=== PATIENT | female | born 1965 | race Caucasian/White ===

== ENCOUNTER → 2017-06-15 15:23 | Outpatient (CLI) | payer OTHER, SELFPAY ==
[2017-06-15 18:03] LABS: Absolute Lymphocyte Count 1.62 X10^3/ul (0.83-4.51); Absolute Neutrophil Count 4.8 X10^3/uL (2.0-7.7); Basophil# 0.05 X10^3/uL; Basophil% 0.7 % (0-1); Eosinophils% 4.1 % (0-5); Hemoglobin 13.3 g/dl (12.0-15.0); Lymphocyte # 1.62 X10^3/ul (4.0); Lymphocyte % 22.3 % (19-41); Mean Corp Hgb Conc 32.4 g/gl (32-36); Mean Corpuscular Volume 89.5 fL (81-99); Mean Platelet Vol. 10.2 fl (6.2-12.0); Monocyte# 0.49 X10^3/uL; Monocyte% 6.7 % (0-10); Neutrophil # 4.79 X10^3/uL (2.7-7.7); Neutrophil % 66.1 % (47-70); Platelet Count 293 K/mm3 (150-450); RBC Distribution Width CV 14.1 % (11.6-14.6); Red Blood Count 4.58 M/mm3 (4.2-5.4); White Blood Count 7.3 K/mm3 (4.4-11.0)
[2017-06-15 18:05] LABS: POSITIVE COUNT NO; POSITIVE DIFFERENTIAL NO; POSITIVE MORPHOLOGY NO
[2017-06-15 18:22] LABS: AST(SGOT) 40 U/L (15-37); Alanine Aminotransfer ALT/SGPT 70 U/L (13-56); Albumin, Serum 3.7 g/dL (3.2-5.0); Alkaline Phosphatase 95 U/L (45-117); Anion Gap 7 (5-15); BUN 21 mg/dL (7-18); BUN/Creat Ratio 24.5 RATIO (10-20); Calcium,Total 8.8 mg/dL (8.5-10.1); Chloride 103 mmol/L (98-107); Creatinine, Serum 0.86 mg/dL (0.55-1.02); EST Glomerular Filtration Rate 73 mL/min (>60); Est Glom Filt Rate - Afr Amer 89 mL/min (>60); Globulin 3.8 g/dL (2.2-4.2); Glucose 97 mg/dL (74-106); Potassium 3.9 mmol/L (3.5-5.1); Protein, Total 7.5 g/dL (6.4-8.2); Sodium Level 138 mmol/L (136-145)
== END ==
PROVIDERS: Family Provider Family Medicine; PCP Family Medicine; Visit Provider Internal Medicine Rheumatology
DX: M06.4 Inflammatory polyarthropathy (principal); Z79.899 Other long term (current) drug therapy; R76.8 Other specified abnormal immunological findings in serum; M15.9 Polyosteoarthritis, unspecified; M18.0 Bilateral primary osteoarthritis of first carpometacarpal joints; L40.8 Other psoriasis; M47.897 Other spondylosis, lumbosacral region; M50.30 Other cervical disc degeneration, unspecified cervical region
CPT/HCPCS: 36415; 80053; 85025

== ENCOUNTER → 2017-07-13 15:27 | Outpatient (CLI) | payer OTHER, SELFPAY ==
[2017-07-13 18:12] LABS: AST(SGOT) 42 U/L (15-37); Alanine Aminotransfer ALT/SGPT 60 U/L (13-56); Albumin, Serum 3.6 g/dL (3.2-5.0); Alkaline Phosphatase 95 U/L (45-117); Bilirubin, Direct 0.06 mg/dL (0.00-0.30); Globulin 3.5 g/dL (2.2-4.2); Protein, Total 7.1 g/dL (6.4-8.2)
== END ==
PROVIDERS: Family Provider Family Medicine; PCP Family Medicine; Visit Provider Internal Medicine Rheumatology
DX: M06.4 Inflammatory polyarthropathy (principal); Z79.899 Other long term (current) drug therapy; R76.8 Other specified abnormal immunological findings in serum; M15.9 Polyosteoarthritis, unspecified; M18.0 Bilateral primary osteoarthritis of first carpometacarpal joints; L40.8 Other psoriasis; M47.897 Other spondylosis, lumbosacral region; M50.30 Other cervical disc degeneration, unspecified cervical region
CPT/HCPCS: 36415; 80076

== ENCOUNTER → 2017-09-07 15:11 | Outpatient (CLI) | payer OTHER, SELFPAY ==
[2017-09-07 18:09] LABS: Absolute Lymphocyte Count 1.63 X10^3/ul (0.83-4.51); Absolute Neutrophil Count 4.9 X10^3/uL (2.0-7.7); Basophil# 0.05 X10^3/uL; Basophil% 0.7 % (0-1); Eosinophil# 0.24 X10^3/uL; Eosinophils% 3.2 % (0-5); Hematocrit 40.5 % (37-47); Hemoglobin 13.3 g/dl (12.0-15.0); Lymphocyte # 1.63 X10^3/ul (4.0); Mean Corp Hgb Conc 32.8 g/gl (32-36); Mean Corpuscular Hgb 29.2 pg (27.0-32.0); Mean Platelet Vol. 10.4 fl (6.2-12.0); Monocyte# 0.53 X10^3/uL; Monocyte% 7.2 % (0-10); Neutrophil # 4.93 X10^3/uL (2.7-7.7); Neutrophil % 66.6 % (47-70); Platelet Count 290 K/mm3 (150-450); RBC Distribution Width CV 14.3 % (11.6-14.6); RBC Distribution Width SD 46.1 fl (35.1-43.9); Red Blood Count 4.55 M/mm3 (4.2-5.4); White Blood Count 7.4 K/mm3 (4.4-11.0)
[2017-09-07 18:11] LABS: POSITIVE COUNT NO; POSITIVE DIFFERENTIAL NO; POSITIVE MORPHOLOGY NO
[2017-09-07 18:26] LABS: ALB/GLOB Ratio 0.9 RATIO (0.9-2.4); AST(SGOT) 31 U/L (15-37); Alanine Aminotransfer ALT/SGPT 55 U/L (13-56); Albumin, Serum 3.5 g/dL (3.2-5.0); Alkaline Phosphatase 92 U/L (45-117); Anion Gap 8 (5-15); BUN 20 mg/dL (7-18); BUN/Creat Ratio 23.1 RATIO (10-20); Chloride 106 mmol/L (98-107); Creatinine, Serum 0.87 mg/dL (0.55-1.02); EST Glomerular Filtration Rate 72 mL/min (>60); Est Glom Filt Rate - Afr Amer 88 mL/min (>60); Globulin 3.8 g/dL (2.2-4.2); Glucose 104 mg/dL (74-106); Protein, Total 7.3 g/dL (6.4-8.2); Sodium Level 140 mmol/L (136-145)
== END ==
PROVIDERS: Family Provider Family Medicine; PCP Family Medicine; Visit Provider Internal Medicine Rheumatology
DX: M06.4 Inflammatory polyarthropathy (principal); Z79.899 Other long term (current) drug therapy; R76.8 Other specified abnormal immunological findings in serum; M15.9 Polyosteoarthritis, unspecified; M18.0 Bilateral primary osteoarthritis of first carpometacarpal joints; L40.8 Other psoriasis; M47.897 Other spondylosis, lumbosacral region; M50.30 Other cervical disc degeneration, unspecified cervical region
CPT/HCPCS: 36415; 80053; 85025

== ENCOUNTER → 2017-11-30 16:22 | Outpatient (CLI) | payer OTHER, SELFPAY ==
[2017-11-30 18:05] LABS: Absolute Lymphocyte Count 1.85 X10^3/ul (0.83-4.51); Absolute Neutrophil Count 6.1 X10^3/uL (2.0-7.7); Basophil# 0.04 X10^3/uL; Basophil% 0.5 % (0-1); Eosinophil# 0.16 X10^3/uL; Eosinophils% 1.9 % (0-5); Hematocrit 41.7 % (37-47); Hemoglobin 13.4 g/dl (12.0-15.0); Lymphocyte # 1.85 X10^3/ul (4.0); Lymphocyte % 21.5 % (19-41); Mean Corp Hgb Conc 32.1 g/gl (32-36); Mean Corpuscular Hgb 28.8 pg (27.0-32.0); Mean Corpuscular Volume 89.5 fL (81-99); Mean Platelet Vol. 10.1 fl (6.2-12.0); Monocyte# 0.49 X10^3/uL; Monocyte% 5.7 % (0-10); Neutrophil # 6.07 X10^3/uL (2.7-7.7); Neutrophil % 70.3 % (47-70); Platelet Count 273 K/mm3 (150-450); RBC Distribution Width CV 14.3 % (11.6-14.6); RBC Distribution Width SD 46.2 fl (35.1-43.9); Red Blood Count 4.66 M/mm3 (4.2-5.4); White Blood Count 8.6 K/mm3 (4.4-11.0)
[2017-11-30 18:16] LABS: POSITIVE COUNT NO; POSITIVE DIFFERENTIAL NO; POSITIVE MORPHOLOGY NO
[2017-11-30 18:21] LABS: AST(SGOT) 39 U/L (15-37); Alanine Aminotransfer ALT/SGPT 51 U/L (13-56); Albumin, Serum 3.7 g/dL (3.2-5.0); Alkaline Phosphatase 89 U/L (45-117); Anion Gap 9 (5-15); BUN 14 mg/dL (7-18); BUN/Creat Ratio 15.7 RATIO (10-20); Calcium,Total 9.3 mg/dL (8.5-10.1); Chloride 105 mmol/L (98-107); Creatinine, Serum 0.89 mg/dL (0.55-1.02); EST Glomerular Filtration Rate 70 mL/min (>60); Est Glom Filt Rate - Afr Amer 85 mL/min (>60); Globulin 3.6 g/dL (2.2-4.2); Glucose 84 mg/dL (74-106); Potassium 3.8 mmol/L (3.5-5.1); Protein, Total 7.3 g/dL (6.4-8.2); Sodium Level 140 mmol/L (136-145)
== END ==
PROVIDERS: Family Provider Family Medicine; PCP Family Medicine; Visit Provider Internal Medicine Rheumatology
DX: M06.4 Inflammatory polyarthropathy (principal); M50.30 Other cervical disc degeneration, unspecified cervical region; M18.0 Bilateral primary osteoarthritis of first carpometacarpal joints; M47.897 Other spondylosis, lumbosacral region; L40.8 Other psoriasis; R76.8 Other specified abnormal immunological findings in serum; Z79.899 Other long term (current) drug therapy
CPT/HCPCS: 36415; 80053; 85025

== ENCOUNTER → 2018-03-07 16:07 | Outpatient (CLI) | payer OTHER, SELFPAY ==
[2018-03-07 17:40] LABS: Absolute Lymphocyte Count 1.78 X10^3/ul (0.83-4.51); Basophil# 0.04 X10^3/uL; Basophil% 0.5 % (0-1); Eosinophil# 0.35 X10^3/uL; Eosinophils% 4.6 % (0-5); Hematocrit 42.6 % (37-47); Hemoglobin 13.9 g/dl (12.0-15.0); Lymphocyte # 1.78 X10^3/ul (4.0); Lymphocyte % 23.3 % (19-41); Mean Corp Hgb Conc 32.6 g/gl (32-36); Mean Corpuscular Hgb 29.1 pg (27.0-32.0); Mean Corpuscular Volume 89.3 fL (81-99); Mean Platelet Vol. 10.4 fl (6.2-12.0); Monocyte# 0.52 X10^3/uL; Monocyte% 6.8 % (0-10); Neutrophil # 4.95 X10^3/uL (2.7-7.7); Neutrophil % 64.7 % (47-70); Platelet Count 283 K/mm3 (150-450); RBC Distribution Width CV 14.4 % (11.6-14.6); RBC Distribution Width SD 46.7 fl (35.1-43.9); Red Blood Count 4.77 M/mm3 (4.2-5.4); White Blood Count 7.7 K/mm3 (4.4-11.0)
[2018-03-07 17:42] LABS: POSITIVE COUNT NO; POSITIVE DIFFERENTIAL NO; POSITIVE MORPHOLOGY NO
[2018-03-07 17:52] LABS: BUN 16 mg/dL (7-18); Creatinine, Serum 0.84 mg/dL (0.55-1.02); Glucose 88 mg/dL (74-106)
[2018-03-07 17:53] LABS: ALB/GLOB Ratio 0.9 RATIO (0.9-2.4); AST(SGOT) 29 U/L (15-37); Alanine Aminotransfer ALT/SGPT 46 U/L (13-56); Albumin, Serum 3.6 g/dL (3.2-5.0); Alkaline Phosphatase 100 U/L (45-117); Anion Gap 4 (5-15); Calcium,Total 8.9 mg/dL (8.5-10.1); Chloride 103 mmol/L (98-107); EST Glomerular Filtration Rate 75 mL/min (>60); Est Glom Filt Rate - Afr Amer 90 mL/min (>60); Globulin 3.8 g/dL (2.2-4.2); Potassium 3.9 mmol/L (3.5-5.1); Protein, Total 7.4 g/dL (6.4-8.2); Sodium Level 136 mmol/L (136-145)
== END ==
PROVIDERS: Family Provider Family Medicine; PCP Family Medicine; Referring Provider Internal Medicine Rheumatology; Visit Provider Internal Medicine Rheumatology
DX: M06.4 Inflammatory polyarthropathy (principal); Z79.899 Other long term (current) drug therapy; R76.8 Other specified abnormal immunological findings in serum; M15.9 Polyosteoarthritis, unspecified; M18.0 Bilateral primary osteoarthritis of first carpometacarpal joints; L40.8 Other psoriasis; M47.897 Other spondylosis, lumbosacral region; M50.30 Other cervical disc degeneration, unspecified cervical region
CPT/HCPCS: 36415; 80053; 85025

== ENCOUNTER → 2018-06-07 15:17 | Outpatient (CLI) | payer OTHER, SELFPAY ==
[2018-06-07 17:40] LABS: Absolute Lymphocyte Count 1.84 X10^3/ul (0.83-4.51); Absolute Neutrophil Count 4.6 X10^3/uL (2.0-7.7); Basophil# 0.04 X10^3/uL; Basophil% 0.5 % (0-1); Eosinophil# 0.47 X10^3/uL; Eosinophils% 6.3 % (0-5); Hematocrit 42.3 % (37-47); Hemoglobin 13.6 g/dl (12.0-15.0); Lymphocyte # 1.84 X10^3/ul (4.0); Lymphocyte % 24.7 % (19-41); Mean Corp Hgb Conc 32.2 g/gl (32-36); Mean Corpuscular Hgb 28.8 pg (27.0-32.0); Mean Corpuscular Volume 89.6 fL (81-99); Monocyte# 0.48 X10^3/uL; Monocyte% 6.4 % (0-10); Neutrophil # 4.62 X10^3/uL (2.7-7.7); Platelet Count 275 K/mm3 (150-450); RBC Distribution Width CV 13.8 % (11.6-14.6); RBC Distribution Width SD 45.2 fl (35.1-43.9); Red Blood Count 4.72 M/mm3 (4.2-5.4); White Blood Count 7.5 K/mm3 (4.4-11.0)
[2018-06-07 17:47] LABS: POSITIVE COUNT NO; POSITIVE DIFFERENTIAL NO; POSITIVE MORPHOLOGY NO
[2018-06-07 18:07] LABS: AST(SGOT) 33 U/L (15-37); Alanine Aminotransfer ALT/SGPT 62 U/L (13-56); Albumin, Serum 3.6 g/dL (3.2-5.0); Alkaline Phosphatase 102 U/L (45-117); Anion Gap 9 (5-15); BUN 15 mg/dL (7-18); BUN/Creat Ratio 17.8 RATIO (10-20); Calcium,Total 8.7 mg/dL (8.5-10.1); Chloride 105 mmol/L (98-107); Creatinine, Serum 0.84 mg/dL (0.55-1.02); EST Glomerular Filtration Rate 74 mL/min (>60); Est Glom Filt Rate - Afr Amer 90 mL/min (>60); Globulin 3.6 g/dL (2.2-4.2); Glucose 88 mg/dL (74-106); Potassium 4.1 mmol/L (3.5-5.1); Protein, Total 7.2 g/dL (6.4-8.2); Sodium Level 140 mmol/L (136-145)
== END ==
PROVIDERS: Family Provider Family Medicine; PCP Family Medicine; Referring Provider Internal Medicine Rheumatology; Visit Provider Internal Medicine Rheumatology
DX: M06.4 Inflammatory polyarthropathy (principal); M18.0 Bilateral primary osteoarthritis of first carpometacarpal joints; L40.8 Other psoriasis; M47.897 Other spondylosis, lumbosacral region; M50.30 Other cervical disc degeneration, unspecified cervical region; R76.8 Other specified abnormal immunological findings in serum; Z79.899 Other long term (current) drug therapy
CPT/HCPCS: 36415; 80053; 85025

== ENCOUNTER → 2018-07-23 09:12 | Outpatient (CLI) | payer OTHER, SELFPAY ==
--- NOTE | 2018-07-23 09:18 | US_ITS ---
STUDY: ABDOMINAL ULTRASOUND - RIGHT UPPER QUADRANT REASON FOR VISIT: Female, 53 years old. Elevated liver enzymes TECHNIQUE: Ultrasound evaluation of the right upper quadrant was performed with real-time and static de leon-scale imaging. TECHNICAL QUALITY: Adequate. COMPARISON: Prior comparison studies are not available for review at this time. FINDINGS: Liver: The liver measures 14.9 cm. There is increased echogenicity of the liver. The bile ducts are within normal limits. There is hepatic color flow. The direction of portal flow is hepatopetal. There is no demonstrated mass lesion. Gallbladder: The patient is status post cholecystectomy. Common Bile Duct (C.B.D.): The common bile duct measures 2.6 mm. Pancreas: There is normal echogenicity of the visualized pancreas. There is no demonstrated pancreatic mass or cyst. Right Kidney: Normal size of the right kidney. The right kidney measures 10.3 cm. Normal renal cortex. The right cortex measures 1.7 cm. There is no demonstrated renal mass or cyst. There is no right hydronephrosis. US/Abdomen Limited IMPRESSION: 1. Increased echo pattern of liver is nonspecific but most commonly associated with hepatic steatosis. No hepatic masses or biliary dilation. 2. Cholecystectomy. Electronically Signed: Elvis Vo MD at 8:49 EDT , Service support ,
== END ==
PROVIDERS: Family Provider Family Medicine; PCP Family Medicine; Referring Provider Internal Medicine Rheumatology; Visit Provider Internal Medicine Rheumatology
DX: R94.5 Abnormal results of liver function studies (principal); M06.4 Inflammatory polyarthropathy; R76.8 Other specified abnormal immunological findings in serum; M18.0 Bilateral primary osteoarthritis of first carpometacarpal joints; L40.8 Other psoriasis; M47.897 Other spondylosis, lumbosacral region; M50.30 Other cervical disc degeneration, unspecified cervical region; M72.0 Palmar fascial fibromatosis [Dupuytren]; Z79.899 Other long term (current) drug therapy
CPT/HCPCS: 76705

== ENCOUNTER → 2018-08-16 | Outpatient (CLI) | payer OTHER, SELFPAY ==
[2018-08-16 17:40] LABS: Absolute Lymphocyte Count 1.63 X10^3/ul (0.83-4.51); Absolute Neutrophil Count 4.8 X10^3/uL (2.0-7.7); Basophil# 0.05 X10^3/uL; Basophil% 0.7 % (0-1); Eosinophil# 0.34 X10^3/uL; Eosinophils% 4.7 % (0-5); Hematocrit 40.2 % (37-47); Hemoglobin 13.2 g/dl (12.0-15.0); Lymphocyte # 1.63 X10^3/ul (4.0); Lymphocyte % 22.5 % (19-41); Mean Corp Hgb Conc 32.8 g/gl (32-36); Mean Corpuscular Hgb 28.8 pg (27.0-32.0); Mean Corpuscular Volume 87.8 fL (81-99); Mean Platelet Vol. 9.4 fl (6.2-12.0); Monocyte# 0.46 X10^3/uL; Monocyte% 6.3 % (0-10); Neutrophil # 4.76 X10^3/uL (2.7-7.7); Neutrophil % 65.7 % (47-70); Platelet Count 285 K/mm3 (150-450); RBC Distribution Width CV 14.1 % (11.6-14.6); RBC Distribution Width SD 44.9 fl (35.1-43.9); Red Blood Count 4.58 M/mm3 (4.2-5.4); White Blood Count 7.3 K/mm3 (4.4-11.0)
[2018-08-16 17:44] LABS: ALB/GLOB Ratio 1.1 RATIO (0.9-2.4); AST(SGOT) 34 U/L (15-37); Alanine Aminotransfer ALT/SGPT 45 U/L (13-56); Albumin, Serum 3.6 g/dL (3.2-5.0); Alkaline Phosphatase 92 U/L (45-117); Anion Gap 8 (5-15); BUN 14 mg/dL (7-18); BUN/Creat Ratio 18.3 RATIO (10-20); Calcium,Total 8.8 mg/dL (8.5-10.1); Chloride 104 mmol/L (98-107); Creatinine, Serum 0.77 mg/dL (0.55-1.02); EST Glomerular Filtration Rate 83 mL/min (>60); Est Glom Filt Rate - Afr Amer 101 mL/min (>60); Globulin 3.3 g/dL (2.2-4.2); Glucose 91 mg/dL (74-106); Potassium 4.1 mmol/L (3.5-5.1); Protein, Total 6.9 g/dL (6.4-8.2); Sodium Level 140 mmol/L (136-145)
[2018-08-16 17:52] LABS: POSITIVE COUNT NO; POSITIVE DIFFERENTIAL NO; POSITIVE MORPHOLOGY NO
== END | disposition home or self-care (01) ==
LOC: MTLAB 15:27
PROVIDERS: Family Provider Family Medicine; PCP Family Medicine; Referring Provider Internal Medicine Rheumatology; Visit Provider Internal Medicine Rheumatology
DX: M06.4 Inflammatory polyarthropathy (principal); R76.8 Other specified abnormal immunological findings in serum; M18.0 Bilateral primary osteoarthritis of first carpometacarpal joints; L40.8 Other psoriasis; M47.897 Other spondylosis, lumbosacral region; M50.30 Other cervical disc degeneration, unspecified cervical region; M72.0 Palmar fascial fibromatosis [Dupuytren]; Z79.899 Other long term (current) drug therapy
CPT/HCPCS: 36415; 80053; 85025

== ENCOUNTER → 2018-11-22 16:01 | Outpatient (CLI) | payer OTHER, SELFPAY ==
[2018-11-22 17:29] LABS: Absolute Lymphocyte Count 1.55 X10^3/uL (0.83-4.51); Absolute Neutrophil Count 5.1 X10^3/uL (2.0-7.7); Basophil# 0.04 X10^3/uL; Basophil% 0.5 % (0-1); Eosinophil# 0.19 X10^3/uL; Eosinophils% 2.6 % (0-5); Hemoglobin 13.4 g/dL (12.0-15.0); Lymphocyte # 1.55 X10^3/ul (4.0); Lymphocyte % 21.1 % (19-41); Mean Corp Hgb Conc 32.7 g/dL (32-36); Mean Corpuscular Hgb 28.7 pg (27.0-32.0); Mean Corpuscular Volume 87.8 fL (81-99); Mean Platelet Vol. 10.3 fl (6.2-12.0); Monocyte# 0.44 X10^3/uL; NRBC Flagged by Analyzer 0 % (0-5); Neutrophil # 5.09 X10^3/uL (2.7-7.7); Neutrophil % 69.5 % (47-70); Platelet Count 280 K/mm3 (150-450); RBC Distribution Width CV 14.2 % (11.6-14.6); RBC Distribution Width SD 45.1 fl (35.1-43.9); Red Blood Count 4.67 M/mm3 (4.2-5.4); White Blood Count 7.3 K/mm3 (4.4-11.0)
[2018-11-22 18:05] LABS: AST(SGOT) 42 U/L (15-37); Alanine Aminotransfer ALT/SGPT 60 U/L (13-56); Albumin, Serum 3.6 g/dL (3.2-5.0); Alkaline Phosphatase 98 U/L (45-117); Anion Gap 8 (5-15); BUN 12 mg/dL (7-18); BUN/Creat Ratio 14.3 RATIO (10-20); Calcium,Total 9.2 mg/dL (8.5-10.1); Chloride 105 mmol/L (98-107); Creatinine, Serum 0.84 mg/dL (0.55-1.02); EST Glomerular Filtration Rate 75 mL/min (>60); Est Glom Filt Rate - Afr Amer 91 mL/min (>60); Globulin 3.5 g/dL (2.2-4.2); Glucose 82 mg/dL (74-106); Potassium 3.8 mmol/L (3.5-5.1); Protein, Total 7.1 g/dL (6.4-8.2); Sodium Level 140 mmol/L (136-145)
== END ==
PROVIDERS: Family Provider Family Medicine; PCP Family Medicine; Referring Provider Internal Medicine Rheumatology; Visit Provider Internal Medicine Rheumatology
DX: M06.4 Inflammatory polyarthropathy (principal); Z79.899 Other long term (current) drug therapy; R76.8 Other specified abnormal immunological findings in serum; M18.0 Bilateral primary osteoarthritis of first carpometacarpal joints; L40.8 Other psoriasis; M47.897 Other spondylosis, lumbosacral region; M50.30 Other cervical disc degeneration, unspecified cervical region; M72.0 Palmar fascial fibromatosis [Dupuytren]
CPT/HCPCS: 36415; 80053; 85025

== ENCOUNTER → 2019-01-11 16:16 | Outpatient (CLI) | payer OTHER, SELFPAY ==
[2019-01-11 17:32] LABS: Absolute Lymphocyte Count 1.56 X10^3/uL (0.83-4.51); Absolute Neutrophil Count 7.9 X10^3/uL (2.0-7.7); Basophil# 0.05 X10^3/uL; Basophil% 0.5 % (0-1); Eosinophil# 0.13 X10^3/uL; Eosinophils% 1.3 % (0-5); Hematocrit 43.3 % (37-47); Hemoglobin 14.2 g/dL (12.0-15.0); Lymphocyte # 1.56 X10^3/ul (4.0); Lymphocyte % 15.3 % (19-41); Mean Corp Hgb Conc 32.8 g/dL (32-36); Mean Corpuscular Hgb 29.5 pg (27.0-32.0); Mean Corpuscular Volume 89.8 fL (81-99); Mean Platelet Vol. 10.1 fl (6.2-12.0); Monocyte# 0.49 X10^3/uL; Monocyte% 4.8 % (0-10); NRBC Flagged by Analyzer 0 % (0-5); Neutrophil # 7.94 X10^3/uL (2.7-7.7); Neutrophil % 77.9 % (47-70); Platelet Count 310 K/mm3 (150-450); RBC Distribution Width CV 14.2 % (11.6-14.6); RBC Distribution Width SD 46.5 fl (35.1-43.9); Red Blood Count 4.82 M/mm3 (4.2-5.4); White Blood Count 10.2 K/mm3 (4.4-11.0)
[2019-01-11 17:57] LABS: ALB/GLOB Ratio 0.9 RATIO (0.9-2.4); AST(SGOT) 30 U/L (15-37); Alanine Aminotransfer ALT/SGPT 46 U/L (13-56); Albumin, Serum 3.7 g/dL (3.2-5.0); Alkaline Phosphatase 100 U/L (45-117); Anion Gap 6 (5-15); BUN 16 mg/dL (7-18); BUN/Creat Ratio 18.5 RATIO (10-20); Bilirubin, Direct 0.06 mg/dL (0.00-0.30); CPK Total, Creatine Kinase 285 U/L (26-192); Chloride 107 mmol/L (98-107); Creatinine, Serum 0.86 mg/dL (0.55-1.02); EST Glomerular Filtration Rate 72 mL/min (>60); Est Glom Filt Rate - Afr Amer 88 mL/min (>60); Glucose 86 mg/dL (74-106); Potassium 4.3 mmol/L (3.5-5.1); Protein, Total 7.7 g/dL (6.4-8.2); Sodium Level 141 mmol/L (136-145)
== END ==
PROVIDERS: Family Provider Family Medicine; PCP Family Medicine; Referring Provider Internal Medicine Rheumatology; Visit Provider Internal Medicine Rheumatology
DX: M06.4 Inflammatory polyarthropathy (principal); R76.8 Other specified abnormal immunological findings in serum; M18.0 Bilateral primary osteoarthritis of first carpometacarpal joints; L40.8 Other psoriasis; M47.897 Other spondylosis, lumbosacral region; K76.0 Fatty (change of) liver, not elsewhere classified; M50.30 Other cervical disc degeneration, unspecified cervical region; M72.0 Palmar fascial fibromatosis [Dupuytren]; Z79.899 Other long term (current) drug therapy
CPT/HCPCS: 36415; 80053; 82248; 82550; 85025

== ENCOUNTER → 2019-02-21 16:09 | Outpatient (CLI) | payer OTHER, SELFPAY ==
[2019-02-21 17:27] LABS: Absolute Lymphocyte Count 1.63 X10^3/uL (0.83-4.51); Absolute Neutrophil Count 6.8 X10^3/uL (2.0-7.7); Basophil# 0.06 X10^3/uL; Basophil% 0.7 % (0-1); Eosinophil# 0.17 X10^3/uL; Eosinophils% 1.8 % (0-5); Hematocrit 44.1 % (37-47); Hemoglobin 14.3 g/dL (12.0-15.0); Lymphocyte # 1.63 X10^3/ul (4.0); Lymphocyte % 17.7 % (19-41); Mean Corp Hgb Conc 32.4 g/dL (32-36); Mean Corpuscular Hgb 29.2 pg (27.0-32.0); Mean Corpuscular Volume 90.2 fL (81-99); Mean Platelet Vol. 9.9 fl (6.2-12.0); Monocyte# 0.52 X10^3/uL; Monocyte% 5.7 % (0-10); NRBC Flagged by Analyzer 0 % (0-5); Neutrophil # 6.78 X10^3/uL (2.7-7.7); Neutrophil % 73.8 % (47-70); Platelet Count 289 K/mm3 (150-450); RBC Distribution Width CV 14.4 % (11.6-14.6); RBC Distribution Width SD 47.2 fl (35.1-43.9); Red Blood Count 4.89 M/mm3 (4.2-5.4); White Blood Count 9.2 K/mm3 (4.4-11.0)
[2019-02-21 17:45] LABS: ALB/GLOB Ratio 1.1 RATIO (0.9-2.4); AST(SGOT) 28 U/L (15-37); Alanine Aminotransfer ALT/SGPT 36 U/L (13-56); Albumin, Serum 3.8 g/dL (3.2-5.0); Alkaline Phosphatase 98 U/L (45-117); Anion Gap 6 (5-15); BUN 18 mg/dL (7-18); Calcium,Total 9.1 mg/dL (8.5-10.1); Chloride 107 mmol/L (98-107); Creatinine, Serum 0.82 mg/dL (0.55-1.02); EST Glomerular Filtration Rate 77 mL/min (>60); Est Glom Filt Rate - Afr Amer 93 mL/min (>60); Globulin 3.6 g/dL (2.2-4.2); Glucose 92 mg/dL (74-106); Potassium 4.2 mmol/L (3.5-5.1); Protein, Total 7.4 g/dL (6.4-8.2); Sodium Level 140 mmol/L (136-145)
== END ==
PROVIDERS: Family Provider Family Medicine; PCP Family Medicine; Referring Provider Internal Medicine Rheumatology; Visit Provider Internal Medicine Rheumatology
DX: M06.4 Inflammatory polyarthropathy (principal); M18.0 Bilateral primary osteoarthritis of first carpometacarpal joints; M47.897 Other spondylosis, lumbosacral region; M50.30 Other cervical disc degeneration, unspecified cervical region; M72.0 Palmar fascial fibromatosis [Dupuytren]; L40.8 Other psoriasis; R76.8 Other specified abnormal immunological findings in serum; Z79.899 Other long term (current) drug therapy
CPT/HCPCS: 36415; 80053; 85025

== ENCOUNTER → 2019-05-24 16:09 | Outpatient (CLI) | payer OTHER, SELFPAY ==
[2019-05-24 17:30] LABS: Absolute Lymphocyte Count 1.27 X10^3/uL (0.83-4.51); Absolute Neutrophil Count 8.2 X10^3/uL (2.0-7.7); Basophil# 0.07 X10^3/uL; Basophil% 0.7 % (0-1); Eosinophil# 0.04 X10^3/uL; Eosinophils% 0.4 % (0-5); Hematocrit 42.1 % (37-47); Hemoglobin 13.8 g/dL (12.0-15.0); Lymphocyte # 1.27 X10^3/ul (4.0); Lymphocyte % 12.7 % (19-41); Mean Corp Hgb Conc 32.8 g/dL (32-36); Mean Corpuscular Hgb 29.5 pg (27.0-32.0); Mean Platelet Vol. 9.8 fl (6.2-12.0); Monocyte# 0.43 X10^3/uL; Monocyte% 4.3 % (0-10); NRBC Flagged by Analyzer 0 % (0-5); Neutrophil # 8.16 X10^3/uL (2.7-7.7); Neutrophil % 81.6 % (47-70); Platelet Count 356 K/mm3 (150-450); RBC Distribution Width CV 13.7 % (11.6-14.6); RBC Distribution Width SD 44.2 fl (35.1-43.9); Red Blood Count 4.68 M/mm3 (4.2-5.4)
[2019-05-24 17:59] LABS: ALB/GLOB Ratio 1.1 RATIO (0.9-2.4); AST(SGOT) 25 U/L (15-37); Alanine Aminotransfer ALT/SGPT 42 U/L (13-56); Albumin, Serum 3.8 g/dL (3.2-5.0); Alkaline Phosphatase 97 U/L (45-117); Anion Gap 5 (5-15); BUN 19 mg/dL (7-18); BUN/Creat Ratio 22.8 RATIO (10-20); Calcium,Total 9.4 mg/dL (8.5-10.1); Chloride 109 mmol/L (98-107); Creatinine, Serum 0.83 mg/dL (0.55-1.02); EST Glomerular Filtration Rate 75 mL/min (>60); Est Glom Filt Rate - Afr Amer 91 mL/min (>60); Globulin 3.6 g/dL (2.2-4.2); Glucose 104 mg/dL (74-106); Protein, Total 7.4 g/dL (6.4-8.2); Sodium Level 139 mmol/L (136-145)
== END ==
PROVIDERS: PCP Family Medicine; Referring Provider Internal Medicine Rheumatology; Visit Provider Internal Medicine Rheumatology
DX: M06.4 Inflammatory polyarthropathy (principal); M18.0 Bilateral primary osteoarthritis of first carpometacarpal joints; L40.8 Other psoriasis; M47.897 Other spondylosis, lumbosacral region; M50.30 Other cervical disc degeneration, unspecified cervical region; M72.0 Palmar fascial fibromatosis [Dupuytren]; R76.8 Other specified abnormal immunological findings in serum; Z79.899 Other long term (current) drug therapy
CPT/HCPCS: 36415; 80053; 85025

== ENCOUNTER → 2019-06-28 16:13 | Outpatient (CLI) | payer OTHER, SELFPAY ==
[2019-06-28 18:12] LABS: AST(SGOT) 29 U/L (15-37); Alanine Aminotransfer ALT/SGPT 42 U/L (13-56); Albumin, Serum 3.8 g/dL (3.2-5.0); Alkaline Phosphatase 91 U/L (45-117); Anion Gap 7 (5-15); BUN 23 mg/dL (7-18); BUN/Creat Ratio 21.5 RATIO (10-20); Calcium,Total 9.3 mg/dL (8.5-10.1); Chloride 103 mmol/L (98-107); Creatinine, Serum 1.07 mg/dL (0.55-1.02); EST Glomerular Filtration Rate 56 mL/min (>60); Est Glom Filt Rate - Afr Amer 68 mL/min (>60); Globulin 3.8 g/dL (2.2-4.2); Glucose 89 mg/dL (74-106); Protein, Total 7.6 g/dL (6.4-8.2); Sodium Level 137 mmol/L (136-145)
== END ==
PROVIDERS: PCP Family Medicine; Referring Provider Internal Medicine Rheumatology; Visit Provider Internal Medicine Rheumatology
DX: M06.4 Inflammatory polyarthropathy (principal); M18.0 Bilateral primary osteoarthritis of first carpometacarpal joints; L40.8 Other psoriasis; M47.897 Other spondylosis, lumbosacral region; K76.0 Fatty (change of) liver, not elsewhere classified; M50.30 Other cervical disc degeneration, unspecified cervical region; M72.0 Palmar fascial fibromatosis [Dupuytren]; R76.8 Other specified abnormal immunological findings in serum; Z79.899 Other long term (current) drug therapy
CPT/HCPCS: 36415; 80053

== ENCOUNTER → 2019-09-26 16:04 | Outpatient (CLI) | payer OTHER, SELFPAY ==
[2019-09-26 17:42] LABS: Absolute Neutrophil Count 11.2 X10^3/uL (2.0-7.7); Basophil# 0.07 X10^3/uL; Basophil% 0.6 % (0-1); Eosinophil# 0.04 X10^3/uL; Eosinophils% 0.3 % (0-5); Hematocrit 44.8 % (37-47); Hemoglobin 14.2 g/dL (12.0-15.0); Lymphocyte % 6.4 % (19-41); Mean Corp Hgb Conc 31.7 g/dL (32-36); Mean Corpuscular Hgb 29.2 pg (27.0-32.0); Mean Corpuscular Volume 92.2 fL (81-99); Mean Platelet Vol. 9.8 fl (6.2-12.0); Monocyte# 0.45 X10^3/uL; Monocyte% 3.6 % (0-10); NRBC Flagged by Analyzer 0 % (0-5); Neutrophil # 11.17 X10^3/uL (2.7-7.7); Neutrophil % 88.6 % (47-70); Platelet Count 354 K/mm3 (150-450); RBC Distribution Width CV 14.6 % (11.6-14.6); RBC Distribution Width SD 49.1 fl (35.1-43.9); Red Blood Count 4.86 M/mm3 (4.2-5.4); White Blood Count 12.6 K/mm3 (4.4-11.0)
[2019-09-26 18:00] LABS: ALB/GLOB Ratio 0.9 RATIO (0.9-2.4); AST(SGOT) 22 U/L (15-37); Alanine Aminotransfer ALT/SGPT 41 U/L (13-56); Albumin, Serum 3.5 g/dL (3.2-5.0); Alkaline Phosphatase 96 U/L (45-117); Anion Gap 8 (5-15); BUN 22 mg/dL (7-18); Calcium,Total 9.4 mg/dL (8.5-10.1); Chloride 109 mmol/L (98-107); Creatinine, Serum 0.88 mg/dL (0.55-1.02); EST Glomerular Filtration Rate 70 mL/min (>60); Est Glom Filt Rate - Afr Amer 85 mL/min (>60); Globulin 3.7 g/dL (2.2-4.2); Glucose 109 mg/dL (74-106); Potassium 4.1 mmol/L (3.5-5.1); Protein, Total 7.2 g/dL (6.4-8.2); Sodium Level 142 mmol/L (136-145)
== END ==
PROVIDERS: Referring Provider Internal Medicine Rheumatology; Visit Provider Internal Medicine Rheumatology
DX: M06.4 Inflammatory polyarthropathy (principal); R76.8 Other specified abnormal immunological findings in serum; M18.0 Bilateral primary osteoarthritis of first carpometacarpal joints; L40.8 Other psoriasis; M47.897 Other spondylosis, lumbosacral region; K76.0 Fatty (change of) liver, not elsewhere classified; M50.30 Other cervical disc degeneration, unspecified cervical region; M72.0 Palmar fascial fibromatosis [Dupuytren]; Z79.899 Other long term (current) drug therapy
CPT/HCPCS: 36415; 80053; 85025

== ENCOUNTER → 2019-12-25 | Outpatient (CLI) | payer OTHER, SELFPAY ==
[2019-12-25 18:10] LABS: Absolute Lymphocyte Count 1.52 X10^3/uL (0.83-4.51); Absolute Neutrophil Count 6.9 X10^3/uL (2.0-7.7); Basophil# 0.06 X10^3/uL; Basophil% 0.7 % (0-1); Eosinophils% 2.2 % (0-5); Hematocrit 42.9 % (37-47); Hemoglobin 13.9 g/dL (12.0-15.0); Lymphocyte # 1.52 X10^3/ul (4.0); Lymphocyte % 16.5 % (19-41); Mean Corp Hgb Conc 32.4 g/dL (32-36); Mean Corpuscular Volume 89.6 fL (81-99); Mean Platelet Vol. 10.3 fl (6.2-12.0); Monocyte# 0.52 X10^3/uL; Monocyte% 5.6 % (0-10); NRBC Flagged by Analyzer 0 % (0-5); Neutrophil # 6.89 X10^3/uL (2.7-7.7); Neutrophil % 74.7 % (47-70); Platelet Count 310 K/mm3 (150-450); RBC Distribution Width CV 13.4 % (11.6-14.6); Red Blood Count 4.79 M/mm3 (4.2-5.4); White Blood Count 9.2 K/mm3 (4.4-11.0)
[2019-12-25 18:22] LABS: ALB/GLOB Ratio 0.9 RATIO (0.9-2.4); AST(SGOT) 26 U/L (15-37); Alanine Aminotransfer ALT/SGPT 42 U/L (13-56); Albumin, Serum 3.3 g/dL (3.2-5.0); Alkaline Phosphatase 100 U/L (45-117); Anion Gap 7 (5-15); BUN 16 mg/dL (7-18); BUN/Creat Ratio 13.1 RATIO (10-20); Calcium,Total 8.8 mg/dL (8.5-10.1); Chloride 107 mmol/L (98-107); Creatinine, Serum 1.22 mg/dL (0.55-1.02); EST Glomerular Filtration Rate 48 mL/min (>60); Est Glom Filt Rate - Afr Amer 59 mL/min (>60); Globulin 3.7 g/dL (2.2-4.2); Glucose 99 mg/dL (74-106); Sodium Level 140 mmol/L (136-145)
== END | disposition home or self-care (01) ==
LOC: LAB 16:12
PROVIDERS: Referring Provider Internal Medicine Rheumatology; Visit Provider Internal Medicine Rheumatology
DX: M06.4 Inflammatory polyarthropathy (principal); R76.8 Other specified abnormal immunological findings in serum; M18.0 Bilateral primary osteoarthritis of first carpometacarpal joints; L40.8 Other psoriasis; M47.897 Other spondylosis, lumbosacral region; K76.0 Fatty (change of) liver, not elsewhere classified; M50.30 Other cervical disc degeneration, unspecified cervical region; M72.0 Palmar fascial fibromatosis [Dupuytren]; Z79.899 Other long term (current) drug therapy
CPT/HCPCS: 36415; 80053; 85025

== ENCOUNTER → 2020-02-02 16:41 | Outpatient (CLI) | payer OTHER, SELFPAY ==
[2020-02-02 18:32] LABS: ALB/GLOB Ratio 0.9 RATIO (0.9-2.4); AST(SGOT) 30 U/L (15-37); Alanine Aminotransfer ALT/SGPT 40 U/L (13-56); Albumin, Serum 3.7 g/dL (3.2-5.0); Alkaline Phosphatase 106 U/L (45-117); Anion Gap 5 (5-15); BUN 14 mg/dL (7-18); BUN/Creat Ratio 15.2 RATIO (10-20); Calcium,Total 9.3 mg/dL (8.5-10.1); Chloride 104 mmol/L (98-107); Creatinine, Serum 0.92 mg/dL (0.55-1.02); EST Glomerular Filtration Rate 67 mL/min (>60); Est Glom Filt Rate - Afr Amer 81 mL/min (>60); Glucose 87 mg/dL (74-106); Potassium 3.6 mmol/L (3.5-5.1); Protein, Total 7.7 g/dL (6.4-8.2); Sodium Level 138 mmol/L (136-145)
== END ==
PROVIDERS: Referring Provider Internal Medicine Rheumatology; Visit Provider Internal Medicine Rheumatology
DX: M06.4 Inflammatory polyarthropathy (principal); R76.8 Other specified abnormal immunological findings in serum; M15.9 Polyosteoarthritis, unspecified; L40.8 Other psoriasis; M47.897 Other spondylosis, lumbosacral region; K76.0 Fatty (change of) liver, not elsewhere classified; M50.30 Other cervical disc degeneration, unspecified cervical region; M72.0 Palmar fascial fibromatosis [Dupuytren]; Z79.899 Other long term (current) drug therapy
CPT/HCPCS: 36415; 80053

== ENCOUNTER → 2020-04-02 16:03 | Outpatient (CLI) | payer OTHER, SELFPAY ==
[2020-04-02 17:47] LABS: Absolute Lymphocyte Count 1.54 X10^3/uL (0.83-4.51); Absolute Neutrophil Count 6.2 X10^3/uL (2.0-7.7); Basophil# 0.07 X10^3/uL; Basophil% 0.8 % (0-1); Eosinophil# 0.17 X10^3/uL; Hematocrit 41.1 % (37-47); Hemoglobin 13.1 g/dL (12.0-15.0); Lymphocyte # 1.54 X10^3/ul (4.0); Lymphocyte % 18.3 % (19-41); Mean Corp Hgb Conc 31.9 g/dL (32-36); Mean Corpuscular Hgb 28.7 pg (27.0-32.0); Mean Corpuscular Volume 90.1 fL (81-99); Monocyte# 0.47 X10^3/uL; Monocyte% 5.6 % (0-10); NRBC Flagged by Analyzer 0 % (0-5); Neutrophil # 6.15 X10^3/uL (2.7-7.7); Neutrophil % 73.1 % (47-70); Platelet Count 309 K/mm3 (150-450); RBC Distribution Width CV 14.3 % (11.6-14.6); RBC Distribution Width SD 46.9 fl (35.1-43.9); Red Blood Count 4.56 M/mm3 (4.2-5.4); White Blood Count 8.4 K/mm3 (4.4-11.0)
[2020-04-02 18:13] LABS: AST(SGOT) 28 U/L (15-37); Alanine Aminotransfer ALT/SGPT 45 U/L (13-56); Albumin, Serum 3.6 g/dL (3.2-5.0); Alkaline Phosphatase 102 U/L (45-117); Anion Gap 6 (5-15); BUN 13 mg/dL (7-18); BUN/Creat Ratio 16.2 RATIO (10-20); Chloride 106 mmol/L (98-107); EST Glomerular Filtration Rate 79 mL/min (>60); Est Glom Filt Rate - Afr Amer 95 mL/min (>60); Globulin 3.6 g/dL (2.2-4.2); Glucose 81 mg/dL (74-106); Potassium 3.7 mmol/L (3.5-5.1); Protein, Total 7.2 g/dL (6.4-8.2); Sodium Level 137 mmol/L (136-145)
== END ==
PROVIDERS: Referring Provider Internal Medicine Rheumatology; Visit Provider Internal Medicine Rheumatology
DX: M06.4 Inflammatory polyarthropathy (principal); R76.8 Other specified abnormal immunological findings in serum; M15.9 Polyosteoarthritis, unspecified; L40.8 Other psoriasis; M47.897 Other spondylosis, lumbosacral region; K76.0 Fatty (change of) liver, not elsewhere classified; M50.30 Other cervical disc degeneration, unspecified cervical region; M72.0 Palmar fascial fibromatosis [Dupuytren]; Z79.899 Other long term (current) drug therapy
CPT/HCPCS: 36415; 80053; 85025

== ENCOUNTER → 2020-06-25 15:26 | Outpatient (CLI) | payer OTHER, SELFPAY ==
[2020-06-25 17:29] LABS: Absolute Lymphocyte Count 0.94 X10^3/uL (0.83-4.51); Absolute Neutrophil Count 8.1 X10^3/uL (2.0-7.7); Basophil# 0.06 X10^3/uL; Basophil% 0.6 % (0-1); Hematocrit 43.9 % (37-47); Lymphocyte # 0.94 X10^3/ul (4.0); Lymphocyte % 9.8 % (19-41); Mean Corp Hgb Conc 31.9 g/dL (32-36); Mean Corpuscular Volume 91.1 fL (81-99); Mean Platelet Vol. 10.1 fl (6.2-12.0); Monocyte# 0.38 X10^3/uL; Monocyte% 3.9 % (0-10); NRBC Flagged by Analyzer 0 % (0-5); Neutrophil # 8.13 X10^3/uL (2.7-7.7); Neutrophil % 84.5 % (47-70); Platelet Count 321 K/mm3 (150-450); RBC Distribution Width CV 14.3 % (11.6-14.6); RBC Distribution Width SD 47.6 fl (35.1-43.9); Red Blood Count 4.82 M/mm3 (4.2-5.4); White Blood Count 9.6 K/mm3 (4.4-11.0)
[2020-06-25 17:43] LABS: ALB/GLOB Ratio 0.9 RATIO (0.9-2.4); AST(SGOT) 27 U/L (15-37); Alanine Aminotransfer ALT/SGPT 39 U/L (13-56); Albumin, Serum 3.4 g/dL (3.2-5.0); Alkaline Phosphatase 100 U/L (45-117); Anion Gap 5 (5-15); BUN 17 mg/dL (7-18); Calcium,Total 8.9 mg/dL (8.5-10.1); Chloride 108 mmol/L (98-107); Creatinine, Serum 0.85 mg/dL (0.55-1.02); EST Glomerular Filtration Rate 73 mL/min (>60); Est Glom Filt Rate - Afr Amer 89 mL/min (>60); Globulin 3.9 g/dL (2.2-4.2); Glucose 99 mg/dL (74-106); Potassium 4.1 mmol/L (3.5-5.1); Protein, Total 7.3 g/dL (6.4-8.2); Sodium Level 140 mmol/L (136-145)
== END ==
PROVIDERS: Referring Provider Internal Medicine Rheumatology; Visit Provider Internal Medicine Rheumatology
DX: M06.4 Inflammatory polyarthropathy (principal); M18.0 Bilateral primary osteoarthritis of first carpometacarpal joints; L40.8 Other psoriasis; M47.897 Other spondylosis, lumbosacral region; K76.0 Fatty (change of) liver, not elsewhere classified; M50.30 Other cervical disc degeneration, unspecified cervical region; M72.0 Palmar fascial fibromatosis [Dupuytren]; R76.8 Other specified abnormal immunological findings in serum; Z79.899 Other long term (current) drug therapy
CPT/HCPCS: 36415; 80053; 85025

== ENCOUNTER → 2020-09-17 15:33 | Outpatient (CLI) | payer OTHER, SELFPAY ==
[2020-09-17 18:10] LABS: Absolute Neutrophil Count 8.6 X10^3/uL (2.0-7.7); Basophil# 0.07 X10^3/uL; Basophil% 0.7 % (0-1); Eosinophil# 0.19 X10^3/uL; Eosinophils% 1.8 % (0-5); Hematocrit 44.7 % (37-47); Hemoglobin 14.3 g/dL (12.0-15.0); Lymphocyte % 10.4 % (19-41); Mean Corpuscular Hgb 28.7 pg (27.0-32.0); Mean Corpuscular Volume 89.6 fL (81-99); Mean Platelet Vol. 10.3 fl (6.2-12.0); Monocyte# 0.61 X10^3/uL; Monocyte% 5.8 % (0-10); NRBC Flagged by Analyzer 0 % (0-5); Neutrophil # 8.58 X10^3/uL (2.7-7.7); Platelet Count 337 K/mm3 (150-450); RBC Distribution Width CV 14.5 % (11.6-14.6); RBC Distribution Width SD 46.8 fl (35.1-43.9); Red Blood Count 4.99 M/mm3 (4.2-5.4); White Blood Count 10.6 K/mm3 (4.4-11.0)
[2020-09-17 18:27] LABS: ALB/GLOB Ratio 0.9 RATIO (0.9-2.4); AST(SGOT) 19 U/L (15-37); Alanine Aminotransfer ALT/SGPT 37 U/L (13-56); Albumin, Serum 3.4 g/dL (3.2-5.0); Alkaline Phosphatase 97 U/L (45-117); Anion Gap 6 (5-15); BUN 18 mg/dL (7-18); Calcium,Total 9.2 mg/dL (8.5-10.1); Chloride 107 mmol/L (98-107); EST Glomerular Filtration Rate 69 mL/min (>60); Est Glom Filt Rate - Afr Amer 83 mL/min (>60); Globulin 3.7 g/dL (2.2-4.2); Glucose 110 mg/dL (74-106); Potassium 3.9 mmol/L (3.5-5.1); Protein, Total 7.1 g/dL (6.4-8.2); Sodium Level 140 mmol/L (136-145)
== END ==
PROVIDERS: Referring Provider Internal Medicine Rheumatology; Visit Provider Internal Medicine Rheumatology
DX: M06.4 Inflammatory polyarthropathy (principal); R76.8 Other specified abnormal immunological findings in serum; M18.0 Bilateral primary osteoarthritis of first carpometacarpal joints; L40.8 Other psoriasis; M47.897 Other spondylosis, lumbosacral region; K76.0 Fatty (change of) liver, not elsewhere classified; M50.30 Other cervical disc degeneration, unspecified cervical region; M72.0 Palmar fascial fibromatosis [Dupuytren]; Z79.899 Other long term (current) drug therapy
CPT/HCPCS: 36415; 80053; 85025

== ENCOUNTER → 2020-11-25 02:00 | Outpatient (CLI) | payer OTHER, SELFPAY ==
[2020-09-24 17:44] VITALS: BMI 33.0
--- NOTE | 2020-11-25 13:59 | CT_ITS ---
STUDY: LOW DOSE CT LUNG CANCER SCREENING REASON FOR EXAM: Female, 55 years old. SMOKER. Patient smoked 1 pack per day for 25 years. RADIATION DOSAGE (If Supplied By Facility): CTDIvol = ( 4.02 ) mGy, DLP = ( 134.91 ) mGycm TECHNIQUE: No contrast was administered. Low dose technique was utilized (average mAS-38 and kVp 120). 1.25 mm axial source images with a slice interval of 1.25-mm were reconstructed in lung windows. 2.5 mm axial source images with a slice interval of 2.5-mm were reconstructed in lung windows. 5.0 mm axial source images with a slice interval of 5.0-mm were reconstructed in soft tissue windows. Nodule measured using lung windows on PACS and/or independent workstation with automated measurement of minimum and maximum diameter. Nodule measurement reported as average diameter rounded to the nearest whole number. Growth is defined as an increase ins size of greater than 1.5 mm. COMPARISON: None. NODULES: There is a 3.4 mm noncalcified nodule in the peripheral anterior aspect of the right upper lobe as seen on axial image #66. There is a 2 mm partially calcified adenoma in the peripheral lateral aspect of the right upper lobe axial and axial image #87. 2 mm noncalcified nodule in the posterior aspect of the left upper lobe abutting the left major fissure as seen on axial image #105. Emphysema: Minimal scarring in the posterior medial aspect of the right upper lobe. Aorta: Minimal plaque formation at the origin of left subclavian artery. Coronary arteries: Mild coronary artery calcification. Heart: Unremarkable Pulmonary artery: Unremarkable Mediastinal nodes: Small mediastinal lymph nodes. Other chest and abdominal findings: CT/Low Dose CT Lung Screening IMPRESSION: Lung-RADS category 2 - Continue annual screening with LDCT in 12 months. IMPORTANT NOTES FOR USE: ACR Lung-RADS Version 1.1 Assessment Categories Release Date: 2018 Category: Coded 0-4 bases on nodule(s) with highest degree of suspicion. Negative screen is defined as categories 1 and 2; a positive screen is defined as categories 3 and 4. Category 3 and 4A nodules that are unchanged on interval CT should be coded as category 2, and individuals returned to screening in 12 months. Category 4X: Category 3 or 4 nodules with additional imaging findings that increase the suspicion of lung cancer, such as spiculation, GGN that doubles in size in 1 year, enlarged lymph notes, etc. Category Modifiers: S (significant finding unrelated to lung cancer) Electronically Signed: Renny Gutierrez MD at 9:18 EDT , Service support ,
== END ==
PROVIDERS: Referring Provider Nurse Practitioner Primary Care; Visit Provider Nurse Practitioner Primary Care
DX: Z12.2 Encounter for screening for malignant neoplasm of respiratory organs (principal); Z87.891 Personal history of nicotine dependence
CPT/HCPCS: 71271

== ENCOUNTER → 2020-11-29 13:51 | Outpatient (CLI) | payer OTHER, SELFPAY ==
[2020-09-24 17:44] VITALS: BMI 33.0
[2020-11-29 13:16] VITALS: BMI 33.0
[2020-11-29 14:55] LABS: Absolute Lymphocyte Count 1.17 X10^3/uL (0.83-4.51); Absolute Neutrophil Count 4.3 X10^3/uL (2.0-7.7); Basophil# 0.06 X10^3/uL; Eosinophil# 0.21 X10^3/uL; Eosinophils% 3.4 % (0-5); Lymphocyte # 1.17 X10^3/ul (0.83-4.51); Lymphocyte % 18.7 % (19-41); Mean Corp Hgb Conc 32.6 g/dL (32-36); Mean Corpuscular Hgb 28.8 pg (27.0-32.0); Mean Corpuscular Volume 88.5 fL (81-99); Mean Platelet Vol. 9.4 fl (6.2-12.0); Monocyte# 0.52 X10^3/uL; Monocyte% 8.3 % (0-10); NRBC Flagged by Analyzer 0 % (0-5); Neutrophil # 4.29 X10^3/uL (2.7-7.7); Neutrophil % 68.4 % (47-70); Platelet Count 314 K/mm3 (150-450); RBC Distribution Width CV 14.3 % (11.6-14.6); RBC Distribution Width SD 45.5 fl (35.1-43.9); Red Blood Count 4.86 M/mm3 (4.2-5.4); White Blood Count 6.3 K/mm3 (4.4-11.0)
[2020-11-29 15:13] LABS: ALB/GLOB Ratio 0.9 RATIO (0.9-2.4); AST(SGOT) 32 U/L (15-37); Alanine Aminotransfer ALT/SGPT 48 U/L (13-56); Albumin, Serum 3.5 g/dL (3.2-5.0); Alkaline Phosphatase 96 U/L (45-117); Anion Gap 8 (5-15); BUN 15 mg/dL (7-18); BUN/Creat Ratio 16.9 RATIO (10-20); Calcium,Total 9.1 mg/dL (8.5-10.1); Chloride 105 mmol/L (98-107); Creatinine, Serum 0.89 mg/dL (0.55-1.02); EST Glomerular Filtration Rate 70 mL/min (>60); Est Glom Filt Rate - Afr Amer 84 mL/min (>60); Glucose 101 mg/dL (74-106); Potassium 4.1 mmol/L (3.5-5.1); Protein, Total 7.5 g/dL (6.4-8.2); Sodium Level 141 mmol/L (136-145)
== END ==
PROVIDERS: Referring Provider Internal Medicine Rheumatology; Visit Provider Internal Medicine Rheumatology
DX: M06.4 Inflammatory polyarthropathy (principal); R76.8 Other specified abnormal immunological findings in serum; M15.9 Polyosteoarthritis, unspecified; L40.8 Other psoriasis; M47.897 Other spondylosis, lumbosacral region; K76.0 Fatty (change of) liver, not elsewhere classified; M50.30 Other cervical disc degeneration, unspecified cervical region; M72.0 Palmar fascial fibromatosis [Dupuytren]; Z79.899 Other long term (current) drug therapy
CPT/HCPCS: 36415; 80053; 85025

== ENCOUNTER → 2021-03-07 16:12 | Outpatient (CLI) | payer OTHER, SELFPAY ==
[2021-03-07 17:31] LABS: Absolute Lymphocyte Count 0.91 X10^3/uL (0.83-4.51); Basophil# 0.05 X10^3/uL; Basophil% 0.7 % (0-1); Eosinophil# 0.28 X10^3/uL; Eosinophils% 4.1 % (0-5); Hematocrit 43.4 % (37-47); Hemoglobin 14.1 g/dL (12.0-15.0); Lymphocyte # 0.91 X10^3/ul (0.83-4.51); Lymphocyte % 13.3 % (19-41); Mean Corp Hgb Conc 32.5 g/dL (32-36); Mean Corpuscular Hgb 29.2 pg (27.0-32.0); Mean Corpuscular Volume 89.9 fL (81-99); Mean Platelet Vol. 9.9 fl (6.2-12.0); Monocyte# 0.55 X10^3/uL; Monocyte% 8.1 % (0-10); NRBC Flagged by Analyzer 0 % (0-5); Neutrophil # 5.01 X10^3/uL (2.7-7.7); Neutrophil % 73.5 % (47-70); Platelet Count 283 K/mm3 (150-450); RBC Distribution Width SD 45.2 fl (35.1-43.9); Red Blood Count 4.83 M/mm3 (4.2-5.4); White Blood Count 6.8 K/mm3 (4.4-11.0)
[2021-03-07 18:02] LABS: ALB/GLOB Ratio 0.8 RATIO (0.9-2.4); AST(SGOT) 46 U/L (15-37); Alanine Aminotransfer ALT/SGPT 56 U/L (13-56); Albumin, Serum 3.1 g/dL (3.2-5.0); Alkaline Phosphatase 87 U/L (45-117); Anion Gap 6 (5-15); BUN 20 mg/dL (7-18); BUN/Creat Ratio 26.6 RATIO (10-20); Calcium,Total 8.9 mg/dL (8.5-10.1); Chloride 109 mmol/L (98-107); Creatinine, Serum 0.75 mg/dL (0.55-1.02); EST Glomerular Filtration Rate 84 mL/min (>60); Est Glom Filt Rate - Afr Amer 102 mL/min (>60); Globulin 3.9 g/dL (2.2-4.2); Glucose 105 mg/dL (74-106); Sodium Level 140 mmol/L (136-145)
== END ==
PROVIDERS: PCP Nurse Practitioner Primary Care; Referring Provider Internal Medicine Rheumatology; Visit Provider Internal Medicine Rheumatology
DX: M06.4 Inflammatory polyarthropathy (principal); M18.0 Bilateral primary osteoarthritis of first carpometacarpal joints; L40.8 Other psoriasis; M47.897 Other spondylosis, lumbosacral region; K76.0 Fatty (change of) liver, not elsewhere classified; M50.30 Other cervical disc degeneration, unspecified cervical region; M72.0 Palmar fascial fibromatosis [Dupuytren]; R76.8 Other specified abnormal immunological findings in serum; Z79.899 Other long term (current) drug therapy
CPT/HCPCS: 36415; 80053; 85025

== ENCOUNTER → 2021-04-07 16:07 | Outpatient (CLI) | payer OTHER, SELFPAY ==
[2021-04-07 18:01] LABS: Absolute Lymphocyte Count 1.03 X10^3/uL (0.83-4.51); Absolute Neutrophil Count 7.7 X10^3/uL (2.0-7.7); Basophil# 0.03 X10^3/uL; Basophil% 0.3 % (0-1); Eosinophil# 0.07 X10^3/uL; Eosinophils% 0.8 % (0-5); Hematocrit 42.4 % (37-47); Hemoglobin 13.8 g/dL (12.0-15.0); Lymphocyte # 1.03 X10^3/ul (0.83-4.51); Lymphocyte % 11.2 % (19-41); Mean Corp Hgb Conc 32.5 g/dL (32-36); Mean Corpuscular Hgb 28.9 pg (27.0-32.0); Mean Corpuscular Volume 88.7 fL (81-99); Mean Platelet Vol. 9.9 fl (6.2-12.0); Monocyte% 4.3 % (0-10); NRBC Flagged by Analyzer 0 % (0-5); Neutrophil # 7.65 X10^3/uL (2.7-7.7); Neutrophil % 83.1 % (47-70); Platelet Count 326 K/mm3 (150-450); Red Blood Count 4.78 M/mm3 (4.2-5.4); White Blood Count 9.2 K/mm3 (4.4-11.0)
[2021-04-07 18:14] LABS: ALB/GLOB Ratio 0.9 RATIO (0.9-2.4); AST(SGOT) 44 U/L (15-37); Alanine Aminotransfer ALT/SGPT 79 U/L (13-56); Albumin, Serum 3.6 g/dL (3.2-5.0); Alkaline Phosphatase 94 U/L (45-117); Anion Gap 7 (5-15); BUN 16 mg/dL (7-18); BUN/Creat Ratio 19.9 RATIO (10-20); Calcium,Total 9.5 mg/dL (8.5-10.1); Chloride 103 mmol/L (98-107); EST Glomerular Filtration Rate 78 mL/min (>60); Est Glom Filt Rate - Afr Amer 94 mL/min (>60); Globulin 4.1 g/dL (2.2-4.2); Glucose 90 mg/dL (74-106); Potassium 4.1 mmol/L (3.5-5.1); Protein, Total 7.7 g/dL (6.4-8.2); Sodium Level 137 mmol/L (136-145)
== END ==
PROVIDERS: PCP Nurse Practitioner Primary Care; Referring Provider Internal Medicine Rheumatology; Visit Provider Internal Medicine Rheumatology
DX: M06.4 Inflammatory polyarthropathy (principal); R76.8 Other specified abnormal immunological findings in serum; M18.0 Bilateral primary osteoarthritis of first carpometacarpal joints; L40.8 Other psoriasis; M47.897 Other spondylosis, lumbosacral region; K76.0 Fatty (change of) liver, not elsewhere classified; M50.30 Other cervical disc degeneration, unspecified cervical region; M72.0 Palmar fascial fibromatosis [Dupuytren]; Z79.899 Other long term (current) drug therapy
CPT/HCPCS: 36415; 80053; 85025

== ENCOUNTER 2021-05-15 16:11 | Outpatient (CLI) | payer OTHER, SELFPAY ==
[2021-05-15 18:34] LABS: ALB/GLOB Ratio 0.9 RATIO (0.9-2.4); AST(SGOT) 43 U/L (15-37); Alanine Aminotransfer ALT/SGPT 56 U/L (13-56); Albumin, Serum 3.6 g/dL (3.2-5.0); Alkaline Phosphatase 95 U/L (45-117); Anion Gap 7 (5-15); BUN 18 mg/dL (7-18); BUN/Creat Ratio 22.6 RATIO (10-20); CPK Total, Creatine Kinase 445 U/L (26-192); Calcium,Total 9.3 mg/dL (8.5-10.1); Chloride 102 mmol/L (98-107); EST Glomerular Filtration Rate 79 mL/min (>60); Est Glom Filt Rate - Afr Amer 95 mL/min (>60); Globulin 3.9 g/dL (2.2-4.2); Glucose 90 mg/dL (74-106); Potassium 3.9 mmol/L (3.5-5.1); Protein, Total 7.5 g/dL (6.4-8.2); Sodium Level 138 mmol/L (136-145)
[2021-05-19 16:09] LABS: Aldolase 7.5 U/L (3.3-10.3)
== END 2021-05-15 23:59 | disposition short-term general hospital (02) ==
LOC: MTLAB 16:12
PROVIDERS: PCP Nurse Practitioner Primary Care; Referring Provider Internal Medicine Rheumatology; Visit Provider Internal Medicine Rheumatology
DX: M06.4 Inflammatory polyarthropathy (principal); M33.90 Dermatopolymyositis, unspecified, organ involvement unspecified; Z79.899 Other long term (current) drug therapy; M15.9 Polyosteoarthritis, unspecified; M18.0 Bilateral primary osteoarthritis of first carpometacarpal joints; L40.8 Other psoriasis; M47.897 Other spondylosis, lumbosacral region; K76.0 Fatty (change of) liver, not elsewhere classified; M50.30 Other cervical disc degeneration, unspecified cervical region; M72.0 Palmar fascial fibromatosis [Dupuytren]
CPT/HCPCS: 36415; 80053; 82085; 82550

== ENCOUNTER 2021-05-27 16:38 | Outpatient (CLI) | payer OTHER, SELFPAY ==
[2021-05-30 06:11] LABS: QNTFERON TB Mitogen Value > 10.00 IU/mL (.); QNTFERON TB Nil Value 0 IU/mL (.); QNTFERON TB1+ Ag Value 0 IU/mL (.); QNTFERON TB2+ Ag Value 0 IU/mL (.)
[2021-05-30 10:02] LABS: QNTIFERON TB Positive Criteria Negative (Negative)
== END 2021-05-27 23:59 | disposition short-term general hospital (02) ==
LOC: MTLAB 16:39
PROVIDERS: PCP Nurse Practitioner Primary Care; Referring Provider Internal Medicine Rheumatology; Visit Provider Internal Medicine Rheumatology
DX: M06.4 Inflammatory polyarthropathy (principal); M33.90 Dermatopolymyositis, unspecified, organ involvement unspecified; M18.0 Bilateral primary osteoarthritis of first carpometacarpal joints; L40.8 Other psoriasis; M47.897 Other spondylosis, lumbosacral region; K76.0 Fatty (change of) liver, not elsewhere classified; M50.30 Other cervical disc degeneration, unspecified cervical region; M72.0 Palmar fascial fibromatosis [Dupuytren]; Z79.899 Other long term (current) drug therapy
CPT/HCPCS: 36415; 86480

== ENCOUNTER 2021-08-13 16:18 | Outpatient (CLI) | payer OTHER, SELFPAY ==
[2021-08-13 17:39] LABS: Absolute Lymphocyte Count 0.78 X10^3/uL (0.83-4.51); Absolute Neutrophil Count 4.2 X10^3/uL (2.0-7.7); Basophil# 0.03 X10^3/uL; Basophil% 0.5 % (0-1); Eosinophil# 0.22 X10^3/uL; Eosinophils% 3.8 % (0-5); Hematocrit 42.7 % (37-47); Hemoglobin 13.7 g/dL (12.0-15.0); Lymphocyte # 0.78 X10^3/ul (0.83-4.51); Lymphocyte % 13.6 % (19-41); Mean Corp Hgb Conc 32.1 g/dL (32-36); Mean Corpuscular Hgb 28.5 pg (27.0-32.0); Mean Platelet Vol. 10.1 fl (6.2-12.0); Monocyte# 0.47 X10^3/uL; Monocyte% 8.2 % (0-10); NRBC Flagged by Analyzer 0 % (0-5); Neutrophil # 4.22 X10^3/uL (2.7-7.7); Neutrophil % 73.7 % (47-70); Platelet Count 245 K/mm3 (150-450); RBC Distribution Width SD 46.1 fl (35.1-43.9); White Blood Count 5.7 K/mm3 (4.4-11.0)
[2021-08-13 18:13] LABS: ALB/GLOB Ratio 0.9 RATIO (0.9-2.4); AST(SGOT) 45 U/L (15-37); Alanine Aminotransfer ALT/SGPT 51 U/L (13-56); Albumin, Serum 3.4 g/dL (3.2-5.0); Alkaline Phosphatase 74 U/L (45-117); Anion Gap 4 (5-15); BUN 28 mg/dL (7-18); BUN/Creat Ratio 30.8 RATIO (10-20); CPK Total, Creatine Kinase 548 U/L (26-192); Calcium,Total 9.2 mg/dL (8.5-10.1); Chloride 103 mmol/L (98-107); Creatinine, Serum 0.91 mg/dL (0.55-1.02); EST Glomerular Filtration Rate 67 mL/min (>60); Est Glom Filt Rate - Afr Amer 82 mL/min (>60); Globulin 3.6 g/dL (2.2-4.2); Glucose 103 mg/dL (74-106); Potassium 3.9 mmol/L (3.5-5.1); Sodium Level 137 mmol/L (136-145)
== END 2021-08-13 23:59 | disposition home or self-care (01) ==
LOC: MTLAB 16:19
PROVIDERS: PCP Nurse Practitioner Primary Care; Referring Provider Internal Medicine Rheumatology; Visit Provider Internal Medicine Rheumatology
DX: M06.4 Inflammatory polyarthropathy (principal); M33.90 Dermatopolymyositis, unspecified, organ involvement unspecified; M18.0 Bilateral primary osteoarthritis of first carpometacarpal joints; L40.8 Other psoriasis; M47.897 Other spondylosis, lumbosacral region; K76.0 Fatty (change of) liver, not elsewhere classified; M50.30 Other cervical disc degeneration, unspecified cervical region; M72.0 Palmar fascial fibromatosis [Dupuytren]; Z79.899 Other long term (current) drug therapy
CPT/HCPCS: 36415; 80053; 82550; 85025

== ENCOUNTER → 2021-09-15 | Outpatient (CLI) | payer OTHER, SELFPAY ==
[2021-09-15 18:10] LABS: Absolute Lymphocyte Count 1.01 X10^3/uL (0.83-4.51); Absolute Neutrophil Count 5.8 X10^3/uL (2.0-7.7); Basophil# 0.07 X10^3/uL; Basophil% 0.9 % (0-1); Eosinophil# 0.37 X10^3/uL; Eosinophils% 4.7 % (0-5); Hematocrit 43.8 % (37-47); Hemoglobin 14.1 g/dL (12.0-15.0); Lymphocyte # 1.01 X10^3/ul (0.83-4.51); Lymphocyte % 12.8 % (19-41); Mean Corp Hgb Conc 32.2 g/dL (32-36); Mean Corpuscular Hgb 28.8 pg (27.0-32.0); Mean Corpuscular Volume 89.4 fL (81-99); Mean Platelet Vol. 10.2 fl (6.2-12.0); Monocyte# 0.63 X10^3/uL; NRBC Flagged by Analyzer 0 % (0-5); Neutrophil % 73.2 % (47-70); Platelet Count 301 K/mm3 (150-450); RBC Distribution Width CV 13.9 % (11.6-14.6); RBC Distribution Width SD 44.9 fl (35.1-43.9); White Blood Count 7.9 K/mm3 (4.4-11.0)
[2021-09-15 18:40] LABS: ALB/GLOB Ratio 0.9 RATIO (0.9-2.4); AST(SGOT) 48 U/L (15-37); Alanine Aminotransfer ALT/SGPT 54 U/L (13-56); Albumin, Serum 3.5 g/dL (3.2-5.0); Alkaline Phosphatase 84 U/L (45-117); Anion Gap 9 (5-15); BUN 20 mg/dL (7-18); BUN/Creat Ratio 25.5 RATIO (10-20); CPK Total, Creatine Kinase 595 U/L (26-192); Calcium,Total 9.5 mg/dL (8.5-10.1); Chloride 104 mmol/L (98-107); Creatinine, Serum 0.78 mg/dL (0.55-1.02); EST Glomerular Filtration Rate 80 mL/min (>60); Est Glom Filt Rate - Afr Amer 97 mL/min (>60); Globulin 3.9 g/dL (2.2-4.2); Glucose 98 mg/dL (74-106); Protein, Total 7.4 g/dL (6.4-8.2); Sodium Level 137 mmol/L (136-145)
== END | disposition home or self-care (01) ==
LOC: MTLAB 16:21
PROVIDERS: PCP Nurse Practitioner Primary Care; Referring Provider Internal Medicine Rheumatology; Visit Provider Internal Medicine Rheumatology
DX: M06.4 Inflammatory polyarthropathy (principal); M33.90 Dermatopolymyositis, unspecified, organ involvement unspecified; M18.0 Bilateral primary osteoarthritis of first carpometacarpal joints; L40.8 Other psoriasis; M47.897 Other spondylosis, lumbosacral region; K76.0 Fatty (change of) liver, not elsewhere classified; M50.30 Other cervical disc degeneration, unspecified cervical region; M72.0 Palmar fascial fibromatosis [Dupuytren]; Z79.899 Other long term (current) drug therapy
CPT/HCPCS: 36415; 80053; 82550; 85025

== ENCOUNTER → 2021-09-29 | Outpatient (CLI) | payer OTHER, SELFPAY ==
[2021-09-29 17:48] LABS: Absolute Lymphocyte Count 0.97 X10^3/uL (0.83-4.51); Absolute Neutrophil Count 5.9 X10^3/uL (2.0-7.7); Basophil# 0.03 X10^3/uL; Basophil% 0.4 % (0-1); Eosinophil# 0.34 X10^3/uL; Eosinophils% 4.4 % (0-5); Hematocrit 43.6 % (37-47); Hemoglobin 13.9 g/dL (12.0-15.0); Lymphocyte # 0.97 X10^3/ul (0.83-4.51); Lymphocyte % 12.5 % (19-41); Mean Corp Hgb Conc 31.9 g/dL (32-36); Mean Corpuscular Hgb 28.5 pg (27.0-32.0); Mean Corpuscular Volume 89.5 fL (81-99); Mean Platelet Vol. 9.8 fl (6.2-12.0); Monocyte# 0.54 X10^3/uL; Monocyte% 6.9 % (0-10); NRBC Flagged by Analyzer 0 % (0-5); Neutrophil # 5.87 X10^3/uL (2.7-7.7); Neutrophil % 75.5 % (47-70); Platelet Count 297 K/mm3 (150-450); RBC Distribution Width CV 13.4 % (11.6-14.6); RBC Distribution Width SD 44.2 fl (35.1-43.9); Red Blood Count 4.87 M/mm3 (4.2-5.4); White Blood Count 7.8 K/mm3 (4.4-11.0)
[2021-09-29 18:30] LABS: ALB/GLOB Ratio 0.9 RATIO (0.9-2.4); AST(SGOT) 49 U/L (15-37); Alanine Aminotransfer ALT/SGPT 52 U/L (13-56); Albumin, Serum 3.5 g/dL (3.2-5.0); Alkaline Phosphatase 80 U/L (45-117); Anion Gap 6 (5-15); BUN 21 mg/dL (7-18); BUN/Creat Ratio 23.9 RATIO (10-20); CPK Total, Creatine Kinase 574 U/L (26-192); Calcium,Total 8.9 mg/dL (8.5-10.1); Chloride 105 mmol/L (98-107); Creatinine, Serum 0.88 mg/dL (0.55-1.02); EST Glomerular Filtration Rate 70 mL/min (>60); Est Glom Filt Rate - Afr Amer 85 mL/min (>60); GGTP 16 U/L (5-55); Globulin 3.8 g/dL (2.2-4.2); Glucose 97 mg/dL (74-106); Potassium 3.7 mmol/L (3.5-5.1); Protein, Total 7.3 g/dL (6.4-8.2); Sodium Level 139 mmol/L (136-145)
[2021-10-01 15:53] LABS: Aldolase 9.1 U/L (3.3-10.3)
== END | disposition home or self-care (01) ==
PROVIDERS: PCP Nurse Practitioner Primary Care; Referring Provider Internal Medicine Rheumatology; Visit Provider Internal Medicine Rheumatology
DX: M06.4 Inflammatory polyarthropathy (principal); M33.90 Dermatopolymyositis, unspecified, organ involvement unspecified; M18.0 Bilateral primary osteoarthritis of first carpometacarpal joints; L40.8 Other psoriasis; M47.897 Other spondylosis, lumbosacral region; M50.30 Other cervical disc degeneration, unspecified cervical region; M72.0 Palmar fascial fibromatosis [Dupuytren]; Z79.899 Other long term (current) drug therapy
CPT/HCPCS: 36415; 80053; 82085; 82550; 82977; 85025

== ENCOUNTER → 2021-10-29 | Outpatient (CLI) | payer OTHER, SELFPAY ==
[2021-10-29 17:41] LABS: Absolute Lymphocyte Count 0.89 X10^3/uL (0.83-4.51); Absolute Neutrophil Count 5.2 X10^3/uL (2.0-7.7); Basophil# 0.05 X10^3/uL; Basophil% 0.7 % (0-1); Eosinophil# 0.26 X10^3/uL; Eosinophils% 3.7 % (0-5); Hematocrit 42.7 % (37-47); Hemoglobin 13.6 g/dL (12.0-15.0); Lymphocyte # 0.89 X10^3/ul (0.83-4.51); Lymphocyte % 12.6 % (19-41); Mean Corp Hgb Conc 31.9 g/dL (32-36); Mean Corpuscular Hgb 28.2 pg (27.0-32.0); Mean Corpuscular Volume 88.4 fL (81-99); Mean Platelet Vol. 9.6 fl (6.2-12.0); Monocyte# 0.62 X10^3/uL; Monocyte% 8.8 % (0-10); NRBC Flagged by Analyzer 0 % (0-5); Neutrophil % 73.9 % (47-70); Platelet Count 285 K/mm3 (150-450); RBC Distribution Width CV 13.5 % (11.6-14.6); RBC Distribution Width SD 43.6 fl (35.1-43.9); Red Blood Count 4.83 M/mm3 (4.2-5.4)
[2021-10-29 17:50] LABS: AST(SGOT) 47 U/L (15-37); Alanine Aminotransfer ALT/SGPT 59 U/L (13-56); Albumin, Serum 3.5 g/dL (3.2-5.0); Alkaline Phosphatase 79 U/L (45-117); Anion Gap 6 (5-15); BUN 24 mg/dL (7-18); BUN/Creat Ratio 32.3 RATIO (10-20); CPK Total, Creatine Kinase 551 U/L (26-192); Calcium,Total 9.5 mg/dL (8.5-10.1); Chloride 105 mmol/L (98-107); Creatinine, Serum 0.74 mg/dL (0.55-1.02); EST Glomerular Filtration Rate 85 mL/min (>60); Est Glom Filt Rate - Afr Amer 103 mL/min (>60); GGTP 12 U/L (5-55); Globulin 3.6 g/dL (2.2-4.2); Glucose 85 mg/dL (74-106); Protein, Total 7.1 g/dL (6.4-8.2); Sodium Level 137 mmol/L (136-145)
[2021-10-31 20:40] LABS: Aldolase 9.1 U/L (3.3-10.3)
== END | disposition home or self-care (01) ==
LOC: MTLAB 16:02
PROVIDERS: PCP Nurse Practitioner Primary Care; Referring Provider Internal Medicine Rheumatology; Visit Provider Internal Medicine Rheumatology
DX: M06.4 Inflammatory polyarthropathy (principal); M33.90 Dermatopolymyositis, unspecified, organ involvement unspecified; M18.0 Bilateral primary osteoarthritis of first carpometacarpal joints; L40.8 Other psoriasis; M47.897 Other spondylosis, lumbosacral region; M50.30 Other cervical disc degeneration, unspecified cervical region; M72.0 Palmar fascial fibromatosis [Dupuytren]; Z79.899 Other long term (current) drug therapy
CPT/HCPCS: 36415; 80053; 82085; 82550; 82977; 85025

== ENCOUNTER 2021-12-16 05:56 | Day surgery (SDC) | payer OTHER, SELFPAY ==
[2021-12-16] VITALS (7 sets, daily range): BP systolic 113–148; BP diastolic 73–90; PULSE 65–73; RESP 16–18; TEMP 36.6–37.1; O2SAT 94–98; BMI 34.7
[2021-12-16] MEDS: Lactated Ringers 1,000 ML 15 ML IV (06:20)
--- NOTE | 2021-12-16 07:23 | PCM.HP.BLA ---
History and Physical Date of Admission: 12/16/21 Date of Service:? 12/09/21 MR#: [id number] Acct: [id number] Name:SHARON BILLINGS Rep #: [id number] : 1965 ? ? Provider: Dr. Josef Hook MD Age/Sex:? 56/F ? ? Location: [facility] [place] Status: Signed Intake Vital Signs ? 11/29/2112:10 12/10/2207:25 Height 5 ft 8 in 5 ft 8 in Weight: ? 229 lb BMI ? 34.8 BP ? 168/98 H Blood Pressure Location ? Rt brachial Position ? Sitting Respiration ? 16 Pulse ? 85 Pulse Source ? Monitor Temp ? 98.2 F Temp Source ? Temporal Pulse Oximetry (%) ? 98 Oxygen Delivery Method ? room air Intake Visit Reasons:?MUSCLE BIOPSY Chief Complaint: Muscle biopsy Legal Aid Required: No Is patient in pain?: No Allergies No Known Allergies Allergy (Unverified 12/09/21 08:27) Medications biotin 1 mg capsule 1 mg PO DAILY 09/24/20 [History Confirmed 12/09/21] calcium carbonate 600 mg-vitamin D3 12.5 mcg (500 unit) capsule (Calcium 600 with Vitamin D3) cap PO 09/24/20 [History Confirmed 12/09/21] folic acid 400 mcg tablet 0.4 mg PO DAILY 09/24/20 [History Confirmed 12/09/21] methotrexate (PF) 7.5 mg/0.15 mL subcutaneous auto-injector 7.5 mg subcut QWEEK 09/24/20 [History Confirmed 12/09/21] multivitamin 1 tab PO DAILY 09/24/20 [History Confirmed 12/09/21] prednisone 5 mg tablet 5 mg PO Q OTHER DAY 09/24/20 [History Confirmed 12/09/21] tramadol 50 mg tablet 50 mg PO BID PRN 09/24/20 [History Confirmed 12/09/21] acyclovir 5 % topical cream (Zovirax) 1 applic topical ONCE 11/29/20 [History Confirmed 12/09/21] betamethasone dipropionate 0.05 % topical cream 1 applic topical DAILY PRN 11/29/20 [History Confirmed 12/09/21] cetirizine 10 mg tablet (Zyrtec) 10 mg PO DAILY PRN 11/29/20 [History Confirmed 12/09/21] clobetasol 0.05 % topical cream 1 applic topical DAILY 11/29/20 [History Confirmed 12/09/21] hydrocortisone 2.5 % topical cream 1 applic topical BID PRN 11/29/20 [History Confirmed 12/09/21] tizanidine 4 mg capsule 4 mg PO QHS 11/29/20 [History Confirmed 12/09/21] valacyclovir 500 mg tablet (Valtrex) 500 mg PO Q12H 11/29/20 [History Confirmed 12/09/21] PFSH Medical History?(Updated 12/09/21 @ 11:[address] Josef Hook MD) Depression Dermatomyositis Hemorrhoids Surgical History? H/O dilation and curettage Status post cholecystectomy Family History?(Updated 12/09/21 @ 08:25 by Audra Bautista) Mother Ovarian cancer ?? ? primary perinealceris carcinoma Asthma Arthritis Colon cancer CancerFather Arthritis Social History? Smoking Status:? Former smoker alcohol intake:? current details:? social substance use type:? does not use caffeine:? Yes seatbelt use:? always do you feel safe at home:? Yes additional social history:? Jc- Works in [employer] Patient works at [employer] ? HPI HPI HPI: SHARON MATTSON, is a 56 F who presents to the office today for hospital biopsy.? She is referred from Dr. Hart of rheumatology.? She has followed with rheumatology for a number of years given prior diagnoses of lupus, dermatomyositis, and psoriasis.? She states that the lupus diagnosis has been ruled out and dermatomyositis was settled on after a skin biopsy.? She remains on 10 mg of prednisone and methotrexate for this condition.? However, she experienced significant worsening of her skin manifestations following her second COVID vaccination and has been prescribed IVIG therapy.? She notes that there was some difficulty in obtaining insurance approval for this treatment, but that it is now conditionally approved through 12/16/2021.? She does not have a start date yet for this therapy.? She states that the rash is particularly bad on her scalp but also extends the full length of her arms and also to her upper legs.? Her weakness is predominantly in her arms and proximal legs.? She states that she previously could squat down without issue, but found herself being unable to rise from a squat work and now finds some difficulty in climbing stairs as well.? 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 She is due to start school on December 23.? She is not prescribed any blood thinners and denies any adverse reactions to anesthetics. Pertinent surgical history includes: Gallbladder and D&C ROS General General: Yes weight change and fatigue; No appetite, colon cancer, breast cancer or weakness HEENT HEENT: No difficulty swallowing, eye injury, eye surgery, swollen glands or hoarseness Endo Endocrine: No thyroid disease, diabetes mellitus, thyroid cancer, Hair loss, heat intolerance or cold intolerance Skin Skin: Yes rash; No changing moles Breast Breast: No left breast lump, right breast lump, nipple discharge, breast pain, abnormal mammogram, abnormal US or breast enlargement Musc Musculoskeletal: Yes back problems and arthritis; No rheumatoid arthritis, gout or joint pain Cardio Cardiovascular: No murmur, pacemaker, heart disease, atrial fibrillation, high blood pressure, heart attack, heart stent, palpitations, shortness of breat with exertion or chest pain Psych Psychiatric: No depression, anxiety or hearing voices Resp Respiratory: No shortness of breath, No sleep apnea, No cough, No COPD, No asthma, No emphysema and No wheezing Gastro Gastrointestinal: No abdominal pain, No nausea or vomiting, No diarrhea, No constipation, No blood in stool, No acid reflux, Yes hemorrhoids, No ulcers, No gallbladder problem and No black,tarry stools Adan Hematologic: No blood thinners, No blood disorders, No bleeding, No anemia and No blood clots Neuro Neurologic: No system reviewed and no additional complaints, except as documented, No as per HPI, No abnormal gait, No abnormal hearing, No abnormal movements, No abnormal speech, No behavioral changes, No burning sensations, No confusion, No convulsions, No disequilibrium, No dizziness, No localized weakness, No frequent falls, No headache(s), No lack of coordination, No loss of vision, No memory loss, No numbness, No other visual disturbances, No radicular pain, No restless legs, No sensory deficit, No syncope, No tingling, No tremor(s), No weakness and No other Exam Const General: cooperative, comfortable and no acute distress Orientation: alert, awake and oriented x3 Resp Auscultation: clear to auscultation bilaterally, no rales, no rhonchi and no wheezes Cardio Rate: regular rate Rhythm: regular rhythm Heart Sounds: S1 normal and S2 normal Skin Rashes: rashes noted (Extending facially, across patient's bilateral extremities upper and lower) Neuro General: patient alert, patient awake and patient oriented x3 Motor: muscle tone normal throughout and strength 5/5 throughout (Patient's bilateral upper + lower extremities tested flexor and extensor) Assessment and Plan Assessment and Plan (1) Dermatomyositis: ?Status:?Acute ?Comment: This is a 56-year-old female who has a standing diagnosis of dermatomyositis through prior skin biopsies but presents for consideration of muscle biopsy as a means of hopefully being considered for IVIG therapy.? By exam, patient has no lateralization of her symptoms and admits this when queried directly.? She does note that she is right side dominant.? Therefore I will plan for a muscle biopsy under local MAC of the left quadriceps.? Procedure was described in some detail with patient and she wishes to proceed as described.? We will look for a date next week to accomplish this objective.? Regarding postoperative restrictions, I have counseled her to plan for 1 week off work before resuming her normal activities. ?Plan: Muscle biopsy left quadriceps next week under local MAC I have re-examined the patient. There are no clinical changes since date of exam. We have confirmed postoperative restrictions and expectations. No further questions were offered by the patient or her . Plan to proceed with muscle biopsy under local MAC as previously scheduled.
[2021-12-16] MEDS: Cefazolin 2 GM in 0.9% Normal Saline 100 ML IV (07:30)
--- NOTE | 2021-12-16 07:30 | MUSA_PTH ---
PATIENT: SHARON MATTSON LOC: [facility] – [place] U#:[id number] AGE/SX: 56/F ROOM: RE12/16/[address]: Dr. Josef Hook MD : 1965 BED: DIS: 12/16/2021 SPEC #: [id number] RECD: 12/16/21 08:11 STATUS: LAYLA RERupesh #: [id number] MARY: 12/16/21 07:[address]: Josef Hook DEPT: SURGICAL PATHOLOGY RECD BY: Lulu Mallory ENTERED: 12/16/21 13:34 SP TYPE: MUSCLE BX OTHR DR: Sis Landeros NP Tissues: Muscle of thigh, NOS Procedures: Spec St Grp II (ACH) Biopsy ACH HEADER OPERATION: Quadriceps muscle biopsy PRE-OP DIAGNOSIS: Dermamyositis TISSUE SUBMITTED: Muscle biopsy left thigh MICROSCOPIC DIAGNOSIS Skeletal muscle, left thigh, biopsy: Dermatomyositis (see microscopic description and comment). MICROSCOPIC DESCRIPTION A well oriented portion of skeletal muscle is available for review. There is a moderate variation in fiber size with mildly to markedly atrophic fibers present, particularly in perifascicular areas best seen on the formalin-fixed paraffin-embedded tissue. There is mild, patchy endomysial inflammation. There are scattered degenerating and regenerating fibers, but no evidence of hypertrophic fibers. Isolated fibers show macrophage invasion. There is an increase in the number of myofibers with internalized nuclei. Trichrome stain shows no evidence of deposits, ragged red fibers, rimmed vacuoles or increased endomysial fibrosis. ATPase stains, performed at pH 4.6 and pH 9.4, show an even distribution of type I and type II myofibers. NADH and SDH stains show some irregularities in staining which is interpreted as artifactual. PAS and Oil Red O stains show no evidence of increased glycogen or lipid deposition, respectively. Additional stains for C5b9, MHC 1 and CD8 were performed at an outside institution and interpreted at [facility]. A subset of the inflammatory cells present are CD8 positive. There is diffuse positive MHC 1 staining. C5b9 only highlights areas with macrophage invasion. 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 There are various subtypes of dermato-myositis, and if clinically relevant an antibody panel may be of diagnostic utility. GROSS DESCRIPTION The specimen is sent entirely to [facility] for diagnosis. Received fresh labeled with the patient?s name and ?muscle biopsy-left thigh? is a fragment of hernandez-pink skeletal muscle, measuring 1.1 x 1.3 x 0.7 cm. 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
[2021-12-16] MEDS: Bupivacaine 0.25% 30 ML Vial (07:45)
--- NOTE | 2021-12-16 08:12 | OP.PCM_ITS ---
Report of Operation Date of Procedure: 12/16/21 Pre-Operative Diagnosis: Dermatomyositis with worsening of symptoms Post-Operative Diagnosis: Same Surgery/Procedure Performed:: Left quadriceps biopsy under local MAC Surgeon: Josef Hook fire alarm technician: Meli Burr Type of Anesthesia: MAC/Supplemental Anesthesiologist: Adam Porras Specimen's removed: Left quadriceps biopsy Estimated Blood Loss (mL): <5 Description of Procedure: After appropriate indication preoperative holding area the patient was brought to the operating room where she was positioned supine on the operating room table. There preoperative antibiotic infusion was completed. Sedation was begun by anesthesia. Patient's left anterior thigh was prepped and draped in usual sterile fashion. A formal timeout was conducted to confirm patient and procedure. Then a local block was created with 7 mL 0.25% bupivacaine plain. A 3 cm longitudinal incision was made over the quadriceps and was deepened down through the subcutaneous tissue with use of electrocautery to maintain hemostasis as we proceeded. This took us down to the level of the muscular fascia which was sharply incised along the orientation of the fibers. This allowed us to visualize the muscle belly deeply. A stay suture was placed in the center of the muscle with 3-0 Vicryl and a 2 cm length of the muscle was dissected free. Clamps were placed proximally and distally on the muscle. The intervening muscle was sharply removed and passed off the field for pathologic processing. 3-0 Vicryl ties were placed around these clamps as ligatures. The wound was closed in layers after confirming hemostasis using 2-0 Vicryl followed by 4-0 Monocryl. Dermabond was applied as a dressing. Patient was then awakened from sedation and transferred to PACU for ongoing recovery. Complications None Admit VTE Documentation VTE Present on Admission: Yes VTE Mechan Device Prophylaxis: SCD's
--- NOTE | 2021-12-16 08:21 | PCM.DC ---
Discharge Instructions Diet Discharge Diet: No restrictions Activity Discharge Activity: [address] Ice area for (Minutes): 20 Weight Bearing Status: Partial weight bearing Lifting Restrictions: Limit exertional activity Dressing / Incision Call your doctor if your incision/area has: Continuous Slow Oozing, Sudden Increased Bleeding, Increased Pain/ Swelling, Increased Redness, Foul Smelling Discharge and Swelling at the incision site Call your doctor if you observe: Fever of 101 or Higher Cleanse incision/area with: Soap & Water Follow Up Care Please Follow Up With: Josef Hook MD When: 7 to 10 days postop Test Results: Test results from this visit will be discussed in further detail at your follow-up appointment, if applicable. Discharge Plan Admission Primary Reason for Your Visit: Muscle biopsy Attending Provider: Josef Hook Primary Care Provider: Sis Landeros NP Instructions Patient Instructions: Muscle Biopsy Discharge Orders/Prescriptions Prescriptions: No Action tramadol 50 mg tablet 50 mg PO BID PRN (Reason: Pain) folic acid 400 mcg tablet 1 mg PO BID multivitamin Tablet 1 tab PO DAILY calcium carbonate-vitamin D3 [Calcium 600 with Vitamin D3] 600 mg(1,500mg) -500 unit capsule 1 cap PO DAILY biotin 1 mg capsule 1 mg PO DAILY prednisone 5 mg tablet 10 mg PO DAILY clobetasol 0.05 % cream 1 applic topical DAILY hydrocortisone 2.5 % cream 1 applic topical BID PRN (Reason: Skin Cleansing) betamethasone dipropionate 0.05 % cream 1 applic topical DAILY PRN (Reason: Skin Cleansing) acyclovir [Zovirax] 5 % cream 1 applic topical ONCE valacyclovir [Valtrex] 500 mg tablet 500 mg PO Q12H PRN (Reason: Cold Sores) cetirizine [Zyrtec] 10 mg tablet 10 mg PO DAILY PRN (Reason: allergies) methotrexate sodium [Methotrexate (Anti-Rheumatic)] 2.5 mg Tablet 6 mg PO QWEEK Rx Instructions: on Fridays clobetasol 0.05 % shampoo 1 ea TOPICAL DAILY Label Comments: WASH SCALP 1X DAILY Rx Instructions: Shampoo Referrals / Follow Up: Sis Landeros NP, SCHOOL PSYCHOLOGIST-C [Primary Care Provider] - Disposition Disposition (needs filled in before D/C Order can be placed): Home, Self Care
[2021-12-16] MEDS: oxyCODONE 5 MG Tablet PO (09:04)
== END 2021-12-16 09:48 | disposition home or self-care (01) ==
LOC: SDC 05:57 → AC 05:58
PROVIDERS: PCP Nurse Practitioner Primary Care; Referring Provider Surgery; Visit Provider Surgery
PROC: (CPT 20205; principal; 2021-12-16 07:15)
DX: M33.13 Other dermatomyositis without myopathy (principal); Z86.16 Personal history of COVID-19; Z87.891 Personal history of nicotine dependence
CPT/HCPCS: 20205; 01250; 88305; 88313; J7120; J2405

== ENCOUNTER → 2021-12-31 | Outpatient (CLI) | payer OTHER, SELFPAY ==
[2021-12-31 17:55] LABS: Absolute Lymphocyte Count 1.11 X10^3/uL (0.83-4.51); Absolute Neutrophil Count 7.9 X10^3/uL (2.0-7.7); Basophil# 0.04 X10^3/uL; Basophil% 0.4 % (0-1); Eosinophil# 0.13 X10^3/uL; Eosinophils% 1.3 % (0-5); Hemoglobin 14.1 g/dL (12.0-15.0); Lymphocyte # 1.11 X10^3/ul (0.83-4.51); Lymphocyte % 11.3 % (19-41); Mean Corp Hgb Conc 32.8 g/dL (32-36); Mean Corpuscular Hgb 28.9 pg (27.0-32.0); Mean Corpuscular Volume 88.1 fL (81-99); Mean Platelet Vol. 9.6 fl (6.2-12.0); Monocyte# 0.58 X10^3/uL; Monocyte% 5.9 % (0-10); NRBC Flagged by Analyzer 0 % (0-5); Neutrophil # 7.89 X10^3/uL (2.7-7.7); Neutrophil % 80.7 % (47-70); Platelet Count 317 K/mm3 (150-450); RBC Distribution Width CV 15.4 % (11.6-14.6); RBC Distribution Width SD 48.6 fl (35.1-43.9); Red Blood Count 4.88 M/mm3 (4.2-5.4); White Blood Count 9.8 K/mm3 (4.4-11.0)
[2021-12-31 18:32] LABS: AST(SGOT) 31 U/L (15-37); Alanine Aminotransfer ALT/SGPT 49 U/L (13-56); Albumin, Serum 3.7 g/dL (3.2-5.0); Alkaline Phosphatase 80 U/L (45-117); Anion Gap 7 (5-15); BUN 22 mg/dL (7-18); BUN/Creat Ratio 26.7 RATIO (10-20); CPK Total, Creatine Kinase 281 U/L (26-192); Chloride 104 mmol/L (98-107); Creatinine, Serum 0.82 mg/dL (0.55-1.02); EST Glomerular Filtration Rate 75 mL/min (>60); Est Glom Filt Rate - Afr Amer 91 mL/min (>60); GGTP 23 U/L (5-55); Globulin 3.8 g/dL (2.2-4.2); Glucose 89 mg/dL (74-106); Potassium 4.1 mmol/L (3.5-5.1); Protein, Total 7.5 g/dL (6.4-8.2); Sodium Level 138 mmol/L (136-145)
[2022-01-11 09:58] LABS: Aldolase 6.4 U/L (3.3-10.3)
== END | disposition home or self-care (01) ==
LOC: MTLAB 16:14
PROVIDERS: PCP Nurse Practitioner Primary Care; Referring Provider Internal Medicine Rheumatology; Visit Provider Internal Medicine Rheumatology
DX: M06.4 Inflammatory polyarthropathy (principal); M33.90 Dermatopolymyositis, unspecified, organ involvement unspecified; M18.0 Bilateral primary osteoarthritis of first carpometacarpal joints; L40.8 Other psoriasis; M47.897 Other spondylosis, lumbosacral region; M50.30 Other cervical disc degeneration, unspecified cervical region; M72.0 Palmar fascial fibromatosis [Dupuytren]; Z79.899 Other long term (current) drug therapy
CPT/HCPCS: 36415; 80053; 82085; 82550; 82977; 85025

== ENCOUNTER → 2022-01-06 | Outpatient (CLI) | payer OTHER, SELFPAY ==
[2022-01-06 08:06] VITALS: BMI 35.1
[2022-01-06] MEDS: Immune Globulin 20 gm Premixed Solution 32 BAG IV (08:23)
[2022-01-06 08:30] VITALS: BP 155/92; PULSE 78; TEMP 36.4; O2SAT 98; BMI 35.1
[2022-01-06] MEDS: Immune Globulin 10 gm Premixed Solution 160 BAG IV (10:52)
== END | disposition home or self-care (01) ==
LOC: MEDOUTP 08:01
PROVIDERS: PCP Nurse Practitioner Primary Care; Referring Provider Internal Medicine Rheumatology; Visit Provider Internal Medicine Rheumatology
DX: M06.4 Inflammatory polyarthropathy (principal); M33.13 Other dermatomyositis without myopathy; M18.0 Bilateral primary osteoarthritis of first carpometacarpal joints; L40.8 Other psoriasis; M47.897 Other spondylosis, lumbosacral region; M50.30 Other cervical disc degeneration, unspecified cervical region; M72.0 Palmar fascial fibromatosis [Dupuytren]; Z79.899 Other long term (current) drug therapy
CPT/HCPCS: 96365; 96366 ×2; A4216; J1568

== ENCOUNTER → 2022-01-07 | Outpatient (CLI) | payer OTHER, SELFPAY ==
[2022-01-07 08:14] VITALS: BP 150/83; PULSE 77; RESP 16; TEMP 36.2; O2SAT 98; BMI 34.9
[2022-01-07] MEDS: Immune Globulin 20 gm Premixed Solution 32 BAG IV (08:20)
[2022-01-07] MEDS: Immune Globulin 10 gm Premixed Solution 160 BAG IV (10:44)
== END | disposition home or self-care (01) ==
LOC: MEDOUTP 07:57
PROVIDERS: PCP Nurse Practitioner Primary Care; Referring Provider Internal Medicine Rheumatology; Visit Provider Internal Medicine Rheumatology
DX: M06.4 Inflammatory polyarthropathy (principal); M33.90 Dermatopolymyositis, unspecified, organ involvement unspecified; M18.0 Bilateral primary osteoarthritis of first carpometacarpal joints; L40.8 Other psoriasis; M47.897 Other spondylosis, lumbosacral region; M50.30 Other cervical disc degeneration, unspecified cervical region; M72.0 Palmar fascial fibromatosis [Dupuytren]; Z79.899 Other long term (current) drug therapy
CPT/HCPCS: 96365; 96366 ×2; A4216; J1568

== ENCOUNTER → 2022-01-09 | Outpatient (CLI) | payer OTHER, SELFPAY | END | disposition home or self-care (01) | PROVIDERS: PCP Nurse Practitioner Primary Care; Referring Provider Internal Medicine Rheumatology; Visit Provider Internal Medicine Rheumatology | DX: M06.4 Inflammatory polyarthropathy (principal); M33.90 Dermatopolymyositis, unspecified, organ involvement unspecified; Z79.899 Other long term (current) drug therapy; M15.9 Polyosteoarthritis, unspecified; M18.0 Bilateral primary osteoarthritis of first carpometacarpal joints; L40.8 Other psoriasis; M47.897 Other spondylosis, lumbosacral region; M50.30 Other cervical disc degeneration, unspecified cervical region; M72.0 Palmar fascial fibromatosis [Dupuytren] | CPT/HCPCS: 36415 ==

== ENCOUNTER → 2022-02-03 | Outpatient (CLI) | payer OTHER, SELFPAY ==
[2022-02-03 08:14] VITALS: BP 166/82; PULSE 88; RESP 16; TEMP 35.8; O2SAT 97; BMI 36.0
[2022-02-03] MEDS: Immune Globulin 20 gm Premixed Solution 32 BAG IV (08:54)
[2022-02-03] MEDS: Immune Globulin 10 gm Premixed Solution 32 BAG IV (11:13)
== END | disposition home or self-care (01) ==
LOC: MEDOUTP 07:55
PROVIDERS: PCP Nurse Practitioner Primary Care; Referring Provider Internal Medicine Rheumatology; Visit Provider Internal Medicine Rheumatology
DX: M06.4 Inflammatory polyarthropathy (principal); M33.90 Dermatopolymyositis, unspecified, organ involvement unspecified; M15.9 Polyosteoarthritis, unspecified; M81.0 Age-related osteoporosis without current pathological fracture; M47.897 Other spondylosis, lumbosacral region; M50.30 Other cervical disc degeneration, unspecified cervical region; M72.0 Palmar fascial fibromatosis [Dupuytren]; L40.8 Other psoriasis; Z79.899 Other long term (current) drug therapy
CPT/HCPCS: 96365; 96366 ×2; A4216; J1568

== ENCOUNTER → 2022-02-04 | Outpatient (CLI) | payer OTHER, SELFPAY ==
[2022-02-04] MEDS: Immune Globulin 20 gm Premixed Solution 32 BAG IV (08:34)
[2022-02-04 08:37] VITALS: BP 152/92; PULSE 76; RESP 16; TEMP 36.4; O2SAT 96; BMI 34.2
[2022-02-04] MEDS: Immune Globulin 10 gm Premixed Solution 160 BAG IV (10:53)
== END | disposition home or self-care (01) ==
LOC: MEDOUTP 08:02
PROVIDERS: PCP Nurse Practitioner Primary Care; Referring Provider Internal Medicine Rheumatology; Visit Provider Internal Medicine Rheumatology
DX: M06.4 Inflammatory polyarthropathy (principal); M33.90 Dermatopolymyositis, unspecified, organ involvement unspecified; M18.0 Bilateral primary osteoarthritis of first carpometacarpal joints; M47.897 Other spondylosis, lumbosacral region; M50.30 Other cervical disc degeneration, unspecified cervical region; L40.8 Other psoriasis; M72.0 Palmar fascial fibromatosis [Dupuytren]; Z79.899 Other long term (current) drug therapy
CPT/HCPCS: 96365; 96366 ×2; A4216; J1568

== ENCOUNTER → 2022-03-05 | Outpatient (CLI) | payer OTHER, SELFPAY ==
[2022-03-05 08:16] VITALS: BP 145/85; PULSE 77; RESP 16; TEMP 36.2; O2SAT 100; BMI 34.9
[2022-03-05] MEDS: Immune Globulin 20 gm Premixed Solution 32 BAG IV (08:42)
[2022-03-05] MEDS: Immune Globulin 10 gm Premixed Solution 160 BAG IV (11:01)
== END | disposition home or self-care (01) ==
LOC: MEDOUTP 07:59
PROVIDERS: PCP Nurse Practitioner Primary Care; Referring Provider Internal Medicine Rheumatology; Visit Provider Internal Medicine Rheumatology
DX: M06.4 Inflammatory polyarthropathy (principal); M33.90 Dermatopolymyositis, unspecified, organ involvement unspecified; Z79.899 Other long term (current) drug therapy; M18.0 Bilateral primary osteoarthritis of first carpometacarpal joints; M15.9 Polyosteoarthritis, unspecified; L40.8 Other psoriasis; M47.897 Other spondylosis, lumbosacral region; M50.30 Other cervical disc degeneration, unspecified cervical region; M72.0 Palmar fascial fibromatosis [Dupuytren]
CPT/HCPCS: 96365; 96366 ×2; J1568

== ENCOUNTER → 2022-03-06 | Outpatient (CLI) | payer OTHER, SELFPAY ==
[2022-03-06 08:19] VITALS: BP 143/89; PULSE 72; RESP 16; TEMP 36.8; O2SAT 97; BMI 34.9
[2022-03-06] MEDS: Immune Globulin 20 gm Premixed Solution 32 BAG IV (08:25)
[2022-03-06] MEDS: Immune Globulin 10 gm Premixed Solution 160 BAG IV (10:49)
== END | disposition home or self-care (01) ==
LOC: MEDOUTP 07:56
PROVIDERS: PCP Nurse Practitioner Primary Care; Referring Provider Internal Medicine Rheumatology; Visit Provider Internal Medicine Rheumatology
DX: M06.4 Inflammatory polyarthropathy (principal); M33.90 Dermatopolymyositis, unspecified, organ involvement unspecified; M15.9 Polyosteoarthritis, unspecified; M18.0 Bilateral primary osteoarthritis of first carpometacarpal joints; M47.897 Other spondylosis, lumbosacral region; M50.30 Other cervical disc degeneration, unspecified cervical region; M72.0 Palmar fascial fibromatosis [Dupuytren]; Z79.899 Other long term (current) drug therapy
CPT/HCPCS: 96365; 96366 ×2; A4216; J1568

== ENCOUNTER → 2022-03-10 | Outpatient (CLI) | payer OTHER, SELFPAY ==
[2022-03-10 17:42] LABS: Absolute Lymphocyte Count 1.01 X10^3/uL (0.83-4.51); Basophil# 0.04 X10^3/uL; Basophil% 0.4 % (0-1); Eosinophil# 0.06 X10^3/uL; Eosinophils% 0.6 % (0-5); Hematocrit 42.5 % (37-47); Hemoglobin 13.9 g/dL (12.0-15.0); Lymphocyte # 1.01 X10^3/ul (0.83-4.51); Lymphocyte % 10.6 % (19-41); Mean Corp Hgb Conc 32.7 g/dL (32-36); Mean Corpuscular Hgb 30.5 pg (27.0-32.0); Mean Corpuscular Volume 93.4 fL (81-99); Monocyte# 0.44 X10^3/uL; Monocyte% 4.6 % (0-10); NRBC Flagged by Analyzer 0 % (0-5); Neutrophil # 7.99 X10^3/uL (2.7-7.7); Neutrophil % 83.5 % (47-70); Platelet Count 308 K/mm3 (150-450); RBC Distribution Width CV 14.9 % (11.6-14.6); RBC Distribution Width SD 51.2 fl (35.1-43.9); Red Blood Count 4.55 M/mm3 (4.2-5.4); White Blood Count 9.6 K/mm3 (4.4-11.0)
[2022-03-10 17:55] LABS: ALB/GLOB Ratio 0.7 RATIO (0.9-2.4); AST(SGOT) 37 U/L (15-37); Alanine Aminotransfer ALT/SGPT 50 U/L (13-56); Albumin, Serum 3.4 g/dL (3.2-5.0); Alkaline Phosphatase 97 U/L (45-117); Anion Gap 7 (5-15); BUN 18 mg/dL (7-18); BUN/Creat Ratio 22.7 RATIO (10-20); CPK Total, Creatine Kinase 290 U/L (26-192); Calcium,Total 9.6 mg/dL (8.5-10.1); Chloride 103 mmol/L (98-107); Creatinine, Serum 0.79 mg/dL (0.55-1.02); EST Glomerular Filtration Rate 79 mL/min (>60); Est Glom Filt Rate - Afr Amer 96 mL/min (>60); Globulin 4.8 g/dL (2.2-4.2); Glucose 92 mg/dL (74-106); Protein, Total 8.2 g/dL (6.4-8.2); Sodium Level 136 mmol/L (136-145)
[2022-03-12 16:14] LABS: Aldolase 5.5 U/L (3.3-10.3)
== END | disposition home or self-care (01) ==
LOC: MTLAB 16:12
PROVIDERS: PCP Nurse Practitioner Primary Care; Referring Provider Internal Medicine Rheumatology; Visit Provider Internal Medicine Rheumatology
DX: M06.4 Inflammatory polyarthropathy (principal); M33.90 Dermatopolymyositis, unspecified, organ involvement unspecified; M15.9 Polyosteoarthritis, unspecified; Z79.899 Other long term (current) drug therapy
CPT/HCPCS: 36415; 80053; 82085; 82550; 85025

== ENCOUNTER → 2022-05-26 | Outpatient (CLI) | payer OTHER, SELFPAY ==
[2022-05-26 18:03] LABS: Absolute Lymphocyte Count 1.48 X10^3/uL (0.83-4.51); Absolute Neutrophil Count 8.8 X10^3/uL (2.0-7.7); Basophil# 0.07 X10^3/uL; Basophil% 0.6 % (0-1); Eosinophil# 0.11 X10^3/uL; Hematocrit 44.6 % (37-47); Hemoglobin 14.5 g/dL (12.0-15.0); Lymphocyte # 1.48 X10^3/ul (0.83-4.51); Lymphocyte % 13.4 % (19-41); Mean Corp Hgb Conc 32.5 g/dL (32-36); Mean Corpuscular Hgb 29.7 pg (27.0-32.0); Mean Corpuscular Volume 91.4 fL (81-99); Mean Platelet Vol. 10.7 fl (6.2-12.0); Monocyte# 0.48 X10^3/uL; Monocyte% 4.4 % (0-10); NRBC Flagged by Analyzer 0 % (0-5); Neutrophil # 8.82 X10^3/uL (2.7-7.7); Neutrophil % 80.1 % (47-70); Platelet Count 301 K/mm3 (150-450); RBC Distribution Width CV 13.7 % (11.6-14.6); RBC Distribution Width SD 46.1 fl (35.1-43.9); Red Blood Count 4.88 M/mm3 (4.2-5.4)
[2022-05-26 19:00] LABS: ALB/GLOB Ratio 0.9 RATIO (0.9-2.4); AST(SGOT) 26 U/L (15-37); Albumin, Serum 3.7 g/dL (3.2-5.0); BUN 23 mg/dL (7-18); BUN/Creat Ratio 19.5 RATIO (10-20); CPK Total, Creatine Kinase 293 U/L (26-192); Calcium,Total 9.6 mg/dL (8.5-10.1); Creatinine, Serum 1.18 mg/dL (0.55-1.02); EST Glomerular Filtration Rate 50 mL/min (>60); Est Glom Filt Rate - Afr Amer 60 mL/min (>60); Globulin 4.1 g/dL (2.2-4.2); Glucose 105 mg/dL (74-106); Protein, Total 7.8 g/dL (6.4-8.2)
[2022-05-26 19:01] LABS: Alanine Aminotransfer ALT/SGPT 47 U/L (13-56); Alkaline Phosphatase 103 U/L (45-117); Anion Gap 10 (5-15); Chloride 103 mmol/L (98-107); Potassium 4.1 mmol/L (3.5-5.1); Sodium Level 137 mmol/L (136-145)
[2022-05-28 20:22] LABS: Aldolase 6.2 U/L (3.3-10.3)
== END | disposition home or self-care (01) ==
LOC: MTLAB 16:27
PROVIDERS: PCP Nurse Practitioner Primary Care; Referring Provider Internal Medicine Rheumatology; Visit Provider Internal Medicine Rheumatology
DX: M06.4 Inflammatory polyarthropathy (principal); M33.90 Dermatopolymyositis, unspecified, organ involvement unspecified; M18.0 Bilateral primary osteoarthritis of first carpometacarpal joints; L40.8 Other psoriasis; M47.897 Other spondylosis, lumbosacral region; M50.30 Other cervical disc degeneration, unspecified cervical region; M72.0 Palmar fascial fibromatosis [Dupuytren]; Z79.899 Other long term (current) drug therapy
CPT/HCPCS: 36415; 80053; 82085; 82550; 85025

== ENCOUNTER → 2022-07-28 | Outpatient (CLI) | payer OTHER, SELFPAY ==
[2022-07-28 18:04] LABS: Absolute Lymphocyte Count 1.29 X10^3/uL (0.83-4.51); Absolute Neutrophil Count 7.5 X10^3/uL (2.0-7.7); Basophil# 0.07 X10^3/uL; Basophil% 0.7 % (0-1); Eosinophil# 0.11 X10^3/uL; Eosinophils% 1.2 % (0-5); Hematocrit 42.3 % (37-47); Hemoglobin 13.6 g/dL (12.0-15.0); Lymphocyte # 1.29 X10^3/ul (0.83-4.51); Lymphocyte % 13.6 % (19-41); Mean Corp Hgb Conc 32.2 g/dL (32-36); Mean Corpuscular Hgb 29.9 pg (27.0-32.0); Mean Platelet Vol. 9.8 fl (6.2-12.0); Monocyte# 0.51 X10^3/uL; Monocyte% 5.4 % (0-10); NRBC Flagged by Analyzer 0 % (0-5); Neutrophil # 7.46 X10^3/uL (2.7-7.7); Neutrophil % 78.7 % (47-70); Platelet Count 335 K/mm3 (150-450); RBC Distribution Width CV 14.6 % (11.6-14.6); RBC Distribution Width SD 50.1 fl (35.1-43.9); Red Blood Count 4.55 M/mm3 (4.2-5.4); White Blood Count 9.5 K/mm3 (4.4-11.0)
[2022-07-28 20:32] LABS: ALB/GLOB Ratio 0.9 RATIO (0.9-2.4); AST(SGOT) 34 U/L (15-37); Alanine Aminotransfer ALT/SGPT 48 U/L (13-56); Albumin, Serum 3.7 g/dL (3.2-5.0); Alkaline Phosphatase 93 U/L (45-117); Anion Gap 7 (5-15); BUN 21 mg/dL (7-18); CPK Total, Creatine Kinase 314 U/L (26-192); Calcium,Total 9.3 mg/dL (8.5-10.1); Chloride 104 mmol/L (98-107); EST Glomerular Filtration Rate 60 mL/min (>60); Est Glom Filt Rate - Afr Amer 73 mL/min (>60); Globulin 3.9 g/dL (2.2-4.2); Glucose 93 mg/dL (74-106); Protein, Total 7.6 g/dL (6.4-8.2); Sodium Level 136 mmol/L (136-145)
[2022-07-30 15:15] LABS: Aldolase 6.3 U/L (3.3-10.3)
== END | disposition home or self-care (01) ==
LOC: MTLAB 16:25
PROVIDERS: PCP Nurse Practitioner Primary Care; Referring Provider Internal Medicine Rheumatology; Visit Provider Internal Medicine Rheumatology
DX: M06.4 Inflammatory polyarthropathy (principal); Z79.899 Other long term (current) drug therapy
CPT/HCPCS: 36415; 80053; 82085; 82550; 85025

== ENCOUNTER → 2022-09-28 | Outpatient (CLI) | payer OTHER, SELFPAY ==
[2022-09-28 18:18] LABS: Absolute Lymphocyte Count 1.19 X10^3/uL (0.83-4.51); Absolute Neutrophil Count 6.2 X10^3/uL (2.0-7.7); Basophil# 0.04 X10^3/uL; Basophil% 0.5 % (0-1); Eosinophil# 0.05 X10^3/uL; Eosinophils% 0.6 % (0-5); Hematocrit 40.1 % (37-47); Hemoglobin 12.9 g/dL (12.0-15.0); Lymphocyte # 1.19 X10^3/ul (0.83-4.51); Lymphocyte % 15.1 % (19-41); Mean Corp Hgb Conc 32.2 g/dL (32-36); Mean Corpuscular Hgb 29.6 pg (27.0-32.0); Mean Platelet Vol. 9.6 fl (6.2-12.0); Monocyte# 0.41 X10^3/uL; Monocyte% 5.2 % (0-10); NRBC Flagged by Analyzer 0 % (0-5); Neutrophil # 6.15 X10^3/uL (2.7-7.7); Neutrophil % 78.3 % (47-70); Platelet Count 304 K/mm3 (150-450); RBC Distribution Width CV 14.7 % (11.6-14.6); RBC Distribution Width SD 49.6 fl (35.1-43.9); Red Blood Count 4.36 M/mm3 (4.2-5.4); White Blood Count 7.9 K/mm3 (4.4-11.0)
[2022-09-28 18:38] LABS: ALB/GLOB Ratio 0.7 RATIO (0.9-2.4); AST(SGOT) 44 U/L (15-37); Alanine Aminotransfer ALT/SGPT 56 U/L (13-56); Albumin, Serum 3.3 g/dL (3.2-5.0); Alkaline Phosphatase 92 U/L (45-117); Anion Gap 10 (5-15); BUN 17 mg/dL (7-18); CPK Total, Creatine Kinase 268 U/L (26-192); Calcium,Total 9.3 mg/dL (8.5-10.1); Chloride 104 mmol/L (98-107); Creatinine, Serum 0.94 mg/dL (0.55-1.02); EST Glomerular Filtration Rate 65 mL/min (>60); Est Glom Filt Rate - Afr Amer 78 mL/min (>60); Globulin 4.8 g/dL (2.2-4.2); Glucose 116 mg/dL (74-106); Potassium 3.7 mmol/L (3.5-5.1); Protein, Total 8.1 g/dL (6.4-8.2); Sodium Level 137 mmol/L (136-145)
[2022-09-30 13:08] LABS: Aldolase 4.3 U/L (3.3-10.3)
== END | disposition home or self-care (01) ==
LOC: MTLAB 16:07
PROVIDERS: PCP Nurse Practitioner Primary Care; Referring Provider Internal Medicine Rheumatology; Visit Provider Internal Medicine Rheumatology
DX: M06.4 Inflammatory polyarthropathy (principal); Z79.899 Other long term (current) drug therapy
CPT/HCPCS: 36415; 80053; 82085; 82550; 85025

== ENCOUNTER → 2022-11-24 | Outpatient (CLI) | payer OTHER, SELFPAY ==
[2022-11-24 18:14] LABS: Absolute Lymphocyte Count 1.36 X10^3/uL (0.83-4.51); Basophil# 0.04 X10^3/uL; Basophil% 0.4 % (0-1); Eosinophil# 0.14 X10^3/uL; Eosinophils% 1.5 % (0-5); Hematocrit 42.8 % (37-47); Hemoglobin 13.7 g/dL (12.0-15.0); Lymphocyte # 1.36 X10^3/ul (0.83-4.51); Mean Corpuscular Hgb 29.3 pg (27.0-32.0); Mean Corpuscular Volume 91.5 fL (81-99); Monocyte% 5.5 % (0-10); NRBC Flagged by Analyzer 0 % (0-5); Neutrophil # 7.02 X10^3/uL (2.7-7.7); Neutrophil % 77.4 % (47-70); Platelet Count 316 K/mm3 (150-450); RBC Distribution Width CV 14.3 % (11.6-14.6); RBC Distribution Width SD 47.4 fl (35.1-43.9); Red Blood Count 4.68 M/mm3 (4.2-5.4); White Blood Count 9.1 K/mm3 (4.4-11.0)
[2022-11-24 18:58] LABS: ALB/GLOB Ratio 0.9 RATIO (0.9-2.4); AST(SGOT) 31 U/L (15-37); Alanine Aminotransfer ALT/SGPT 47 U/L (13-56); Albumin, Serum 3.6 g/dL (3.2-5.0); Alkaline Phosphatase 108 U/L (45-117); Anion Gap 6 (5-15); BUN 18 mg/dL (7-18); BUN/Creat Ratio 21.2 RATIO (10-20); CPK Total, Creatine Kinase 389 U/L (26-192); Chloride 106 mmol/L (98-107); Creatinine, Serum 0.85 mg/dL (0.55-1.02); EST Glomerular Filtration Rate 73 mL/min (>60); Est Glom Filt Rate - Afr Amer 88 mL/min (>60); Globulin 3.9 g/dL (2.2-4.2); Glucose 99 mg/dL (74-106); Potassium 3.8 mmol/L (3.5-5.1); Protein, Total 7.5 g/dL (6.4-8.2); Sodium Level 136 mmol/L (136-145)
[2022-11-26 15:08] LABS: Aldolase 5.8 U/L (3.3-10.3)
== END | disposition home or self-care (01) ==
LOC: MTLAB 15:59
PROVIDERS: PCP Nurse Practitioner Primary Care; Referring Provider Internal Medicine Rheumatology; Visit Provider Internal Medicine Rheumatology
DX: M06.4 Inflammatory polyarthropathy (principal); M33.90 Dermatopolymyositis, unspecified, organ involvement unspecified; M15.9 Polyosteoarthritis, unspecified; Z79.899 Other long term (current) drug therapy
CPT/HCPCS: 36415; 80053; 82085; 82550; 85025

== ENCOUNTER → 2023-02-24 | Outpatient (CLI) | payer OTHER, SELFPAY ==
[2023-02-24 17:40] LABS: Absolute Lymphocyte Count 1.28 X10^3/uL (0.83-4.51); Absolute Neutrophil Count 6.5 X10^3/uL (2.0-7.7); Basophil# 0.07 X10^3/uL; Basophil% 0.8 % (0-1); Eosinophil# 0.08 X10^3/uL; Hematocrit 38.3 % (37-47); Hemoglobin 12.4 g/dL (12.0-15.0); Lymphocyte # 1.28 X10^3/ul (0.83-4.51); Lymphocyte % 15.3 % (19-41); Mean Corp Hgb Conc 32.4 g/dL (32-36); Mean Corpuscular Hgb 29.2 pg (27.0-32.0); Mean Corpuscular Volume 90.1 fL (81-99); Mean Platelet Vol. 9.8 fl (6.2-12.0); Monocyte# 0.45 X10^3/uL; Monocyte% 5.4 % (0-10); NRBC Flagged by Analyzer 0 % (0-5); Neutrophil # 6.49 X10^3/uL (2.7-7.7); Neutrophil % 77.3 % (47-70); Platelet Count 287 K/mm3 (150-450); RBC Distribution Width SD 48.6 fl (35.1-43.9); Red Blood Count 4.25 M/mm3 (4.2-5.4); White Blood Count 8.4 K/mm3 (4.4-11.0)
[2023-02-24 18:15] LABS: ALB/GLOB Ratio 0.7 RATIO (0.9-2.4); AST(SGOT) 33 U/L (15-37); Alanine Aminotransfer ALT/SGPT 42 U/L (13-56); Albumin, Serum 3.3 g/dL (3.2-5.0); Alkaline Phosphatase 108 U/L (45-117); Anion Gap 6 (5-15); BUN 17 mg/dL (7-18); BUN/Creat Ratio 21.9 RATIO (10-20); CPK Total, Creatine Kinase 339 U/L (26-192); Calcium,Total 9.1 mg/dL (8.5-10.1); Chloride 107 mmol/L (98-107); Creatinine, Serum 0.78 mg/dL (0.55-1.02); EST Glomerular Filtration Rate 81 mL/min (>60); Est Glom Filt Rate - Afr Amer 98 mL/min (>60); Globulin 4.6 g/dL (2.2-4.2); Glucose 109 mg/dL (74-106); Potassium 3.5 mmol/L (3.5-5.1); Protein, Total 7.9 g/dL (6.4-8.2); Sodium Level 138 mmol/L (136-145)
[2023-02-26 15:08] LABS: Aldolase 5.1 U/L (3.3-10.3)
== END | disposition home or self-care (01) ==
LOC: MTLAB 16:25
PROVIDERS: PCP Nurse Practitioner Primary Care; Referring Provider Internal Medicine Rheumatology; Visit Provider Internal Medicine Rheumatology
DX: M06.4 Inflammatory polyarthropathy (principal); M33.90 Dermatopolymyositis, unspecified, organ involvement unspecified; M15.9 Polyosteoarthritis, unspecified; Z79.899 Other long term (current) drug therapy
CPT/HCPCS: 36415; 80053; 82085; 82550; 85025

== ENCOUNTER → 2023-05-17 | Outpatient (CLI) | payer OTHER, SELFPAY ==
--- OUTSIDE RECORDS SUMMARY | 2023-05-17 17:28 | XMS RPT_ITS | CCD ---
Author Name Unknown Address [address] [place] [address] Organization [facility] Care Team Providers Care Corporate Buyer Name Role Phone Jemal Lim MD Unavailable Unavailable Primary Care Provider Unavailabl e Medications Completed/Discontinued Medications Medication Drug Class(es) Dates Sig (Normalized) Sig (Original) calcium (1 source) Phosphate Binder, Calcium Start: 11-15-2017 CALCIUM 600/VITAMIN D TABS 1 tablet daily CALCIUM CARB-CHOLECALCIFER OL TABS [id number] Savanah Bennett LPN cetirizine (1 source) Histamine-1 Receptor Antagonist Start: 11-15-2017 ALL DAY ALLERGY 10 MG TABS 1 tablet daily CETIRIZINE HCL [id number] Savanah Bennett LPN folic acid 1 mg oral tablet (1 source) Start: 11-15-2017 FOLIC ACID 1 MG TABS 2 tablets daily FOLIC ACID [id number] Savanah Bennett LPN leucovorin 5 mg oral tablet (1 source) Folate Analog Start: 11-15-2017 LEUCOVORIN CALCIUM 5 MG TABS 1 tablet once a week LEUCOVORIN CALCIUM 88117565843 Savanah Bennett LPN methotrexate 2.5 mg oral tablet (1 source) Folate Analog Metabolic Inhibitor Start: 11-15-2017 METHOTREXATE SODIUM 2.5 MG TABS 7 tablets every week METHOTREXATE SODIUM 54959682908 Savanah Bennett LPN MULTIPLE VITAMINS-MINERALS (1 source) Start: 11-15-2017 MULTIVITAMIN ADULT TABS 1 tablet daily MULTIPLE VITAMINS-MINERALS 81736621926 Savanah Gottwalt BRAKE RELINER predniSONE 10 mg oral tablet (1 source) Corticosteroid Start: 11-22-2017 PREDNISONE 10 MG TABS as needed for 3-5 five days for flare ups PREDNISONE [id number] Jemal Lim MD Problems Active Problems Problem Classification Problem Date Documented Da te Episodic/Chronic Other connective tissue disease (1 source) Other synovitis and tenosynovitis, right forearm; Translations: [Other synovitis and tenosynovitis, right forearm] Onset: 11-22-2017 11-22-2017 Episodic Other nervous system disorders (1 source) Carpal tunnel syndrome, right upper limb; Translations: [Carpal tunnel syndrome, right upper limb] Onset: 11-22-2017 11-22-2017 Chronic Past or Other Problems Problem Classification Problem Date Documented Da te Episodic/Chronic Unclassified (1 source) Problem Results Test Name Value Interpretation Reference Range Facil ity Vital Signs Date Time Vital Sign Value Performing Clinician Facility NEGATED: Highlighted [id number] 08:34-0400 BMI (Body Mass Index) 31.43 kg/m2 [facility] Work Phone: NEGATED: Highlighted [id number] 08:34-0400 BP Diastolic 82 mm[Hg] [facility] Work Phone: NEGATED: Highlighted [id number] 08:34-0400 BP Diastolic 88 mm[Hg] [facility] Work Phone: NEGATED: Highlighted [id number] 08:34-0400 BP Systolic 144 mm[Hg] [facility] Work Phone: NEGATED: Highlighted [id number] 08:34-0400 BP Systolic 136 mm[Hg] [facility] Work Phone: NEGATED: Highlighted [id number] 08:34-0400 Height 173.99 cm [facility] Work Phone: NEGATED: Highlighted [id number] 08:34-0400 Height 174 cm [facility] Work Phone: NEGATED: Highlighted [id number] 08:34-0400 Pulse (Heart Rate) 88 /min [facility] Work Phone: NEGATED: Highlighted [id number] 08:34-0400 Weight 94.8 kg [facility] Work Phone: NEGATED: Highlighted [id number] 08:34-0400 Weight 95 kg [facility] Work Phone: Encounters Encounter Date Encounter Type Care Provider Facility Start: 04-13-2021 Patient encounter procedure Beulah Christensen MD Work Phone: [facility] Start: 04-13-2021 Progress Note Beulah Christensen MD Work Phone: [facility] Start: 04-10-2021 End: 04-10-2021 Subsequent hospital visit by physician Beulah Christensen Work Phone: IF [facility] Procedures Date Procedure Procedure Detail Performing Clinician Start: 11-22-2017 End: 11-22-2017 BMI outside of normal parameters - no follow-up plan/reason not given Jemal Lim MD Work Phone: Start: 11-22-2017 End: 11-22-2017 Current medications documented Jemal Lim MD Work Phone: Start: 11-22-2017 End: 11-22-2017 Pain assessment documented as positive - follow-up documented Jemal Lim MD Work Phone: Start: 11-22-2017 End: 11-22-2017 Tobacco non-user Jemal Lim MD Work Phone: Plan of Treatment Date Care Activity Detail Author Start: 11-22-2017 End: 11-22-2017 Appointment Appointment [facility] Work Phone: Patient Education \cps-[email or web address]\[email or web address]_ PtEducation \[email or web address].pdf [facility] Work Phone: Immunizations Immunization Date Immunization Notes Care Provider Vandana wetzel No information available. Oneyda Jose [facility] Work Phone: Payers Date Payer Category Payer Unknown MMO MMO [employer] [id number] 2018-Present [phone] [address] [place] [address] PPO 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 EXERCISEFREQ 5 days per week [facility] Work Phone: History of Present illness Narrative 04-13-2021 Beulah Christensen MD - 04/13/2021 9:56 PM EST Note Date & Type Note Facility 04-13-2021 History of Present illness Narrative DATE OF SERVICE: 04/10/2021 REASON FOR VISIT: Burning urination. HISTORY OF PRESENT ILLNESS: This is a 56-year-old female presenting with burning urination and frequency which started today. Denied any fever or chills. No discharge. REVIEW OF OTHER SYSTEMS: Normal. ALLERGIES: NKDA. MEDICATIONS: List was reviewed. PHYSICAL EXAMINATION: She is awake, alert, not in distress. No dyspnea. Temperature 97.8, blood pressure 147/85, pulse 72, respirations 12, pulse oximetry 99% on room air. Pain score 5/10. HEENT: Unremarkable. Chest clear to auscultation. Heart: Regular rate and rhythm. No CVA tenderness. Abdomen is benign. TESTS: Urine dip stick was significantly positive for blood. ASSESSMENT: Urinary tract infection. PLAN: Clinical findings were discussed with the patient in detail. I gave her Macrobid 100 mg twice a day for 5 days, Pyridium 100 mg 3 times a day p.r.n., 6 tablets with no refill. She should drink a lot of fluids. I will send urine for culture as well. She should follow up with her doctor as needed. Patient understands and agrees. Beulah Christensen MD [id number] [facility] File#: [id number] END OF DOCUMENT / CHANGE LOG FOLLOWS Last Edited By Elec. Signed By Beulah Christensen MD #PAWPR Beulah Christensen MD #PAWPR on 05/05/2021 10:10 ET on 05/05/2021 10:10 ET Revision Number - 2 ^^^ Verified/Reviewed by 05/05/[address] [facility] PATIENT NAME: SHARON MATTSON [address] MEDICAL REC #: [id number] [place] [address] [facility] REPORT STATCARE PHYSICIAN documented in this encounter [facility] Instructions Instruction Description Start Date CompletedPlease follow-up wi th Primary Care Physician or Library Helper for treatment or adjustment of medication regarding elevated blood pressure. Advance Directives There may be information available, but it has not been provided by the sender. No Advanced Directives Records FoundNo Advanced Directives Records Found Assessments There may be information available, but it has not been provided by the sender. Review of System There may be information available, but it has not been provided by the sender. Family History There may be information available, but it has not been provided by the sender.No Family History Records FoundNo Family History Records Found Summary Purpose Additional Source Comments INFORMATION SOURCE (unrecogn ized section and content) DATE CREATED AUTHOR AUTHOR'S ORGANIZ ATION 04/13/2021 [facility] Ce prachideuce Lala Source Comments (unrecognize d section and content) In the event this informatio n is protected by the Federal Confidentiality of Alcohol and Drug Abuse Patient Records regulations: The Federal rules restrict any use of the information to criminally investigate or prosecute any alcohol or drug abuse patient.[facility] the event this information is protected by the Federal Confidentiality of Alcohol and Drug Abuse Patient Records regulations: The Federal rules restrict any use of the information to criminally investigate or prosecute any alcohol or drug abuse patient.[facility] FOR RECORDS PERTAINING TO PATIENTS WHO ARE OR HAVE BEEN ENROLLED IN A CHEMICAL DEPENDENCY/SUBSTANCEABUSE PROGRAM, SOME INFORMATION MAY BE OMITTED. This clinical summary was aggregated from multiple sources. Caution should be exercised in using it in the provision of clinical care. This summary normalizes information from multiple sources, and as a consequence, information in this document may materially change the coding, format and clinical context of patient data. In addition, data may be omitted in some cases. CLINICAL DECISIONS SHOULD BE BASED ON THE PRIMARY CLINICAL RECORDS. [facility]. provides no warranty or guarantee of the accuracy or completeness of information in this document.
[2023-05-17 17:43] LABS: Absolute Lymphocyte Count 1.37 X10^3/uL (0.83-4.51); Absolute Neutrophil Count 4.5 X10^3/uL (2.0-7.7); Basophil# 0.06 X10^3/uL; Basophil% 0.9 % (0-1); Eosinophil# 0.04 X10^3/uL; Eosinophils% 0.6 % (0-5); Hematocrit 40.9 % (37-47); Hemoglobin 13.4 g/dL (12.0-15.0); Lymphocyte # 1.37 X10^3/ul (0.83-4.51); Lymphocyte % 21.5 % (19-41); Mean Corp Hgb Conc 32.8 g/dL (32-36); Mean Corpuscular Hgb 29.5 pg (27.0-32.0); Mean Corpuscular Volume 90.1 fL (81-99); Mean Platelet Vol. 9.4 fl (6.2-12.0); Monocyte# 0.39 X10^3/uL; Monocyte% 6.1 % (0-10); NRBC Flagged by Analyzer 0 % (0-5); Neutrophil % 70.7 % (47-70); Platelet Count 254 K/mm3 (150-450); RBC Distribution Width CV 14.6 % (11.6-14.6); RBC Distribution Width SD 47.6 fl (35.1-43.9); Red Blood Count 4.54 M/mm3 (4.2-5.4); White Blood Count 6.4 K/mm3 (4.4-11.0)
[2023-05-17 17:57] LABS: ALB/GLOB Ratio 0.7 RATIO (0.9-2.4); AST(SGOT) 38 U/L (15-37); Alanine Aminotransfer ALT/SGPT 42 U/L (13-56); Albumin, Serum 3.4 g/dL (3.2-5.0); Alkaline Phosphatase 103 U/L (45-117); Anion Gap 7 (5-15); BUN 19 mg/dL (7-18); BUN/Creat Ratio 16.1 RATIO (10-20); CPK Total, Creatine Kinase 294 U/L (26-192); Calcium,Total 8.6 mg/dL (8.5-10.1); Chloride 107 mmol/L (98-107); Creatinine, Serum 1.18 mg/dL (0.55-1.02); EST Glomerular Filtration Rate 50 mL/min (>60); Est Glom Filt Rate - Afr Amer 60 mL/min (>60); Globulin 5.1 g/dL (2.2-4.2); Glucose 97 mg/dL (74-106); Protein, Total 8.5 g/dL (6.4-8.2); Sodium Level 138 mmol/L (136-145)
[2023-05-19 13:08] LABS: Aldolase 4.3 U/L (3.3-10.3)
== END | disposition home or self-care (01) ==
PROVIDERS: Referring Provider Internal Medicine Rheumatology; Visit Provider Internal Medicine Rheumatology
DX: M06.4 Inflammatory polyarthropathy (principal); M33.90 Dermatopolymyositis, unspecified, organ involvement unspecified; M15.9 Polyosteoarthritis, unspecified; Z79.899 Other long term (current) drug therapy
CPT/HCPCS: 36415; 80053; 82085; 82550; 85025

== ENCOUNTER → 2023-06-20 | Outpatient (CLI) | payer OTHER, SELFPAY ==
--- OUTSIDE RECORDS SUMMARY | 2023-06-20 14:14 | XMS RPT_ITS | CCD ---
Author Name Unknown Address [address] [place] [address] Organization [facility] Care Team Providers Care Pasting Machine Operator Name Role Phone Jemal Lim MD Unavailable Unavailable Primary Care Provider Unavailabl e Medications Completed/Discontinued Medications Medication Drug Class(es) Dates Sig (Normalized) Sig (Original) calcium (1 source) Phosphate Binder, Calcium Start: 11-15-2017 CALCIUM 600/VITAMIN D TABS 1 tablet daily CALCIUM CARB-CHOLECALCIFER OL TABS [id number] Savanah Bennett LPN cetirizine (1 source) Histamine-1 Receptor Antagonist Start: 11-15-2017 ALL DAY ALLERGY 10 MG TABS 1 tablet daily CETIRIZINE HCL [id number] Savanah Bennett LPN folic acid 1 mg oral tablet (1 source) Start: 11-15-2017 FOLIC ACID 1 MG TABS 2 tablets daily FOLIC ACID 69316207187 Savanah Bennett LPN leucovorin 5 mg oral tablet (1 source) Folate Analog Start: 11-15-2017 LEUCOVORIN CALCIUM 5 MG TABS 1 tablet once a week LEUCOVORIN CALCIUM 39486420716 Savanah Bennett LPN methotrexate 2.5 mg oral tablet (1 source) Folate Analog Metabolic Inhibitor Start: 11-15-2017 METHOTREXATE SODIUM 2.5 MG TABS 7 tablets every week METHOTREXATE SODIUM [id number] Savanah Bennett LPN MULTIPLE VITAMINS-MINERALS (1 source) Start: 11-15-2017 MULTIVITAMIN ADULT TABS 1 tablet daily MULTIPLE VITAMINS-MINERALS 82887725802 Savanah Gottwalt CARE TRANSITIONS NURSE predniSONE 10 mg oral tablet (1 source) Corticosteroid Start: 11-22-2017 PREDNISONE 10 MG TABS as needed for 3-5 five days for flare ups PREDNISONE [id number] Jemal Lim MD Problems Active Problems Problem [...] Sign Value Performing Clinician Facility NEGATED: Highlighted [id number] 08:34-0400 BMI (Body Mass Index) 31.43 kg/m2 [facility] Work Phone: NEGATED: Highlighted [id number] 08:34-0400 BP Diastolic 82 mm[Hg] [facility] Work Phone: NEGATED: Highlighted [id number] 08:34-0400 BP Diastolic 88 mm[Hg] [facility] Work Phone: NEGATED: Highlighted [id number] 08:34-0400 BP Systolic 144 mm[Hg] [facility] Work Phone: NEGATED: Highlighted [id number] 08:34-0400 BP Systolic 136 mm[Hg] [facility] Work Phone: NEGATED: Highlighted [id number] 08:34-0400 Height 173.99 cm [facility] Work Phone: NEGATED: Highlighted [id number] 08:34-0400 Height 174 cm [facility] Work Phone: NEGATED: Highlighted [id number] 08:34-0400 Pulse (Heart Rate) 88 /min [facility] Work Phone: NEGATED: Highlighted [id number] 08:34-0400 Weight 94.8 kg [facility] Work Phone: NEGATED: Highlighted [id number] 08:34-0400 Weight 95 kg [facility] Work Phone: Encounters Encounter Date Encounter Type Care Provider Facility Start: 04-13-2021 Patient encounter procedure Beulah Christensen MD Work Phone: [facility] Start: 04-13-2021 Progress Note Beulah Christensen MD Work Phone: IF [facility] Start: 04-10-2021 End: 04-10-2021 Subsequent hospital visit by physician Beulah Christensen Work Phone: IF [facility] Procedures Date Procedure Procedure Detail Performing Clinician [...] Author Start: 11-22-2017 End: 11-22-2017 Appointment Appointment [facility] Work Phone: Patient Education \cps-sql1\CPS_ PtEducation \htn.pdf [facility] Work Phone: Immunizations Immunization Date Immunization Notes Care Provider Vandana wetzel No information available. Oneyda Jose Martin [facility] Work Phone: Payers Date Payer Category Payer Unknown MMO MMO [employer] [id number] 2018-Present [phone] [address] [place] [address] PPO 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 EXERCISEFREQ 5 days per week [facility] Work Phone: History of Present [...] Patient understands and agrees. Beulah Christensen MD PP/[id number] [facility] File#: [id number] END OF DOCUMENT / CHANGE LOG FOLLOWS Last Edited By Elec. Signed By Beulah Christensen MD #PAWPR Beulah Christensen MD #PAWPR on 05/05/2021 10:10 ET on 05/05/2021 10:10 ET Revision Number - 2 ^^^ Verified/Reviewed by 05/05/21 [address] [facility] PATIENT NAME: SHARON MATTSON [address] [place] MEDICAL REC #: [id number] [place] [address] [facility] REPORT STATCARE PHYSICIAN documented in this encounter [facility] Instructions Instruction Description Start Date CompletedPlease follow-up wi th Primary Care Physician or Chemical Packager for treatment or adjustment of medication regarding [...] DATE CREATED AUTHOR AUTHOR'S ORGANIZ ATION 04/13/2021 [facility] Ce prachideuce Lala Source Comments (unrecognize d section and content) In the event this informatio n is protected by the Federal Confidentiality of Alcohol and Drug Abuse Patient Records regulations: The Federal rules restrict any use of the information to criminally investigate or prosecute any alcohol or drug abuse patient.[facility] the event this information is protected by the Federal Confidentiality of Alcohol and Drug Abuse Patient Records regulations: The Federal rules restrict any use of the information to criminally investigate or prosecute any alcohol or drug abuse patient.[facility] FOR RECORDS PERTAINING TO PATIENTS WHO ARE [...] BE BASED ON THE PRIMARY CLINICAL RECORDS. [facility] [employer] [facility]. provides no warranty or guarantee of the accuracy or completeness of information in this document.
== END | disposition home or self-care (01) ==
LOC: LABSPEC 14:11
PROVIDERS: Referring Provider Nurse Practitioner Family; Visit Provider Nurse Practitioner Family
DX: R30.0 Dysuria (principal)
CPT/HCPCS: 87086; 87088; 87186

== ENCOUNTER → 2023-08-18 | Outpatient (CLI) | payer OTHER, SELFPAY ==
[2023-08-18 15:13] LABS: Absolute Lymphocyte Count 1.35 X10^3/uL (0.83-4.51); Absolute Neutrophil Count 7.1 X10^3/uL (2.0-7.7); Basophil# 0.07 X10^3/uL; Basophil% 0.8 % (0-1); Eosinophil# 0.05 X10^3/uL; Eosinophils% 0.6 % (0-5); Hematocrit 41.3 % (37-47); Lymphocyte # 1.35 X10^3/ul (0.83-4.51); Lymphocyte % 15.2 % (19-41); Mean Corp Hgb Conc 31.5 g/dL (32-36); Mean Corpuscular Hgb 27.9 pg (27.0-32.0); Mean Corpuscular Volume 88.6 fL (81-99); Mean Platelet Vol. 9.9 fl (6.2-12.0); Monocyte# 0.27 X10^3/uL; NRBC Flagged by Analyzer 0 % (0-5); Neutrophil # 7.09 X10^3/uL (2.7-7.7); Neutrophil % 79.9 % (47-70); Platelet Count 347 K/mm3 (150-450); RBC Distribution Width CV 15.7 % (11.6-14.6); RBC Distribution Width SD 49.9 fl (35.1-43.9); Red Blood Count 4.66 M/mm3 (4.2-5.4); White Blood Count 8.9 K/mm3 (4.4-11.0)
[2023-08-18 15:47] LABS: ALB/GLOB Ratio 0.8 RATIO (0.9-2.4); AST(SGOT) 27 U/L (15-37); Alanine Aminotransfer ALT/SGPT 38 U/L (13-56); Albumin, Serum 3.4 g/dL (3.2-5.0); Alkaline Phosphatase 95 U/L (45-117); Anion Gap 6 (5-15); BUN 16 mg/dL (7-18); BUN/Creat Ratio 16.1 RATIO (10-20); CPK Total, Creatine Kinase 176 U/L (26-192); Calcium,Total 9.4 mg/dL (8.5-10.1); Chloride 106 mmol/L (98-107); Creatinine, Serum 0.99 mg/dL (0.55-1.02); EST Glomerular Filtration Rate 61 mL/min (>60); Est Glom Filt Rate - Afr Amer 73 mL/min (>60); Globulin 4.5 g/dL (2.2-4.2); Glucose 164 mg/dL (74-106); Potassium 3.7 mmol/L (3.5-5.1); Protein, Total 7.9 g/dL (6.4-8.2); Sodium Level 137 mmol/L (136-145)
[2023-08-20 11:09] LABS: Aldolase 3.7 U/L (3.3-10.3)
== END | disposition home or self-care (01) ==
PROVIDERS: PCP Nurse Practitioner Family; Referring Provider Internal Medicine Rheumatology; Visit Provider Internal Medicine Rheumatology
DX: M06.4 Inflammatory polyarthropathy (principal); M33.90 Dermatopolymyositis, unspecified, organ involvement unspecified; L40.8 Other psoriasis; M47.897 Other spondylosis, lumbosacral region; Z79.899 Other long term (current) drug therapy
CPT/HCPCS: 36415; 80053; 82085; 82550; 85025

== ENCOUNTER → 2023-08-23 | Outpatient (CLI) | payer OTHER, SELFPAY ==
[2023-08-26 13:52] LABS: Albumin 3.6 g/dL (2.9-4.4); Alpha-1-Globulins 0.2 g/dL (0.0-0.4); Alpha-2-Globulins 0.7 g/dL (0.4-1.0); Gamma Globulin 1.4 g/dL (0.4-1.8); Immunoglobulin A 306 mg/dL (87-352); Immunoglobulin G 1550 mg/dL (586-1602); Immunoglobulin M 56 mg/dL (26-217); PROEL- TOTAL PROTEIN 7.1 g/dL (6.0-8.5)
== END | disposition home or self-care (01) ==
LOC: MTLAB 16:43
PROVIDERS: PCP Nurse Practitioner Family; Referring Provider Internal Medicine Rheumatology; Visit Provider Internal Medicine Rheumatology
DX: M06.4 Inflammatory polyarthropathy (principal); M33.90 Dermatopolymyositis, unspecified, organ involvement unspecified; M15.9 Polyosteoarthritis, unspecified; Z79.899 Other long term (current) drug therapy
CPT/HCPCS: 36415; 82784; 84165; 86334; 86335

== ENCOUNTER → 2023-11-22 | Outpatient (CLI) | payer OTHER, SELFPAY ==
[2023-11-22 17:55] LABS: Absolute Lymphocyte Count 1.59 X10^3/uL (0.83-4.51); Absolute Neutrophil Count 7.5 X10^3/uL (2.0-7.7); Basophil# 0.05 X10^3/uL; Basophil% 0.5 % (0-1); Eosinophil# 0.05 X10^3/uL; Eosinophils% 0.5 % (0-5); Hemoglobin 12.9 g/dL (12.0-15.0); Lymphocyte # 1.59 X10^3/ul (0.83-4.51); Lymphocyte % 16.3 % (19-41); Mean Corp Hgb Conc 32.3 g/dL (32-36); Mean Corpuscular Hgb 29.1 pg (27.0-32.0); Mean Corpuscular Volume 90.3 fL (81-99); Mean Platelet Vol. 9.4 fl (6.2-12.0); Monocyte# 0.53 X10^3/uL; Monocyte% 5.4 % (0-10); NRBC Flagged by Analyzer 0 % (0-5); Neutrophil % 77.2 % (47-70); Platelet Count 323 K/mm3 (150-450); RBC Distribution Width CV 14.6 % (11.6-14.6); RBC Distribution Width SD 47.8 fl (35.1-43.9); Red Blood Count 4.43 M/mm3 (4.2-5.4); White Blood Count 9.7 K/mm3 (4.4-11.0)
[2023-11-22 18:19] LABS: ALB/GLOB Ratio 0.9 RATIO (0.9-2.4); AST(SGOT) 35 U/L (15-37); Alanine Aminotransfer ALT/SGPT 46 U/L (13-56); Albumin, Serum 3.5 g/dL (3.2-5.0); Alkaline Phosphatase 109 U/L (45-117); Anion Gap 8 (5-15); BUN 19 mg/dL (7-18); BUN/Creat Ratio 20.7 RATIO (10-20); CPK Total, Creatine Kinase 252 U/L (26-192); Calcium,Total 9.6 mg/dL (8.5-10.1); Chloride 106 mmol/L (98-107); Creatinine, Serum 0.92 mg/dL (0.55-1.02); EST Glomerular Filtration Rate 66 mL/min (>60); Est Glom Filt Rate - Afr Amer 80 mL/min (>60); Globulin 4.1 g/dL (2.2-4.2); Glucose 111 mg/dL (74-106); Potassium 3.8 mmol/L (3.5-5.1); Protein, Total 7.6 g/dL (6.4-8.2); Sodium Level 138 mmol/L (136-145)
[2023-11-24 15:09] LABS: Aldolase 4.7 U/L (3.3-10.3)
== END | disposition home or self-care (01) ==
PROVIDERS: PCP Nurse Practitioner Family; Referring Provider Internal Medicine Rheumatology; Visit Provider Internal Medicine Rheumatology
DX: M06.4 Inflammatory polyarthropathy (principal); M33.90 Dermatopolymyositis, unspecified, organ involvement unspecified; M15.9 Polyosteoarthritis, unspecified; Z79.899 Other long term (current) drug therapy
CPT/HCPCS: 36415; 80053; 82085; 82550; 85025

== ENCOUNTER → 2024-02-08 | Outpatient (CLI) | payer OTHER, SELFPAY ==
[2024-02-08 17:52] LABS: Absolute Lymphocyte Count 1.74 X10^3/uL (0.83-4.51); Absolute Neutrophil Count 7.3 X10^3/uL (2.0-7.7); Basophil# 0.07 X10^3/uL; Basophil% 0.7 % (0-1); Eosinophil# 0.08 X10^3/uL; Eosinophils% 0.8 % (0-5); Hematocrit 39.3 % (37-47); Hemoglobin 12.8 g/dL (12.0-15.0); Lymphocyte # 1.74 X10^3/ul (0.83-4.51); Mean Corp Hgb Conc 32.6 g/dL (32-36); Mean Corpuscular Hgb 28.8 pg (27.0-32.0); Mean Corpuscular Volume 88.3 fL (81-99); Mean Platelet Vol. 10.1 fl (6.2-12.0); Monocyte# 0.42 X10^3/uL; Monocyte% 4.3 % (0-10); NRBC Flagged by Analyzer 0 % (0-5); Neutrophil # 7.32 X10^3/uL (2.7-7.7); Neutrophil % 75.8 % (47-70); Platelet Count 288 K/mm3 (150-450); Red Blood Count 4.45 M/mm3 (4.2-5.4); White Blood Count 9.7 K/mm3 (4.4-11.0)
[2024-02-08 18:24] LABS: ALB/GLOB Ratio 0.8 RATIO (0.9-2.4); AST(SGOT) 28 U/L (15-37); Alanine Aminotransfer ALT/SGPT 38 U/L (13-56); Albumin, Serum 3.4 g/dL (3.2-5.0); Alkaline Phosphatase 112 U/L (45-117); Anion Gap 7 (5-15); BUN 12 mg/dL (7-18); CPK Total, Creatine Kinase 273 U/L (26-192); Calcium,Total 9.4 mg/dL (8.5-10.1); Chloride 105 mmol/L (98-107); Creatinine, Serum 0.86 mg/dL (0.55-1.02); EST Glomerular Filtration Rate 72 mL/min (>60); Est Glom Filt Rate - Afr Amer 87 mL/min (>60); Globulin 4.2 g/dL (2.2-4.2); Glucose 123 mg/dL (74-106); Potassium 3.6 mmol/L (3.5-5.1); Protein, Total 7.6 g/dL (6.4-8.2); Sodium Level 137 mmol/L (136-145)
[2024-02-10 15:09] LABS: Aldolase 4.5 U/L (3.3-10.3)
== END | disposition home or self-care (01) ==
LOC: MTLAB 16:21
PROVIDERS: PCP Nurse Practitioner Family; Referring Provider Internal Medicine Rheumatology; Visit Provider Internal Medicine Rheumatology
DX: M06.4 Inflammatory polyarthropathy (principal); M33.90 Dermatopolymyositis, unspecified, organ involvement unspecified; M18.0 Bilateral primary osteoarthritis of first carpometacarpal joints; Z79.899 Other long term (current) drug therapy
CPT/HCPCS: 36415; 80053; 82085; 82550; 85025

== ENCOUNTER → 2024-05-23 | Outpatient (CLI) | payer OTHER, SELFPAY | END | disposition home or self-care (01) | LOC: LABSPEC 15:04 | PROVIDERS: PCP Nurse Practitioner Family; Referring Provider Physician Assistant; Visit Provider Physician Assistant | DX: R35.0 Frequency of micturition (principal) | CPT/HCPCS: 87086; 87088 ==

== ENCOUNTER → 2024-08-15 | Outpatient (CLI) | payer OTHER, SELFPAY ==
[2024-08-15 17:48] LABS: Absolute Lymphocyte Count 1.73 X10^3/uL (0.83-4.51); Absolute Neutrophil Count 6.1 X10^3/uL (2.0-7.7); Basophil# 0.07 X10^3/uL; Basophil% 0.8 % (0-1); Eosinophil# 0.07 X10^3/uL; Eosinophils% 0.8 % (0-5); Hematocrit 38.7 % (37-47); Hemoglobin 12.7 g/dL (12.0-15.0); Lymphocyte # 1.73 X10^3/ul (0.83-4.51); Lymphocyte % 20.8 % (19-41); Mean Corp Hgb Conc 32.8 g/dL (32-36); Mean Corpuscular Hgb 27.7 pg (27.0-32.0); Mean Corpuscular Volume 84.3 fL (81-99); Mean Platelet Vol. 10.3 fl (6.2-12.0); Monocyte# 0.31 X10^3/uL; Monocyte% 3.7 % (0-10); NRBC Flagged by Analyzer 0 % (0-5); Neutrophil # 6.13 X10^3/uL (2.7-7.7); Neutrophil % 73.8 % (47-70); Platelet Count 286 K/mm3 (150-450); RBC Distribution Width CV 15.9 % (11.6-14.6); RBC Distribution Width SD 48.3 fl (35.1-43.9); Red Blood Count 4.59 M/mm3 (4.2-5.4); White Blood Count 8.3 K/mm3 (4.4-11.0)
[2024-08-15 18:30] LABS: ALB/GLOB Ratio 0.9 RATIO (0.9-2.4); AST(SGOT) 37 U/L (<=31); Alanine Aminotransfer ALT/SGPT 29 U/L (<=34); Albumin, Serum 3.8 g/dL (3.4-4.8); Alkaline Phosphatase 97 U/L (35-104); Anion Gap 12 (5-15); BUN 21 mg/dL (4-19); BUN/Creat Ratio 22.6 RATIO (10-20); CPK Total, Creatine Kinase 288 U/L (24-195); Carbon Dioxide 20.6 mmol/L (21.0-32.0); Chloride 103 mmol/L (98-108); Creatinine, Serum 0.94 mg/dL (0.70-1.20); EST Glomerular Filtration Rate 69 (>60); Globulin 4.2 g/dL (2.2-4.2); Glucose 119 mg/dL (70-99); Protein, Total 7.9 g/dL (5.9-8.4); Sodium Level 135 mmol/L (133-145); Total Bilirubin 0.17 mg/dL (0.00-1.30)
[2024-08-17 16:09] LABS: Aldolase 4.5 U/L (3.3-10.3)
== END | disposition home or self-care (01) ==
LOC: MTLAB 16:07
PROVIDERS: PCP Nurse Practitioner Family; Referring Provider Internal Medicine Rheumatology; Visit Provider Internal Medicine Rheumatology
DX: M06.4 Inflammatory polyarthropathy (principal); M33.90 Dermatopolymyositis, unspecified, organ involvement unspecified; L40.8 Other psoriasis; K76.0 Fatty (change of) liver, not elsewhere classified; Z79.899 Other long term (current) drug therapy
CPT/HCPCS: 36415; 80053; 82085; 82550; 85025

== ENCOUNTER → 2024-10-12 | Outpatient (CLI) | payer OTHER, SELFPAY ==
[2024-10-12 18:14] LABS: Absolute Lymphocyte Count 1.64 X10^3/uL (0.83-4.51); Absolute Neutrophil Count 5.7 X10^3/uL (2.0-7.7); Basophil# 0.07 X10^3/uL; Basophil% 0.9 % (0-1); Eosinophil# 0.05 X10^3/uL; Eosinophils% 0.6 % (0-5); Hematocrit 41.8 % (37-47); Hemoglobin 13.3 g/dL (12.0-15.0); Lymphocyte # 1.64 X10^3/ul (0.83-4.51); Lymphocyte % 20.6 % (19-41); Mean Corp Hgb Conc 31.8 g/dL (32-36); Mean Corpuscular Hgb 27.5 pg (27.0-32.0); Mean Corpuscular Volume 86.4 fL (81-99); Mean Platelet Vol. 9.8 fl (6.2-12.0); Monocyte# 0.45 X10^3/uL; Monocyte% 5.7 % (0-10); NRBC Flagged by Analyzer 0 % (0-5); Neutrophil # 5.73 X10^3/uL (2.7-7.7); Neutrophil % 71.9 % (47-70); Platelet Count 334 K/mm3 (150-450); RBC Distribution Width CV 16.1 % (11.6-14.6); RBC Distribution Width SD 49.5 fl (35.1-43.9); Red Blood Count 4.84 M/mm3 (4.2-5.4)
[2024-10-12 18:15] LABS: ALB/GLOB Ratio 1.2 RATIO (0.9-2.4); AST(SGOT) 45 U/L (<=31); Alanine Aminotransfer ALT/SGPT 34 U/L (<=34); Alkaline Phosphatase 100 U/L (35-104); Anion Gap 13 (5-15); BUN 17 mg/dL (4-19); BUN/Creat Ratio 17.4 RATIO (10-20); CPK Total, Creatine Kinase 329 U/L (24-195); Calcium,Total 9.6 mg/dL (7.6-11.0); Carbon Dioxide 20.8 mmol/L (21.0-32.0); Chloride 102 mmol/L (98-108); Creatinine, Serum 0.97 mg/dL (0.70-1.20); EST Glomerular Filtration Rate 66 (>60); Globulin 3.5 g/dL (2.2-4.2); Glucose 102 mg/dL (70-99); Potassium 4.3 mmol/L (3.3-5.1); Protein, Total 7.5 g/dL (5.9-8.4); Sodium Level 136 mmol/L (133-145); Total Bilirubin 0.29 mg/dL (0.00-1.30)
--- OUTSIDE RECORDS SUMMARY | 2024-10-12 22:01 | XMS RPT_ITS | CCD ---
Author Organization [facility] Care Team Providers Care Stonework Supervisor Name Role Phone Carina PAEZ, Jemal Romo Unavailable Unavailable Primary Care Provider Unavaillogan e Danilo HSU, FREIGHT CAR LOADER-C Lay Primary Care Provider Danilo HSU, FREIGHT CAR LOADER-C Lay Referring Provider [phone] Dr. Keely Hook Attending Provider [phone] Dr. Keely Hook Referring Provider [phone] Dr. Keely Hook Other Provider Care Physician, No Primary Primary Care Provider Unavailable Care Physician, No Primary Referring Provider Un available JAYLA Kenney Attending Provider JESSICA Connors Attending Provider DANILO BLANCHARD, LAY Primary Care Physician ML WOLF Primary Care Physician Care Physician, No Primary Primary Care Provider Unavailable Care Physician, No Primary Referring Provider Un available JAYLA Kenney Attending Provider JESSICA Connors Attending Provider Debby Pan Unavailable Unavailable LM WOLF Attending Joceline BLANCHARD, ML Martin Primary Care JASMYNE Darling MD Attending Unavail able ML WOLF Primary Care JASMYNE Darling MD Attending Unavail able LO RN PRIOR AUTHORIZATION-FRONT LINE SUPERVISOR, ML L Primary Care Remediosvai gordon LUQUE MD, JASMYNE Attending Unavail able LO RN PRIOR AUTHORIZATION-FRONT LINE SUPERVISOR, ML L Primary Care Joceline BURNETT MD, BRANDO Attending Unavailable LO RN PRIOR AUTHORIZATION-FRONT LINE SUPERVISOR, ML L Primary Care Joceline BURNETT MD, BRANDO Attending Unavailable LO RN PRIOR AUTHORIZATION-FRONT LINE SUPERVISOR, ML L Primary Care Joceline BURNETT MD, BRANDO Attending Unavailable LO RN PRIOR AUTHORIZATION-FRONT LINE SUPERVISOR, ML L Primary Care Joceline ELIZABETH MD, KEELY Dodd Consulting Unavailable LEX PAEZ, BRANDO Admitting Unavailable LEX PAEZ, BRANDO Consulting Unavailable JOHANA PAEZ, ROLDAN Consulting Unavailable LEX PAEZ, BRANDO Attending Unavailable LO RN PRIOR AUTHORIZATION-FRONT LINE SUPERVISOR, ML L Primary Care Joceline BURNETT MD, BRANDO Attending Unavailable LO RN PRIOR AUTHORIZATION-FRONT LINE SUPERVISOR, ML L Primary Care Unaletty LUQUE MD, JASMYNE Attending Unavail able LO RN PRIOR AUTHORIZATION-FRONT LINE SUPERVISOR, ML L Primary Care Joceline LUQUE MD, JASMYNE Attending Unavail able LO RN PRIOR AUTHORIZATION-FRONT LINE SUPERVISOR, ML Martin Primary Care Unavai lable LO RN PRIOR AUTHORIZATION-FRONT LINE SUPERVISOR, ML Martin Attending Unavai lable SEFFENS RN PRIOR AUTHORIZATION-FRONT LINE SUPERVISOR, [facility] Primary Care Unavai lable LO RN PRIOR AUTHORIZATION-FRONT LINE SUPERVISOR, ML Martin Attending Unavai lable SEFFENS RN PRIOR AUTHORIZATION-FRONT LINE SUPERVISOR, [facility] Primary Care Unavai lable LO RN PRIOR AUTHORIZATION-FRONT LINE SUPERVISOR, ML Martin Attending Unavai lable SEFFENS RN PRIOR AUTHORIZATION-FRONT LINE SUPERVISOR, [facility] Primary Care Unavai lable LO RN PRIOR AUTHORIZATION-FRONT LINE SUPERVISOR, ML Martin Primary Care Joceline LUQUE MD, JASMYNE Attending Unavail able LULU PAEZ, JASMYNE Attending Unavail able LO RN PRIOR AUTHORIZATION-FRONT LINE SUPERVISOR, ML Martin Primary Care Remediosvai gordon Lo FREIGHT CAR LOADER-C, Ml Primary Care Provider Wally FREIGHT CAR LOADER-C, Ml Referring Provider Hilario Silva Attending Provider Bryant Kenney Attending Provider Bryant Kenney Referring Provider Dr. Padmaja Hart MD Attending Provider Dr. Padmaja Hart MD Referring Provider Ol FREIGHT CAR LOADER, Ml Primary Care Unavailable Lo FREIGHT CAR LOADER, Ml Referring Unavailable Hilario Silva Attending Unavailable Vellanki, Padmaja Referring Unavailable Vellanki, Padmaja Attending Unavailable Ol FREIGHT CAR LOADER, [facility] Primary Care Unavailable Bryant Kenney Attending Unavailable Bryant Kenney Referring Unavailable Lo FREIGHT CAR LOADER, [facility] Primary Care Unavailable Vellanki, Padmaja Attending Unavailable Vellanki, Padmaja Referring Unavailable Lo FREIGHT CAR LOADER, [facility] Primary Care Unavailable Lo FREIGHT CAR LOADER, Ml Primary Care Unavailable Lo FREIGHT CAR LOADER, Ml Referring Unavailable Bart DICKERSON, Hilario Attending Unavailable Vellanki, Padmaja Attending Unavailable Vellanki, Padmaja Referring Unavailable Lo FREIGHT CAR LOADER, [facility] Primary Care Unavailable Vellanki, Padmaja Attending Unavailable Vellanki, Padmaja Referring Unavailable Lo FREIGHT CAR LOADER, [facility] Primary Care Unavailable Lo FREIGHT CAR LOADER, [facility] Primary Care Unavailable Bryant Kenney Attending Unavailable Lo FREIGHT CAR LOADER, Ml Referring Unavailable Allergies Allergy Classification Reported Allergen(s) Allergy Type Date of Onset Reaction(s) Facility (4 sources) seasonal enviromental Allergy to substance Sneezing (finding), Cough (finding) [facility] NEGATED: Highlighted row has been ruled out! (1 source) Drug allergy [facility] NEGATED: Highlighted row has been ruled out! (1 source) Drug allergy [facility] NEGATED: Highlighted row has been ruled out! (1 source) Drug allergy [facility] NEGATED: Highlighted row has been ruled out! (1 source) Drug allergy 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, cm, 10/12/23 17:12:00 EDT, Height, 99.3, kg, 10/12/23 17:12:00 EDT, Dosing Weight Start Date: 10/13/23 Stop Date: 10/18/23 Status: Ordered acyclovir 50 mg/ml topical cream (5 sources) Herpesvirus Nucleoside Analog DNA Polymerase Inhibitor, Herpes Simplex Virus Nucleoside Analog DNA Polymerase Inhibitor, Herpes Zoster Virus Nucleoside Analog DNA Polymerase Inhibitor Start: 11-29-2020 Acyclovir (Zovirax) 5 % cream Active 1 APPLIC TOPICAL ONCE November 29, 2020 12:00am azithromycin 250 mg oral tablet (1 source) Macrolide Antimicrobial Start: 05-18-2024 take 2-5 tablets by mouth once daily Azithromycin 250 mg tablet Active 0 PO .COMPLEX May 18, 2024 1:00am take 500 mg today (day 1), then 250 mg for 4 days (days 2-5) PO betamethasone 0.5 mg/ml topical cream (20 sources) Corticosteroid Start: 11-29-2020 Betamethasone Dipropionate 0.05 % cream Active 1 NMA TOPICAL DAILY as needed for Skin Cleansing November 29, 2020 12:00am Start: 11-06-2020 betamethasone dipropionate 0.05% topical cream APPLY 1 TIME A DAY TO AREAS OF RASH ON BODY. AVOID FACE AND SKIN FOLDS. Start Date: 11/06/20 Status: Ordered biotin 10 mg oral capsule (20 sources) Start: 10-06-2023 biotin 10,000 mcg oral capsule Dose : 10,000 mcg = 1 cap(s), Oral, qHS, # 90 cap(s), 0 Refill(s) Start Date: 10/06/23 Status: Ordered Start: 09-24-2020 take 1 capsule by mouth once d aily Biotin 1 mg capsule Active 1 mg PO DAILY September 24, 2020 12:00am Start: 04-15-2020 biotin 2.5 mg oral tablet Dose : 2.5 mg = 1 tab(s), Oral, qDay, # 30 tab(s), 0 Refill(s) Start Date: 04/15/20 Status: Ordered calcium carbonate 1500 mg / cholecalciferol 500 unt oral capsule (20 sources) Vitamin D Start: 09-24-2020 Calcium Carbon ate-Vitamin D3 (Calcium 600 With Vitamin D3) 600 mg(1,500mg) -500 unit capsule Active 1 NMA PO DAILY September 24, 2020 12:00am Start: 09-24-2020 take 1 capsule by mo [facility] once daily Calcium Carbonate-Vitamin D3 (Calcium 600 With Vitamin D3) 600 mg(1,500mg) -500 unit capsule Active 1 CAP PO DAILY September 24, 2020 12:00am Start: 09-24-2020 Calcium Carbon ate-Vitamin D3 (Calcium 600 With Vitamin D3) 600 mg(1,500mg) -500 unit capsule Active CAP PO September 24, 2020 5:48pm Calcium Plus Vitamin D3 600 mg-10 mcg (400 intl units) oral tablet (4 sources) Start: 10-06-2023 take 1 tablet by mouth once daily in the morning Calcium Plus Vitamin D3 600 mg-10 mcg (400 intl units) oral tablet tab(s), Oral, qAM, 0 Refill(s) Start Date: 10/06/23 Status: Ordered cetirizine hydrochloride 10 mg oral capsule (20 sources) Histamine-1 Receptor Antagonist Start: 10-06-2023 cetirizine 10 mg oral capsule Dose : 10 mg = 1 cap(s), Oral, qAM, # 40 cap(s), 0 Refill(s) Start Date: 10/06/23 Status: Ordered Start: 11-29-2020 take 1 tablet by [facility] once daily as needed Cetirizine (Zyrtec) 10 mg tablet Active 10 mg PO DAILY as needed for allergies November 29, 2020 12:00am Start: 04-15-2020 cetirizine 0 R efill(s) Start Date: 04/15/20 Status: Ordered Start: 11-15-2017 ALL DAY ALLERG Y 10 MG TABS 1 tablet daily CETIRIZINE HCL [id number] Savanah Bennett LPN clobetasol propionate 0.5 mg/ml medicated shampoo (20 sources) Corticosteroid Start: 04-21-2024 Clobetasol 0.0 5 % shampoo Active 1 NMA TOPICAL DAILY as needed April 21, 2024 4:45pm Shampoo Start: 12-11-2021 End: 04-21-2024 Clobetasol 0.05 % shampoo Di scontinued 1 NMA TOPICAL DAILY December 11, 2021 12:00am April 21, 2024 4:46pm Shampoo Start: 12-11-2021 Clobetasol Act roni 1 EACH TOPICAL DAILY December 11, 2021 12:00am Shampoo Start: 11-29-2020 Clobetasol 0.0 5 % cream Active 1 NMA TOPICAL DAILY November 29, 2020 12:00am Start: 11-06-2020 clobetasol 0.0 5% topical cream Apply 1 beryl, Topical, BID, # 15 gram(s), 0 Refill(s), Cream, 91 Start Date: 11/06/20 Status: Ordered folic acid 0.4 mg oral tablet (20 sources) Start: 09-24-2020 take 1 mg by mouth twice daily Folic Acid 400 mcg tablet Active 1 mg PO TWICE A DAY September 24, 2020 12:00am Start: 09-24-2020 take 1 mg by mouth twice daily Folic Acid Active 1 MG PO TWICE A DAY September 24, 2020 12:00am Start: 11-15-2017 FOLIC ACID 1 M G TABS 2 tablets daily [facility] [id number] [facility] Start: 12-24-2014 folic acid 0.4 mg oral tablet Dose : 0.4 mg = 1 tab(s), Oral, BID, 0 Refill(s) Start Date: 12/24/14 Status: Ordered hydrocortisone 25 mg/ml topical cream (20 sources) Corticosteroid Start: 11-29-2020 Hydrocortisone 2.5 % cream Active 1 NMA TOPICAL TWICE A DAY as needed for Skin Cleansing November 29, 2020 12:00am Start: 11-06-2020 hydrocortisone 2.5% topical cream APPLY TO AREAS OF RASH ON FACE 1X DAILY NEEDED Start Date: 11/06/20 Status: Ordered IV Immunoglobulin (8 sources) Start: 06-25-2023 IV Immunoglobu wesley IV Immunoglobulin, IV Bolus, Once monthly x2 consecutive days, 0 Refill(s), 102.6 Start Date: 06/25/23 Status: Ordered levoFLOXacin 750 mg oral tablet (5 sources) Quinolone Antimicrobial Start: 02-01-2024 levoFLOXacin 750 mg oral tablet Dose : 750 mg = 1 tab(s), Oral, Once, # 1 tab(s), 0 Refill(s), 99 Start Date: 02/01/24 Status: Ordered Start: 06-20-2023 End: 06-25-2023 take 1 tablet by mouth every twenty-four hours Levofloxacin 750 mg tablet Discontinued 750 mg PO Q24H 5 5 June 20, 2023 1:00am June 24, 2023 1:00am June 25, 2023 1:04am methotrexate 2.5 mg oral tablet (20 sources) Folate Analog Metabolic Inhibitor Start: 12-11-2021 Methotrexate Sodium (Methotrexate (Anti-Rheumatic)) 2.5 mg Tablet Active 6 mg PO EVERY WEEK December 11, 2021 12:00am on Fridays Start: 09-24-2020 Methotrexate ( Pf) Active 7.5 MG SC EVERY WEEK September 24, 2020 5:47pm Start: 11-15-2017 METHOTREXATE S ODIUM 2.5 MG TABS 7 tablets every week METHOTREXATE SODIUM [id number] Savanah Bennett LPN Start: 12-18-2014 methotrexate 2 .5 mg oral tablet Dose : 15 mg = 6 tab(s), Oral, Wednesday, 0 Refill(s) Start Date: 12/18/14 Status: Ordered Multivitamin preparation (20 sources) Start: 09-24-2020 take 1 tablet by mouth once daily Multivitamin Active 1 TABLET PO DAILY September 24, 2020 5:47pm Start: 09-24-2020 take 1 tablet by katarzyna th once daily Multivitamin Active 1 TABLET PO DAILY September 23, 2020 11:00pm Start: 09-24-2020 take 1 tablet by katarzyna th once daily Multivitamin Active 1 TABLET PO DAILY September 24, 2020 12:00am Start: 12-24-2014 take 1 tablet by katarzyna th once daily at bedtime Multivitamin Dose = 1 tab(s), Oral, qHS, 0 Refill(s) Start Date: 12/24/14 Status: Ordered Start: 12-24-2014 take 1 tablet by katarzyna th once daily Multivitamin Dose = 1 tab(s), Oral, Daily, 0 Refill(s) Start Date: 12/24/14 Status: Ordered Multivitamin tablet (1 source) Start: 09-24-2020 Multivitamin t ablet Active 1 {tbl} PO DAILY September 24, 2020 12:00am predniSONE 5 mg oral tablet (18 sources) Corticosteroid Start: 09-24-2020 take 10 mg by mouth once daily Prednisone Active 10 MG PO DAILY September 24, 2020 12:00am Start: 11-22-2017 PREDNISONE 10 MG TABS as needed for 3-5 five days for flare ups PREDNISONE [id number] Jemal Lim MD Start: 12-24-2014 take 1 tablet by katarzyna th once daily Prednisone 5 mg tablet Active 5 mg PO DAILY June 01, 2023 1:00am Start: 12-24-2014 predniSONE 5 m g oral tablet Dose : 5 mg = 1 tab(s), Oral, qDay, 0 Refill(s) Start Date: 12/24/14 Status: Ordered tiZANidine 4 mg oral capsule (12 sources) Central alpha-2 Adrenergic Agonist Start: 11-06-2020 tiZANidine 4 mg oral capsule Dose : 4 mg = 1 cap(s), Oral, q8h, PRN for muscle spasm, # 30 cap(s), 0 Refill(s) Start Date: 11/06/20 Status: Ordered traMADol hydrochloride 50 mg oral tablet (20 sources) Opioid Agonist Start: 04-15-2020 take 1 tablet by mouth twice daily as needed for pain Tramadol 50 mg tablet Active 50 mg PO TWICE A DAY as needed for Pain September 24, 2020 12:00am Start: 11-15-2017 TRAMADOL HCL T ABS TRAMADOL HCL TABS [id number] Savanah Bennett LPN Completed/Discontinued Medications Medication Drug Class(es) Dates Sig (Normalized) Sig (Original) amoxicillin 875 mg / clavulanate 125 mg oral tablet (1 source) Penicillin-class Antibacterial Start: 04-21-2024 End: 05-01-2024 Amoxicillin-Pot Clavulanate 875-125 mg tablet Discontinued 1 {tbl} PO Q12H 26 02April 21, 2024 1:00am April 30, 2024 1:00am May 01, 2024 1:10am calcium (1 source) Phosphate Binder, Calcium Start: 11-15-2017 CALCIUM 600/VITAMIN D TABS 1 tablet daily CALCIUM CARB-CHOLECALCIFER OL TABS [id number] Savanah Brumfield TISH clindamycin 300 mg oral capsule (4 sources) Lincosamide Antibacterial Start: 06-01-2023 End: 04-21-2024 take 1 capsule by mouth three times daily Clindamycin Hcl 300 mg capsule Discontinued 300 mg PO THREE TIMES A DAY June 01, 2023 1:00am April 21, 2024 4:45pm fluconazole 200 mg oral tablet (20 sources) Azole Antifungal Start: 03-05-2022 End: 04-21-2024 take 1 tablet by mouth once daily Fluconazole 200 mg Tablet Discontinued 200 mg PO DAILY March 05, 2022 12:00am April 21, 2024 4:46pm Start: 02-04-2022 End: 04-21-2024 take 1 tablet by mouth every week Fluconazole 200 mg Tablet Discontinued 200 mg PO EVERY WEEK February 04, 2022 12:00am April 21, 2024 4:46pm leucovorin 5 mg oral tablet (1 source) Folate Analog Start: 11-15-2017 LEUCOVORIN CALCIUM 5 MG TABS 1 tablet once a week LEUCOVORIN CALCIUM [id number] Savanah Brumfield TISH methylPREDNISolone 4 mg oral tablet (1 source) Corticosteroid Start: 05-18-2024 End: 05-24-2024 take 1 tablet by mouth once Methylprednisolone (Medrol (Dre)) 4 mg tablets,dose pack Discontinued 4 mg PO per package directions 21 May 18, 2024 1:00am May 23, 2024 1:00am May 24, 2024 1:11am MULTIPLE VITAMINS-MINERALS (1 source) Start: 11-15-2017 MULTIVITAMIN ADULT TABS 1 tablet daily MULTIPLE VITAMINS-MINERALS [id number] [facility] nitrofurantoin, macrocrystals 25 mg / nitrofurantoin, monohydrate 75 mg oral capsule (1 source) Nitrofuran Antibacterial Start: 05-23-2024 End: 05-28-2024 take 1 capsule by mouth every twelve hours at mealtime Nitrofurantoin Monohyd/M-Cryst (Macrobid) 100 mg capsule Discontinued 100 mg PO Q12H 10 5 May 23, 2024 1:00am May 27, 2024 1:00am May 28, 2024 1:12am must administer with a meal/food valACYclovir 1000 mg oral tablet (14 sources) Herpesvirus Nucleoside Analog DNA Polymerase Inhibitor, Herpes Simplex Virus Nucleoside Analog DNA Polymerase Inhibitor, Herpes Zoster Virus Nucleoside Analog DNA Polymerase Inhibitor Start: 12-02-2020 valACYclovir 1 g oral tablet Dose : 1 gram(s) = 1 tab(s), Oral, qAM, PRN cold sore, pt to take 2 tabs at onset of cold sore, then daily, 0 Refill(s), 101.3 Start Date: 12/02/20 Status: Ordered Start: 11-29-2020 take 1 tablet by katarzyna th every twelve hours Valacyclovir (Valtrex) 500 mg tablet Active 500 MG PO Q12H November 29, 2020 12:00am Start: 11-15-2017 VALACYCLOVIR H CL 1 GM TABS 2 tablets 2 times a day VALACYCLOVIR HCL [id number] Savanah Sabrina WINSTON Problems Active Problems Problem Classification Problem Date Documented Date Episodic/Chronic Fever of unknown origin (20 sources) Fever; Translations: [Fever, unspecified] 09-24-2020 Episodic Genitourinary symptoms and ill-defined conditions (1 source) Frequency of micturition; Translations: [Frequency of micturition] Onset: 06-12-2024 Episodic Headache; including migraine (8 sources) Headache 06-25-2023 Episodic Neoplasms of unspecified nature or uncertain behavior (5 sources) 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; 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] Onset: 10-12-2023 Episodic Osteoarthritis (17 sources) Arthritis; Translations: [Unspecified osteoarthritis, unspecified site] 12-09-2021 Chronic Other connective tissue disease (1 source) Other synovitis and tenosynovitis, right forearm; Translations: [Other synovitis and tenosynovitis, right forearm] Onset: 11-22-2017 11-22-2017 Episodic Other connective tissue disease (8 sources) Muscle pain 06-25-2023 Episodic Other eye disorders (1 source) Sixth [abducent] nerve palsy, unspecified eye; Translations: [Sixth [abducent] nerve palsy, unspecified eye] Onset: 10-13-2023 Episodic Other female genital disorders (20 sources) Mucous retention cyst of cervix uteri; Translations: [Other specified noninflammatory disorders of cervix uteri] 12-02-2020 Episodic Other female genital disorders (8 sources) Polyp of cervix 11-11-2020 Episodic Other nervous system disorders (1 source) Carpal tunnel syndrome, right upper limb; Translations: [Carpal tunnel syndrome, right upper limb] Onset: 11-22-2017 11-22-2017 Chronic Other upper respiratory disease (8 sources) Ulcer of nose 06-25-2023 Episodic Other upper respiratory infections (10 sources) Sinusitis; Translations: [Chronic sinusitis, unspecified] Onset: 10-13-2023 06-20-2023 Chronic Rheumatoid arthritis and related disease (1 source) Inflammatory polyarthropathy; Translations: [Inflammatory polyarthropathy] Onset: 08-18-2024 Chronic Screening and history of mental health and substance abuse codes (8 sources) Ex-heavy cigarette smoker (20-39/day) 11-11-2020 Episodic Systemic lupus erythematosus and connective tissue disorders (20 sources) Dermatomyositis; Translations: [Dermatopolymyositis, unspecified, organ involvement unspecified] Chronic Comment on above: This is a 56-year-ol d female who has a standing diagnosis of dermatomyositis through prior skin biopsies and is now status post left quadriceps muscle biopsy on 12/16/2021. She has healed well following this biopsy procedure. However, we are still awaiting the results of her final pathology as this was a send out evaluation. I have shared with her we will make every effort to try to get her these results once they are known. She is satisfied with this answer and states she will begin to apply some triple antibiotic ointment to her incision line as recommended. Urinary tract infections (7 sources) Urinary tract infectious disease; Translations: [Urinary tract infection, site not specified] 06-20-2023 Episodic Viral infection (20 sources) Disease caused by 2019-nCoV; Translations: [COVID-19] 09-24-2020 Episodic Past or Other Problems Problem Classification Problem Date Documented Da te Episodic/Chronic Other upper respiratory infections (1 source) Acute sinusitis, unspecified; Translations: [Acute sinusitis, unspecified] Onset: 04-21-2024 Episodic Unclassified (1 source) Problem Results Test Name Value Interpretation Reference Range Facility Aldolaseon 08-17-2024 ALDOLASE 4.5 U/L Normal 3.3-10.3 [facility] Comment on above: Result Comment: Perf ormed at: - [facility] [address] [place], [place] [id number] Bdr: Abdulaziz Meek PhD, Phone: [phone] Performed By: #### L 100.0100, L3100.7000, L501.3620, L500.4050 ####[facility] [id number] [place], [place], [id number] Absolute neutrophil countOrd ered By: Padmaja Hart on 08-15-2024 Neutrophils (Bld) [#/Vol] 6.1 10*3/uL 2.0-7.7 [facility] Aldolase [Catalytic activity /Vol]Ordered By: Padmaja Hart on 08-15-2024 Aldolase 4.5 U/L 3.3-10.3 [facility] Comment on above: Performed at: [facility] [address] [id number] Director: Abdulaziz Meek PhD, Phone: [phone] Anion gap in Serum or Plasma Ordered By: Padmaja Hart on 08-15-2024 Anion gap [Moles/Vol] 12 mmol/L 5-15 [facility] BUN/creatinine ratioOrdered By: Padmaja Hart on 08-15-2024 Urea nitrogen/Creatinine [Mass ratio] 22.6 mg/mg High 10-20 [facility] Basophil percentageOrdered B y: Padmaja Hart on 08-15-2024 Basophils/100 WBC (Bld) 0.8 % 0-1 [facility] Bilirubin, totalOrdered By: Padmaja Hart on 08-15-2024 Bilirubin [Mass/Vol] 0.17 mg/dL 0.00-1.30 [facility] CBC W/Diff, Automatedon Absolute Lymph 1.73 X10 3/uL Normal 0.83-4.51 [facility] Comment on above: Performed By: #### L 100.0100, L3100.7000, L501.3620, L500.4050 #### [facility] [address] [place], [address] Absolute Neut 6.1 X10 3/uL Normal 2.0-7.7 [facility] Comment on above: Performed By: #### L 100.0100, L3100.7000, L501.3620, L500.4050 #### [facility] [address] [place], [address] Basophils/100 WBC (Bld) 0.8 % Normal 0-1 [facility] Comment on above: Performed By: #### L 100.0100, L3100.7000, L501.3620, L500.4050 #### [facility] [address] [place], [address] Eosinophils/100 WBC (Bld) 0.8 % Normal 0-5 [facility] Comment on above: Performed By: #### L 100.0100, L3100.7000, L501.3620, L500.4050 #### [facility] [address] [place], [address] Erythrocyte distribution width (RBC) [Ratio] 15.9 % High 11.6-14.6 [facility] Comment on above: Performed By: #### L 100.0100, L3100.7000, L501.3620, L500.4050 #### [facility] [address] [place], [address] Hematocrit (Bld) [Volume fraction] 38.7 % Normal 37-47 [facility] Comment on above: Performed By: #### L 100.0100, L3100.7000, L501.3620, L500.4050 #### [facility] [address] [place], [address] Hemoglobin (Bld) [Mass/Vol] 12.7 g/dL Normal 12.0-15.0 [facility] Comment on above: Performed By: #### L 100.0100, L3100.7000, L501.3620, L500.4050 #### [facility] [address] [place], [address] IG% 0.100 Normal 0.0-0.9 [facility] Comment on above: Result Comment: IG% - Immature Granulocytes (promyelocytes, myelocytes and metamyelocytes) > 1% indicates that a LEFT SHIFT is Present. Performed By: #### L 100.0100, L3100.7000, L501.3620, L500.4050 #### [facility] [address] [place], [address] Lymphocytes/100 WBC (Bld) 20.8 % Normal 19-41 [facility] Comment on above: Performed By: #### L 100.0100, L3100.7000, L501.3620, L500.4050 #### [facility] [address] [place], [address] MCH (RBC) [Entitic mass] 27.7 pg Normal 27.0-32.0 [facility] Comment on above: Performed By: #### L 100.0100, L3100.7000, L501.3620, L500.4050 #### [facility] [address] [place], [address] MCHC (RBC) [Mass/Vol] 32.8 g/dL Normal 32-36 [facility] Comment on above: Performed By: #### L 100.0100, L3100.7000, L501.3620, L500.4050 #### [facility] [address] [place], [address] MCV (RBC) [Entitic vol] 84.3 fL Normal 81-99 [facility] Comment on above: Performed By: #### L 100.0100, L3100.7000, L501.3620, L500.4050 #### [facility] [address] [place], [address] Monocytes/100 WBC (Bld) 3.7 % Normal 0-10 [facility] Comment on above: Performed By: #### L 100.0100, L3100.7000, L501.3620, L500.4050 #### [facility] [address] [place], [address] Neutrophils/100 WBC (Bld) 73.8 % High 47-70 [facility] Comment on above: Performed By: #### L 100.0100, L3100.7000, L501.3620, L500.4050 #### [facility] [address] [place], [address] Nucleated RBC (Bld) [#/Vol] 0 10*3/uL Normal 0-5 [facility] Comment on above: Performed By: #### L 100.0100, L3100.7000, L501.3620, L500.4050 #### [facility] [address] [place], [address] Platelet mean volume (Bld) [Entitic vol] 10.3 fL Normal 6.2-12.0 [facility] Comment on above: Performed By: #### L 100.0100, L3100.7000, L501.3620, L500.4050 #### [facility] [address] [place], [address] Platelets (Bld) [#/Vol] 286 10*3/uL Normal 150-450 [facility] Comment on above: Performed By: #### L 100.0100, L3100.7000, L501.3620, L500.4050 #### [facility] [address] [place], [address] RBC (Bld) [#/Vol] 4.59 10*6/uL Normal 4.2-5.4 [facility] Comment on above: Performed By: #### L 100.0100, L3100.7000, L501.3620, L500.4050 #### [facility] [address] [place], [address] RDW SD 48.3 fl High 35.1-43.9 [facility] Comment on above: Performed By: #### L 100.0100, L3100.7000, L501.3620, L500.4050 #### [facility] [address] [place], [address] WBC (Bld) [#/Vol] 8.3 10*3/uL Normal 4.4-11.0 [facility] Comment on above: Performed By: #### L 100.0100, L3100.7000, L501.3620, L500.4050 #### [facility] [address] [place], [address] CPK Total, Creatine Kinaseon 08-15-2024 CPK TOTAL 288 U/L High 24-195 [facility] Comment on above: Performed By: #### L 100.0100, L3100.7000, L501.3620, L500.4050 ####[facility] [address] [place], [address] Carbon dioxide, total [Moles /volume] in Central venous bloodOrdered By: Padmaja Hart on 08-15-2024 CO2 [Moles/Vol] 20.6 mmol/L Low 21.0-32.0 [facility] Chloride assayOrdered By: Jayla Hart on 08-15-2024 Chloride [Moles/Vol] 103 mmol/L 98-108 [facility] Comprehensive Metabolic Prof ilon 08-15-2024 Albumin [Mass/Vol] 3.8 g/dL Normal 3.4-4.8 [facility] Comment on above: Performed By: #### L 100.0100, L3100.7000, L501.3620, L500.4050 #### [facility] [address] [place], [address] Albumin/Globulin [Mass ratio] 0.9 {ratio} Normal 0.9-2.4 [facility] Comment on above: Performed By: #### L 100.0100, L3100.7000, L501.3620, L500.4050 #### [facility] [address] [place], [address] ALK PHOS 97 U/L Normal 35-104 [facility] Comment on above: Performed By: #### L 100.0100, L3100.7000, L501.3620, L500.4050 #### [facility] [address] [place], [address] ALT [Catalytic activity/Vol] 29 U/L Normal <=34 [facility] Comment on above: Performed By: #### L 100.0100, L3100.7000, L501.3620, L500.4050 #### [facility] [address] [place], [address] AST [Catalytic activity/Vol] 37 U/L High <=31 [facility] Comment on above: Performed By: #### L 100.0100, L3100.7000, L501.3620, L500.4050 #### [facility] [address] [place], [address] Bilirubin [Mass/Vol] 0.17 mg/dL Normal 0.00-1.30 [facility] Comment on above: Performed By: #### L 100.0100, L3100.7000, L501.3620, L500.4050 #### [facility] [address] [place], [address] BUN/CRE 22.6 RATIO High 10-20 [facility] Comment on above: Performed By: #### L 100.0100, L3100.7000, L501.3620, L500.4050 #### [facility] [address] [place], [address] Calcium [Mass/Vol] 9.0 mg/dL Normal 7.6-11.0 [facility] Comment on above: Performed By: #### L 100.0100, L3100.7000, L501.3620, L500.4050 #### [facility] [address] [place], [address] Chloride [Moles/Vol] 103 mmol/L Normal 98-108 [facility] Comment on above: Performed By: #### L 100.0100, L3100.7000, L501.3620, L500.4050 #### [facility] [address] [place], [address] CO2 [Moles/Vol] 20.6 mmol/L Low 21.0-32.0 [facility] Comment on above: Performed By: #### L 100.0100, L3100.7000, L501.3620, L500.4050 #### [facility] [address] [place], [address] Creatinine [Mass/Vol] 0.94 mg/dL Normal 0.70-1.20 [facility] Comment on above: Performed By: #### L 100.0100, L3100.7000, L501.3620, L500.4050 #### [facility] [address] [place], [address] GAP 12 Normal 5-15 [facility] Comment on above: Performed By: #### L 100.0100, L3100.7000, L501.3620, L500.4050 #### [facility] [address] [place], [address] GFR/1.73 sq M.predicted among non-blacks MDRD (S/P/Bld) [Vol rate/Area] 69 mL/min/{1.73_m2} Normal >60 [facility] Comment on above: Result Comment: mL/m in/1.73m2 CKD-EPI Creatinine Equation (2020) Performed By: #### L 100.0100, L3100.7000, L501.3620, L500.4050 #### [facility] [address] [place], [address] Globulin (S) [Mass/Vol] 4.2 g/dL Normal 2.2-4.2 [facility] Comment on above: Performed By: #### L 100.0100, L3100.7000, L501.3620, L500.4050 #### [facility] [address] [place], [address] Glucose [Mass/Vol] 119 mg/dL High 70-99 [facility] Comment on above: Performed By: #### L 100.0100, L3100.7000, L501.3620, L500.4050 #### [facility] [address] [place], [address] Potassium [Moles/Vol] 4.0 mmol/L Normal 3.3-5.1 [facility] Comment on above: Performed By: #### L 100.0100, L3100.7000, L501.3620, L500.4050 #### [facility] [address] [place], [address] Sodium [Moles/Vol] 135 mmol/L Normal 133-145 [facility] Comment on above: Performed By: #### L 100.0100, L3100.7000, L501.3620, L500.4050 #### [facility] [address] [place], [address] T PROT 7.9 g/dL Normal 5.9-8.4 [facility] Comment on above: Performed By: #### L 100.0100, L3100.7000, L501.3620, L500.4050 #### [facility] [address] [place], [address] Urea nitrogen [Mass/Vol] 21 mg/dL High 4-19 [facility] Comment on above: Performed By: #### L 100.0100, L3100.7000, L501.3620, L500.4050 #### [facility] [address] [place], [address] Eosinophil percentageOrdered By: Padmaja Hart on 08-15-2024 Eosinophils/100 WBC (Bld) 0.8 % 0-5 [facility] Erythrocyte distribution wid th (RBC) [Ratio]Ordered By: Padmaja Hart on 08-15-2024 Erythrocyte distribution width (RBC) [Entitic vol] 48.3 fL High 35.1-43.9 [facility] Erythrocyte distribution wid th ratioOrdered By: Padmaja Hart on 08-15-2024 Erythrocyte distribution width (RBC) [Ratio] 15.9 % High 11.6-14.6 [facility] GFR/1.73 sq M.predicted janae g non-blacks MDRD (S/P/Bld) [Vol rate/Area]Ordered By: Padmaja Hart on 08-15-2024 Estimated GFR (MDRD) Non-Af Amer 69 >60 [facility] Comment on above: mL/min/1.73m2 CKD-EP I Creatinine Equation (2020) Hematocrit Auto (Bld) [Volum e fraction]Ordered By: Padmaja Hart on 08-15-2024 Hematocrit (Bld) [Volume fraction] 38.7 % 37-47 [facility] Hemoglobin measurementOrdere d By: Padmaja Hart on 08-15-2024 Hemoglobin (Bld) [Mass/Vol] 12.7 g/dL 12.0-15.0 [facility] Immature granulocytes/100 WB C Auto (Bld)Ordered By: Padmaja Hart on 08-15-2024 Immature granulocytes/100 WBC (Bld) 0.100 % 0.0-0.9 [facility] Comment on above: IG% - Immature Granu locytes (promyelocytes, myelocytes and metamyelocytes) > 1% indicates that a LEFT SHIFT is Present. Laboratory - Chemistry and C hemistry - challengeOrdered By: Padmaja Hart on 08-15-2024 AST [Catalytic activity/Vol] 37 U/L High <32 [facility] Lymphocytes Auto (Unsp spec) [#/Vol]Ordered By: Padmaja Hart on 08-15-2024 Lymphocytes (Bld) [#/Vol] 1.73 10*3/uL 0.83-4.51 [facility] Lymphocytes/100 WBC Auto (Un sp spec)Ordered By: Padmaja Hart on 08-15-2024 Lymphocytes/100 WBC (Bld) 20.8 % 19-41 [facility] MCV (mean corpuscular volume ) determinationOrdered By: Padmaja Hart on 08-15-2024 MCV (RBC) [Entitic vol] 84.3 fL 81-99 [facility] Mean corpuscular hemoglobin (MCH) determinationOrdered By: Padmaja Hart on 08-15-2024 MCH (RBC) [Entitic mass] 27.7 pg 27.0-32.0 [facility] Mean corpuscular hemoglobin concentration (MCHC) determinationOrdered By: Padmaja Hart on 08-15-2024 MCHC (RBC) [Mass/Vol] 32.8 g/dL 32-36 [facility] Mean platelet volume determi nationOrdered By: Padmaja Hart on 08-15-2024 Platelet mean volume (Bld) [Entitic vol] 10.3 fL 6.2-12.0 [facility] Monocyte percentageOrdered B y: Padmaja Hart on 08-15-2024 Monocytes/100 WBC (Bld) 3.7 % 0-10 [facility] Neutrophil percentageOrdered By: Padmaja Hart on 08-15-2024 Neutrophils/100 WBC (Bld) 73.8 % High 47-70 [facility] Nucleated red blood cell per centageOrdered By: Padmaja Hart on 08-15-2024 Nucleated RBC/100 WBC (Bld) [Ratio] 0 % 0-5 [facility] Platelet countOrdered By: Jayla Hart on 08-15-2024 Platelets (Bld) [#/Vol] 286 10*3/uL 150-450 [facility] Potassium (Unsp spec) [Mass/ Vol]Ordered By: Padmaja Hart on 08-15-2024 Potassium [Moles/Vol] 4.0 mmol/L 3.3-5.1 [facility] RBC Auto (Bld) [#/Vol]Ordere d By: Padmaja Hart on 08-15-2024 RBC (Bld) [#/Vol] 4.59 10*6/uL 4.2-5.4 [facility] Serum creatinine measurement (mass/volume)Ordered By: Padmaja Hart on 08-15-2024 Creatinine [Mass/Vol] 0.94 mg/dL 0.70-1.20 [facility] Serum globulin measurementOr dered By: Padmaja Hart on 08-15-2024 Globulin (S) [Mass/Vol] 4.2 g/dL 2.2-4.2 [facility] Serum glucose measurement (m ass/volume)Ordered By: Padmaja Hart on 08-15-2024 Glucose [Mass/Vol] 119 mg/dL High 70-99 [facility] Serum or plasma alanine brewster otransferase (ALT) measurementOrdered By: Padmaja Hart on 08-15-2024 ALT [Catalytic activity/Vol] 29 U/L <35 [facility] Serum or plasma albumin radha urement (mass/volume)Ordered By: Padmaja Hart on 08-15-2024 Albumin [Mass/Vol] 3.8 g/dL 3.4-4.8 [facility] Serum or plasma albumin/glob ulin mass ratioOrdered By: Padmaja Hart on 08-15-2024 Albumin/Globulin [Mass ratio] 0.9 {ratio} 0.9-2.4 [facility] Serum or plasma alkaline flor sphatase measurementOrdered By: Padmaja Hart on 08-15-2024 ALP [Catalytic activity/Vol] 97 U/L 35-104 [facility] Serum or plasma calcium radha urement (mass/volume)Ordered By: Padmaja Hart on 08-15-2024 Calcium [Mass/Vol] 9.0 mg/dL 7.6-11.0 [facility] Serum or plasma creatine kin ase activityOrdered By: Padmaja Hart on 08-15-2024 CK [Catalytic activity/Vol] 288 U/L High 24-195 [facility] Serum or plasma urea nitroge n measurement (mass/volume)Ordered By: Padmaja Hart on 08-15-2024 Urea nitrogen [Mass/Vol] 21 mg/dL High 4-19 [facility] Sodium levelOrdered By: Maximiliano Hart on 08-15-2024 Sodium [Moles/Vol] 135 mmol/L 133-145 [facility] Total proteinOrdered By: Vesta Hart on 08-15-2024 Protein [Mass/Vol] 7.9 g/dL 5.9-8.4 [facility] White blood cell (WBC) count Ordered By: Padmaja Hart on 08-15-2024 WBC (Bld) [#/Vol] 8.3 10*3/uL 4.4-11.0 [facility] Urine Cultureon 05-25-2024 [facility] Mixed Gram Positive Organisms [place] Count 11,000-25,000 [facility] Mixed contaminants. Submit a new specimen if indicated. Normal [facility] Comment on above: Performed By: #### M 689.1475 #### [facility] [place], [address] Laboratory - Chemistry and C hemistry - challengeon 05-23-2024 Bilirubin Ql (U) Negative [facility] Glucose Ql (U) Negative [facility] Ketones Ql (U) Negative [facility] pH (U) 7.0 [pH] [facility] Specific gravity (U) [Rel density] 1.005 [facility] Urobilinogen (U) [Mass/Vol] 0.3598144 mg/dL [facility] - Hematology and Cell countson 05-23-2024 Hemoglobin Ql (U) Hemolyzed [facility] - Specimen inform ationon 05-23-2024 Clarity (U) Cloudy [facility] Color (U) Yellow [facility] - Urinalysison Nitrite Ql (U) Positive [facility] Protein Ql (U) Negative [facility] No Panel Informationon 05-23 Urine Leukocytes Positive [facility] Urine Non-Hemolyzed Blood Small [facility] Urgent Care Visit Reporton 0 05-23-2024 Urgent Care Visit Report [facility] [address], [address] [place] [address] OFFICE VISIT Date of Service: 05/23/24 MR#: [id number] Acct: [id number] Name: AICHA MATTSONNE Rep #: [id number] : 1965 Provider: JAYLA Walker Age/Sex: 59/F Location[place] [facility] Status: Signed Intake Vital Signs 05/18/24 15:50 05/23/24 12:38 Height 5 ft 8 in 5 ft 8 in Weight: 231 lb 2 oz 231 lb BMI 35.1 35.1 BP 122/80 H 130/90 H Position Sitting Sitting Pulse 83 71 Temp 98.1 F 98.4 F Temp Source Oral Oral Pulse Oximetry (%) 99 99 Oxygen Delivery Method room air room air Intake Visit Reasons: CONCERN FOR UTI Allergies No Known Allergies Allergy (Verified 05/23/24 12:38) Medications ???Medication ???Instructions ???Recorded ???Confirmed ???Type biotin 1 mg capsule 1 mg PO DAILY 09/24/20 05/23/24 History calcium 600 mg (as 1 cap PO DAILY 09/24/20 05/23/24 History carbonate)-vitamin D3 12.5 mcg (500 unit) capsule (Calcium with Vit D3) folic acid 400 mcg tablet 1 mg PO BID 09/24/20 05/23/24 History multivitamin 1 tab PO DAILY 09/24/20 05/23/24 History tramadol 50 mg tablet 50 mg PO BID PRN Pain 09/24/20 05/23/24 History betamethasone dipropionate 0.05 % 1 applic topical DAILY PRN Skin 11/29/20 05/23/24 History topical cream Cleansing cetirizine 10 mg tablet (Zyrtec) 10 mg PO DAILY PRN allergies 11/29/20 05/23/24 History clobetasol 0.05 % topical cream 1 applic topical DAILY 11/29/20 05/23/24 History hydrocortisone 2.5 % topical cream 1 applic topical BID PRN Skin 11/29/20 05/23/24 History Cleansing methotrexate sodium 2.5 mg tablet 6 mg PO QWEEK 12/11/21 05/23/24 History prednisone 5 mg tablet 5 mg PO DAILY 06/01/23 05/23/24 History clobetasol 0.05 % shampoo 1 ea topical DAILY PRN 04/21/24 05/23/24 History azithromycin 250 mg tablet See Rx Instructions PO .COMPLEX #6 05/18/24 05/23/24 Rx tabs methylprednisolone 4 mg tablets in 4 mg PO PER PKG DIR 6 days #21 tabs 05/18/24 05/23/24 Rx a dose pack (Medrol (Dre)) nitrofurantoin 100 mg PO Q12H 5 days #10 caps 05/23/24 05/23/24 Rx monohydrate/macrocrystals 100 mg capsule (Macrobid) Nurse's Note: Patient has frequency and hesitancy and pulling. Patient did take a Pyridium last night. [facility] Medical History Pituitary tumor Cellulitis of right ring finger Post-menopausal Wears glasses Loose, teeth Alcohol use Redness of skin Osteoarthritis Psoriatic arthritis Fatty liver Frequent headaches Hemorrhoids Dermatomyositis Surgical History H/O dilation and curettage Status post cholecystectomy Family History Mother Ovarian cancer primary perinealceris carcinoma Asthma Arthritis Colon cancer Cancer Father Arthritis Social History Smoking Status: Smoker, status unknown alcohol intake: current details: social substance use type: does not use caffeine: Yes seatbelt use: always do you feel safe at home: Yes additional social history: Jc- Works in [place] Patient works at [employer] HPI Details: AICHA TWILA, is a 59 F who presents to the office today for initial evaluation at the [facility] for approximately 24-hour history of dysuria and urinary frequency with suprapubic pressure and pulling sensation. No complaints of fever, chills, sweats, lightheadedness/dizziness , nausea/vomiting, or chest pain/shortness of breath/dyspnea on exertion/back pain. No changes in color/ character of urine or stool; no urethral/ vaginal discharge. Pyridium taken to assist last evening with some benefit. No other associated symptoms and no alleviating/aggravating factors. ROS Const Constitutional: No other (As above) Exam Const General: cooperative, healthy appearing and no acute distress Orientation: alert, awake and oriented x3 Chest Chest palpation inspection: normal inspection of the chest Resp Effort Inspection: normal respiratory effort and able to speak in complete sentences Cardio Rate: regular rate Pulses: radial pulses present GI Inspection: normal to inspection Palpation: soft and tender suprapubic (Patient describes upon self-palpation) General: No CVA tenderness Skin General: no rashes or lesions noted Neuro General: patient alert, patient awake and patient oriented x3 Cognition: normal cognition Speech: speech normal Psych Appearance: grossly normal Mental Status: mental status grossly normal Mood: congruent mood Affect: normal affect Speech and Movement: speech and movement normal Attitude: cooperative Diagnoses Urinary tract i (more content not included)... Normal [facility] Urine cultureOrdered By: Jorge Pavon on 05-23-2024 Bacteria identified Cx Nom (U) Positive Abnormal [facility] - Microbiology an d Antimicrobial susceptibilityon 05-18-2024 SARS-CoV-2 (COVID-19) RNA KIM+probe Ql (Unsp spec) Not detected [facility] No Panel Informationon 05-18 Influenza Types A,B Rapid (Clinic) Not detected [facility] Urgent Care Visit Reporton 0 05-18-2024 Urgent Care Visit Report [facility] [address] [place] [address] OFFICE VISIT Date of Service: 05/18/24 MR#: [id number] Acct: [id number] Name: AICHA MATTSON SHAHNAZ Rep #: [id number] : 1965 Provider: JAYLA Mae Age/Sex: 59/F Location: [facility] Status: Signed Intake Vital Signs 04/21/24 15:49 05/18/24 15:41 05/18/24 15:50 Height 5 ft 8 in 5 ft 8 in 5 ft 8 in Weight: 231 lb 2 oz BMI 35.1 BP 106/74 122/80 H Blood Pressure Location Lt brachial Position Sitting Sitting Respiration 16 Pulse 75 83 Pulse Source Monitor Temp 98.4 F 98.1 F Temp Source Oral Oral Pulse Oximetry (%) 98 99 Oxygen Delivery Method room air room air Intake Visit Reasons: CONCERN FOR SINUS INFECTION Chief Complaint: sinus congestion Accompanied by: Self Allergies No Known Allergies Allergy (Verified 04/21/24 15:50) Medications ???Medication ???Instructions ???Recorded ???Confirmed ???Type biotin 1 mg capsule 1 mg PO DAILY 09/24/20 05/18/24 History calcium 600 mg (as 1 cap PO DAILY 09/24/20 05/18/24 History carbonate)-vitamin D3 12.5 mcg (500 unit) capsule (Calcium with Vit D3) folic acid 400 mcg tablet 1 mg PO BID 09/24/20 05/18/24 History multivitamin 1 tab PO DAILY 09/24/20 05/18/24 History tramadol 50 mg tablet 50 mg PO BID PRN Pain 09/24/20 05/18/24 History betamethasone dipropionate 0.05 % 1 applic topical DAILY PRN Skin 11/29/20 05/18/24 History topical cream Cleansing cetirizine 10 mg tablet (Zyrtec) 10 mg PO DAILY PRN allergies 11/29/20 05/18/24 History clobetasol 0.05 % topical cream 1 applic topical DAILY 11/29/20 05/18/24 History hydrocortisone 2.5 % topical cream 1 applic topical BID PRN Skin 11/29/20 05/18/24 History Cleansing methotrexate sodium 2.5 mg tablet 6 mg PO QWEEK 12/11/21 05/18/24 History prednisone 5 mg tablet 5 mg PO DAILY 06/01/23 05/18/24 History clobetasol 0.05 % shampoo 1 ea topical DAILY PRN 04/21/24 05/18/24 History azithromycin 250 mg tablet See Rx Instructions PO .COMPLEX #6 05/18/24 05/18/24 Rx tabs methylprednisolone 4 mg tablets in 4 mg PO PER PKG DIR 6 days #21 tabs 05/18/24 05/18/24 Rx a dose pack (Medrol (Dre)) Nurse's Note: Patient has cough, drainage, chest hurts. Patient states she is coughing up green and blowing green. [facility] Medical History Pituitary tumor Cellulitis of right ring finger Post-menopausal Wears glasses Loose, teeth Alcohol use Redness of skin Osteoarthritis Psoriatic arthritis Fatty liver Frequent headaches Hemorrhoids Dermatomyositis Surgical History H/O dilation and curettage Status post cholecystectomy Family History Mother Ovarian cancer primary perinealceris carcinoma Asthma Arthritis Colon cancer Cancer Father Arthritis Social History Smoking Status: Smoker, status unknown alcohol intake: current details: social substance use type: does not use caffeine: Yes seatbelt use: always do you feel safe at home: Yes additional social history: Jc- Works in [place] Patient works at [employer] Chief Complaint: sinus congestion Details: AICHA MATTSON, is a 59 F who presents to the office today for complaint of sinus congestion/pressure and pain as well as cough and postnasal drainage. Patient states this has been ongoing for the past week. No fever, chills, sweats. No nausea, vomiting or diarrhea. No hemoptysis, shortness of breath or difficulty breathing. No loss of taste or smell. No other associated symptoms or alleviating/aggravating factors. ROS Const Constitutional: Positive for other (ROS negative x6 except what was placed in HPI) Exam Const General: cooperative and healthy appearing HENMN Head: normal to inspection Ears: hearing grossly normal bilaterally, TM's normal bilaterally and EAC's normal Nose: nasal discharge purulent Face and sinus: sinus tenderness frontal and maxillary Mouth: oral mucosae normal Throat: abnormal tonsil bilaterally erythema and hypertrophy 1+ and postnasal drainage Resp Effort Inspection: normal respiratory effort Auscultation: Bilateral: Clear to Auscultation Cardio Palpation: normal PMI Rate: regular rate Rhythm: regular rhythm Neuro General: patient alert and CN's II-XI intact bilaterally Psych Appearance: grossly normal Mental Status: mental status grossly normal Results POC SYLVIA Covid FluAB PCR POC Sylvia Covid PCR Not Detected Last Edit by Violeta Moody MA on 05/18/24 16:12 POC SYLVIA FLU NOT DETECTED FLU A B Last Edit by Violeta Moody MA on 05/18/24 16:12 (more content not included)... Normal [facility] Urgent Care Visit Reporton 1 06-22-2023 Urgent Care Visit Report [facility] [address] [place] [address] OFFICE VISIT Date of Service: 04/21/24 MR#: [id number] Acct: [id number] Name: AICHA MATTSON SHAHNAZ Rep #: [id number] : 1965 Provider: JAYLA Mae Age/Sex: 59/F Location: [facility] Status: Signed Intake Vital Signs 06/20/23 12:07 04/21/24 15:49 Height 5 ft 8 in 5 ft 8 in BP 106/74 Blood Pressure Location Lt brachial Position Sitting Respiration 16 Pulse 75 Pulse Source Monitor Temp 98.4 F Temp Source Oral Pulse Oximetry (%) 98 Oxygen Delivery Method room air Intake Visit Reasons: CONCERN FOR SINUS INFECTION Chief Complaint: sinus congestion [employer] Required: No Accompanied by: Self Is patient in pain?: No Allergies No Known Allergies Allergy (Verified 04/21/24 15:50) Medications ???Medication ???Instructions ???Recorded ???Confirmed ???Type biotin 1 mg capsule 1 mg PO DAILY 09/24/20 04/21/24 History calcium 600 mg (as 1 cap PO DAILY 09/24/20 04/21/24 History carbonate)-vitamin D3 12.5 mcg (500 unit) capsule (Calcium with Vit D3) folic acid 400 mcg tablet 1 mg PO BID 09/24/20 04/21/24 History multivitamin 1 tab PO DAILY 09/24/20 04/21/24 History tramadol 50 mg tablet 50 mg PO BID PRN Pain 09/24/20 04/21/24 History betamethasone dipropionate 0.05 % 1 applic topical DAILY PRN Skin 11/29/20 04/21/24 History topical cream Cleansing cetirizine 10 mg tablet (Zyrtec) 10 mg PO DAILY PRN allergies 11/29/20 04/21/24 History clobetasol 0.05 % topical cream 1 applic topical DAILY 11/29/20 04/21/24 History hydrocortisone 2.5 % topical cream 1 applic topical BID PRN Skin 11/29/20 04/21/24 History Cleansing methotrexate sodium 2.5 mg tablet 6 mg PO QWEEK 12/11/21 04/21/24 History prednisone 5 mg tablet 5 mg PO DAILY 06/01/23 04/21/24 History amoxicillin 875 mg-potassium 1 tab PO Q12H 10 days #20 tabs 04/21/24 04/21/24 Rx clavulanate 125 mg tablet clobetasol 0.05 % shampoo 1 ea topical DAILY PRN 04/21/24 04/21/24 History PFSH Medical History Pituitary tumor Cellulitis of right ring finger Post-menopausal Wears glasses Loose, teeth Alcohol use Redness of skin Osteoarthritis Psoriatic arthritis Fatty liver Frequent headaches Hemorrhoids Dermatomyositis Surgical History H/O dilation and curettage Status post cholecystectomy Family History Mother Ovarian cancer primary perinealceris carcinoma Asthma Arthritis Colon cancer Cancer Father Arthritis Social History Smoking Status: Smoker, status unknown alcohol intake: current details: social substance use type: does not use caffeine: Yes seatbelt use: always do you feel safe at home: Yes additional social history: Jc- Works in [place] Patient works at [employer] HPI HPI Chief Complaint: sinus congestion Details: AICHA MATTSON, is a 59 F who presents to the office today for complaint of sinus congestion/pressure and pain for the past 10 days. Patient denies hemoptysis, shortness of breath or difficulty breathing. No fever, chills, sweats. No nausea, vomiting or diarrhea. No loss of taste or smell. No other associated symptoms or alleviating/aggravating factors. ROS Const Constitutional: Positive for other (ROS negative x6 except what was placed in HPI) Exam Const General: cooperative and healthy appearing HENMT Head: normal to inspection Ears: hearing grossly normal bilaterally, TM's normal bilaterally and EAC's normal Nose: nasal discharge purulent Face and sinus: sinus tenderness frontal and maxillary Mouth: oral mucosae normal Throat: abnormal tonsil bilaterally erythema and hypertrophy 1+ and postnasal drainage Resp Effort Inspection: normal respiratory effort Auscultation: Bilateral: Clear to Auscultation Cardio Palpation: normal PMI Rate: regular rate Rhythm: regular rhythm Neuro General: patient alert and CN's II-XI intact bilaterally Psych Appearance: grossly normal Mental Status: mental status grossly normal Coding Level of Care Code Off vis,est,level 3 Diagnoses Acute non-recurrent pansinusitis J01.40 Sinusitis location: pansinusitis Chronicity: acute Recurrence: non-recurrent Assessment and Plan Assessment and Plan (1) Sinus infection: Status: Acute Qualifiers: Sinusitis location: pansinusitis Chronicity: acute Recurrence: non-recurrent Qualified Code(s): J01.40 - Acute pansinusitis, unspecified Plan: Augmentin as prescribed today. Encouraged to get plenty of rest, drink lots of clear liquids, and use Tylenol or Ibupr (more content not included)... Normal [facility] Aldolaseon 02-10-2024 ALDOLASE 4.5 U/L Normal 3.3-10.3 [facility] Comment on above: Result Comment: Perf ormed at: - [facility] [address] [id number] Bdr: Abdulaziz Meek PhD, Phone: [phone] Performed By: #### L 100.0100, L3100.7000, L501.3620, L500.4050 #### [facility] [address] [place], [address] CBC W/Diff, Automatedon 10-0 Absolute Lymph 1.74 X10 3/uL Normal 0.83-4.51 [facility] Comment on above: Performed By: #### L 100.0100, L3100.7000, L501.3620, L500.4050 #### [facility] [address] [place], [address] Absolute Neut 7.3 X10 3/uL Normal 2.0-7.7 [facility] Comment on above: Performed By: #### L 100.0100, L3100.7000, L501.3620, L500.4050 #### [facility] [address] [place], [address] Basophils/100 WBC (Bld) 0.7 % Normal 0-1 [facility] Comment on above: Performed By: #### L 100.0100, L3100.7000, L501.3620, L500.4050 #### [facility] [address] [place], [address] Eosinophils/100 WBC (Bld) 0.8 % Normal 0-5 [facility] Comment on above: Performed By: #### L 100.0100, L3100.7000, L501.3620, L500.4050 #### [facility] [address] [place], [address] Erythrocyte distribution width (RBC) [Ratio] 14.0 % Normal 11.6-14.6 [facility] Comment on above: Performed By: #### L 100.0100, L3100.7000, L501.3620, L500.4050 #### [facility] [address] [place], [address] Hematocrit (Bld) [Volume fraction] 39.3 % Normal 37-47 [facility] Comment on above: Performed By: #### L 100.0100, L3100.7000, L501.3620, L500.4050 #### [facility] [address] [place], [address] Hemoglobin (Bld) [Mass/Vol] 12.8 g/dL Normal 12.0-15.0 [facility] Comment on above: Performed By: #### L 100.0100, L3100.7000, L501.3620, L500.4050 #### [facility] [address] [place], [address] IG% 0.400 Normal 0.0-0.9 [facility] Comment on above: Result Comment: IG% - Immature Granulocytes (promyelocytes, myelocytes and metamyelocytes) > 1% indicates that a LEFT SHIFT is Present. Performed By: #### L 100.0100, L3100.7000, L501.3620, L500.4050 #### [facility] [address] [place], [address] Lymphocytes/100 WBC (Bld) 18.0 % Low 19-41 [facility] Comment on above: Performed By: #### L 100.0100, L3100.7000, L501.3620, L500.4050 #### [facility] [address] [place], [address] MCH (RBC) [Entitic mass] 28.8 pg Normal 27.0-32.0 [facility] Comment on above: Performed By: #### L 100.0100, L3100.7000, L501.3620, L500.4050 #### [facility] [address] [place], [address] MCHC (RBC) [Mass/Vol] 32.6 g/dL Normal 32-36 [facility] Comment on above: Performed By: #### L 100.0100, L3100.7000, L501.3620, L500.4050 #### [facility] [address] [place], [address] MCV (RBC) [Entitic vol] 88.3 fL Normal 81-99 [facility] Comment on above: Performed By: #### L 100.0100, L3100.7000, L501.3620, L500.4050 #### [facility] [address] [place], [address] Monocytes/100 WBC (Bld) 4.3 % Normal 0-10 [facility] Comment on above: Performed By: #### L 100.0100, L3100.7000, L501.3620, L500.4050 #### [facility] [address] [place], [address] Neutrophils/100 WBC (Bld) 75.8 % High 47-70 [facility] Comment on above: Performed By: #### L 100.0100, L3100.7000, L501.3620, L500.4050 #### [facility] [address] [place], [address] Nucleated RBC (Bld) [#/Vol] 0 10*3/uL Normal 0-5 [facility] Comment on above: Performed By: #### L 100.0100, L3100.7000, L501.3620, L500.4050 #### [facility] [address] [place], [address] Platelet mean volume (Bld) [Entitic vol] 10.1 fL Normal 6.2-12.0 [facility] Comment on above: Performed By: #### L 100.0100, L3100.7000, L501.3620, L500.4050 #### [facility] [address] [place], [address] Platelets (Bld) [#/Vol] 288 10*3/uL Normal 150-450 [facility] Comment on above: Performed By: #### L 100.0100, L3100.7000, L501.3620, L500.4050 #### [facility] [address] [place], [address] RBC (Bld) [#/Vol] 4.45 10*6/uL Normal 4.2-5.4 [facility] Comment on above: Performed By: #### L 100.0100, L3100.7000, L501.3620, L500.4050 #### [facility] [address] [place], [address] RDW SD 45.0 fl High 35.1-43.9 [facility] Comment on above: Performed By: #### L 100.0100, L3100.7000, L501.3620, L500.4050 #### [facility] [address] [place], [address] WBC (Bld) [#/Vol] 9.7 10*3/uL Normal 4.4-11.0 [facility] Comment on above: Performed By: #### L 100.0100, L3100.7000, L501.3620, L500.4050 #### [facility] [address] [place], [address] CPK Total, Creatine Kinaseon 02-08-2024 CPK TOTAL 273 U/L High 26-192 [facility] Comment on above: Performed By: #### L 100.0100, L3100.7000, L501.3620, L500.4050 #### [facility] [address] [place], [address] Comprehensive Metabolic Prof ilon 02-08-2024 Albumin [Mass/Vol] 3.4 g/dL Normal 3.2-5.0 [facility] Comment on above: Performed By: #### L 100.0100, L3100.7000, L501.3620, L500.4050 #### [facility] [address] [place], [address] Albumin/Globulin [Mass ratio] 0.8 {ratio} Low 0.9-2.4 [facility] Comment on above: Performed By: #### L 100.0100, L3100.7000, L501.3620, L500.4050 #### [facility] [address] [place], [address] ALK P 112 U/L Normal 45-117 [facility] Comment on above: Performed By: #### L 100.0100, L3100.7000, L501.3620, L500.4050 #### [facility] [address] [place], [address] ALT [Catalytic activity/Vol] 38 U/L Normal 13-56 [facility] Comment on above: Performed By: #### L 100.0100, L3100.7000, L501.3620, L500.4050 #### [facility] [address] [place], [address] AST [Catalytic activity/Vol] 28 U/L Normal 15-37 [facility] Comment on above: Performed By: #### L 100.0100, L3100.7000, L501.3620, L500.4050 #### [facility] [address] [place], [address] Bilirubin [Mass/Vol] 0.30 mg/dL Normal 0.20-1.00 [facility] Comment on above: Result Comment: For patients on eltrombopag therapy, use of Dimension [place] TBIL is not recommended. Performed By: #### L 100.0100, L3100.7000, L501.3620, L500.4050 #### [facility] [address] [place], [address] BUN/CRE 14.0 RATIO Normal 10-20 [facility] Comment on above: Performed By: #### L 100.0100, L3100.7000, L501.3620, L500.4050 #### [facility] [address] [place], [address] CA,Total 9.4 mg/dL Normal 8.5-10.1 [facility] Comment on above: Performed By: #### L 100.0100, L3100.7000, L501.3620, L500.4050 #### [facility] [address] [place], [address] Chloride [Moles/Vol] 105 mmol/L Normal 98-107 [facility] Comment on above: Performed By: #### L 100.0100, L3100.7000, L501.3620, L500.4050 #### [facility] [address] [place], [address] CO2 [Moles/Vol] 24.0 mmol/L Normal 21.0-32.0 [facility] Comment on above: Performed By: #### L 100.0100, L3100.7000, L501.3620, L500.4050 #### [facility] [address] [place], [address] Creatinine [Mass/Vol] 0.86 mg/dL Normal 0.55-1.02 [facility] Comment on above: Result Comment: The validity of the calculated GFR GFRAA in patients over 70 years has not been determined. Clinical correlation is essential. Performed By: #### L 100.0100, L3100.7000, L501.3620, L500.4050 #### [facility] [address] [place], [address] EST GFR - AA 87 mL/min Normal >60 [facility] Comment on above: Result Comment: Afri can [place] GFR Calc Performed By: #### L 100.0100, L3100.7000, L501.3620, L500.4050 #### [facility] [address] [place], [address] GAP 7 Normal 5-15 [facility] Comment on above: Performed By: #### L 100.0100, L3100.7000, L501.3620, L500.4050 #### [facility] [address] [place], [address] GFR/1.73 sq M.predicted among non-blacks MDRD (S/P/Bld) [Vol rate/Area] 72 mL/min/{1.73_m2} Normal >60 [facility] Comment on above: Result Comment: Non- GFR Calc Performed By: #### L 100.0100, L3100.7000, L501.3620, L500.4050 #### [facility] [address] [place], [address] Globulin (S) [Mass/Vol] 4.2 g/dL Normal 2.2-4.2 [facility] Comment on above: Performed By: #### L 100.0100, L3100.7000, L501.3620, L500.4050 #### [facility] [address] [place], [address] Glucose [Mass/Vol] 123 mg/dL High 74-106 [facility] Comment on above: Result Comment: Fast ing Glucose result from 100 to 125 mg/dL suggests IMPAIRED HOMEOSTASIS per A.D.A. criteria. Performed By: #### L 100.0100, L3100.7000, L501.3620, L500.4050 #### [facility] [address] [place], [address] Potassium [Moles/Vol] 3.6 mmol/L Normal 3.5-5.1 [facility] Comment on above: Performed By: #### L 100.0100, L3100.7000, L501.3620, L500.4050 #### [facility] [address] [place], [address] Sodium [Moles/Vol] 137 mmol/L Normal 136-145 [facility] Comment on above: Performed By: #### L 100.0100, L3100.7000, L501.3620, L500.4050 #### [facility] [address] [place], [address] T PROT 7.6 g/dL Normal 6.4-8.2 [facility] Comment on above: Performed By: #### L 100.0100, L3100.7000, L501.3620, L500.4050 #### [facility] [address] [place], [address] Urea nitrogen [Mass/Vol] 12 mg/dL Normal 7-18 [facility] Comment on above: Performed By: #### L 100.0100, L3100.7000, L501.3620, L500.4050 #### [facility] [address] [place], [address] MRI BRAIN W/ + W/O CONTRASTo n 01-17-2024 MRI BRAIN W/ + W/O CONTRAST ORIGINAL EXAMINATION: MRI OF THE BRAIN WITHOUT AND WITH CONTRAST 01/17/2024 8:53 am TECHNIQUE: Multiplanar multisequence MRI of the head/brain was performed without and with the administration of intravenous contrast. COMPARISON: MRI brain 10/13/2023. HISTORY: ORDERING SYSTEM PROVIDED HISTORY: Reason for Exam: sellar mass - post resection FINDINGS: INTRACRANIAL STRUCTURES/VENTRICLES: Patient is status post transsphenoidal resection of a sellar mass. The surgical site appears unchanged from the comparison examination. There is persistent irregular enhancement along the left lateral and superior margin of the resection site similar to the previous examination. The residual pituitary tissue appears unchanged as well. The ventricles and sulci are not enlarged. No area of infarct. No abnormal signal is identified within the brain or posterior fossa. ORBITS: The visualized portion of the orbits demonstrate no acute abnormality. SINUSES: Polypoid mucosal thickening is present throughout the paranasal sinuses, increased from the comparison examination. BONES/SOFT TISSUES: The bone marrow signal intensity appears normal. The soft tissues demonstrate no acute abnormality. IMPRESSION: 1. Stable appearance of the brain status post transsphenoidal resection of a sellar mass. 2. Worsening sinusitis. Interpreted by: Francisco Lazcano Preliminary Report By: Francisco Lazcano Electronically signed By Francisco Lazcano Dictated Date: 01/17/2024 9:21:16 AM Prelim Date: 01/17/2024 9:37:54 AM Sign Date: 01/17/2024 9:37:54 AM Ordering Provider: JASMYNE LUQUE [facility] Aldolaseon 11-24-2023 ALDOLASE 4.7 U/L Normal 3.3-10.3 [facility] Comment on above: Result Comment: Perf ormed at: [facility] [address] [id number] Bdr: Abdulaziz Meek PhD, Phone: [phone] Performed By: #### L 500.4050, L501.3620, L100.0100, L3100.7000 ####[facility] [address] [place], [address] CBC W/Diff, Automatedon 11-07 Absolute Lymph 1.59 X10 3/uL Normal 0.83-4.51 [facility] Comment on above: Performed By: #### L 500.4050, L501.3620, L100.0100, L3100.7000 ####[facility] [address] [place], [address] Absolute Neut 7.5 X10 3/uL Normal 2.0-7.7 [facility] Comment on above: Performed By: #### L 500.4050, L501.3620, L100.0100, L3100.7000 ####[facility] [address] [place], [address] Basophils/100 WBC (Bld) 0.5 % Normal 0-1 [facility] Comment on above: Performed By: #### L 500.4050, L501.3620, L100.0100, L3100.7000 ####[facility] [address] [place], [address] Eosinophils/100 WBC (Bld) 0.5 % Normal 0-5 [facility] Comment on above: Performed By: #### L 500.4050, L501.3620, L100.0100, L3100.7000 ####[facility] [address] [place], [address] Erythrocyte distribution width (RBC) [Ratio] 14.6 % Normal 11.6-14.6 [facility] Comment on above: Performed By: #### L 500.4050, L501.3620, L100.0100, L3100.7000 ####[facility] [address] [place], [address] Hematocrit (Bld) [Volume fraction] 40.0 % Normal 37-47 [facility] Comment on above: Performed By: #### L 500.4050, L501.3620, L100.0100, L3100.7000 ####[facility] [address] [place], [address] Hemoglobin (Bld) [Mass/Vol] 12.9 g/dL Normal 12.0-15.0 [facility] Comment on above: Performed By: #### L 500.4050, L501.3620, L100.0100, L3100.7000 ####[facility] [address] [place], [address] IG% 0.100 Normal 0.0-0.9 [facility] Comment on above: Result Comment: IG% - Immature Granulocytes (promyelocytes, myelocytes and metamyelocytes) > 1% indicates that a LEFT SHIFT is Present. Performed By: #### L 500.4050, L501.3620, L100.0100, L3100.7000 ####[facility] [address] [place], [address] Lymphocytes/100 WBC (Bld) 16.3 % Low 19-41 [facility] Comment on above: Performed By: #### L 500.4050, L501.3620, L100.0100, L3100.7000 ####[facility] [address] [place], [address] MCH (RBC) [Entitic mass] 29.1 pg Normal 27.0-32.0 [facility] Comment on above: Performed By: #### L 500.4050, L501.3620, L100.0100, L3100.7000 ####[facility] [address] [place], [address] MCHC (RBC) [Mass/Vol] 32.3 g/dL Normal 32-36 [facility] Comment on above: Performed By: #### L 500.4050, L501.3620, L100.0100, L3100.7000 ####[facility] [address] [place], [address] MCV (RBC) [Entitic vol] 90.3 fL Normal 81-99 [facility] Comment on above: Performed By: #### L 500.4050, L501.3620, L100.0100, L3100.7000 ####[facility] [address] [place], [address] Monocytes/100 WBC (Bld) 5.4 % Normal 0-10 [facility] Comment on above: Performed By: #### L 500.4050, L501.3620, L100.0100, L3100.7000 ####[facility] [address] [place], [address] Neutrophils/100 WBC (Bld) 77.2 % High 47-70 [facility] Comment on above: Performed By: #### L 500.4050, L501.3620, L100.0100, L3100.7000 ####[facility] [address] [place], [address] Nucleated RBC (Bld) [#/Vol] 0 10*3/uL Normal 0-5 [facility] Comment on above: Performed By: #### L 500.4050, L501.3620, L100.0100, L3100.7000 ####[facility] [address] [place], [address] Platelet mean volume (Bld) [Entitic vol] 9.4 fL Normal 6.2-12.0 [facility] Comment on above: Performed By: #### L 500.4050, L501.3620, L100.0100, L3100.7000 ####[facility] [address] [place], [address] Platelets (Bld) [#/Vol] 323 10*3/uL Normal 150-450 [facility] Comment on above: Performed By: #### L 500.4050, L501.3620, L100.0100, L3100.7000 ####[facility] [address] [place], [address] RBC (Bld) [#/Vol] 4.43 10*6/uL Normal 4.2-5.4 [facility] Comment on above: Performed By: #### L 500.4050, L501.3620, L100.0100, L3100.7000 ####[facility] [address] [place], [address] RDW SD 47.8 fl High 35.1-43.9 [facility] Comment on above: Performed By: #### L 500.4050, L501.3620, L100.0100, L3100.7000 ####[facility] [address] [place], [address] WBC (Bld) [#/Vol] 9.7 10*3/uL Normal 4.4-11.0 [facility] Comment on above: Performed By: #### L 500.4050, L501.3620, L100.0100, L3100.7000 ####[facility] [address] [place], [address] CPK Total, Creatine Kinaseon 11-22-2023 CPK TOTAL 252 U/L High 26-192 [facility] Comment on above: Performed By: #### L 500.4050, L501.3620, L100.0100, L3100.7000 ####[facility] [address] [place], [address] Comprehensive Metabolic Prof ilon 11-22-2023 Albumin [Mass/Vol] 3.5 g/dL Normal 3.2-5.0 [facility] Comment on above: Performed By: #### L 500.4050, L501.3620, L100.0100, L3100.7000 ####[facility] [address] [place], [address] Albumin/Globulin [Mass ratio] 0.9 {ratio} Normal 0.9-2.4 [facility] Comment on above: Performed By: #### L 500.4050, L501.3620, L100.0100, L3100.7000 ####[facility] [address] [place], [address] ALK P 109 U/L Normal 45-117 [facility] Comment on above: Performed By: #### L 500.4050, L501.3620, L100.0100, L3100.7000 ####[facility] [address] [place], [address] ALT [Catalytic activity/Vol] 46 U/L Normal 13-56 [facility] Comment on above: Performed By: #### L 500.4050, L501.3620, L100.0100, L3100.7000 ####[facility] [address] [place], [address] AST [Catalytic activity/Vol] 35 U/L Normal 15-37 [facility] Comment on above: Performed By: #### L 500.4050, L501.3620, L100.0100, L3100.7000 ####[facility] [address] [place], [address] Bilirubin [Mass/Vol] 0.20 mg/dL Normal 0.20-1.00 [facility] Comment on above: Result Comment: For patients on eltrombopag therapy, use of Dimension [place] TBIL is not recommended. Performed By: #### L 500.4050, L501.3620, L100.0100, L3100.7000 ####[facility] [address] [place], [address] BUN/CRE 20.7 RATIO High 10-20 [facility] Comment on above: Performed By: #### L 500.4050, L501.3620, L100.0100, L3100.7000 ####[facility] [address] [place], [address] CA,Total 9.6 mg/dL Normal 8.5-10.1 [facility] Comment on above: Performed By: #### L 500.4050, L501.3620, L100.0100, L3100.7000 ####[facility] [address] [place], [address] Chloride [Moles/Vol] 106 mmol/L Normal 98-107 [facility] Comment on above: Performed By: #### L 500.4050, L501.3620, L100.0100, L3100.7000 ####[facility] [address] [place], [address] CO2 [Moles/Vol] 24.0 mmol/L Normal 21.0-32.0 [facility] Comment on above: Performed By: #### L 500.4050, L501.3620, L100.0100, L3100.7000 ####[facility] [address] [place], [address] Creatinine [Mass/Vol] 0.92 mg/dL Normal 0.55-1.02 [facility] Comment on above: Result Comment: The validity of the calculated GFR GFRAA in patients over 70 years has not been determined. Clinical correlation is essential. Performed By: #### L 500.4050, L501.3620, L100.0100, L3100.7000 ####[facility] [address] [place], [address] EST GFR - AA 80 mL/min Normal >60 [facility] Comment on above: Result Comment: Afri can [place] GFR Calc Performed By: #### L 500.4050, L501.3620, L100.0100, L3100.7000 ####[facility] [address] [place], [address] GAP 8 Normal 5-15 [facility] Comment on above: Performed By: #### L 500.4050, L501.3620, L100.0100, L3100.7000 ####[facility] [address] [place], [address] GFR/1.73 sq M.predicted among non-blacks MDRD (S/P/Bld) [Vol rate/Area] 66 mL/min/{1.73_m2} Normal >60 [facility] Comment on above: Result Comment: Non- GFR Calc Performed By: #### L 500.4050, L501.3620, L100.0100, L3100.7000 ####[facility] [address] [place], [address] Globulin (S) [Mass/Vol] 4.1 g/dL Normal 2.2-4.2 [facility] Comment on above: Performed By: #### L 500.4050, L501.3620, L100.0100, L3100.7000 ####[facility] [address] [place], [address] Glucose [Mass/Vol] 111 mg/dL High 74-106 [facility] Comment on above: Result Comment: Fast ing Glucose result from 100 to 125 mg/dL suggests IMPAIRED HOMEOSTASIS per A.D.A. criteria. Performed By: #### L 500.4050, L501.3620, L100.0100, L3100.7000 ####[facility] [address] [place], [address] Potassium [Moles/Vol] 3.8 mmol/L Normal 3.5-5.1 [facility] Comment on above: Performed By: #### L 500.4050, L501.3620, L100.0100, L3100.7000 ####[facility] [address] [place], [address] Sodium [Moles/Vol] 138 mmol/L Normal 136-145 [facility] Comment on above: Performed By: #### L 500.4050, L501.3620, L100.0100, L3100.7000 ####[facility] [address] [place], [address] T PROT 7.6 g/dL Normal 6.4-8.2 [facility] Comment on above: Performed By: #### L 500.4050, L501.3620, L100.0100, L3100.7000 ####[facility] [address] [place], [address] Urea nitrogen [Mass/Vol] 19 mg/dL High 7-18 [facility] Comment on above: Performed By: #### L 500.4050, L501.3620, L100.0100, L3100.7000 ####[facility] [address] [place], [address] Final Surgical Pathology Rep norma 10-15-2023 Final Surgical Pathology Report . Pathology Reports Accession: Collected Date/Time: Received Date/Time: Pathologist: [id number] 10/12/2023 15:54 EDT 10/13/2023 05:51 EDT MOI SCHAEFER MD Final Surgical Pathology Report DIAGNOSIS: A. SELLAR MASS -: - FRAGMENTS OF NECROTIC AND INFLAMMATORY DEBRIS Comment: Flow cytometric evaluation by integrated oncology shows poor viability with nearly absent T and B cells B. 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 A-Sellar mass -submitted in saline are multiple ragged sidhu-white tissue fragments that together aggregating 0.4 cm. A portion is reserved for flow cytometric evaluation, a portion is submitted in 1 cassette, and the turbid fluid is submitted to cytology for cellblock preparation.. TS-1 B. -Sellar mass -submitted in saline are several irregular whitish-pink tissue fragments together measuring 0.4 cm greatest dimension.. TS-1 Dictated by MOI SCHAEFER MICROSCOPIC DESCRIPTION: The microscopic examination is performed, except in the case of Gross Only. Electronically Signed by Pathology Report verified by [facility] MOI SCHAEFER Sign out Date: 10/15/2023 12:18 Performing Lab: [facility], [address] [place] [address] Pathology Dept Disclaimer If ancillary studies were utilized, the following Laboratory Developed Test (LDT) disclaimer will apply: Under CLIA requirements, [facility] is qualified to perform high complexity testing. For all ancillary stains, positive and negative controls stain appropriately. Performance characteristics of immunohistochemical and chromogenic in-situ hybridization tests have been determined by [facility]. These tests are used for clinical purposes, They should not be regarded as investigational or for research. Normal [facility] ([place]) MRI BRAIN W/ + W/O CONTRASTo n 10-13-2023 MRI BRAIN W/ + W/O CONTRAST ORIGINAL EXAMINATION: MR Brain with intravenous contrast TECHNIQUE: Multiplanar multi sequential MRI of the brain with special attention to the pituitary gland without and with intravenous contrast per standard protocol. COMPARISON: MRI brain 07/01/2023, CT head 09/07/2023 HISTORY: ORDERING SYSTEM PROVIDED HISTORY: Reason for Exam: Post op sella mass resection FINDINGS: Parenchyma: No acute hemorrhage, acute/early subacute infarction, or midline shift is seen. The sidhu-white matter junctions are maintained. Mild age commensurate parenchymal volume loss is noted. There are no space occupying intra-axial masses. No pathologic signal is identified in the white matter. There are no hemorrhagic blood products. 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 Residual homogeneously enhancing pituitary tissue measuring up to 4 mm craniocaudal dimension to the right of midline is seen. Postoperative fat packing of the sphenoid sinus is noted. The pituitary infundibulum is near midline. No mass effect on the optic chiasm. The cavernous sinuses enhance symmetrically. Flow voids persist within the cavernous internal carotid arteries. Ventricles: No ventricular enlargement or ventricular effacement. Orbits: Normal. Major intracranial flow voids: Preserved. Paranasal sinuses: Interval appearing small air-fluid level in the right maxillary sinus. Interval extensive opacification of the right ethmoid sinus. Interval mucosal thickening of the right frontal sinus with a small air-fluid level. Mild opacification of the Mastoids and middle ears: Chronic right mastoid effusion. Trace left effusion. Bones: Normal. Extracranial soft tissues: Normal. Additional comment: Normal. IMPRESSION: 1. 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 Residual homogeneously enhancing pituitary tissue is seen measuring up to 4 mm craniocaudal dimension to the right of midline. 2. No acute intracranial pathology. 3. Interval appearing small air-fluid levels in the right maxillary sinus and right frontal sinus with extensive opacification of the right ethmoid sinus. 4. Chronic right mastoid effusion. Interpreted by: Swapnil Mary MD Preliminary Report By: Swapnil Mary MD Electronically signed By Swapnil Mary MD Dictated Date: 10/13/2023 1:56:38 PM Prelim Date: 10/13/2023 2:21:24 PM Sign Date: 10/13/2023 2:21:24 PM Ordering Provider: MESHA MORELAND Normal [facility] ([place]) No Panel Informationon 10-11 Culture Wound Deep Panel Culture results pending. [facility] Work Phone: GS No organisms seen. [facility] Work Phone: .Auto Diffon 10-06-2023 Basophil, Absolute 0.1 10 3/mcL Normal 0.0-0.3 [facility] ([place]) Comment on above: Performed By: #### T SH, 250509, LH, ALF, PROL, FSH, 351321, FT4 #### [address] [address] Basophils/100 WBC (Bld) 0.7 % Normal 0.0-2.5 A [facility] ([place]) Comment on above: Performed By: #### T ELISSA, 975156, LH, ALF, PROL, FSH, 657259, FT4 #### [address] [address] Eosinophil, Absolute 0.2 10 3/mcL Normal 0.0-0.7 [facility] ([place]) Comment on above: Performed By: #### T SH, 220858, LH, LAF, PROL, FSH, 436176, FT4 #### [address] [address] Eosinophils/100 WBC (Bld) 1.7 % Normal 0.0-6.0 [facility] ([place]) Comment on above: Performed By: #### T SH, 267019, LH, ALF, PROL, FSH, 305463, FT4 #### [address] [address] Lymphocyte, Absolute 1.4 10 3/mcL Normal 0.9-4.3 [facility] ([place]) Comment on above: Performed By: #### T SH, 727261, LH, ALF, PROL, FSH, 998033, FT4 #### [address] [address] Lymphocytes/100 WBC (Bld) 16.0 % Low 20.0-40.0 [facility] ([place]) Comment on above: Performed By: #### T SH, 234909, LH, ALF, PROL, FSH, 445972, FT4 #### [address] [address] Monocyte, Absolute 0.5 10 3/mcL Normal 0.1-1.4 [facility] ([place]) Comment on above: Performed By: #### T SH, 453309, LH, ALF, PROL, FSH, 674989, FT4 #### [facility] [address] [place] [address] Monocytes/100 WBC (Bld) 5.7 % Normal 2.0-13.0 A [facility] ([place]) Comment on above: Performed By: #### T SH, 626143, LH, ALF, PROL, FSH, 306667, FT4 #### [address] [address] Neutrophils/100 WBC (Bld) 75.9 % High 50.0-75.0 [facility] ([place]) Comment on above: Performed By: #### T ELISSA, 827609, LH, ALF, PROL, FSH, 202955, FT4 #### [address] [address] .GFRon 10-06-2023 GFR >60 Normal [facility] ([place]) Comment on above: Result Comment: GFR Population mean for , Non- Americans Ages 20-29 = 116 mL/min/1.73 sq.m. Ages 30-39 = 107 mL/min/1.73 sq.m. Ages 40-49 = 99 mL/min/1.73 sq.m. Ages 50-59 = 93 mL/min/1.73 sq.m. Ages 60-69 = 85 mL/min/1.73 sq.m. Ages 70+ = 75 mL/min/1.73 sq.m. Chronic Kidney Disease: Less than 60 mL/min/1.73 square meters End Stage Renal Disease: Less than 15 mL/min/1.73 square meters Performed By: #### T SH, 854893, LH, ALF, PROL, FSH, 109869, FT4 #### [address] [address] GFR Non- >60 Normal [facility] ([place]) Comment on above: Result Comment: GFR Population mean for , Non- Americans Ages 20-29 = 116 mL/min/1.73 sq.m. Ages 30-39 = 107 mL/min/1.73 sq.m. Ages 40-49 = 99 mL/min/1.73 sq.m. Ages 50-59 = 93 mL/min/1.73 sq.m. Ages 60-69 = 85 mL/min/1.73 sq.m. Ages 70+ = 75 mL/min/1.73 sq.m. Chronic Kidney Disease: Less than 60 mL/min/1.73 square meters End Stage Renal Disease: Less than 15 mL/min/1.73 square meters Performed By: #### T ELISSA, 297060, LH, ALF, PROL, FSH, 543606, FT4 #### [address] [address] .NEUABSon 10-06-2023 Neutrophil, Absolute 6.8 10 3/mcL Normal 2.3-8.1 [facility] ([place]) Comment on above: Performed By: #### Holden BOWERS, 748168, LH, ALF, PROL, FSH, 241739, FT4 #### [address] [address] BMPon 10-06-2023 BUN/Creatinine Ratio 23.9 ratio High 10.0-22.0 [facility] ([place]) Comment on above: Performed By: #### T ELISSA, 735915, LH, ALF, PROL, FSH, 233554, FT4 #### [address] [address] Calcium [Mass/Vol] 9.2 mg/dL Normal 8.7-10.4 [facility] ([place]) Comment on above: Performed By: #### T ELISSA, 857853, LH, ALF, PROL, FSH, 767902, FT4 #### [address] [address] Chloride [Moles/Vol] 106 mmol/L Normal 98-110 [facility] ([place]) Comment on above: Performed By: #### T ELISSA, 031302, LH, ALF, PROL, FSH, 275491, FT4 #### [address] [address] CO2 [Moles/Vol] 27 mmol/L Normal 22-32 [facility] ([place]) Comment on above: Performed By: #### T ELISSA, 398727, LH, ALF, PROL, FSH, 379142, FT4 #### [address] [address] Creatinine [Mass/Vol] 0.88 mg/dL Normal 0.50-1.20 [facility] ([place]) Comment on above: Performed By: #### T ELISSA, 325543, LH, ALF, PROL, FSH, 535167, FT4 #### [address] [address] Electrolyte Balance 8.0 mEq/L Normal 4.0-15.0 [facility] ([place]) Comment on above: Performed By: #### T ELISSA, 513739, LH, ALF, PROL, FSH, 993181, FT4 #### [address] [address] Glucose [Mass/Vol] 101 mg/dL Normal 82-115 [facility] ([place]) Comment on above: Performed By: #### T ELISAS, 537818, LH, ALF, PROL, FSH, 515052, FT4 #### [address] [address] Potassium [Moles/Vol] 4.0 mmol/L Normal 3.5-5.0 [facility] ([place]) Comment on above: Performed By: #### T ELISSA, 925049, LH, ALF, PROL, FSH, 776156, FT4 #### [address] [address] Sodium [Moles/Vol] 141 mmol/L Normal 136-145 [facility] ([place]) Comment on above: Performed By: #### T ELISSA, 286179, LH, ALF, PROL, FSH, 513622, FT4 #### [address] [address] Urea nitrogen [Mass/Vol] 21.0 mg/dL Normal 8.0-22.0 [facility] ([place]) Comment on above: Performed By: #### T ELISSA, 318616, LH, ALF, PROL, FSH, 324136, FT4 #### [place] [address] CBCon 10-06-2023 Erythrocyte distribution width (RBC) [Ratio] 16.1 % High 11.5-15.5 [facility] ([place]) Comment on above: Performed By: #### T ELISSA, 132659, LH, ALF, PROL, FSH, 583628, FT4 #### [place] [address] Hematocrit (Bld) [Volume fraction] 40.5 % Normal 34.0-46.0 [facility] ([place]) Comment on above: Performed By: #### T ELISSA, 269962, LH, ALF, PROL, FSH, 995230, FT4 #### [place] [address] Hgb 13.5 G/dL Normal 12.0-16.0 [facility] ([place]) Comment on above: Performed By: #### T ELISSA, 042893, LH, ALF, PROL, FSH, 993825, FT4 #### [place] [address] MCH (RBC) [Entitic mass] 29.3 pg Normal 27.0-33.0 [facility] ([place]) Comment on above: Performed By: #### T ELISSA, 463341, LH, ALF, PROL, FSH, 358744, FT4 #### [place] [address] MCHC 33.4 G/dL Normal 32.0-36.0 [facility] ([place]) Comment on above: Performed By: #### T ELISSA, 404008, LH, ALF, PROL, FSH, 881659, FT4 #### [place] [address] MCV (RBC) [Entitic vol] 87.9 fL Normal 80.0-99.0 A [facility] ([place]) Comment on above: Performed By: #### T ELISSA, 032627, LH, ALF, PROL, FSH, 983945, FT4 #### [address] [address] Platelet 319 10 3/mcL Normal 150-450 [facility] ([place]) Comment on above: Performed By: #### T ELISSA, 556030, LH, ALF, PROL, FSH, 883815, FT4 #### [address] [address] Platelet mean volume (Bld) [Entitic vol] 7.4 fL Normal 6.6-10.5 [facility] ([place]) Comment on above: Performed By: #### T ELISSA, 821720, LH, ALF, PROL, FSH, 660507, FT4 #### [place] [address] RBC 4.60 10 6/mcL Normal 4.10-5.30 [facility] ([place]) Comment on above: Performed By: #### T ELISSA, 579868, LH, ALF, PROL, FSH, 152653, FT4 #### [address] [address] WBC 9.0 10 3/mcL Normal 4.5-10.8 [facility] ([place]) Comment on above: Performed By: #### T ELISSA, 328472, LH, ALF, PROL, FSH, 601795, FT4 #### [address] [address] LABORATORYOrdered By: SYSTEM SYSTEM on 10-06-2023 Basophils (Bld) [#/Vol] 0.1 103/mcL Normal 0.0 - 0.3 10^3/mcL AH Workflow SS Basophils/100 WBC (Bld) 0.7 % Normal 0.0 - 2.5 % AH Workflow SS Calcium [Mass/Vol] 9.2 mg/dL Normal 8.7 - 10. 4 mg/dL AH ADM SS Chloride [Moles/Vol] 106 mmol/L Normal 98 - 11 0 mEq/L AH ADM SS CO2 [Moles/Vol] 27 mmol/L Normal 22 - 32 mEq/L AH ADM SS Creatinine [Mass/Vol] 0.88 mg/dL Normal 0.50 - 1.20 mg/dL ADM SS Electrolyte Balance 8.0 mEq/L Normal 4.0 - 15 .0 mEq/L ADM SS Eosinophils (Bld) [#/Vol] 0.2 103/mcL Normal 0.0 - 0.7 10^3/mcL Workflow SS Eosinophils/100 WBC (Bld) 1.7 % Normal 0.0 - 6.0 % Workflow SS Erythrocyte distribution width (RBC) [Ratio] 16.1 % High 11.5 - 15.5 % Workflow SS GFR/1.73 sq M.predicted among blacks MDRD (S/P/Bld) [Vol rate/Area] ml/min/1.73sqm Invalid Interpretation Code Riboxx Chemistry S Comment on above: Interpretive Data: GFR Population mean for , Non- Americans Ages 20-29 = 116 mL/min/1.73 sq.m. Ages 30-39 = 107 mL/min/1.73 sq.m. Ages 40-49 = 99 mL/min/1.73 sq.m. Ages 50-59 = 93 mL/min/1.73 sq.m. Ages 60-69 = 85 mL/min/1.73 sq.m. Ages 70+ = 75 mL/min/1.73 sq.m. Chronic Kidney Disease: Less than 60 mL/min/1.73 square meters End Stage Renal Disease: Less than 15 mL/min/1.73 square meters GFR/1.73 sq M.predicted among non-blacks MDRD (S/P/Bld) [Vol rate/Area] ml/min/1.73sqm Invalid Interpretation Code Riboxx Chemistry S Comment on above: Interpretive Data: GFR Population mean for , Non- Americans Ages 20-29 = 116 mL/min/1.73 sq.m. Ages 30-39 = 107 mL/min/1.73 sq.m. Ages 40-49 = 99 mL/min/1.73 sq.m. Ages 50-59 = 93 mL/min/1.73 sq.m. Ages 60-69 = 85 mL/min/1.73 sq.m. Ages 70+ = 75 mL/min/1.73 sq.m. Chronic Kidney Disease: Less than 60 mL/min/1.73 square meters End Stage Renal Disease: Less than 15 mL/min/1.73 square meters Glucose [Mass/Vol] 101 mg/dL Normal 82 - 115 mg/dL ADM SS Hematocrit (Bld) [Volume fraction] 40.5 % Normal 34.0 - 46.0 % AH Workflow SS Hemoglobin (Bld) [Mass/Vol] 13.5 G/dL Normal 12.0 - 16.0 G/dL AH Workflow SS Lymphocytes (Bld) [#/Vol] 1.4 103/mcL Normal 0.9 - 4.3 10^3/mcL AH Workflow SS Lymphocytes/100 WBC (Bld) 16.0 % Low 20.0 - 40.0 % AH Workflow SS MCH (RBC) [Entitic mass] 29.3 pg Normal 27.0 - 33.0 pg AH Workflow SS MCHC 33.4 G/dL Normal 32.0 - 36.0 G/dL AH Workflow SS MCV (RBC) [Entitic vol] 87.9 fL Normal 80.0 - 99.0 fL Workflow SS Monocytes (Bld) [#/Vol] 0.5 103/mcL Normal 0.1 - 1.4 10^3/mcL AH Workflow SS Monocytes/100 WBC (Bld) 5.7 % Normal 2.0 - 13.0 % AH Workflow SS Neutrophils (Bld) [#/Vol] 6.8 103/mcL Normal 2.3 - 8.1 10^3/mcL AH Workflow SS Neutrophils/100 WBC (Bld) 75.9 % High 50.0 - 75.0 % AH Workflow SS Platelet mean volume (Bld) [Entitic vol] 7.4 fL Normal 6.6 - 10.5 fL AH Workflow SS Platelets (Bld) [#/Vol] 319 103/mcL Normal 150 - 450 10^3/mcL AH Workflow SS Potassium [Moles/Vol] 4.0 mmol/L Normal 3.5 - 5.0 mEq/L AH ADM SS RBC (Bld) [#/Vol] 4.60 106/mcL Normal 4.10 - 5.30 10^6/mcL AH Workflow SS Sodium [Moles/Vol] 141 mmol/L Normal 136 - 145 mEq/L ADM SS Urea nitrogen [Mass/Vol] 21.0 mg/dL Normal 8.0 - 22.0 mg/dL AH ADM SS Urea nitrogen/Creatinine [Mass ratio] 23.9 ratio High 10.0 - 22.0 ratio AH ADM SS WBC (Bld) [#/Vol] 9.0 103/mcL Normal 4.5 - 10.8 10^3/mcL AH Workflow SS CT SINUS BRAIN LABon 09-09-[address] SINUS BRAIN LAB ORIGINAL EXAMINATION: CT OF THE HEAD, SINUS, AND FACIAL BONES WITHOUT CONTRAST 09/07/2023 3:54 pm TECHNIQUE: CT of the head, sinuses, and facial bones was performed without the administration of intravenous contrast. Multiplanar reformatted images are provided for review. Automated exposure control, iterative reconstruction, and/or weight based adjustment of the mA/kV was utilized to reduce the radiation dose to as low as reasonably achievable. COMPARISON: MRI lumbar spine 07/01/2023, head CT 06/25/2023 HISTORY: ORDERING SYSTEM PROVIDED HISTORY: Reason for Exam: Cyst and mucocele of nose and nasal sinus blurry and double vision. nasal drainage. abnormal mri FINDINGS: Examination was performed for surgical guidance purposes. Right: The frontal sinus is clear. Frontal outflow tract is patent. A mucous retention cyst or minimal aerated secretions seen in the posterior ethmoid air cells, not seen on 06/25/2023 and therefore favoring aerated secretions. This ethmoid air cell appears to communicate with the left sphenoid sinus. Trace mucosal thickening maxillary sinus. Maxillary outflow tract is patent. Small areas of osseous spiculation in the right maxillary sinus of uncertain etiology. There is an accessory ostium. The sphenoid ostium and sphenoethmoidal recess are clear. The optic strut and anterior clinoid process are aerated. There is a sellar mass with dehiscence of the posterior wall of the right sphenoid sinus and a small area of mass protruding through the dehiscence into the posterior sphenoid sinus. Left: The frontal sinus and outflow tract are clear. No significant mucosal thickening in the ethmoid air cells. No significant mucosal thickening maxillary sinus. The maxillary outflow tract is clear. The sphenoid ostium and sphenoethmoidal recess are clear. The optic strut and anterior clinoid process are aerated. Sellar mass with the his since of the posterior wall of the left sphenoid sinus and mild extension of the mass into the sphenoid sinus. The nasal septum is deviated to the left with a prominent spur inferiorly contacting the inferior turbinate. No nasal masses are shown. There are no air-fluid levels in the paranasal sinuses. The intersphenoid sinus septum inserts on the right carotid canal. Small right mastoid effusion. Left mastoids appear clear. The included intraorbital structures appear nonacute. There is redemonstration of an expansile sellar mass with dehiscence of the posterior sphenoid sinus joe bilaterally and mild extension of the mass into the sinuses. There is dehiscence of the joe of the sella. The mass measures 2.5 cm AP x 2.9 cm cranial caudal by approximately 2.6 cm transverse and was better evaluated on MRI. IMPRESSION: 1. 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 2. Small right mastoid effusion. 3. Small areas of osseous spiculation in the right maxillary sinus of uncertain etiology. 4. Minimal aerated secretions in the right posterior ethmoid air cells which can be seen with acute sinusitis in the appropriate clinical setting. Interpreted by: Irma Trevino MD Preliminary Report By: Irma Trevino MD Electronically signed By Irma Trevino MD Dictated Date: 09/10/2023 9:18:35 AM Prelim Date: 09/10/2023 9:39:38 AM Sign Date: 09/10/2023 9:39:38 AM Ordering Provider: BRANDO BURNETT [facility] ([place]) .GFRon 09-07-2023 GFR >60 [facility] ([place]) Comment on above: Result Comment: GFR Population mean for , Non- Americans Ages 20-29 = 116 mL/min/1.73 sq.m. Ages 30-39 = 107 mL/min/1.73 sq.m. Ages 40-49 = 99 mL/min/1.73 sq.m. Ages 50-59 = 93 mL/min/1.73 sq.m. Ages 60-69 = 85 mL/min/1.73 sq.m. Ages 70+ = 75 mL/min/1.73 sq.m. Chronic Kidney Disease: Less than 60 mL/min/1.73 square meters End Stage Renal Disease: Less than 15 mL/min/1.73 square meters Performed By: #### T , 077051, LH, ALF, PROL, FSH, 736078, FT4 #### [address] [address] GFR Non- >60 Normal [facility] ([place]) Comment on above: Result Comment: GFR Population mean for , Non- Americans Ages 20-29 = 116 mL/min/1.73 sq.m. Ages 30-39 = 107 mL/min/1.73 sq.m. Ages 40-49 = 99 mL/min/1.73 sq.m. Ages 50-59 = 93 mL/min/1.73 sq.m. Ages 60-69 = 85 mL/min/1.73 sq.m. Ages 70+ = 75 mL/min/1.73 sq.m. Chronic Kidney Disease: Less than 60 mL/min/1.73 square meters End Stage Renal Disease: Less than 15 mL/min/1.73 square meters Performed By: #### T SH, 363771, LH, ALF, PROL, FSH, 583687, FT4 #### [address] [address] CREon 09-07-2023 Creatinine [Mass/Vol] 0.73 mg/dL Normal 0.50-1.20 [facility] ([place]) Comment on above: Performed By: #### C RE, GFR #### [address] [address] NASEEM + Protein Elect, Serumon 08-26-2023 Albumin [Mass/Vol] 3.6 g/dL Normal 2.9-4.4 [facility] Comment on above: Order Comment: N Performed By: #### L 3600.4030, L3318.5085 ####[facility] [address] [place], [place], [id number] Albumin/Globulin [Mass ratio] 1.1 {ratio} Normal 0.7-1.7 [facility] Comment on above: Order Comment: N Performed By: #### L 3600.4030, L3100.3425 ####[facility] [address] [place], [address] [id number] 0.2 g/dL Normal 0.0-0.4 [facility] Comment on above: Order Comment: N Performed By: #### L 3600.4030, L3100.3425 ####[facility] [address] [place], [address] [id number] 0.7 g/dL Normal 0.4-1.0 [facility] Comment on above: Order Comment: N Performed By: #### L 3600.4030, L3100.3425 ####[facility] [address] [place], [address] BETA GLOBULIN 1.1 g/dL Normal 0.7-1.3 [facility] Comment on above: Order Comment: N Performed By: #### L 3600.4030, L3100.3425 ####[facility] [address] [place], [address] GAMMA GLOBULIN 1.4 g/dL Normal 0.4-1.8 [facility] Comment on above: Order Comment: N Performed By: #### L 3600.4030, L3100.3425 ####[facility] [address] [place], [address] Globulin (S) [Mass/Vol] 3.5 g/dL Normal 2.2-3.9 [facility] Comment on above: Order Comment: N Performed By: #### L 3600.4030, L3100.3425 ####[facility] [address] [place], [address] NASEEM RESULT,S Comment Normal . [facility] Comment on above: Order Comment: N Result Comment: No m onoclonality detected. Performed By: #### L 3600.4030, L3100.3425 ####[facility] [address] [place], [address] IMMUNOGLOB A QN 306 mg/dL Normal 87-352 [facility] Comment on above: Order Comment: N Performed By: #### L 3600.4030, L3100.3425 ####[facility] [address] [place], [address] IMMUNOGLOB G QN 1550 mg/dL Normal 586-1602 [facility] Comment on above: Order Comment: N Performed By: #### L 3600.4030, L3100.3425 ####[facility] [address] [place], [address] IMMUNOGLOB M QN 56 mg/dL Normal 26-217 [facility] Comment on above: Order Comment: N Performed By: #### L 3600.4030, L3100.3425 ####[facility] [address] [place], [address] M-Arya Not Observed Normal Not Observed [facility] Comment on above: Order Comment: N Performed By: #### L 3600.4030, L3100.3425 ####[facility] [address] [place], [address] NOTE: Comment Normal . [facility] Comment on above: Order Comment: N Result Comment: Prot ein electrophoresis scan will follow via computer, mail, or field counsel delivery. Performed By: #### L 3600.4030, L3100.3425 ####[facility] [address] [place], [address] Protein [Mass/Vol] 7.1 g/dL Normal 6.0-8.5 [facility] Comment on above: Order Comment: N Performed By: #### L 3600.4030, L3100.3425 ####[facility] [address] [place], [address] Immunofixation Urineon 08-25 NASEEM Urine Comment Normal . [facility] Comment on above: Order Comment: N Result Comment: No m onoclonality detected. Performed at: [facility] - [address] [id number] Bdr: Abdulaziz Meek PhD, Phone: [phone] Performed By: #### L 3600.4030, L3100.3425 ####[facility] [address] [place], [address] Albumin Elph [Mass/Vol]Order ed By: Padmaja Hart on 08-23-2023 Albumin [Mass/Vol] 3.6 g/dL 2.9-4.4 [facility] Basophil percentageOrdered B y: Padmaja Hart on 08-23-2023 Basophil percentage Comment . [facility] Comment on above: No monoclonality det ected.Performed at: [facility] [address] [id number] Director: Abdulaziz Meek PhD, Phone: [phone] Interpretation of serum or p lasma protein pattern by immunofixation (narrative resultOrdered By: Padmaja Hart on 08-23-2023 Protein Fractions Immunofixation Kyaw [Interp] Not Observed g/dL Not Observed [facility] No Panel InformationOrdered By: Padmaja Hart on 08-23-2023 Addendum Document Comment . [facility] Comment on above: Protein electrophore sis scan will follow via computer,mail, or field counsel delivery. Immunoglobulin M 56 mg/dL 26-217 [facility] Serum urorm-0-iighayhm measu rement by electrophoresisOrdered By: Padmaja Hart on 08-23-2023 Alpha 1 globulin Elph [Mass/Vol] 0.2 g/dL 0.0-0.4 [facility] Alpha 1 globulin Elph [Mass/Vol] 0.7 g/dL 0.4-1.0 [facility] Serum globulin measurement ( mass/volume)Ordered By: Padmaja Hart on 08-23-2023 Globulin (S) [Mass/Vol] 3.5 g/dL 2.2-3.9 [facility] Serum or plasma IgA measurem ent (mass/volume)Ordered By: Padmaja Hart on 08-23-2023 IgA [Mass/Vol] 306 mg/dL 87-352 [facility] Serum or plasma IgG measurem ent (mass/volume)Ordered By: Padmaja Hart on 08-23-2023 IgG [Mass/Vol] 1550 mg/dL 586-1602 [facility] Serum or plasma beta globuli n measurement by electrophoresis (mass/volume)Ordered By: Padmaja Hart on 08-23-2023 Beta globulin Elph [Mass/Vol] 1.1 g/dL 0.7-1.3 [facility] Serum or plasma gamma globul in measurement by electrophoresis (mass/volume)Ordered By: Padmaja Hart on 08-23-2023 Gamma globulin Elph [Mass/Vol] 1.4 g/dL 0.4-1.8 [facility] Serum or plasma immunoelectr ophoresis interpretation (nominal result)Ordered By: Padmaja Hart on 08-23-2023 Interpretation IEP [Interp] Comment . [facility] Comment on above: No monoclonality det ected. Thin prep Papanicolaou smear with manual screeningOrdered By: Padmaja Hart on 08-23-2023 Thin prep Papanicolaou smear with manual screening 1.1 0.7-1.7 [facility] Total protein bloodOrdered B y: Padmaja Hart on 08-23-2023 Protein [Mass/Vol] 7.1 g/dL 6.0-8.5 [facility] Absolute lymphocyte countOrd ered By: Padmaja Hart on 08-18-2023 Lymphocytes Auto (Unsp spec) [#/Vol] 1.35 10*3/uL 0.83-4.51 [facility] Aldolase ser/plasOrdered By: Padmaja Hart on 08-18-2023 Aldolase [Catalytic activity/Vol] 3.7 mU/mL 3.3-10.3 [facility] Comment on above: Performed at: [address] [id number] Director: Abdulaziz Meek PhD, Phone: [phone] Automated lymphocyte count a s percentage of total leukocytesOrdered By: Padmaja Hart on 08-18-2023 Lymphocytes/100 WBC Auto (Unsp spec) 15.2 % 19-41 [facility] Basophil percentageOrdered B y: Padmaja Hart on 08-18-2023 Basophils/100 WBC (Bld) 0.8 % 0-1 [facility] Bilirubin [Mass/Vol] 0.20 mg/dL 0.20-1.00 [facility] Comment on above: For patients on eltr ombopag therapy, use of Dimension [place] TBIL is not recommended. Chloride [Moles/Vol] 106 mmol/L 98-107 [facility] Eosinophils/100 WBC (Bld) 0.6 % 0-5 [facility] Glucose [Mass/Vol] 164 mg/dL 74-106 [facility] Comment on above: Fasting Glucose resu lt greater than or equal to 126 mg/dL suggests DIABETES MELLITUS per A.D.A. criteria. Hemoglobin (Bld) [Mass/Vol] 13.0 g/dL 12.0-15.0 [facility] Monocytes/100 WBC (Bld) 3.0 % 0-10 [facility] Neutrophils (Bld) [#/Vol] 7.1 10*3/uL 2.0-7.7 [facility] Neutrophils/100 WBC (Bld) 79.9 % 47-70 [facility] Potassium [Moles/Vol] 3.7 mmol/L 3.5-5.1 [facility] Protein [Mass/Vol] 7.9 g/dL 6.4-8.2 [facility] Sodium [Moles/Vol] 137 mmol/L 136-145 [facility] WBC (Bld) [#/Vol] 8.9 10*3/uL 4.4-11.0 [facility] Determination of erythrocyte mean corpuscular volume (MCV)Ordered By: Padmaja Hart on 08-18-2023 MCV (RBC) [Entitic vol] 88.6 fL 81-99 [facility] Erythrocyte distribution wid th ratioOrdered By: Padmaja Hart on 08-18-2023 Erythrocyte distribution width (RBC) [Ratio] 15.7 % 11.6-14.6 [facility] Erythrocyte distribution wid th standard deviationOrdered By: Padmaja Hart on 08-18-2023 Erythrocyte distribution width (RBC) [Entitic vol] 49.9 fL 35.1-43.9 [facility] Hematocrit Auto (Bld) [Volum e fraction]Ordered By: Padmaja Hart on 08-18-2023 Hematocrit (Bld) [Volume fraction] 41.3 % 37-47 [facility] Immature granulocytes/100 WB C Auto (Bld)Ordered By: Padmaja Hart on 08-18-2023 Immature granulocytes/100 WBC (Bld) 0.500 % 0.0-0.9 [facility] Comment on above: IG% - Immature Granu locytes (promyelocytes, myelocytes and metamyelocytes) > 1% indicates that a LEFT SHIFT is Present. Laboratory - Chemistry and C hemistry - challengeOrdered By: Padmajaroslyn Hart on 08-18-2023 Albumin/Globulin [Mass ratio] 0.8 {ratio} 0.9-2.4 [facility] ALP [Catalytic activity/Vol] 95 U/L 45-117 [facility] ALT [Catalytic activity/Vol] 38 U/L 13-56 [facility] CK [Catalytic activity/Vol] 176 U/L 26-192 [facility] CO2 [Moles/Vol] 25.0 mmol/L 21.0-32.0 [facility] Globulin (S) [Mass/Vol] 4.5 g/dL 2.2-4.2 [facility] Urea nitrogen/Creatinine [Mass ratio] 16.1 mg/mg 10-20 [facility] Laboratory - Hematology and Cell countsOrdered By: Padmaja Hart on 08-18-2023 MCH (RBC) [Entitic mass] 27.9 pg 27.0-32.0 [facility] MCHC (RBC) [Mass/Vol] 31.5 g/dL 32-36 [facility] Nucleated RBC/100 WBC (Bld) [Ratio] 0 % 0-5 [facility] Platelet mean volume (Bld) [Entitic vol] 9.9 fL 6.2-12.0 [facility] Platelets (Bld) [#/Vol] 347 10*3/uL 150-450 [facility] No Panel InformationOrdered By: Padmaja Hart on 08-18-2023 Estimated GFR (MDRD) Amer 73 mL/min >60 [facility] Comment on above: GFR Calc Estimated GFR (MDRD) Non-Af Amer 61 mL/min >60 [facility] Comment on above: Non- GFR Calc RBC Auto (Bld) [#/Vol]Ordere d By: Padmaja Hart on 08-18-2023 RBC (Bld) [#/Vol] 4.66 10*6/uL 4.2-5.4 [facility] Serum or plasma calcium radha urement (mass/volume)Ordered By: Padmaja Hart on 08-18-2023 Calcium [Mass/Vol] 9.4 mg/dL 8.5-10.1 [facility] Serum or plasma creatinine m easurement (mass/volume)Ordered By: Padmaja Hart on 08-18-2023 Creatinine [Mass/Vol] 0.99 mg/dL 0.55-1.02 [facility] Comment on above: The validity of the calculated GFR & GFRAA in patients over 70 years has not been determined. Clinical correlation is essential. Serum or plasma urea nitroge n measurement (mass/volume)Ordered By: Padmaja Hart on 08-18-2023 Urea nitrogen [Mass/Vol] 16 mg/dL 7-18 [facility] Thin prep Papanicolaou smear with manual screeningOrdered By: Padmaja Hart on 08-18-2023 Thin prep Papanicolaou smear with manual screening 3.4 g/dL 3.2-5.0 [facility] Thin prep Papanicolaou smear with manual screening 27 U/L 15-37 [facility] Thin prep Papanicolaou smear with manual screening 6 5-15 [facility] Misc LCon 07-21-2023 Order Number [id number] [facility] ([place]) Comment on above: Order Comment: Dilut e ProlactinDilute Prolactin ([id number]) Refrigerate Performed By: #### T SH, 726469, LH, ALF, PROL, FSH, 130903, FT4 #### [address] Test Name Prolactin Macroadenoma Normal [facility] ([place]) Comment on above: Order Comment: Dilut e ProlactinDilute Prolactin () Refrigerate Performed By: #### T SH, 855730, LH, ALF, PROL, FSH, 267794, FT4 #### [address] Test Source Serum Normal [facility] ([place]) Comment on above: Order Comment: Dilut e ProlactinDilute Prolactin ([id number]) Refrigerate Performed By: #### T SH, 402860, LH, ALF, PROL, FSH, 148105, FT4 #### [place] [id number] [facility] Test Result COMMENT Normal [facility] ([place]) Comment on above: Order Comment: Dilut e ProlactinDilute Prolactin ([id number]) Refrigerate Result Comment: Test Ordered: [id number] Prolactin, Macroadenoma Prolactin 18.4 ng/mL Reference Range: 3.6-25.2 Prolactin on 1:100 Dilution 24.4 ng/mL Reference Range: Not Estab. Testing on a 100-fold dilution produced a result that is comparable to the result produced on direct testing of the sample. This is consistent with the absence of high-dose hook effect. Total prolactin was measured using the Nina Catherine e-801 immunoassay analyzer. Performed At: [address] [id number] Gaviota Cintron PhD Ph:[phone] Performed At: [address] [id number] Ulises Swift MD Ph:[phone] Performed By: #### T SH, 341470, LH, ALF, PROL, FSH, 956694, FT4 #### [place] [id number] SOMATon 07-16-2023 IGF I 86 ng/mL Normal 60-207 [facility] ([place]) Comment on above: Result Comment: Perf ormed At: [address] [id number] Ulises Swift MD Ph:[phone] Performed By: #### T SH, 158455, LH, ALF, PROL, FSH, 822888, FT4 #### [place] [address] [id number] 07-15-2023 ACTH 12.0 pg/mL Normal 7.2-63.3 [facility] ([place]) Comment on above: Result Comment: ACTH reference interval for samples collected between 7 and 10 AM. Performed At: [facility] [id number] Gaviota Cintron PhD Ph:[phone] Performed By: #### T SH, 011072, LH, ALF, PROL, FSH, 344515, FT4 #### [place] [id number] CORTon 07-14-2023 Cortisol Level 26.0 mcg/dL Normal [facility] ([place]) Comment on above: Order Comment: Must be drawn before 8am Result Comment: Alf isol AM Reference Range 6.5-26.0 mcg/dL Cortisol PM Reference Range 3.5-15.0 mcg/dL Performed By: #### T SH, 052068, LH, ALF, PROL, FSH, 152926, FT4 #### [place] [address] FSHon 07-14-2023 FSH 43.5 mIU/mL Normal [facility] ([place]) Comment on above: Result Comment: Adul t Female FSH Reference Ranges (04/02/99): Follicular phase 2.5 - 10.2 mIU/mL Midcycle phase 3.4 - 33.4 mIU/mL Luteal phase 1.5 - 9.1 mIU/mL Post menopausal 23.0 -116.3 mIU/mL Adult Male: 1.4 - 18.1 mIU/mL Performed By: #### T SH, 000416, LH, ALF, PROL, FSH, 539799, FT4 #### [address] [address] FT4on 07-14-2023 Free T4 [Mass/Vol] 0.93 ng/dL Normal 0.89-1.76 [facility] ([place]) Comment on above: Result Comment: No te - New Reference Range in effect 19 Performed By: #### T SH, 936939, LH, ALF, PROL, FSH, 452719, FT4 #### [place] [address] LABORATORYOrdered By: SYSTEM SYSTEM on 07-14-2023 Cortisol [Mass/Vol] 26.0 ug/dL Invalid Interpretation Code [facility] Comment on above: Interpretive Data: C ortisol AM Reference Range 6.5-26.0 mcg/dL Cortisol PM Reference Range 3.5-15.0 mcg/dL Follitropin Qn 43.5 m[IU]/mL Invalid Interpretation Code [facility] Comment on above: Interpretive Data: A dult Female FSH Reference Ranges (04/02/99): Follicular phase 2.5 - 10.2 mIU/mL Midcycle phase 3.4 - 33.4 mIU/mL Luteal phase 1.5 - 9.1 mIU/mL Post menopausal 23.0 -116.3 mIU/mL Adult Male: 1.4 - 18.1 mIU/mL Free T4 [Mass/Vol] 0.93 ng/dL Normal 0.89 - 1.76 ng/dL [facility] Comment on above: Interpretive Data: * *Note - New Reference Range in effect 19 Lutropin Qn 35.6 m[IU]/mL Invalid Interpretation Code [facility] Comment on above: Interpretive Data: * *Note - New Reference Range in effect 19 Adult Female LH Reference Ranges: Follicular phase 1.9 - 12.5 mIU/mL Midcycle phase 8.7 - 76.3 mIU/mL Luteal phase 0.5 - 16.9 mIU/mL Post menopausal 5.0 - 55.2 mIU/mL Prolactin [Mass/Vol] 12.1 ng/mL Normal 2.0 - 3 0.0 ng/mL [facility] TSH Qn 1.762 mIU/mL Normal 0.550 - 4.780 mIU/mL [facility] Comment on above: Interpretive Data: * *Note - New Reference Range in effect 19 LHon 07-14-2023 LH 35.6 mIU/mL Normal [facility] ([place]) Comment on above: Result Comment: No te - New Reference Range in effect 19 Adult Female LH Reference Ranges: Follicular phase 1.9 - 12.5 mIU/mL Midcycle phase 8.7 - 76.3 mIU/mL Luteal phase 0.5 - 16.9 mIU/mL Post menopausal 5.0 - 55.2 mIU/mL Performed By: #### T SH, 868126, LH, ALF, PROL, FSH, 585712, FT4 #### [address] [address] PROLon 07-14-2023 Prolactin 12.1 ng/mL Normal 2.0-30.0 [facility] ([place]) Comment on above: Performed By: #### T SH, 718301, LH, ALF, PROL, FSH, 562857, FT4 #### [place] [address] TSHon 07-14-2023 TSH 1.762 mIU/mL Normal 0.550-4.78 0 [facility] ([place]) Comment on above: Result Comment: No te - New Reference Range in effect 19 Performed By: #### T SH, 887598, LH, ALF, PROL, FSH, 827854, FT4 #### [place] [address] MRI BRAIN W/ + W/O CONTRASTo n 07-03-2023 MRI BRAIN W/ + W/O CONTRAST ORIGINAL HISTORY: Dermatomyositis, pituitary mass, 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 Axial FLAIR images. 2. Coronal T2-weighted images. 3. Axial diffusion-weighted images with ADC map. 4. Sagittal and coronal T1-weighted images of the sella prior to and following uncomplicated administration of intravenous contrast. 5. Axial T1-weighted images of the brain following uncomplicated administration of intravenous gadolinium contrast. FINDINGS: The ventricles and sulci are normal in size and configuration. There are no abnormal intra or extra-axial fluid collections. Sidhu-white matter differentiation is maintained. There is no abnormal restriction of diffusion. There is no abnormal enhancement of the brain or its coverings. There is remodeling of the sella. There is a 2.7 cm CC x 2.4 cm TR x 2.0 cm AP lesion in the sella, mildly T1 hyperintense and T2 isointense to mildly hypointense. On T2 images, the hypointense component is mostly on the right side of the lesion. There is expansion above the sella, with elevation of the optic chiasm. The infundibulum remains midline. Pituitary tissue is not well visualized but may be displaced to the left. The internal carotid flow voids appear patent. There is adjacent sphenoid sinus disease, at least suggestive of erosion of or expansion through the wall of the sphenoid sinus. IMPRESSION: 2.7 cm heterogeneous expansile sellar lesion. Possibilities include craniopharyngioma, macro adenoma, etc.. Interpreted by: Terry Barraza MD Preliminary Report By: Terry Barraza MD Electronically signed By Terry Barraza MD Dictated Date: 07/03/2023 10:36:54 AM Prelim Date: 07/03/2023 10:46:57 AM Sign Date: 07/03/2023 10:46:57 AM Ordering Provider: ML Irizarry [facility] ([place]) HCVon 06-27-2023 Hep C Ab Non-Reactive Normal Non-Reacti ve [facility] ([place]) Comment on above: Performed By: #### T ELISSA, 095001, LH, ALF, PROL, FSH, 948254, FT4 #### [address] [address] Hep C Ab Int [facility] ([place]) Comment on above: Result Comment: Nonr eactive: Samples with a value < 0.80 are considered nonreactive (negative) for antibodies to HCV. A negative test result does not exclude the possibility of exposure to or infection with HCV. HCV antibodies may be undetectable in some stages of the infection and in some clinical conditions. See Interp Performed By: #### T ELISSA, 735372, LH, ALF, PROL, FSH, 527517, FT4 #### [address] [address] .Auto Diffon 06-26-2023 Basophil, Absolute 0.1 10 3/mcL Normal 0.0-0.2 [facility]) Comment on above: Performed By: #### T SH, 169586, LH, ALF, PROL, FSH, 821491, FT4 #### [address] [address] Basophils/100 WBC (Bld) 0.9 % Normal 0.0-2.5 A [facility] ([place]) Comment on above: Performed By: #### T SH, 231995, LH, ALF, PROL, FSH, 208737, FT4 #### [address] [address] Eosinophil, Absolute 0.2 10 3/mcL Normal 0.0-0.4 [facility] ([place]) Comment on above: Performed By: #### T SH, 486751, LH, ALF, PROL, FSH, 044886, FT4 #### [address] [address] Eosinophils/100 WBC (Bld) 1.7 % Normal 0.0-7.0 [facility] ([place]) Comment on above: Performed By: #### T ELISSA, 106420, LH, ALF, PROL, FSH, 508529, FT4 #### [address] [address] Lymphocyte, Absolute 1.3 10 3/mcL Normal 0.8-3.9 [facility] ([place]) Comment on above: Performed By: #### T SH, 245924, LH, ALF, PROL, FSH, 186781, FT4 #### [address] [address] Lymphocytes/100 WBC (Bld) 14.1 % Normal 10.0-50.0 [facility] ([place]) Comment on above: Performed By: #### T ELISSA, 867609, LH, ALF, PROL, FSH, 527120, FT4 #### [address] [address] Monocyte, Absolute 0.7 10 3/mcL Normal 0.2-1.0 [facility] ([place]) Comment on above: Performed By: #### T ELISSA, 053321, LH, ALF, PROL, FSH, 362165, FT4 #### [address] [address] Monocytes/100 WBC (Bld) 7.8 % Normal 1.7-13.0 [facility] ([place]) Comment on above: Performed By: #### T ELISSA, 983412, LH, ALF, PROL, FSH, 594094, FT4 #### [address] [address] Neutrophils/100 WBC (Bld) 75.5 % Normal 37.0-80.0 [facility] ([place]) Comment on above: Performed By: #### T SH, 373075, LH, ALF, PROL, FSH, 565587, FT4 #### [address] [address] .GFRon 06-26-2023 GFR 68 ml/min/1.73sqm Normal [facility] ([place]) Comment on above: Result Comment: GFR Population mean for , Non- Americans Ages 20-29 = 116 mL/min/1.73 sq.m. Ages 30-39 = 107 mL/min/1.73 sq.m. Ages 40-49 = 99 mL/min/1.73 sq.m. Ages 50-59 = 93 mL/min/1.73 sq.m. Ages 60-69 = 85 mL/min/1.73 sq.m. Ages 70+ = 75 mL/min/1.73 sq.m. Chronic Kidney Disease: Less than 60 mL/min/1.73 square meters End Stage Renal Disease: Less than 15 mL/min/1.73 square meters Performed By: #### T SH, 895266, LH, ALF, PROL, FSH, 348442, FT4 #### [address] [address] GFR Non- 56 ml/min/1.73sqm Normal [facility] ([place]) Comment on above: Result Comment: GFR Population mean for , Non- Americans Ages 20-29 = 116 mL/min/1.73 sq.m. Ages 30-39 = 107 mL/min/1.73 sq.m. Ages 40-49 = 99 mL/min/1.73 sq.m. Ages 50-59 = 93 mL/min/1.73 sq.m. Ages 60-69 = 85 mL/min/1.73 sq.m. Ages 70+ = 75 mL/min/1.73 sq.m. Chronic Kidney Disease: Less than 60 mL/min/1.73 square meters End Stage Renal Disease: Less than 15 mL/min/1.73 square meters Performed By: #### T ELISSA, 405159, LH, ALF, PROL, FSH, 289227, FT4 #### [address] [address] .NEUABSon 06-26-2023 Neutrophil, Absolute 7.0 10 3/mcL High 2.9-6.2 [facility] ([place]) Comment on above: Performed By: #### T ELISSA, 944346, LH, ALF, PROL, FSH, 620887, FT4 #### [place] [address] CBCon 06-26-2023 Erythrocyte distribution width (RBC) [Ratio] 14.2 % Normal 11.5-14.5 [facility] ([place]) Comment on above: Performed By: #### T ELISSA, 292079, LH, ALF, PROL, FSH, 029742, FT4 #### [place] [address] Hematocrit (Bld) [Volume fraction] 40.4 % Normal 37.0-47.0 [facility] ([place]) Comment on above: Performed By: #### T ELISSA, 206775, LH, ALF, PROL, FSH, 211696, FT4 #### [place] [address] Hgb 13.6 G/dL Normal 12.0-16.0 [facility] ([place]) Comment on above: Performed By: #### T ELISSA, 844207, LH, ALF, PROL, FSH, 365129, FT4 #### [place] [address] MCH (RBC) [Entitic mass] 29.6 pg Normal 27.0-31.2 [facility] ([place]) Comment on above: Performed By: #### T ELISSA, 978076, LH, ALF, PROL, FSH, 127394, FT4 #### [place] [address] MCHC 33.8 G/dL Normal 33.0-37.0 [facility] ([place]) Comment on above: Performed By: #### T ELISSA, 096718, LH, AFL, PROL, FSH, 218210, FT4 #### [address] [address] MCV (RBC) [Entitic vol] 87.6 fL Normal 80.0-94.0 A [facility] ([place]) Comment on above: Performed By: #### T ELISSA, 295786, LH, ALF, PROL, FSH, 632716, FT4 #### [place] [address] Platelet 336 10 3/mcL Normal 130-400 [facility] ([place]) Comment on above: Performed By: #### T ELISSA, 611711, LH, ALF, PROL, FSH, 192159, FT4 #### [place] [address] Platelet mean volume (Bld) [Entitic vol] 8.0 fL Normal 7.4-10.4 [facility] ([place]) Comment on above: Performed By: #### T ELISSA, 817454, LH, ALF, PROL, FSH, 929558, FT4 #### [place] [address] RBC 4.61 10 6/mcL Normal 4.20-5.40 [facility] ([place]) Comment on above: Performed By: #### T ELISSA, 259203, LH, ALF, PROL, FSH, 336289, FT4 #### [place] [id number] WBC 9.2 10 3/mcL Normal 4.6-10.8 [facility] ([place]) Comment on above: Performed By: #### T ELISSA, 761225, LH, ALF, PROL, FSH, 324102, FT4 #### [address] [address] CMPon 06-26-2023 Albumin Level 3.2 G/dL Low 3.4-4.8 [facility] ([place]) Comment on above: Performed By: #### T ELISSA, 224223, LH, ALF, PROL, FSH, 039240, FT4 #### [address] [address] Albumin/Globulin [Mass ratio] 0.7 {ratio} Low 1.1-2.5 [facility] ([place] Comment on above: Performed By: #### T ELISSA, [id number], LH, ALF, PROL, FSH, [id number], FT4 #### [address] [address] ALP [Catalytic activity/Vol] 109 U/L Normal 40-135 [facility] ([place]) Comment on above: Performed By: #### T ELISSA, [id number], LH, ALF, PROL, FSH, 495534, FT4 #### [address] [address] ALT [Catalytic activity/Vol] 31 U/L Normal 14-59 [facility] ([place]) Comment on above: Performed By: #### T ELISSA, [id number], LH, ALF, PROL, FSH, 539693, FT4 #### [place] [id number] AST [Catalytic activity/Vol] 27 U/L Normal 10-40 [facility] ([place]) Comment on above: Performed By: #### T ELISSA, 482806, LH, ALF, PROL, FSH, 339038, FT4 #### [address] [address] Bili Total 0.2 mg/dL Normal 0.2-1.0 [facility] ([place]) Comment on above: Result Comment: Use of this assay is not recommended for patients undergoing treatment with eltrombopag due to the potential for falsely elevated results. Performed By: #### T ELISSA, 517888, LH, ALF, PROL, FSH, 400241, FT4 #### [place] [id number] BUN/Creatinine Ratio 16 ratio Normal 7-27 [facility] ([place]) Comment on above: Performed By: #### T ELISSA, 040886, LH, ALF, PROL, FSH, 114926, FT4 #### [address] [address] Calcium [Mass/Vol] 9.7 mg/dL Normal 8.4-10.2 [facility] ([place]) Comment on above: Performed By: #### T ELISSA, 885480, LH, ALF, PROL, FSH, 243531, FT4 #### [address] [address] Chloride [Moles/Vol] 100 mmol/L Normal 98-107 [facility] ([place]) Comment on above: Performed By: #### T ELISSA, 390746, LH, ALF, PROL, FSH, 390273, FT4 #### [address] [address] CO2 [Moles/Vol] 28 mmol/L Normal 23-31 [facility] ([place]) Comment on above: Performed By: #### T ELISSA, 856708, LH, ALF, PROL, FSH, 077729, FT4 #### [place] [address] Creatinine [Mass/Vol] 1.01 mg/dL Normal 0.55-1.02 [facility] ([place]) Comment on above: Performed By: #### T ELISSA, [id number], LH, ALF, PROL, FSH, 499610, FT4 #### [address] [address] Electrolyte Balance 9.0 mEq/L Normal 4.0-15.0 [facility] ([place]) Comment on above: Performed By: #### T ELISSA, [id number], LH, ALF, PROL, FSH, 022537, FT4 #### [address] [address] Globulin 4.7 G/dL Normal [facility] ([place]) Comment on above: Performed By: #### T ELISSA, 727581, LH, ALF, PROL, FSH, 832604, FT4 #### [address] [address] Glucose [Mass/Vol] 105 mg/dL Normal 80-115 [facility] ([place]) Comment on above: Performed By: #### T ELISSA, 206647, LH, LAF, PROL, FSH, 959938, FT4 #### [address] [address] Potassium [Moles/Vol] 4.4 mmol/L Normal 3.5-5.1 [facility] ([place]) Comment on above: Performed By: #### T SH, 010390, LH, ALF, PROL, FSH, 170578, FT4 #### [address] [address] Sodium [Moles/Vol] 137 mmol/L Normal 136-145 [facility] ([place]) Comment on above: Performed By: #### T SH, 071743, LH, ALF, PROL, FSH, 133331, FT4 #### [address] [address] Total Protein 7.9 G/dL Normal 6.4-8.2 [facility] ([place]) Comment on above: Performed By: #### T ELISSA, 082561, LH, ALF, PROL, FSH, 842213, FT4 #### [address] [address] Urea nitrogen [Mass/Vol] 16 mg/dL Normal 7-18 [facility] ([place]) Comment on above: Performed By: #### T SH, 375981, LH, ALF, PROL, FSH, 450985, FT4 #### [address] [address] LABORATORYOrdered By: SYSTEM SYSTEM on 06-26-2023 25-hydroxyvitamin D3 [Mass/Vol] 33.9 ng/mL Invalid Interpretation Code AO ADM SS Comment on above: Interpretive Data: I nterpretive Values Based on Total 25(OH) Vitamin D: Deficient <20 ng/mL Insufficient 20 - <30 ng/mL Sufficient 30-100 ng/mL Albumin BCP dye [Mass/Vol] 3.2 G/dL Low 3.4 - 4.8 G/dL AO ADM SS Albumin/Globulin [Mass ratio] 0.7 {ratio} Low 1.1 - 2.5 ratio AO ADM SS ALP [Catalytic activity/Vol] 109 U/L Normal 40 - 135 U/L AO ADM SS ALT With P-5'-P [Catalytic activity/Vol] 31 U/L Normal 14 - 59 U/L AO ADM SS AST With P-5'-P [Catalytic activity/Vol] 27 U/L Normal 10 - 40 U/L AO ADM SS Basophil, Absolute 0.1 103/mcL Normal 0.0 - 0.2 10^3/mcL AO Workflow SS Basophils/100 WBC (Bld) 0.9 % Normal 0.0 - 2.5 % AO Workflow SS Bilirubin [Mass/Vol] 0.2 mg/dL Normal 0.2 - 1 .0 mg/dL AO ADM SS Comment on above: Interpretive Data: U se of this assay is not recommended for patients undergoing treatment with eltrombopag due to the potential for falsely elevated results. Calcium [Mass/Vol] 9.7 mg/dL Normal 8.4 - 10. 2 mg/dL AO ADM SS Chloride [Moles/Vol] 100 mmol/L Normal 98 - 10 7 mmol/L AO ADM SS CO2 [Moles/Vol] 28 mmol/L Normal 23 - 31 mmol/L AO ADM SS Creatinine [Mass/Vol] 1.01 mg/dL Normal 0.55 - 1.02 mg/dL AO ADM SS Electrolyte Balance 9.0 mEq/L Normal 4.0 - 15 .0 mEq/L AO ADM SS Eosinophil, Absolute 0.2 103/mcL Normal 0.0 - 0 .4 10^3/mcL AO Workflow SS Eosinophils/100 WBC (Bld) 1.7 % Normal 0.0 - 7.0 % AO Workflow SS Erythrocyte distribution width (RBC) [Ratio] 14.2 % Normal 11.5 - 14.5 % AO Workflow SS GFR/1.73 sq M.predicted among blacks MDRD (S/P/Bld) [Vol rate/Area] 68 ml/min/1.73sqm Invalid Interpretation Code AO Chemistry S Comment on above: Interpretive Data: GFR Population mean for , Non- Americans Ages 20-29 = 116 mL/min/1.73 sq.m. Ages 30-39 = 107 mL/min/1.73 sq.m. Ages 40-49 = 99 mL/min/1.73 sq.m. Ages 50-59 = 93 mL/min/1.73 sq.m. Ages 60-69 = 85 mL/min/1.73 sq.m. Ages 70+ = 75 mL/min/1.73 sq.m. Chronic Kidney Disease: Less than 60 mL/min/1.73 square meters End Stage Renal Disease: Less than 15 mL/min/1.73 square meters GFR/1.73 sq M.predicted among non-blacks MDRD (S/P/Bld) [Vol rate/Area] 56 ml/min/1.73sqm Invalid Interpretation Code AO Chemistry S Comment on above: Interpretive Data: GFR Population mean for , Non- Americans Ages 20-29 = 116 mL/min/1.73 sq.m. Ages 30-39 = 107 mL/min/1.73 sq.m. Ages 40-49 = 99 mL/min/1.73 sq.m. Ages 50-59 = 93 mL/min/1.73 sq.m. Ages 60-69 = 85 mL/min/1.73 sq.m. Ages 70+ = 75 mL/min/1.73 sq.m. Chronic Kidney Disease: Less than 60 mL/min/1.73 square meters End Stage Renal Disease: Less than 15 mL/min/1.73 square meters Globulin 4.7 G/dL Invalid Interpretation Code AO ADM SS Glucose [Mass/Vol] 105 mg/dL Normal 80 - 115 mg/dL AO ADM SS Hematocrit (Bld) [Volume fraction] 40.4 % Normal 37.0 - 47.0 % AO Workflow SS Hemoglobin (Bld) [Mass/Vol] 13.6 G/dL Normal 12.0 - 16.0 G/dL AO Workflow SS Lymphocyte, Absolute 1.3 103/mcL Normal 0.8 - 3 .9 10^3/mcL AO Workflow SS Lymphocytes/100 WBC (Bld) 14.1 % Normal 10.0 - 50.0 % AO Workflow SS MCH (RBC) [Entitic mass] 29.6 pg Normal 27.0 - 31.2 pg AO Workflow SS MCHC 33.8 G/dL Normal 33.0 - 37.0 G/dL AO Workflow SS MCV (RBC) [Entitic vol] 87.6 fL Normal 80.0 - 94.0 fL AO Workflow SS Monocyte, Absolute 0.7 103/mcL Normal 0.2 - 1.0 10^3/mcL AO Workflow SS Monocytes/100 WBC (Bld) 7.8 % Normal 1.7 - 13.0 % AO Workflow SS Neutrophil, Absolute 7.0 103/mcL High 2.9 - 6 .2 10^3/mcL AO Workflow SS Neutrophils/100 WBC (Bld) 75.5 % Normal 37.0 - 80.0 % AO Workflow SS Platelet mean volume (Bld) [Entitic vol] 8.0 fL Normal 7.4 - 10.4 fL AO Workflow SS Platelets (Bld) [#/Vol] 336 103/mcL Normal 130 - 400 10^3/mcL AO Workflow SS Potassium [Moles/Vol] 4.4 mmol/L Normal 3.5 - 5.1 mmol/L AO ADM SS Protein [Mass/Vol] 7.9 G/dL Normal 6.4 - 8.2 G/dL AO ADM SS RBC (Bld) [#/Vol] 4.61 106/mcL Normal 4.20 - 5.40 10^6/mcL AO Workflow SS Sodium [Moles/Vol] 137 mmol/L Normal 136 - 145 mmol/L AO ADM SS TSH Qn 1.07 m[IU]/L Normal 0.36 - 3.74 mcIU/mL AO ADM SS Urea nitrogen [Mass/Vol] 16 mg/dL Normal 7 - 18 mg/dL AO ADM SS Urea nitrogen/Creatinine [Mass ratio] 16 ratio Normal 7 - 27 ratio AO ADM SS WBC (Bld) [#/Vol] 9.2 103/mcL Normal 4.6 - 10.8 10^3/mcL AO Workflow SS LABORATORYOrdered By: Kristina Meeks on 06-26-2023 Cholesterol [Mass/Vol] 187 mg/dL Normal 0 - 2 00 mg/dL AO ADM SS Comment on above: Interpretive Data: C holesterol Reference Interval: Less than 200 Desirable 200-239 Borderline high risk 240 and above High risk Cholesterol in HDL [Mass/Vol] 41 mg/dL Normal 40 - 60 mg/dL AO ADM SS Cholesterol in LDL [Mass/Vol] 117 mg/dL Normal 0 - 130 mg/dL AO ADM SS Triglyceride [Mass/Vol] 146 mg/dL Normal 0 - 150 mg/dL AO ADM SS Comment on above: Interpretive Data: T riglyceride Reference Interval: Less than 150 Normal 150-199 Borderline high risk 200-499 High risk 500 or higher Very high risk LIPIDon 06-26-2023 Cholesterol [Mass/Vol] 187 mg/dL Normal 0-200 [facility] ([place]) Comment on above: Result Comment: Chol esterol Reference Interval: Less than 200 Desirable 200-239 Borderline high risk 240 and above High risk Performed By: #### T ELISSA, [id number], LH, ALF, PROL, FSH, 003367, FT4 #### [address] [address] Cholesterol in HDL [Mass/Vol] 41 mg/dL Normal 40-60 [facility] ([place]) Comment on above: Performed By: #### T ELISSA, 410001, LH, ALF, PROL, FSH, 949487, FT4 #### [address] [address] Cholesterol in LDL [Mass/Vol] 117 mg/dL Normal 0-130 [facility] ([place]) Comment on above: Performed By: #### T ELISSA, 711072, LH, ALF, PROL, FSH, 210431, FT4 #### [address] [address] Triglyceride [Mass/Vol] 146 mg/dL Normal 0-150 A [facility] ([place]) Comment on above: Result Comment: Trig lyceride Reference Interval: Less than 150 Normal 150-199 Borderline high risk 200-499 High risk 500 or higher Very high risk Performed By: #### T ELISSA, 559047, LH, ALF, PROL, FSH, 072475, FT4 #### [address] [address] TSHon 06-26-2023 TSH Qn 1.07 m[IU]/L Normal 0.36-3.74 [facility] ([place]) Comment on above: Performed By: #### T SH, 247605, LH, ALF, PROL, FSH, 147878, FT4 #### [address] [address] VIDHon 06-26-2023 Vit. D 25-Hydroxy 33.9 ng/mL Normal [facility] ([place]) Comment on above: Result Comment: Inte rpretive Values Based on Total 25(OH) Vitamin D: Deficient <20 ng/mL Insufficient 20 - <30 ng/mL Sufficient 30-100 ng/mL Performed By: #### T SH, 116429, LH, ALF, PROL, FSH, 525281, FT4 #### [place] [address] CT HEAD OR BRAIN W/O CONTRAS Ton 06-25-2023 CT HEAD OR BRAIN W/O CONTRAST ORIGINAL EXAMINATION: CT OF THE HEAD WITHOUT CONTRAST 06/25/2023 1:58 pm TECHNIQUE: CT of the head was performed without the administration of intravenous contrast. Automated exposure control, iterative reconstruction, and/or weight based adjustment of the mA/kV was utilized to reduce the radiation dose to as low as reasonably achievable. COMPARISON: None. HISTORY: ORDERING SYSTEM PROVIDED HISTORY: Reason for Exam: new onset double vision with eyes open since yesterday morning, vertigo, chronic recurring headaches, blurry vision with both eyes open and chronic recurring rt sided HIDALGO caused by tension in neck. FINDINGS: BRAIN/VENTRICLES: There is no acute intracranial hemorrhage, mass effect or midline shift. The sella turcica is expanded with questionable pituitary mass. No abnormal extra-axial fluid collection. The sidhu-white differentiation is maintained without evidence of an acute infarct. There is no evidence of hydrocephalus. ORBITS: The visualized portion of the orbits demonstrate no acute abnormality. SINUSES: The visualized paranasal sinuses and mastoid air cells demonstrate no acute abnormality. SOFT TISSUES/SKULL: No acute abnormality of the visualized skull or soft tissues. IMPRESSION: There is expansion of the sella turcica suggesting a chronic pituitary mass. Brain MRI with pituitary mass protocol recommended for further evaluation. No acute intracranial hemorrhage or other acute process. Interpreted by: Jose Angel Best MD Preliminary Report By: Jose Angel Best MD Electronically signed By Jose Angel Best MD Dictated Date: 06/25/2023 2:02:57 PM Prelim Date: 06/25/2023 2:04:58 PM Sign Date: 06/25/2023 2:04:58 PM Ordering Provider: ML Irizarry [facility] ([place]) Culture, urineOrdered By: Robin Connors on 06-20-2023 Bacteria identified Cx Nom (U) Presumptive E. coli [facility] Bacteria identified Cx Nom (U) Presumptive E. coli [facility] Laboratory - Chemistry and C hemistry - challengeon 06-20-2023 Bilirubin Ql (U) Negative [facility] Glucose Ql (U) Negative [facility] Ketones Ql (U) Negative [facility] pH (U) 6.0 [pH] [facility] Specific gravity (U) [Rel density] 1.030 [facility] Urobilinogen (U) [Mass/Vol] Negative [facility] Laboratory - Hematology and Cell countson 06-20-2023 Hemoglobin Ql (U) Hemolyzed [facility] Laboratory - Specimen inform ationon 06-20-2023 Clarity (U) Cloudy [facility] Color (U) ORANGE [facility] Laboratory - Urinalysison Nitrite Ql (U) Negative [facility] Protein Ql (U) Negative [facility] No Panel Informationon 06-20 Urine Leukocytes Positive [facility] Urine Non-Hemolyzed Blood Large [facility] Absolute lymphocyte countOrd ered By: Padmaja Hart on 05-17-2023 Lymphocytes Auto (Unsp spec) [#/Vol] 1.37 10*3/uL 0.83-4.51 [facility] Aldolase ser/plasOrdered By: Padmaja Hart on 05-17-2023 Aldolase [Catalytic activity/Vol] 4.3 mU/mL 3.3-10.3 [facility] Comment on above: Performed at: [place] [id number] Director: Abdulaziz Meek PhD, Phone: [phone] Basophil percentageOrdered B y: Padmaja aHrt on 05-17-2023 Basophils/100 WBC (Bld) 0.9 % 0-1 [facility] Bilirubin [Mass/Vol] 0.20 mg/dL 0.20-1.00 [facility] Comment on above: For patients on eltr ombopag therapy, use of Dimension [place] TBIL is not recommended. Chloride [Moles/Vol] 107 mmol/L 98-107 [facility] Eosinophils/100 WBC (Bld) 0.6 % 0-5 [facility] Glucose [Mass/Vol] 97 mg/dL 74-106 [facility] Neutrophils (Bld) [#/Vol] 4.5 10*3/uL 2.0-7.7 [facility] Neutrophils/100 WBC (Bld) 70.7 % 47-70 [facility] Potassium [Moles/Vol] 4.0 mmol/L 3.5-5.1 [facility] Protein [Mass/Vol] 8.5 g/dL 6.4-8.2 [facility] Sodium [Moles/Vol] 138 mmol/L 136-145 [facility] WBC (Bld) [#/Vol] 6.4 10*3/uL 4.4-11.0 [facility] Blood erythrocytes count (nu mber/volume)Ordered By: Padmaja Hart on 05-17-2023 RBC (Bld) [#/Vol] 4.54 10*6/uL 4.2-5.4 [facility] Blood hemoglobin measurement (mass/volume)Ordered By: Padmaja Hart on 05-17-2023 Hemoglobin (Bld) [Mass/Vol] 13.4 g/dL 12.0-15.0 [facility] Blood lymphocytes/100 leukoc ytesOrdered By: Padmaja Hart on 05-17-2023 Lymphocytes/100 WBC (Bld) 21.5 % 19-41 [facility] Blood monocytes/100 leukocyt esOrdered By: Padmaja Hart on 05-17-2023 Monocytes/100 WBC (Bld) 6.1 % 0-10 [facility] Blood platelet mean volumeOr dered By: Padmaja Hart on 05-17-2023 Platelet mean volume (Bld) [Entitic vol] 9.4 fL 6.2-12.0 [facility] Determination of erythrocyte mean corpuscular volume (MCV)Ordered By: Padmaja Hart on 05-17-2023 MCV (RBC) [Entitic vol] 90.1 fL 81-99 [facility] Hematocrit Auto (Bld) [Volum e fraction]Ordered By: Padmaja Hart on 05-17-2023 Hematocrit (Bld) [Volume fraction] 40.9 % 37-47 [facility] Laboratory - Chemistry and C hemistry - challengeOrdered By: Padmaja Hatr on 05-17-2023 ALP [Catalytic activity/Vol] 103 U/L 45-117 [facility] ALT [Catalytic activity/Vol] 42 U/L 13-56 [facility] CK [Catalytic activity/Vol] 294 U/L 26-192 [facility] CO2 [Moles/Vol] 24.0 mmol/L 21.0-32.0 [facility] Globulin (S) [Mass/Vol] 5.1 g/dL 2.2-4.2 [facility] Urea nitrogen/Creatinine [Mass ratio] 16.1 mg/mg 10-20 [facility] Laboratory - Hematology and Cell countsOrdered By: Padmaja Hart on 05-17-2023 Erythrocyte distribution width (RBC) [Entitic vol] 47.6 fL 35.1-43.9 [facility] Erythrocyte distribution width (RBC) [Ratio] 14.6 % 11.6-14.6 [facility] Immature granulocytes/100 WBC (Bld) 0.200 % 0.0-0.9 [facility] Comment on above: IG% - Immature Granu locytes (promyelocytes, myelocytes and metamyelocytes) > 1% indicates that a LEFT SHIFT is Present. MCH (RBC) [Entitic mass] 29.5 pg 27.0-32.0 [facility] Nucleated RBC/100 WBC (Bld) [Ratio] 0 % 0-5 [facility] MCHC Auto (RBC) [Mass/Vol]Or dered By: Padmaja Hart on 05-17-2023 MCHC (RBC) [Mass/Vol] 32.8 g/dL 32-36 [facility] No Panel InformationOrdered By: Padmaja Hart on 05-17-2023 Estimated GFR (MDRD) Amer 60 mL/min >60 [facility] Comment on above: GFR Calc Estimated GFR (MDRD) Non-Af Amer 50 mL/min >60 [facility] Comment on above: Non- GFR Calc Platelets bldOrdered By: Vesta Hart on 05-17-2023 Platelets (Bld) [#/Vol] 254 10*3/uL 150-450 [facility] Serum or plasma albumin radha urement (mass/volume)Ordered By: Padmaja Hart on 05-17-2023 Albumin [Mass/Vol] 3.4 g/dL 3.2-5.0 [facility] Serum or plasma albumin/glob ulin mass ratioOrdered By: Padmaja Hart on 05-17-2023 Albumin/Globulin [Mass ratio] 0.7 {ratio} 0.9-2.4 [facility] Serum or plasma calcium radha urement (mass/volume)Ordered By: Padmaja Hart on 05-17-2023 Calcium [Mass/Vol] 8.6 mg/dL 8.5-10.1 [facility] Serum or plasma creatinine m easurement (mass/volume)Ordered By: Padmaja Hart on 05-17-2023 Creatinine [Mass/Vol] 1.18 mg/dL 0.55-1.02 [facility] Comment on above: The validity of the calculated GFR & GFRAA in patients over 70 years has not been determined. Clinical correlation is essential. Serum or plasma urea nitroge n measurement (mass/volume)Ordered By: Padmaja Hart on 05-17-2023 Urea nitrogen [Mass/Vol] 19 mg/dL 11-24 [facility] Thin prep Papanicolaou smear with manual screeningOrdered By: Padmaja Hart on 05-17-2023 Thin prep Papanicolaou smear with manual screening 38 U/L 15- [facility] Thin prep Papanicolaou smear with manual screening 7 - [facility] Absolute lymphocyte countOrd ered By: Padmaja Hart on 02-24-2023 Lymphocytes Auto (Unsp spec) [#/Vol] 1.28 10*3/uL 0.83-4.51 [facility] Aldolase ser/plasOrdered By: Padmaja Hart on 02-24-2023 Aldolase [Catalytic activity/Vol] 5.1 mU/mL 3.3-10.3 [facility] Comment on above: Performed at: [address] [id number] Director: Abdulaziz Meek PhD, Phone: [phone] Basophil percentageOrdered B y: Padmaja Hart on 02-24-2023 Basophils/100 WBC (Bld) 0.8 % 0-1 [facility] Bilirubin [Mass/Vol] 0.20 mg/dL 0.20-1.00 [facility] Comment on above: For patients on eltr ombopag therapy, use of Dimension [place] TBIL is not recommended. Chloride [Moles/Vol] 107 mmol/L 98-107 [facility] Eosinophils/100 WBC (Bld) 1.0 % 0-5 [facility] Glucose [Mass/Vol] 109 mg/dL 74-106 [facility] Comment on above: Fasting Glucose resu lt from 100 to 125 mg/dL suggests IMPAIRED HOMEOSTASIS per A.D.A. criteria. Neutrophils (Bld) [#/Vol] 6.5 10*3/uL 2.0-7.7 [facility] Neutrophils/100 WBC (Bld) 77.3 % 47-70 [facility] Potassium [Moles/Vol] 3.5 mmol/L 3.5-5.1 [facility] Protein [Mass/Vol] 7.9 g/dL 6.4-8.2 [facility] Sodium [Moles/Vol] 138 mmol/L 136-145 [facility] WBC (Bld) [#/Vol] 8.4 10*3/uL 4.4-11.0 [facility] Blood erythrocytes count (nu mber/volume)Ordered By: Padmaja Hart on 02-24-2023 RBC (Bld) [#/Vol] 4.25 10*6/uL 4.2-5.4 [facility] Blood hemoglobin measurement (mass/volume)Ordered By: Padmaja Hart on 02-24-2023 Hemoglobin (Bld) [Mass/Vol] 12.4 g/dL 12.0-15.0 [facility] Blood lymphocytes/100 leukoc ytesOrdered By: Padmaja Hart on 02-24-2023 Lymphocytes/100 WBC (Bld) 15.3 % 19-41 [facility] Blood monocytes/100 leukocyt esOrdered By: Padmaja Hart on 02-24-2023 Monocytes/100 WBC (Bld) 5.4 % 0-10 [facility] Blood platelet mean volumeOr dered By: Padmaja Hart on 02-24-2023 Platelet mean volume (Bld) [Entitic vol] 9.8 fL 6.2-12.0 [facility] Determination of erythrocyte mean corpuscular volume (MCV)Ordered By: Padmaja Hart on 02-24-2023 MCV (RBC) [Entitic vol] 90.1 fL 81-99 [facility] Hematocrit Auto (Bld) [Volum e fraction]Ordered By: Padmaja Hart on 02-24-2023 Hematocrit (Bld) [Volume fraction] 38.3 % 37-47 [facility] Laboratory - Chemistry and C hemistry - challengeOrdered By: Padmajaroslyn Hart on 02-24-2023 ALP [Catalytic activity/Vol] 108 U/L 45-117 [facility] ALT [Catalytic activity/Vol] 42 U/L 13-56 [facility] CK [Catalytic activity/Vol] 339 U/L 26-192 [facility] CO2 [Moles/Vol] 25.0 mmol/L 21.0-32.0 [facility] Globulin (S) [Mass/Vol] 4.6 g/dL 2.2-4.2 [facility] Urea nitrogen/Creatinine [Mass ratio] 21.9 mg/mg 10-20 [facility] Laboratory - Hematology and Cell countsOrdered By: [facility] Hailey on 02-24-2023 Erythrocyte distribution width (RBC) [Entitic vol] 48.6 fL 35.1-43.9 [facility] Erythrocyte distribution width (RBC) [Ratio] 15.0 % 11.6-14.6 [facility] Immature granulocytes/100 WBC (Bld) 0.200 % 0.0-0.9 [facility] Comment on above: IG% - Immature Granu locytes (promyelocytes, myelocytes and metamyelocytes) > 1% indicates that a LEFT SHIFT is Present. MCH (RBC) [Entitic mass] 29.2 pg 27.0-32.0 [facility] Nucleated RBC/100 WBC (Bld) [Ratio] 0 % 0-5 [facility] MCHC Auto (RBC) [Mass/Vol]Or dered By: Padmaja Hart on 02-24-2023 MCHC (RBC) [Mass/Vol] 32.4 g/dL 32-36 [facility] No Panel InformationOrdered By: Padmajaroslyn Hart on 02-24-2023 Estimated GFR (MDRD) Amer 98 mL/min >60 [facility] Comment on above: GFR Calc Estimated GFR (MDRD) Non-Af Amer 81 mL/min >60 [facility] Comment on above: Non- GFR Calc Platelets bldOrdered By: Vesta Hart on 02-24-2023 Platelets (Bld) [#/Vol] 287 10*3/uL 150-450 [facility] Serum or plasma albumin radha urement (mass/volume)Ordered By: Padmaja Hart on 02-24-2023 Albumin [Mass/Vol] 3.3 g/dL 3.2-5.0 [facility] Serum or plasma albumin/glob ulin mass ratioOrdered By: Padmaja Hart on 02-24-2023 Albumin/Globulin [Mass ratio] 0.7 {ratio} 0.9-2.4 [facility] Serum or plasma calcium radha urement (mass/volume)Ordered By: Padmaja Hart on 02-24-2023 Calcium [Mass/Vol] 9.1 mg/dL 8.5-10.1 [facility] Serum or plasma creatinine m easurement (mass/volume)Ordered By: Padmaja Hart on 02-24-2023 Creatinine [Mass/Vol] 0.78 mg/dL 0.55-1.02 [facility] Comment on above: The validity of the calculated GFR & GFRAA in patients over 70 years has not been determined. Clinical correlation is essential. Serum or plasma urea nitroge n measurement (mass/volume)Ordered By: Padmaja Hart on 02-24-2023 Urea nitrogen [Mass/Vol] 17 mg/dL 11-24 [facility] Thin prep Papanicolaou smear with manual screeningOrdered By: Padmaja Hart on 02-24-2023 Thin prep Papanicolaou smear with manual screening 33 U/L 15-37 [facility] Thin prep Papanicolaou smear with manual screening 6 5-15 [facility] Absolute lymphocyte countOrd ered By: Padmaja Hart on 11-24-2022 Lymphocytes Auto (Unsp spec) [#/Vol] 1.36 10*3/uL 0.83-4.51 [facility] Aldolase ser/plasOrdered By: Padmaja Hart on 11-24-2022 Aldolase [Catalytic activity/Vol] 5.8 mU/mL 3.3-10.3 [facility] Comment on above: Performed at: [address] [id number] Director: Abdulaziz Meek PhD, Phone: [phone] Basophil percentageOrdered B y: Padmaja Hart on 11-24-2022 Basophils/100 WBC (Bld) 0.4 % 0-1 [facility] Bilirubin [Mass/Vol] 0.20 mg/dL 0.20-1.00 [facility] Comment on above: For patients on eltr ombopag therapy, use of Dimension [place] TBIL is not recommended. Chloride [Moles/Vol] 106 mmol/L 98-107 [facility] Eosinophils/100 WBC (Bld) 1.5 % 0-5 [facility] Glucose [Mass/Vol] 99 mg/dL 74-106 [facility] Neutrophils (Bld) [#/Vol] 7.0 10*3/uL 2.0-7.7 [facility] Neutrophils/100 WBC (Bld) 77.4 % 47-70 [facility] Potassium [Moles/Vol] 3.8 mmol/L 3.5-5.1 [facility] Protein [Mass/Vol] 7.5 g/dL 6.4-8.2 [facility] Sodium [Moles/Vol] 136 mmol/L 136-145 [facility] WBC (Bld) [#/Vol] 9.1 10*3/uL 4.4-11.0 [facility] Blood erythrocytes count (nu mber/volume)Ordered By: Padmaja Hart on 11-24-2022 RBC (Bld) [#/Vol] 4.68 10*6/uL 4.2-5.4 [facility] Blood hemoglobin measurement (mass/volume)Ordered By: Padmaja Hart on 11-24-2022 Hemoglobin (Bld) [Mass/Vol] 13.7 g/dL 12.0-15.0 [facility] Blood lymphocytes/100 leukoc ytesOrdered By: Padmaja Hart on 11-24-2022 Lymphocytes/100 WBC (Bld) 15.0 % 19-41 [facility] Blood monocytes/100 leukocyt esOrdered By: Padmaja Hart on 11-24-2022 Monocytes/100 WBC (Bld) 5.5 % 0-10 [facility] Blood platelet mean volumeOr dered By: Padmaja Hart on 11-24-2022 Platelet mean volume (Bld) [Entitic vol] 10.0 fL 6.2-12.0 [facility] Determination of erythrocyte mean corpuscular volume (MCV)Ordered By: Padmaja Hart on 11-24-2022 MCV (RBC) [Entitic vol] 91.5 fL 81-99 [facility] Hematocrit Auto (Bld) [Volum e fraction]Ordered By: Padmaja Hart on 11-24-2022 Hematocrit (Bld) [Volume fraction] 42.8 % 37-47 [facility] Laboratory - Chemistry and C hemistry - challengeOrdered By: [facility] Hailey on 11-24-2022 ALP [Catalytic activity/Vol] 108 U/L 45-117 [facility] ALT [Catalytic activity/Vol] 47 U/L 13-56 [facility] CK [Catalytic activity/Vol] 389 U/L 26-192 [facility] CO2 [Moles/Vol] 24.0 mmol/L 21.0-32.0 [facility] Globulin (S) [Mass/Vol] 3.9 g/dL 2.2-4.2 [facility] Urea nitrogen/Creatinine [Mass ratio] 21.2 mg/mg 10-20 [facility] Laboratory - Hematology and Cell countsOrdered By: Padmajaroslyn Hart on 11-24-2022 Erythrocyte distribution width (RBC) [Entitic vol] 47.4 fL 35.1-43.9 [facility] Erythrocyte distribution width (RBC) [Ratio] 14.3 % 11.6-14.6 [facility] Immature granulocytes/100 WBC (Bld) 0.200 % 0.0-0.9 [facility] Comment on above: IG% - Immature Granu locytes (promyelocytes, myelocytes and metamyelocytes) > 1% indicates that a LEFT SHIFT is Present. MCH (RBC) [Entitic mass] 29.3 pg 27.0-32.0 [facility] Nucleated RBC/100 WBC (Bld) [Ratio] 0 % 0-5 [facility] MCHC Auto (RBC) [Mass/Vol]Or dered By: Padmaja Hart on 11-24-2022 MCHC (RBC) [Mass/Vol] 32.0 g/dL 32-36 [facility] No Panel InformationOrdered By: Padmaja Hart on 11-24-2022 Estimated GFR (MDRD) Amer 88 mL/min >60 [facility] Comment on above: GFR Calc Estimated GFR (MDRD) Non-Af Amer 73 mL/min >60 [facility] Comment on above: Non- GFR Calc Platelets bldOrdered By: Vesta Hart on 11-24-2022 Platelets (Bld) [#/Vol] 316 10*3/uL 150-450 [facility] Serum or plasma albumin radha urement (mass/volume)Ordered By: Padmaja Hart on 11-24-2022 Albumin [Mass/Vol] 3.6 g/dL 3.2-5.0 [facility] Serum or plasma albumin/glob ulin mass ratioOrdered By: Padmaja Hart on 11-24-2022 Albumin/Globulin [Mass ratio] 0.9 {ratio} 0.9-2.4 [facility] Serum or plasma calcium radha urement (mass/volume)Ordered By: Padmaja Hart on 11-24-2022 Calcium [Mass/Vol] 9.0 mg/dL 8.5-10.1 [facility] Serum or plasma creatinine m easurement (mass/volume)Ordered By: Padmaja Hart on 11-24-2022 Creatinine [Mass/Vol] 0.85 mg/dL 0.55-1.02 [facility] Comment on above: The validity of the calculated GFR & GFRAA in patients over 70 years has not been determined. Clinical correlation is essential. Serum or plasma urea nitroge n measurement (mass/volume)Ordered By: Padmaja Hart on 11-24-2022 Urea nitrogen [Mass/Vol] 18 mg/dL 7-18 [facility] Thin prep Papanicolaou smear with manual screeningOrdered By: Padmaja Hart on 11-24-2022 Thin prep Papanicolaou smear with manual screening 31 U/L 15-37 [facility] Thin prep Papanicolaou smear with manual screening 6 5-15 [facility] Absolute lymphocyte countOrd ered By: Dr. Hart on 09-28-2022 Lymphocytes Auto (Unsp spec) [#/Vol] 1.19 10*3/uL 0.83-4.51 [facility] Aldolase ser/plasOrdered By: Dr. Hart on 09-28-2022 Aldolase [Catalytic activity/Vol] 4.3 mU/mL 3.3-10.3 [facility] Comment on above: Performed at: [place] [id number] Director: Abdulaziz Meek PhD, Phone: [phone] Basophil percentageOrdered B y: Dr. Hart on 09-28-2022 Basophils/100 WBC (Bld) 0.5 % 0-1 [facility] Bilirubin [Mass/Vol] 0.20 mg/dL 0.20-1.00 [facility] Comment on above: For patients on eltr ombopag therapy, use of Dimension [place] TBIL is not recommended. Chloride [Moles/Vol] 104 mmol/L 98-107 [facility] Eosinophils/100 WBC (Bld) 0.6 % 0-5 [facility] Glucose [Mass/Vol] 116 mg/dL 74-106 [facility] Comment on above: Fasting Glucose resu lt from 100 to 125 mg/dL suggests IMPAIRED HOMEOSTASIS per A.D.A. criteria. Neutrophils (Bld) [#/Vol] 6.2 10*3/uL 2.0-7.7 [facility] Neutrophils/100 WBC (Bld) 78.3 % 47-70 [facility] Potassium [Moles/Vol] 3.7 mmol/L 3.5-5.1 [facility] Protein [Mass/Vol] 8.1 g/dL 6.4-8.2 [facility] Sodium [Moles/Vol] 137 mmol/L 136-145 [facility] WBC (Bld) [#/Vol] 7.9 10*3/uL 4.4-11.0 [facility] Blood erythrocytes count (nu mber/volume)Ordered By: Dr. Hart on 09-28-2022 RBC (Bld) [#/Vol] 4.36 10*6/uL 4.2-5.4 [facility] Blood hemoglobin measurement (mass/volume)Ordered By: Dr. Hart on 09-28-2022 Hemoglobin (Bld) [Mass/Vol] 12.9 g/dL 12.0-15.0 [facility] Blood lymphocytes/100 leukoc ytesOrdered By: Dr. Hart on 09-28-2022 Lymphocytes/100 WBC (Bld) 15.1 % 19-41 [facility] Blood monocytes/100 leukocyt esOrdered By: Dr. Hart on 09-28-2022 Monocytes/100 WBC (Bld) 5.2 % 0-10 [facility] Blood platelet mean volumeOr dered By: Dr. Hart on 09-28-2022 Platelet mean volume (Bld) [Entitic vol] 9.6 fL 6.2-12.0 [facility] Determination of erythrocyte mean corpuscular volume (MCV)Ordered By: Dr. Hart on 09-28-2022 MCV (RBC) [Entitic vol] 92.0 fL 81-99 [facility] Hematocrit Auto (Bld) [Volum e fraction]Ordered By: Dr. Hart on 09-28-2022 Hematocrit (Bld) [Volume fraction] 40.1 % 37-47 [facility] Laboratory - Chemistry and C hemistry - challengeOrdered By: Dr. Hart on 09-28-2022 ALP [Catalytic activity/Vol] 92 U/L 45-117 [facility] ALT [Catalytic activity/Vol] 56 U/L 13-56 [facility] CK [Catalytic activity/Vol] 268 U/L 26-192 [facility] CO2 [Moles/Vol] 23.0 mmol/L 21.0-32.0 [facility] Globulin (S) [Mass/Vol] 4.8 g/dL 2.2-4.2 [facility] Urea nitrogen/Creatinine [Mass ratio] 18.0 mg/mg 10-20 [facility] Laboratory - Hematology and Cell countsOrdered By: Dr. Hart on 09-28-2022 Erythrocyte distribution width (RBC) [Entitic vol] 49.6 fL 35.1-43.9 [facility] Erythrocyte distribution width (RBC) [Ratio] 14.7 % 11.6-14.6 [facility] Immature granulocytes/100 WBC (Bld) 0.300 % 0.0-0.9 [facility] Comment on above: IG% - Immature Granu locytes (promyelocytes, myelocytes and metamyelocytes) > 1% indicates that a LEFT SHIFT is Present. MCH (RBC) [Entitic mass] 29.6 pg 27.0-32.0 [facility] Nucleated RBC/100 WBC (Bld) [Ratio] 0 % 0-5 [facility] MCHC Auto (RBC) [Mass/Vol]Or dered By: Dr. Hart on 09-28-2022 MCHC (RBC) [Mass/Vol] 32.2 g/dL 32-36 [facility] No Panel InformationOrdered By: Dr. Hart on 09-28-2022 Estimated GFR (MDRD) Amer 78 mL/min >60 [facility] Comment on above: GFR Calc Estimated GFR (MDRD) Non-Af Amer 65 mL/min >60 [facility] Comment on above: Non- GFR Calc Platelets bldOrdered By: Dr. Hart on 09-28-2022 Platelets (Bld) [#/Vol] 304 10*3/uL 150-450 [facility] Serum or plasma albumin radha urement (mass/volume)Ordered By: Dr. Hart on 09-28-2022 Albumin [Mass/Vol] 3.3 g/dL 3.2-5.0 [facility] Serum or plasma albumin/glob ulin mass ratioOrdered By: Dr. Hart on 09-28-2022 Albumin/Globulin [Mass ratio] 0.7 {ratio} 0.9-2.4 [facility] Serum or plasma calcium radha urement (mass/volume)Ordered By: Dr. Hart on 09-28-2022 Calcium [Mass/Vol] 9.3 mg/dL 8.5-10.1 [facility] Serum or plasma creatinine m easurement (mass/volume)Ordered By: Dr. Hart on 09-28-2022 Creatinine [Mass/Vol] 0.94 mg/dL 0.55-1.02 [facility] Comment on above: The validity of the calculated GFR & GFRAA in patients over 70 years has not been determined. Clinical correlation is essential. Serum or plasma urea nitroge n measurement (mass/volume)Ordered By: Dr. Hart on 09-28-2022 Urea nitrogen [Mass/Vol] 17 mg/dL 7-18 [facility] Thin prep Papanicolaou smear with manual screeningOrdered By: Dr. Hart on 09-28-2022 Thin prep Papanicolaou smear with manual screening 44 U/L 15-37 [facility] Thin prep Papanicolaou smear with manual screening 10 5-15 [facility] Absolute lymphocyte countOrd ered By: Dr. Hart on 07-28-2022 Lymphocytes Auto (Unsp spec) [#/Vol] 1.29 10*3/uL 0.83-4.51 [facility] Aldolase ser/plasOrdered By: Dr. Hart on 07-28-2022 Aldolase [Catalytic activity/Vol] 6.3 mU/mL 3.3-10.3 [facility] Comment on above: Performed at: [address] Director: Abdulaziz Meek PhD, Phone: [phone] Basophil percentageOrdered B y: Dr. Hart on 07-28-2022 Basophils/100 WBC (Bld) 0.7 % 0-1 [facility] Bilirubin [Mass/Vol] 0.20 mg/dL 0.20-1.00 [facility] Comment on above: For patients on eltr ombopag therapy, use of Dimension [place] TBIL is not recommended. Chloride [Moles/Vol] 104 mmol/L 98-107 [facility] Eosinophils/100 WBC (Bld) 1.2 % 0-5 [facility] Glucose [Mass/Vol] 93 mg/dL 74-106 [facility] Neutrophils (Bld) [#/Vol] 7.5 10*3/uL 2.0-7.7 [facility] Neutrophils/100 WBC (Bld) 78.7 % 47-70 [facility] Potassium [Moles/Vol] 4.0 mmol/L 3.5-5.1 [facility] Protein [Mass/Vol] 7.6 g/dL 6.4-8.2 [facility] Sodium [Moles/Vol] 136 mmol/L 136-145 [facility] WBC (Bld) [#/Vol] 9.5 10*3/uL 4.4-11.0 [facility] Blood erythrocytes count (nu mber/volume)Ordered By: Dr. Hart on 07-28-2022 RBC (Bld) [#/Vol] 4.55 10*6/uL 4.2-5.4 [facility] Blood hemoglobin measurement (mass/volume)Ordered By: Dr. Hart on 07-28-2022 Hemoglobin (Bld) [Mass/Vol] 13.6 g/dL 12.0-15.0 [facility] Blood lymphocytes/100 leukoc ytesOrdered By: Dr. Hart on 07-28-2022 Lymphocytes/100 WBC (Bld) 13.6 % 19-41 [facility] Blood monocytes/100 leukocyt esOrdered By: Dr. Hart on 07-28-2022 Monocytes/100 WBC (Bld) 5.4 % 0-10 [facility] Blood platelet mean volumeOr dered By: Dr. Hart on 07-28-2022 Platelet mean volume (Bld) [Entitic vol] 9.8 fL 6.2-12.0 [facility] Determination of erythrocyte mean corpuscular volume (MCV)Ordered By: Dr. Hart on 07-28-2022 MCV (RBC) [Entitic vol] 93.0 fL 81-99 [facility] Hematocrit Auto (Bld) [Volum e fraction]Ordered By: Dr. Hart on 07-28-2022 Hematocrit (Bld) [Volume fraction] 42.3 % 37-47 [facility] Laboratory - Chemistry and C hemistry - challengeOrdered By: Dr. Hart on 07-28-2022 ALP [Catalytic activity/Vol] 93 U/L 45-117 [facility] ALT [Catalytic activity/Vol] 48 U/L 13-56 [facility] CK [Catalytic activity/Vol] 314 U/L 26-192 [facility] CO2 [Moles/Vol] 25.0 mmol/L 21.0-32.0 [facility] Globulin (S) [Mass/Vol] 3.9 g/dL 2.2-4.2 [facility] Urea nitrogen/Creatinine [Mass ratio] 21.0 mg/mg 10-20 [facility] Laboratory - Hematology and Cell countsOrdered By: Dr. Hart on 07-28-2022 Erythrocyte distribution width (RBC) [Entitic vol] 50.1 fL 35.1-43.9 [facility] Erythrocyte distribution width (RBC) [Ratio] 14.6 % 11.6-14.6 [facility] Immature granulocytes/100 WBC (Bld) 0.400 % 0.0-0.9 [facility] Comment on above: IG% - Immature Granu locytes (promyelocytes, myelocytes and metamyelocytes) > 1% indicates that a LEFT SHIFT is Present. MCH (RBC) [Entitic mass] 29.9 pg 27.0-32.0 [facility] Nucleated RBC/100 WBC (Bld) [Ratio] 0 % 0-5 [facility] MCHC Auto (RBC) [Mass/Vol]Or dered By: Dr. Hart on 07-28-2022 MCHC (RBC) [Mass/Vol] 32.2 g/dL 32-36 [facility] No Panel InformationOrdered By: Dr. Hart on 07-28-2022 Estimated GFR (MDRD) Amer 73 mL/min >60 [facility] Comment on above: GFR Calc Estimated GFR (MDRD) Non-Af Amer 60 mL/min >60 [facility] Comment on above: Non- GFR Calc Platelets bldOrdered By: Dr. Hart on 07-28-2022 Platelets (Bld) [#/Vol] 335 10*3/uL 150-450 [facility] Serum or plasma albumin radha urement (mass/volume)Ordered By: Dr. Hart on 07-28-2022 Albumin [Mass/Vol] 3.7 g/dL 3.2-5.0 [facility] Serum or plasma albumin/glob ulin mass ratioOrdered By: Dr. Hart on 07-28-2022 Albumin/Globulin [Mass ratio] 0.9 {ratio} 0.9-2.4 [facility] Serum or plasma calcium radha urement (mass/volume)Ordered By: Dr. Hart on 07-28-2022 Calcium [Mass/Vol] 9.3 mg/dL 8.5-10.1 [facility] Serum or plasma creatinine m easurement (mass/volume)Ordered By: Dr. Hart on 07-28-2022 Creatinine [Mass/Vol] 1.00 mg/dL 0.55-1.02 [facility] Comment on above: The validity of the calculated GFR & GFRAA in patients over 70 years has not been determined. Clinical correlation is essential. Serum or plasma urea nitroge n measurement (mass/volume)Ordered By: Dr. Hart on 07-28-2022 Urea nitrogen [Mass/Vol] 21 mg/dL 7-18 [facility] Thin prep Papanicolaou smear with manual screeningOrdered By: Dr. Hart on 07-28-2022 Thin prep Papanicolaou smear with manual screening 34 U/L 15-37 [facility] Thin prep Papanicolaou smear with manual screening 7 5-15 [facility] Absolute lymphocyte countOrd ered By: Dr. Hart on 05-26-2022 Lymphocytes Auto (Unsp spec) [#/Vol] 1.48 10*3/uL 0.83-4.51 [facility] Aldolase ser/plasOrdered By: Dr. Hart on 05-26-2022 Aldolase [Catalytic activity/Vol] 6.2 mU/mL 3.3-10.3 [facility] Comment on above: Performed at: [address] [id number] Director: Abdulaziz Meek PhD, Phone: [phone] Basophil percentageOrdered B y: Dr. Hart on 05-26-2022 Basophils/100 WBC (Bld) 0.6 % 0-1 [facility] Bilirubin [Mass/Vol] 0.20 mg/dL 0.20-1.00 [facility] Comment on above: For patients on eltr ombopag therapy, use of Dimension [place] TBIL is not recommended. Chloride [Moles/Vol] 103 mmol/L 98-107 [facility] Eosinophils/100 WBC (Bld) 1.0 % 0-5 [facility] Glucose [Mass/Vol] 105 mg/dL 74-106 [facility] Comment on above: Fasting Glucose resu lt from 100 to 125 mg/dL suggests IMPAIRED HOMEOSTASIS per A.D.A. criteria. Neutrophils (Bld) [#/Vol] 8.8 10*3/uL 2.0-7.7 [facility] Neutrophils/100 WBC (Bld) 80.1 % 47-70 [facility] Potassium [Moles/Vol] 4.1 mmol/L 3.5-5.1 [facility] Protein [Mass/Vol] 7.8 g/dL 6.4-8.2 [facility] Sodium [Moles/Vol] 137 mmol/L 136-145 [facility] WBC (Bld) [#/Vol] 11.0 10*3/uL 4.4-11.0 [facility] Blood erythrocytes count (nu mber/volume)Ordered By: Dr. Hart on 05-26-2022 RBC (Bld) [#/Vol] 4.88 10*6/uL 4.2-5.4 [facility] Blood hemoglobin measurement (mass/volume)Ordered By: Dr. Hart on 05-26-2022 Hemoglobin (Bld) [Mass/Vol] 14.5 g/dL 12.0-15.0 [facility] Blood lymphocytes/100 leukoc ytesOrdered By: Dr. Hart on 05-26-2022 Lymphocytes/100 WBC (Bld) 13.4 % 19-41 [facility] Blood monocytes/100 leukocyt esOrdered By: Dr. Hart on 05-26-2022 Monocytes/100 WBC (Bld) 4.4 % 0-10 [facility] Blood platelet mean volumeOr dered By: Dr. Hart on 05-26-2022 Platelet mean volume (Bld) [Entitic vol] 10.7 fL 6.2-12.0 [facility] Determination of erythrocyte mean corpuscular volume (MCV)Ordered By: Dr. Hart on 05-26-2022 MCV (RBC) [Entitic vol] 91.4 fL 81-99 [facility] Hematocrit Auto (Bld) [Volum e fraction]Ordered By: Dr. Hart on 05-26-2022 Hematocrit (Bld) [Volume fraction] 44.6 % 37-47 [facility] Laboratory - Chemistry and C hemistry - challengeOrdered By: Dr. Hart on 05-26-2022 ALP [Catalytic activity/Vol] 103 U/L 45-117 [facility] ALT [Catalytic activity/Vol] 47 U/L 13-56 [facility] CK [Catalytic activity/Vol] 293 U/L 26-192 [facility] CO2 [Moles/Vol] 24.0 mmol/L 21.0-32.0 [facility] Globulin (S) [Mass/Vol] 4.1 g/dL 2.2-4.2 [facility] Urea nitrogen/Creatinine [Mass ratio] 19.5 mg/mg 10-20 [facility] Laboratory - Hematology and Cell countsOrdered By: Dr. Hart on 05-26-2022 Erythrocyte distribution width (RBC) [Entitic vol] 46.1 fL 35.1-43.9 [facility] Erythrocyte distribution width (RBC) [Ratio] 13.7 % 11.6-14.6 [facility] Immature granulocytes/100 WBC (Bld) 0.500 % 0.0-0.9 [facility] Comment on above: IG% - Immature Granu locytes (promyelocytes, myelocytes and metamyelocytes) > 1% indicates that a LEFT SHIFT is Present. MCH (RBC) [Entitic mass] 29.7 pg 27.0-32.0 [facility] Nucleated RBC/100 WBC (Bld) [Ratio] 0 % 0-5 [facility] MCHC Auto (RBC) [Mass/Vol]Or dered By: Dr. Hart on 05-26-2022 MCHC (RBC) [Mass/Vol] 32.5 g/dL 32-36 [facility] No Panel InformationOrdered By: Dr. Hart on 05-26-2022 Estimated GFR (MDRD) Amer 60 mL/min >60 [facility] Comment on above: GFR Calc Estimated GFR (MDRD) Non-Af Amer 50 mL/min >60 [facility] Comment on above: Non- GFR Calc Platelets bldOrdered By: Dr. Hart on 05-26-2022 Platelets (Bld) [#/Vol] 301 10*3/uL 150-450 [facility] Serum or plasma albumin radha urement (mass/volume)Ordered By: Dr. Hart on 05-26-2022 Albumin [Mass/Vol] 3.7 g/dL 3.2-5.0 [facility] Serum or plasma albumin/glob ulin mass ratioOrdered By: Dr. Hart on 05-26-2022 Albumin/Globulin [Mass ratio] 0.9 {ratio} 0.9-2.4 [facility] Serum or plasma calcium radha urement (mass/volume)Ordered By: Dr. Hart on 05-26-2022 Calcium [Mass/Vol] 9.6 mg/dL 8.5-10.1 [facility] Serum or plasma creatinine m easurement (mass/volume)Ordered By: Dr. Hart on 05-26-2022 Creatinine [Mass/Vol] 1.18 mg/dL 0.55-1.02 [facility] Comment on above: The validity of the calculated GFR & GFRAA in patients over 70 years has not been determined. Clinical correlation is essential. Serum or plasma urea nitroge n measurement (mass/volume)Ordered By: Dr. Hart on 05-26-2022 Urea nitrogen [Mass/Vol] 23 mg/dL 7-18 [facility] Thin prep Papanicolaou smear with manual screeningOrdered By: Dr. Hart on 05-26-2022 Thin prep Papanicolaou smear with manual screening 26 U/L 15-37 [facility] Thin prep Papanicolaou smear with manual screening 10 5-15 [facility] Absolute lymphocyte countOrd ered By: Dr. Hart on 03-10-2022 Lymphocytes Auto (Unsp spec) [#/Vol] 1.01 10*3/uL 0.83-4.51 [facility] Aldolase ser/plasOrdered By: Dr. Hart on 03-10-2022 Aldolase [Catalytic activity/Vol] 5.5 mU/mL 3.3-10.3 [facility] Comment on above: Performed at: - [address] [id number] Director: Abdulaziz Meek PhD, Phone: [phone] Basophil percentageOrdered B y: Dr. Hart on 03-10-2022 Basophils/100 WBC (Bld) 0.4 % 0-1 [facility] Bilirubin [Mass/Vol] 0.20 mg/dL 0.20-1.00 [facility] Comment on above: For patients on eltr ombopag therapy, use of Dimension [place] TBIL is not recommended. Chloride [Moles/Vol] 103 mmol/L 98-107 [facility] Eosinophils/100 WBC (Bld) 0.6 % 0-5 [facility] Glucose [Mass/Vol] 92 mg/dL 74-106 [facility] Neutrophils (Bld) [#/Vol] 8.0 10*3/uL 2.0-7.7 [facility] Neutrophils/100 WBC (Bld) 83.5 % 47-70 [facility] Potassium [Moles/Vol] 4.0 mmol/L 3.5-5.1 [facility] Protein [Mass/Vol] 8.2 g/dL 6.4-8.2 [facility] Sodium [Moles/Vol] 136 mmol/L 136-145 [facility] WBC (Bld) [#/Vol] 9.6 10*3/uL 4.4-11.0 [facility] Blood erythrocytes count (nu mber/volume)Ordered By: Dr. Hart on 03-10-2022 RBC (Bld) [#/Vol] 4.55 10*6/uL 4.2-5.4 [facility] Blood hemoglobin measurement (mass/volume)Ordered By: Dr. Hart on 03-10-2022 Hemoglobin (Bld) [Mass/Vol] 13.9 g/dL 12.0-15.0 [facility] Blood lymphocytes/100 leukoc ytesOrdered By: Dr. Hart on 03-10-2022 Lymphocytes/100 WBC (Bld) 10.6 % 19-41 [facility] Blood monocytes/100 leukocyt esOrdered By: Dr. Hart on 03-10-2022 Monocytes/100 WBC (Bld) 4.6 % 0-10 [facility] Blood platelet mean volumeOr dered By: Dr. Hart on 03-10-2022 Platelet mean volume (Bld) [Entitic vol] 10.0 fL 6.2-12.0 [facility] Determination of erythrocyte mean corpuscular volume (MCV)Ordered By: Dr. Hart on 03-10-2022 MCV (RBC) [Entitic vol] 93.4 fL 81-99 [facility] Hematocrit Auto (Bld) [Volum e fraction]Ordered By: Dr. Hart on 03-10-2022 Hematocrit (Bld) [Volume fraction] 42.5 % 37-47 [facility] Laboratory - Chemistry and C hemistry - challengeOrdered By: Dr. Hart on 03-10-2022 ALP [Catalytic activity/Vol] 97 U/L 45-117 [facility] ALT [Catalytic activity/Vol] 50 U/L 13-56 [facility] CK [Catalytic activity/Vol] 290 U/L 26-192 [facility] CO2 [Moles/Vol] 26.0 mmol/L 21.0-32.0 [facility] Globulin (S) [Mass/Vol] 4.8 g/dL 2.2-4.2 [facility] Urea nitrogen/Creatinine [Mass ratio] 22.7 mg/mg 10-20 [facility] Laboratory - Hematology and Cell countsOrdered By: Dr. Hart on 03-10-2022 Erythrocyte distribution width (RBC) [Entitic vol] 51.2 fL 35.1-43.9 [facility] Erythrocyte distribution width (RBC) [Ratio] 14.9 % 11.6-14.6 [facility] Immature granulocytes/100 WBC (Bld) 0.300 % 0.0-0.9 [facility] Comment on above: IG% - Immature Granu locytes (promyelocytes, myelocytes and metamyelocytes) > 1% indicates that a LEFT SHIFT is Present. MCH (RBC) [Entitic mass] 30.5 pg 27.0-32.0 [facility] Nucleated RBC/100 [facility]) [[facility]] 0 [facility] [[facility]/Vol]Or dered By: Dr. Hart on 03-10-2022 MCHC (RBC) [Mass/Vol] 32.7 g/dL 32-36 [facility] No Panel InformationOrdered By: Dr. Hart on 03-10-2022 Estimated GFR (MDRD) Amer 96 mL/min >60 [facility] Comment on above: GFR Calc Estimated GFR (MDRD) Non-Af Amer 79 mL/min >60 [facility] Comment on above: Non- GFR Calc Platelets bldOrdered By: Dr. Hart on 03-10-2022 Platelets (Bld) [#/Vol] 308 10*3/uL 150-450 [facility] Serum or plasma albumin radha urement (mass/volume)Ordered By: Dr. Hart on 03-10-2022 Albumin [Mass/Vol] 3.4 g/dL 3.2-5.0 [facility] Serum or plasma albumin/glob ulin mass ratioOrdered By: Dr. Hart on 03-10-2022 Albumin/Globulin [Mass ratio] 0.7 {ratio} 0.9-2.4 [facility] Serum or plasma calcium radha urement (mass/volume)Ordered By: Dr. Hart on 03-10-2022 Calcium [Mass/Vol] 9.6 mg/dL 8.5-10.1 [facility] Serum or plasma creatinine m easurement (mass/volume)Ordered By: Dr. Hart on 03-10-2022 Creatinine [Mass/Vol] 0.79 mg/dL 0.55-1.02 [facility] Comment on above: The validity of the calculated GFR & GFRAA in patients over 70 years has not been determined. Clinical correlation is essential. Serum or plasma urea nitroge n measurement (mass/volume)Ordered By: Dr. Hart on 03-10-2022 Urea nitrogen [Mass/Vol] 18 mg/dL 7-18 [facility] Thin prep Papanicolaou smear with manual screeningOrdered By: Dr. Hart on 03-10-2022 Thin prep Papanicolaou smear with manual screening 37 U/L 15-37 [facility] Thin prep Papanicolaou smear with manual screening 7 5-15 [facility] No Panel Informationon 01-09 Miscellaneous Test See comment [facility] Work Phone: Comment on above: TEST RESULT LIMITSMy oMarker 3 Plus Profile (RDL)Anti-Makenzie-1 Ab (RDL) <20 Units <20Anti-PL-7 Ab (RDL) A, Negative TqiojklmBvit-ZF-37 Ab (RDL) A, Negative NegativeAnti-EJ Ab (RDL) A, Negative NegativeAnti-OJ Ab (RDL) A, Negative NegativeAnti-SRP Ab (RDL) A, Negative KhplzwnlDmee-Kn-0 Ab (RDL) A, Negative YvvbboihKrcu-NDJ-9wsean Ab (RDL) A, <20 Units <50Ygbb-VQN-0 Ab(CADM-140)(RDL) A, <20 Units <65Gbpw-KEI-2 (P140) Ab (RDL) A, <20 Units <20Anti-SAE1 Ab, IgG (RDL) A, <20 Units <20Anti-PM/Scl-100 Ab (RDL) A, <20 Units <20Anti-Ku Ab (RDL) A, Negative ThnvhdpuGecy-DI-C 52kD Ab, IgG (RDL)A, 37 High Units <20Anti-U1 BOX OFFICE ATTENDANT Ab (RDL) <20 Units <20Anti-U2 BOX OFFICE ATTENDANT Ab (RDL) A, Negative NegativeAnti-U3 BOX OFFICE ATTENDANT (Fibrillarin)(RDL)A, Negative Negative Interpretation for Anti-Makenzie-1, Btki-JWP-8kyqnr, Anti-MDA-5, Anti-NXP-2, Anti-SAE1, Anti-PM/Scl-100, Anti-SS-A 52 kD, Anti-U1 BOX OFFICE ATTENDANT: Negative: <20 Weak Positive: 20 - 39 Moderate Positive: 40 - 80 Strong Positive: >80 TESTING PERFORMED AT [facility]. ORIGINAL REPORT ON FILE IN LAB CONTAINS ADDITIONAL TEST SITE INFORMATION. Absolute lymphocyte counton 12-31-2021 Lymphocytes Auto (Unsp spec) [#/Vol] 1.11 10*3/uL 0.83-4.51 [facility] Work Phone: Aldolase ser/plason 01-01-20 Aldolase [Catalytic activity/Vol] 6.4 mU/mL 3.3-10.3 [facility] Work Phone: Comment on above: Performed at: [place] [id number] Director: Abdulaziz Meek PhD, Phone: [phone] Basophil percentageon 2021 Basophils/100 WBC (Bld) 0.4 % 0-1 [facility] Work Phone: Bilirubin [Mass/Vol] 0.30 mg/dL 0.20-1.00 [facility] Work Phone: Comment on above: For patients on eltr ombopag therapy, use of Dimension [place] TBIL is not recommended. Chloride [Moles/Vol] 104 mmol/L 98-107 [facility] Work Phone: Eosinophils/100 WBC (Bld) 1.3 % 0-5 [facility] Work Phone: Glucose [Mass/Vol] 89 mg/dL 74-106 [facility] Work Phone: Neutrophils (Bld) [#/Vol] 7.9 10*3/uL 2.0-7.7 [facility] Work Phone: Neutrophils/100 WBC (Bld) 80.7 % 47-70 [facility] Work Phone: Potassium [Moles/Vol] 4.1 mmol/L 3.5-5.1 [facility] Work Phone: Protein [Mass/Vol] 7.5 g/dL 6.4-8.2 [facility] Work Phone: [phone] Sodium [Moles/Vol] 138 mmol/L 136-145 [facility] Work Phone: [phone] WBC (Bld) [#/Vol] 9.8 10*3/uL 4.4-11.0 [facility] Work Phone: [phone] Blood erythrocytes count (nu mber/volume)on 12-31-2021 RBC (Bld) [#/Vol] 4.88 10*6/uL 4.2-5.4 [facility] Work Phone: [phone] Blood hemoglobin measurement (mass/volume)on 12-31-2021 Hemoglobin (Bld) [Mass/Vol] 14.1 g/dL 12.0-15.0 [facility] Work Phone: [phone] Blood lymphocytes/100 leukoc yteson 12-31-2021 Lymphocytes/100 WBC (Bld) 11.3 % 19-41 [facility] Work Phone: [phone] Blood monocytes/100 leukocyt eson 12-31-2021 Monocytes/100 WBC (Bld) 5.9 % 0-10 [facility] Work Phone: [phone] Blood platelet mean volumeon 12-31-2021 Platelet mean volume (Bld) [Entitic vol] 9.6 fL 6.2-12.0 [facility] Work Phone: [phone] Determination of erythrocyte mean corpuscular volume (MCV)on 12-31-2021 MCV (RBC) [Entitic vol] 88.1 fL 81-99 [facility] Work Phone: [phone] Hematocrit Auto (Bld) [Volum e fraction]on 12-31-2021 Hematocrit (Bld) [Volume fraction] 43.0 % 37-47 [facility] Work Phone: [phone] Laboratory - Chemistry and C hemistry - challengeon 12-31-2021 ALP [Catalytic activity/Vol] 80 U/L 45-117 [facility] Work Phone: [phone] ALT [Catalytic activity/Vol] 49 U/L 13-56 [facility] Work Phone: [phone] Amylase [Catalytic activity/Vol] 23 U/L 5-55 [facility] Work Phone: [phone] CK [Catalytic activity/Vol] 281 U/L 26-192 [facility] Work Phone: [phone] CO2 [Moles/Vol] 27.0 mmol/L 21.0-32.0 [facility] Work Phone: [phone] Globulin (S) [Mass/Vol] 3.8 g/dL 2.2-4.2 [facility] Work Phone: [phone] Urea nitrogen/Creatinine [Mass ratio] 26.7 mg/mg 10-20 [facility] Work Phone: [phone] Laboratory - Hematology and Cell countson 12-31-2021 Erythrocyte distribution width (RBC) [Entitic vol] 48.6 fL 35.1-43.9 [facility] Work Phone: [phone] Erythrocyte distribution width (RBC) [Ratio] 15.4 % 11.6-14.6 [facility] Work Phone: [phone] Immature granulocytes/100 WBC (Bld) 0.400 % 0.0-0.9 [facility] Work Phone: [phone] Comment on above: IG% - Immature Granu locytes (promyelocytes, myelocytes and metamyelocytes) > 1% indicates that a LEFT SHIFT is Present. MCH (RBC) [Entitic mass] 28.9 pg 27.0-32.0 [facility] Work Phone: [phone] Nucleated RBC/100 WBC (Bld) [Ratio] 0 % 0-5 [facility] Work Phone: [phone] MCHC Auto (RBC) [Mass/Vol]on 12-31-2021 MCHC (RBC) [Mass/Vol] 32.8 g/dL 32-36 [facility] Work Phone: [phone] Panel Informationon 12-31 Estimated GFR (MDRD) Amer 91 mL/min >60 [facility] Work Phone: Comment on above: GFR Calc Estimated GFR (MDRD) Non-Af Amer 75 mL/min >60 [facility] Work Phone: Comment on above: Non- GFR Calc Platelets bldon 12-31-2021 Platelets (Bld) [#/Vol] 317 10*3/uL 150-450 [facility] Work Phone: [phone] Serum or plasma albumin radha urement (mass/volume)on 12-31-2021 Albumin [Mass/Vol] 3.7 g/dL 3.2-5.0 [facility] Work Phone: Serum or plasma albumin/glob ulin mass ratioon 12-31-2021 Albumin/Globulin [Mass ratio] 1.0 {ratio} 0.9-2.4 [facility] Work Phone: Serum or plasma calcium radha urement (mass/volume)on 12-31-2021 Calcium [Mass/Vol] 10.0 mg/dL 8.5-10.1 [facility] Work Phone: Serum or plasma creatinine m easurement (mass/volume)on 12-31-2021 Creatinine [Mass/Vol] 0.82 mg/dL 0.55-1.02 [facility] Work Phone: Comment on above: The validity of the calculated GFR & GFRAA in patients over 70 years has not been determined. Clinical correlation is essential. Serum or plasma urea nitroge n measurement (mass/volume)on 12-31-2021 Urea nitrogen [Mass/Vol] 22 mg/dL 7-18 [facility] Work Phone: [phone] Thin prep Papanicolaou smear with manual screeningon 12-31-2021 Thin prep Papanicolaou smear with manual screening 31 U/L 15-37 [facility] Work Phone: [phone] Thin prep Papanicolaou smear with manual screening 7 5-15 [facility] Work Phone: [phone] Absolute lymphocyte counton 10-29-2021 Lymphocytes Auto (Unsp spec) [#/Vol] 0.89 10*3/uL 0.83-4.51 [facility] Work Phone: Aldolase ser/plason 10-30-19 Aldolase [Catalytic activity/Vol] 9.1 mU/mL 3.3-10.3 [facility] Work Phone: Comment on above: Performed at: [address] [id number] Director: Abdulaziz Meek PhD, Phone: [phone] Basophil percentageon 2021 Basophils/100 WBC (Bld) 0.7 % 0-1 [facility] Work Phone: Bilirubin [Mass/Vol] 0.30 mg/dL 0.20-1.00 [facility] Work Phone: Comment on above: For patients on eltr ombopag therapy, use of Dimension [place] TBIL is not recommended. Chloride [Moles/Vol] 105 mmol/L 98-107 [facility] Work Phone: Eosinophils/100 WBC (Bld) 3.7 % 0-5 [facility] Work Phone: Glucose [Mass/Vol] 85 mg/dL 74-106 [facility] Work Phone: Neutrophils (Bld) [#/Vol] 5.2 10*3/uL 2.0-7.7 [facility] Work Phone: Neutrophils/100 WBC (Bld) 73.9 % 47-70 [facility] Work Phone: Potassium [Moles/Vol] 4.0 mmol/L 3.5-5.1 [facility] Work Phone: Protein [Mass/Vol] 7.1 g/dL 6.4-8.2 [facility] Work Phone: Sodium [Moles/Vol] 137 mmol/L 136-145 [facility] Work Phone: WBC (Bld) [#/Vol] 7.0 10*3/uL 4.4-11.0 [facility] Work Phone: Blood erythrocytes count (nu mber/volume)on 10-29-2021 RBC (Bld) [#/Vol] 4.83 10*6/uL 4.2-5.4 [facility] Work Phone: Blood hemoglobin measurement (mass/volume)on 10-29-2021 Hemoglobin (Bld) [Mass/Vol] 13.6 g/dL 12.0-15.0 [facility] Work Phone: [phone] Blood lymphocytes/100 leukoc yteson 10-29-2021 Lymphocytes/100 WBC (Bld) 12.6 % 19-41 [facility] Work Phone: [phone] Blood monocytes/100 leukocyt eson 10-29-2021 Monocytes/100 WBC (Bld) 8.8 % 0-10 [facility] Work Phone: [phone] Blood platelet mean volumeon 10-29-2021 Platelet mean volume (Bld) [Entitic vol] 9.6 fL 6.2-12.0 [facility] Work Phone: Determination of erythrocyte mean corpuscular volume (MCV)on 10-29-2021 MCV (RBC) [Entitic vol] 88.4 fL 81-99 [facility] Work Phone: Hematocrit Auto (Bld) [Volum e fraction]on 10-29-2021 Hematocrit (Bld) [Volume fraction] 42.7 % 37-47 [facility] Work Phone: [phone] Laboratory - Chemistry and C hemistry - challengeon 10-29-2021 ALP [Catalytic activity/Vol] 79 U/L 45-117 [facility] Work Phone: ALT [Catalytic activity/Vol] 59 U/L 13-56 [facility] Work Phone: Amylase [Catalytic activity/Vol] 12 U/L 5-55 [facility] Work Phone: CK [Catalytic activity/Vol] 551 U/L 26-192 [facility] Work Phone: [phone] CO2 [Moles/Vol] 26.0 mmol/L 21.0-32.0 [facility] Work Phone: [phone] Globulin (S) [Mass/Vol] 3.6 g/dL 2.2-4.2 [facility] Work Phone: [phone] Urea nitrogen/Creatinine [Mass ratio] 32.3 mg/mg 10-20 [facility] Work Phone: [phone] Laboratory - Hematology and Cell countson 10-29-2021 Erythrocyte distribution width (RBC) [Entitic vol] 43.6 fL 35.1-43.9 [facility] Work Phone: [phone] Erythrocyte distribution width (RBC) [Ratio] 13.5 % 11.6-14.6 [facility] Work Phone: [phone] Immature granulocytes/100 WBC (Bld) 0.300 % 0.0-0.9 [facility] Work Phone: [phone] Comment on above: IG% - Immature Granu locytes (promyelocytes, myelocytes and metamyelocytes) > 1% indicates that a LEFT SHIFT is Present. MCH (RBC) [Entitic mass] 28.2 pg 27.0-32.0 [facility] Work Phone: [phone] Nucleated RBC/100 WBC (Bld) [Ratio] 0 % 0-5 [facility] Work Phone: [phone] MCHC Auto (RBC) [Mass/Vol]on 10-29-2021 MCHC (RBC) [Mass/Vol] 31.9 g/dL 32-36 [facility]: [phone] Panel Informationon 10-29 Estimated GFR (MDRD) Amer 103 mL/min >60 [facility] Work Phone: [phone] Comment on above: GFR Calc Estimated GFR (MDRD) Non-Af Amer 85 mL/min >60 [facility] Work Phone: [phone] Comment on above: Non- GFR Calc Platelets bldon 10-29-2021 Platelets (Bld) [#/Vol] 285 10*3/uL 150-450 [facility] Work Phone: [phone] Serum or plasma albumin radha urement (mass/volume)on 10-29-2021 Albumin [Mass/Vol] 3.5 g/dL 3.2-5.0 [facility] Work Phone: [phone] Serum or plasma albumin/glob ulin mass ratioon 10-29-2021 Albumin/Globulin [Mass ratio] 1.0 {ratio} 0.9-2.4 [facility] Work Phone: [phone] Serum or plasma calcium radha urement (mass/volume)on 10-29-2021 Calcium [Mass/Vol] 9.5 mg/dL 8.5-10.1 [facility] Work Phone: [phone] Serum or plasma creatinine m easurement (mass/volume)on 10-29-2021 Creatinine [Mass/Vol] 0.74 mg/dL 0.55-1.02 [facility] Work Phone: Comment on above: The validity of the calculated GFR & GFRAA in patients over 70 years has not been determined. Clinical correlation is essential. Serum or plasma urea nitroge n measurement (mass/volume)on 10-29-2021 Urea nitrogen [Mass/Vol] 24 mg/dL 7-18 [facility] Work Phone: [phone] Thin prep Papanicolaou smear with manual screeningon 10-29-2021 Thin prep Papanicolaou smear with manual screening 47 U/L 15-37 [facility] Work Phone: [phone] Thin prep Papanicolaou smear with manual screening 6 5-15 [facility] Work Phone: [phone] Absolute lymphocyte counton 09-29-2021 Lymphocytes Auto (Unsp spec) [#/Vol] 0.97 10*3/uL 0.83-4.51 [facility] Work Phone: [phone] Aldolase ser/plason 09-30-19 Aldolase [Catalytic activity/Vol] 9.1 mU/mL 3.3-10.3 [facility] Work Phone: [phone] Comment on above: Performed at: [address] [id number] Director: Abdulaziz Meek PhD, Phone: [phone] Basophil percentageon 2021 Basophils/100 WBC (Bld) 0.4 % 0-1 [facility] Work Phone: Bilirubin [Mass/Vol] 0.30 mg/dL 0.20-1.00 [facility] Work Phone: Comment on above: For patients on eltr ombopag therapy, use of Dimension [place] TBIL is not recommended. Chloride [Moles/Vol] 105 mmol/L 98-107 [facility] Work Phone: Eosinophils/100 WBC (Bld) 4.4 % 0-5 [facility] Work Phone: Glucose [Mass/Vol] 97 mg/dL 74-106 [facility] Work Phone: Neutrophils (Bld) [#/Vol] 5.9 10*3/uL 2.0-7.7 [facility] Work Phone: Neutrophils/100 WBC (Bld) 75.5 % 47-70 [facility] Work Phone: Potassium [Moles/Vol] 3.7 mmol/L 3.5-5.1 [facility] Work Phone: Protein [Mass/Vol] 7.3 g/dL 6.4-8.2 [facility] Work Phone: Sodium [Moles/Vol] 139 mmol/L 136-145 [facility] Work Phone: WBC (Bld) [#/Vol] 7.8 10*3/uL 4.4-11.0 [facility] Work Phone: Blood erythrocytes count (nu mber/volume)on 09-29-2021 RBC (Bld) [#/Vol] 4.87 10*6/uL 4.2-5.4 [facility] Work Phone: Blood hemoglobin measurement (mass/volume)on 09-29-2021 Hemoglobin (Bld) [Mass/Vol] 13.9 g/dL 12.0-15.0 [facility] Work Phone: [phone] Blood lymphocytes/100 leukoc yteson 09-29-2021 Lymphocytes/100 WBC (Bld) 12.5 % 19-41 [facility] Work Phone: Blood monocytes/100 leukocyt eson 09-29-2021 Monocytes/100 WBC (Bld) 6.9 % 0-10 [facility] Work Phone: Blood platelet mean volumeon 09-29-2021 Platelet mean volume (Bld) [Entitic vol] 9.8 fL 6.2-12.0 [facility] Work Phone: Determination of erythrocyte mean corpuscular volume (MCV)on 09-29-2021 MCV (RBC) [Entitic vol] 89.5 fL 81-99 [facility] Work Phone: Hematocrit Auto (Bld) [Volum e fraction]on 09-29-2021 Hematocrit (Bld) [Volume fraction] 43.6 % 37-47 [facility] Work Phone: Laboratory - Chemistry and C hemistry - challengeon 09-29-2021 ALP [Catalytic activity/Vol] 80 U/L 45-117 [facility] Work Phone: ALT [Catalytic activity/Vol] 52 U/L 13-56 [facility] Work Phone: Amylase [Catalytic activity/Vol] 16 U/L 5-55 [facility] Work Phone: CK [Catalytic activity/Vol] 574 U/L 26-192 [facility] Work Phone: CO2 [Moles/Vol] 28.0 mmol/L 21.0-32.0 [facility] Work Phone: Globulin (S) [Mass/Vol] 3.8 g/dL 2.2-4.2 [facility] Work Phone: Urea nitrogen/Creatinine [Mass ratio] 23.9 mg/mg 10-20 [facility] Work Phone: Laboratory - Hematology and Cell countson 09-29-2021 Erythrocyte distribution width (RBC) [Entitic vol] 44.2 fL 35.1-43.9 [facility] Work Phone: [phone] Erythrocyte distribution width (RBC) [Ratio] 13.4 % 11.6-14.6 [facility] Work Phone: [phone] Immature granulocytes/100 WBC (Bld) 0.300 % 0.0-0.9 [facility] Work Phone: [phone] Comment on above: IG% - Immature Granu locytes (promyelocytes, myelocytes and metamyelocytes) > 1% indicates that a LEFT SHIFT is Present. MCH (RBC) [Entitic mass] 28.5 pg 27.0-32.0 [facility] Work Phone: [phone] Nucleated RBC/100 WBC (Bld) [Ratio] 0 % 0-5 [facility] Work Phone: [phone] MCHC Auto (RBC) [Mass/Vol]on 09-29-2021 MCHC (RBC) [Mass/Vol] 31.9 g/dL 32-36 [facility] Work Phone: [phone] Panel Informationon 09-29 Estimated GFR (MDRD) Amer 85 mL/min >60 [facility] Work Phone: [phone] Comment on above: GFR Calc Estimated GFR (MDRD) Non-Af Amer 70 mL/min >60 [facility] Work Phone: [phone] Comment on above: Non- GFR Calc Platelets bldon 09-29-2021 Platelets (Bld) [#/Vol] 297 10*3/uL 150-450 [facility] Work Phone: [phone] Serum or plasma albumin radha urement (mass/volume)on 09-29-2021 Albumin [Mass/Vol] 3.5 g/dL 3.2-5.0 [facility] Work Phone: [phone] Serum or plasma albumin/glob ulin mass ratioon 09-29-2021 Albumin/Globulin [Mass ratio] 0.9 {ratio} 0.9-2.4 [facility] Work Phone: [phone] Serum or plasma calcium radha urement (mass/volume)on 09-29-2021 Calcium [Mass/Vol] 8.9 mg/dL 8.5-10.1 [facility] Work Phone: [phone] Serum or plasma creatinine m easurement (mass/volume)on 09-29-2021 Creatinine [Mass/Vol] 0.88 mg/dL 0.55-1.02 [facility] Work Phone: [phone] Comment on above: The validity of the calculated GFR & GFRAA in patients over 70 years has not been determined. Clinical correlation is essential. Serum or plasma urea nitroge n measurement (mass/volume)on 09-29-2021 Urea nitrogen [Mass/Vol] 21 mg/dL 7-18 [facility] Work Phone: [phone] Thin prep Papanicolaou smear with manual screeningon 09-29-2021 Thin prep Papanicolaou smear with manual screening 49 U/L 15-37 [facility] Work Phone: [phone] Thin prep Papanicolaou smear with manual screening 6 5-15 [facility] Work Phone: [phone] Absolute lymphocyte counton 09-15-2021 Lymphocytes Auto (Unsp spec) [#/Vol] 1.01 10*3/uL 0.83-4.51 [facility] Work Phone: [phone] Basophil percentageon 2021 Basophils/100 WBC (Bld) 0.9 % 0-1 [facility] Work Phone: [phone] Bilirubin [Mass/Vol] 0.20 mg/dL 0.20-1.00 [facility] Work Phone: [phone] Comment on above: For patients on eltr ombopag therapy, use of Dimension [place] TBIL is not recommended. Chloride [Moles/Vol] 104 mmol/L 98-107 [facility] Work Phone: [phone] Eosinophils/100 WBC (Bld) 4.7 % 0-5 [facility] Work Phone: Glucose [Mass/Vol] 98 mg/dL 74-106 [facility] Work Phone: Neutrophils (Bld) [#/Vol] 5.8 10*3/uL 2.0-7.7 [facility] Work Phone: Neutrophils/100 WBC (Bld) 73.2 % 47-70 [facility] Work Phone: Potassium [Moles/Vol] 4.0 mmol/L 3.5-5.1 [facility] Work Phone: Protein [Mass/Vol] 7.4 g/dL 6.4-8.2 [facility] Work Phone: Sodium [Moles/Vol] 137 mmol/L 136-145 [facility] Work Phone: WBC (Bld) [#/Vol] 7.9 10*3/uL 4.4-11.0 [facility] Work Phone: Blood erythrocytes count (nu mber/volume)on 09-15-2021 RBC (Bld) [#/Vol] 4.90 10*6/uL 4.2-5.4 [facility] Work [facility]: Blood hemoglobin measurement (mass/volume)on 09-15-2021 Hemoglobin (Bld) [Mass/Vol] 14.1 g/dL 12.0-15.0 [facility] Work Phone: Blood lymphocytes/100 leukoc yteson 09-15-2021 Lymphocytes/100 WBC (Bld) 12.8 % 19-41 [facility] Work Phone: Blood monocytes/100 leukocyt eson 09-15-2021 Monocytes/100 WBC (Bld) 8.0 % 0-10 [facility] Work Phone: Blood platelet mean volumeon 09-15-2021 Platelet mean volume (Bld) [Entitic vol] 10.2 fL 6.2-12.0 [facility] Work Phone: Determination of erythrocyte mean corpuscular volume (MCV)on 09-15-2021 MCV (RBC) [Entitic vol] 89.4 fL 81-99 [facility] Work Phone: [phone] Hematocrit Auto (Bld) [Volum e fraction]on 09-15-2021 Hematocrit (Bld) [Volume fraction] 43.8 % 37-47 [facility] Work Phone: [phone] Laboratory - Chemistry and C hemistry - challengeon 09-15-2021 ALP [Catalytic activity/Vol] 84 U/L 45-117 [facility] Work Phone: [phone] ALT [Catalytic activity/Vol] 54 U/L 13-56 [facility] Work Phone: [phone] CK [Catalytic activity/Vol] 595 U/L 26-192 [facility] Work Phone: [phone] CO2 [Moles/Vol] 24.0 mmol/L 21.0-32.0 [facility] Work Phone: [phone] Globulin (S) [Mass/Vol] 3.9 g/dL 2.2-4.2 [facility] Work Phone: [phone] Urea nitrogen/Creatinine [Mass ratio] 25.5 mg/mg 10-20 [facility] Work Phone: [phone] Laboratory - Hematology and Cell countson 09-15-2021 Erythrocyte distribution width (RBC) [Entitic vol] 44.9 fL 35.1-43.9 [facility] Work Phone: [phone] Erythrocyte distribution width (RBC) [Ratio] 13.9 % 11.6-14.6 [facility] Work Phone: [phone] Immature granulocytes/100 WBC (Bld) 0.400 % 0.0-0.9 [facility] Work Phone: [phone] Comment on above: IG% - Immature Granu locytes (promyelocytes, myelocytes and metamyelocytes) > 1% indicates that a LEFT SHIFT is Present. MCH (RBC) [Entitic mass] 28.8 pg 27.0-32.0 [facility] Work Phone: Nucleated RBC/100 WBC (Bld) [Ratio] 0 % 0-5 [facility] Work Phone: MCHC Auto (RBC) [Mass/Vol]on 09-15-2021 MCHC (RBC) [Mass/Vol] 32.2 g/dL 32-36 [facility] Work Phone: No Panel Informationon 09-15 Estimated GFR (MDRD) Amer 97 mL/min >60 [facility] Work Phone: Comment on above: GFR Calc Estimated GFR (MDRD) Non-Af Amer 80 mL/min >60 [facility] Work Phone: Comment on above: Non- GFR Calc Platelets bldon 09-15-2021 Platelets (Bld) [#/Vol] 301 10*3/uL 150-450 [facility] Work Phone: Serum or plasma albumin radha urement (mass/volume)on 09-15-2021 Albumin [Mass/Vol] 3.5 g/dL 3.2-5.0 [facility] Work Phone: Serum or plasma albumin/glob ulin mass ratioon 09-15-2021 Albumin/Globulin [Mass ratio] 0.9 {ratio} 0.9-2.4 [facility] Work Phone: Serum or plasma calcium radha urement (mass/volume)on 09-15-2021 Calcium [Mass/Vol] 9.5 mg/dL 8.5-10.1 [facility] Work Phone: [phone] Serum or plasma creatinine m easurement (mass/volume)on 09-15-2021 Creatinine [Mass/Vol] 0.78 mg/dL 0.55-1.02 [facility] Work Phone: Comment on above: The validity of the calculated GFR & GFRAA in patients over 70 years has not been determined. Clinical correlation is essential. Serum or plasma urea nitroge n measurement (mass/volume)on 09-15-2021 Urea nitrogen [Mass/Vol] 20 mg/dL 7-18 [facility] Work Phone: Thin prep Papanicolaou smear with manual screeningon 09-15-2021 Thin prep Papanicolaou smear with manual screening 48 U/L 15-37 [facility] Work Phone: Thin prep Papanicolaou smear with manual screening 9 5-15 [facility] Work Phone: Absolute lymphocyte counton 08-13-2021 Lymphocytes Auto (Unsp spec) [#/Vol] 0.78 10*3/uL 0.83-4.51 [facility] Work Phone: Basophil percentageon 2021 Basophils/100 WBC (Bld) 0.5 % 0-1 [facility] Work Phone: Bilirubin [Mass/Vol] 0.20 mg/dL 0.20-1.00 [facility] Work Phone: Comment on above: For patients on eltr ombopag therapy, use of Dimension [place] TBIL is not recommended. Chloride [Moles/Vol] 103 mmol/L 98-107 [facility] Work Phone: Eosinophils/100 WBC (Bld) 3.8 % 0-5 [facility] Work Phone: Glucose [Mass/Vol] 103 mg/dL 74-106 [facility] Work Phone: Comment on above: Fasting Glucose resu lt from 100 to 125 mg/dL suggests IMPAIRED HOMEOSTASIS per A.D.A. criteria. Neutrophils (Bld) [#/Vol] 4.2 10*3/uL 2.0-7.7 [facility] Work Phone: Neutrophils/100 WBC (Bld) 73.7 % 47-70 [facility] Work Phone: Potassium [Moles/Vol] 3.9 mmol/L 3.5-5.1 [facility] Work Phone: Protein [Mass/Vol] 7.0 g/dL 6.4-8.2 [facility] Work Phone: Sodium [Moles/Vol] 137 mmol/L 136-145 [facility] Work Phone: WBC (Bld) [#/Vol] 5.7 10*3/uL 4.4-11.0 [facility] Work Phone: Blood erythrocytes count (nu mber/volume)on 08-13-2021 RBC (Bld) [#/Vol] 4.80 10*6/uL 4.2-5.4 [facility]: Blood hemoglobin measurement (mass/volume)on 08-13-2021 Hemoglobin (Bld) [Mass/Vol] 13.7 g/dL 12.0-15.0 [facility] Work Phone: Blood lymphocytes/100 leukoc yteson 08-13-2021 Lymphocytes/100 WBC (Bld) 13.6 % 19-41 [facility] Work Phone: Blood monocytes/100 leukocyt eson 08-13-2021 Monocytes/100 WBC (Bld) 8.2 % 0-10 [facility] Work Phone: Blood platelet mean volumeon 08-13-2021 Platelet mean volume (Bld) [Entitic vol] 10.1 fL 6.2-12.0 [facility] Work Phone: Determination of erythrocyte mean corpuscular volume (MCV)on 08-13-2021 MCV (RBC) [Entitic vol] 89.0 fL 81-99 [facility] Work Phone: Hematocrit Auto (Bld) [Volum e fraction]on 08-13-2021 Hematocrit (Bld) [Volume fraction] 42.7 % 37-47 [facility] Work Phone: Laboratory - Chemistry and C hemistry - challengeon 08-13-2021 ALP [Catalytic activity/Vol] 74 U/L 45-117 [facility] Work Phone: ALT [Catalytic activity/Vol] 51 U/L 13-56 [facility] Work Phone: CK [Catalytic activity/Vol] 548 U/L 26-192 [facility] Work Phone: CO2 [Moles/Vol] 30.0 mmol/L 21.0-32.0 [facility] Work Phone: [phone] Globulin (S) [Mass/Vol] 3.6 g/dL 2.2-4.2 [facility] Work Phone: [phone] Urea nitrogen/Creatinine [Mass ratio] 30.8 mg/mg 10-20 [facility] Work Phone: [phone] Laboratory - Hematology and Cell countson 08-13-2021 Erythrocyte distribution width (RBC) [Entitic vol] 46.1 fL 35.1-43.9 [facility] Work Phone: [phone] Erythrocyte distribution width (RBC) [Ratio] 14.0 % 11.6-14.6 [facility] Work Phone: Immature granulocytes/100 WBC (Bld) 0.200 % 0.0-0.9 [facility] Work Phone: [phone] Comment on above: IG% - Immature Granu locytes (promyelocytes, myelocytes and metamyelocytes) > 1% indicates that a LEFT SHIFT is Present. MCH (RBC) [Entitic mass] 28.5 pg 27.0-32.0 [facility] Work Phone: Nucleated RBC/100 WBC (Bld) [Ratio] 0 % 0-5 [facility] Work Phone: [phone] MCHC Auto (RBC) [Mass/Vol]on 08-13-2021 MCHC (RBC) [Mass/Vol] 32.1 g/dL 32-36 [facility] Work Phone: No Panel Informationon 08-13 Estimated GFR (MDRD) Amer 82 mL/min >60 [facility] Work Phone: Comment on above: GFR Calc Estimated GFR (MDRD) Non-Af Amer 67 mL/min >60 [facility] Work Phone: [phone] Comment on above: Non- GFR Calc Platelets bldon 2022 Platelets (Bld) [#/Vol] 245 10*3/uL 150-450 [facility] Work Phone: [phone] Serum or plasma albumin radha urement (mass/volume)on 08-13-2021 Albumin [Mass/Vol] 3.4 g/dL 3.2-5.0 [facility] Work Phone: [phone] Serum or plasma albumin/glob ulin mass ratioon 08-13-2021 Albumin/Globulin [Mass ratio] 0.9 {ratio} 0.9-2.4 [facility] Work Phone: [phone] Serum or plasma calcium radha urement (mass/volume)on 08-13-2021 Calcium [Mass/Vol] 9.2 mg/dL 8.5-10.1 [facility] Work Phone: [phone] Serum or plasma creatinine m easurement (mass/volume)on 08-13-2021 Creatinine [Mass/Vol] 0.91 mg/dL 0.55-1.02 [facility] Work Phone: [phone] Comment on above: The validity of the calculated GFR & GFRAA in patients over 70 years has not been determined. Clinical correlation is essential. Serum or plasma urea nitroge n measurement (mass/volume)on 08-13-2021 Urea nitrogen [Mass/Vol] 28 mg/dL 7-18 [facility] Work Phone: [phone] Thin prep Papanicolaou smear with manual screeningon 08-13-2021 Thin prep Papanicolaou smear with manual screening 45 U/L 15-37 [facility] Work Phone: [phone] Thin prep Papanicolaou smear with manual screening 4 5-15 [facility] Work Phone: [phone] Qualitative QuantiFERON-TB g old in tube teston 05-27-2021 M. tuberculosis tuberculin stim IFN-g Ql (Bld) 0 IU/mL [facility] Work Phone: [phone] Thin prep Papanicolaou smear with manual screeningon 05-27-2021 Thin prep Papanicolaou smear with manual screening Comment [facility] Work Phone: [phone] Comment on above: The QuantiFERON-TB G old Plus result is determined bysubtracting the Nil value from either TB antigen (Ag) tube.The mitogen tube serves as a control for the test. Thin prep Papanicolaou smear with manual screening 0 IU/mL [facility] Work Phone: Thin prep Papanicolaou smear with manual screening > 10.00 IU/mL [facility] Work Phone: Thin prep Papanicolaou smear with manual screening Negative Negative [facility] Work Phone: Comment on above: The specimen receive d for QuantiFERON testing was incubatedby the ordering institution. Specific procedures outlinedin our Directory of Services and in the package insert forthe QuantiFERON Gold (In Tube) test must be followed toenable for proper stimulation of cells for the productionof interferon gamma. Chemiluminescence immunoassaymethodologyPerformed at: [facility] [id number] [place] [id number] Director: Abdulaziz Meek PhD, Phone: [phone] Aldolase ser/plason 05-15-19 Aldolase [Catalytic activity/Vol] 7.5 mU/mL [facility] Work Phone: Comment on above: Performed at: [facility] [address] [id number] Director: Abdulaziz Meek PhD, Phone: [phone] Basophil percentageon 2021 Bilirubin [Mass/Vol] 0.30 mg/dL 0.20-1.00 [facility] Work Phone: Comment on above: For patients on eltr ombopag therapy, use of Dimension [place] TBIL is not recommended. Chloride [Moles/Vol] 102 mmol/L 98-107 [facility] Work Phone: Glucose [Mass/Vol] 90 mg/dL 74-106 [facility] Work Phone: Comment on above: Please note revised GLUCOSE reference range effective 2017. Potassium [Moles/Vol] 3.9 mmol/L 3.5-5.1 [facility] Work Phone: Protein [Mass/Vol] 7.5 g/dL 6.4-8.2 [facility] Work Phone: Sodium [Moles/Vol] 138 mmol/L 136-145 [facility] Work Phone: Laboratory - Chemistry and C hemistry - challengeon 05-15-2021 ALP [Catalytic activity/Vol] 95 U/L 45-117 [facility] Work Phone: ALT [Catalytic activity/Vol] 56 U/L 13-56 [facility] Work Phone: CK [Catalytic activity/Vol] 445 U/L 26-192 [facility] Work Phone: CO2 [Moles/Vol] 29.0 mmol/L 21.0-32.0 [facility] Work Phone: [phone] Globulin (S) [Mass/Vol] 3.9 g/dL 2.2-4.2 [facility] Work Phone: Urea nitrogen/Creatinine [Mass ratio] 22.6 mg/mg 10-20 [facility] Work Phone: No Panel Informationon 05-15 Estimated GFR (MDRD) Amer 95 mL/min >60 [facility] Work Phone: Comment on above: GFR Calc Estimated GFR (MDRD) Non-Af Amer 79 mL/min >60 [facility] Work Phone: Comment on above: Non- GFR Calc Serum or plasma albumin radha urement (mass/volume)on 05-15-2021 Albumin [Mass/Vol] 3.6 g/dL 3.2-5.0 [facility] Work Phone: [phone] Serum or plasma albumin/glob ulin mass ratioon 05-15-2021 Albumin/Globulin [Mass ratio] 0.9 {ratio} 0.9-2.4 [facility] Work Phone: Serum or plasma calcium radha urement (mass/volume)on 05-15-2021 Calcium [Mass/Vol] 9.3 mg/dL 8.5-10.1 [facility] Work Phone: Serum or plasma creatinine m easurement (mass/volume)on 05-15-2021 Creatinine [Mass/Vol] 0.80 mg/dL 0.55-1.02 [facility] Work Phone: Comment on above: The validity of the calculated GFR & GFRAA in patients over 70 years has not been determined. Clinical correlation is essential. Serum or plasma urea nitroge n measurement (mass/volume)on 05-15-2021 Urea nitrogen [Mass/Vol] 18 mg/dL 7-18 [facility] Work Phone: Thin prep Papanicolaou smear with manual screeningon 05-15-2021 Thin prep Papanicolaou smear with manual screening 43 U/L 15-37 [facility] Work Phone: Thin prep Papanicolaou smear with manual screening 7 5-15 [facility] Work Phone: URINE CULTUREon 04-11-2021 Bacteria identified Cx Nom (U) URINE RESULT 20-30,000 COL/ML MIXED RADHA-PLEASE REPEAT-POSSIBLE [facility]AMIN [facility]: Order Comment: Liya s: DEEJAY DIPSTICKon 04-10-2021 POC APPEARANCE CLEAR Normal CLEAR [facility] Comment on above: Order Comment: Jose Martinu s: MAS POC BILIRUBIN Negative Normal NEGATIVE [facility] Comment on above: Order Comment: Jose Martinu s: MAS POC BLOOD 200 Normal NEGATIVE [facility] Comment on above: Order Comment: Jose Martinu s: MAS POC COLOR STRAW Normal [facility] Comment on above: Order Comment: Jose Martinu s: MAS POC KETONE Negative Normal NEGATIVE [facility] Comment on above: Order Comment: Jose Martinu s: MAS POC LEUK EST 125 CRYSTAL/uL [facility]: Order Comment: Jose Martinu s: MAS POC NITRITE Negative Normal NEGATIVE [facility] Comment on above: Order Comment: Jose Martinu s: MAS POC PROTEIN Negative [facility] above: Order Comment: Jose Martinu s: MAS POC SPEC GRAV 1.015 Normal 1.005-1.03 0 [facility] Comment on above: Order Comment: Liya pearson: DEEJAY POC UA GLUCOSE NORMAL Normal NORMAL [facility] Comment on above: Order Comment: Liya pearson: DEEJAY POC UA PH 6.5 Normal 5-6 [facility] Comment on above: Order Comment: Liya pearson: DEEJAY POC UROBIL NORMAL Normal NORMAL [facility] Comment on above: Order Comment: Liya pearson: DEEJAY PICHARDOon 04-10-2021 [facility] REPORT This is a preliminary report only, as the practitioner review and authentication has not occurred. Normal [facility] DATE OF SERVICE: 04/10/2021 REASON FOR VISIT: [...] benign. TESTS: Urine dip stick was significantly blood. ASSESSMENT: Urinary tract infection. PLAN: Clinical [...] Patient understands and agrees. Beulah Christensen MD [id number] [facility] File#: [id number] [facility] PATIENT NAME: AICHA MATTSON [address] [place] MEDICAL REC #: [id number] [place] [address] [facility] REPORT [facility] PHYSICIAN Normal [facility] Clinical Summary: HMSPatient IDon 11-22-2017 SOP Invalid Interpretation Code [facility] Work Phone: Clinical Summary: Scanned Hi story Summaryon 11-22-2017 adl form etoh alcohol performance Wine Invalid Interpretation Code [facility] Work Phone: consumes three or more drinks of alcohol (beer, wine, liquor) daily or almost daily less than 1 drink per day Invalid Interpretation Code [facility] Work Phone: Data entered by patient exercise frequency 5 days per week Invalid Interpretation Code [facility] Work Phone: Data entered by patient exercise type walking Invalid Interpretation Code [facility] Work Phone: data entered by patient, alcohol (ethanol or ETOH) use Yes Invalid Interpretation Code [facility] Work Phone: data entered by patient, drug (of abuse) use No Invalid Interpretation Code [facility] Work Phone: data entered by patient, Employer Name Employed Invalid Interpretation Code [facility] Work Phone: data entered by patient, exercise history Yes Invalid Interpretation Code [facility] Work Phone: Data entered by patient, history of past surgeries Gallbladder surgery Invalid Interpretation Code [facility] Work Phone: data entered by patient, past medical history Skin infectionsArthritis Invalid Interpretation Code [facility] Work Phone: data entered by patient, social history, marital status Invalid Interpretation Code [facility] Work Phone: father of patient is alive or Alive Invalid Interpretation Code [facility] Work Phone: Housing Type: apartment, house, penitentiary, trailer, none House Invalid Interpretation Code [facility] Work Phone: housing unit size (asthma environmental history, housing) (from single family to don't know) 2 Floors Invalid Interpretation Code [facility] Work Phone: mother of patient is alive or Alive Invalid Interpretation Code [facility] Work Phone: Number of dependent children No Invalid Interpretation Code [facility] Work Phone: Clinical Summary: Nathan Pearson Summaryon 11-22-2017 endocrine ROS Denies Invalid Interpretation Code [facility] Work Phone: genitourinary review of systems, E&M Denies Invalid Interpretation Code [facility] Work Phone: Lymphocytes Denies Invalid Interpretation Code [facility] Work Phone: Review of Systems Neurologic comment Numbness,Weakness Invalid Interpretation Code [facility] Work Phone: ROS cardiovascular E&M Denies Invalid Interpretation Code [facility] Work Phone: ROS ENT E&M Denies Invalid Interpretation Code [facility] Work Phone: ROS gastrointestinal E&M Denies Invalid Interpretation Code [facility] Work Phone: ROS general E&M Denies Invalid Interpretation Code [facility] Work Phone: ROS Musculoskeletal comments Joint Swelling,Muscle Weakness,Joint Pain,Stiffness,Arthritis Invalid Interpretation Code [facility] Work Phone: ROS musculoskeletal E&M Complains Invalid Interpretation Code [facility] Work Phone: ROS neurological E&M Complains Invalid Interpretation Code [facility] Work Phone: ROS psychiatric E&M Denies Invalid Interpretation Code [facility] Work Phone: ROS pulmonary E&M Denies Invalid Interpretation Code [facility] Work Phone: ROS skin E&M Denies Invalid Interpretation Code [facility] Work Phone: Office Visit: New - 1st visi t with practice, Rm:on 11-22-2017 NEGATED: Highlighted rowDocumentation of current medications (procedure) Done Invalid Interpretation Code [facility] Work Phone: NEGATED: Highlighted rowTobacco smoking status NHIS Tobacco smoking status NHIS Invalid Interpretation Code [facility] Work Phone: Vital Signs Date Time Vital Sign Value Performing Clinician Facility 05-23-2024 12:38-0500 Body height 172.72 cm Ml Lo NP-C Work Phone: [facility] 05-23-2024 12:38-0500 Body mass index (BMI) [Ratio] 35.1 kg/m2 Ml Lo NP-C Work Phone: [facility] 05-23-2024 12:38-0500 Body temperature 98.4 [degF] Ml Lo NP-C Work Phone: [facility] 05-23-2024 12:38-0500 Body weight 104.77 kg Ml Lo NP-C Work Phone: [facility] 05-23-2024 12:38-0500 Diastolic blood pressure 90 mm[Hg] Ml Lo [employer]-C Work Phone: [facility] 05-23-2024 12:38-0500 Heart rate 71 /min Ml Lo [employer] Work Phone: [facility] 05-23-2024 12:38-0500 SaO2% (BldA) [Mass fraction] 99 % Ml Lo [employer] Work Phone: [facility] 05-23-2024 12:38-0500 Systolic blood pressure 130 mm[Hg] Ml Lo [employer] Work Phone: [facility] 05-18-2024 15:50-0500 Body mass index (BMI) [Ratio] 35.1 kg/m2 Ml Lo [employer] Work Phone: [facility] 05-18-2024 15:50-0500 Body temperature 98.1 [degF] Ml Lo [employer] Work Phone: [facility] 05-18-2024 15:50-0500 Body weight 104.83 kg Ml Lo [employer] Work Phone: [facility] 05-18-2024 15:50-0500 Diastolic blood pressure 80 mm[Hg] Ml Lo [employer] Work Phone: [facility] 05-18-2024 15:50-0500 Heart rate 83 /min Ml Lo [employer] Work Phone: [facility] 05-18-2024 15:50-0500 SaO2% (BldA) [Mass fraction] 99 % Ml Lo [employer] Work Phone: [facility] 05-18-2024 15:50-0500 Systolic blood pressure 122 mm[Hg] Ml Lo [employer] Work Phone: [facility] 04-21-2024 15:49-0500 Body temperature 98.4 [degF] Ml Lo [employer] Work Phone: [facility] 04-21-2024 15:49-0500 Diastolic blood pressure 74 mm[Hg] Ml Linaressey [employer] Work Phone: [facility] 04-21-2024 15:49-0500 Heart rate 75 /min Ml Linaressey [employer] Work Phone: [facility] 04-21-2024 15:49-0500 Respiratory rate 16 /min Ml Lo [employer] Work Phone: [facility] 04-21-2024 15:49-0500 SaO2% (BldA) [Mass fraction] 98 % Ml Linaressey [employer] Work Phone: [facility] 04-21-2024 15:49-0500 Systolic blood pressure 106 mm[Hg] Ml Linaressey [employer] Work Phone: [facility] 10-13-2023 14:57-0400 Blood Pressure Cuff Size BRANDO BURNETT MD [facility] 10-13-2023 14:57-0400 Blood Pressure Location BRANDO BURNETT MD [facility] 10-13-2023 14:57-0400 Blood Pressure Method BRANDO BURNETT MD [facility] 10-13-2023 14:57-0400 Body temperature 98.24 [degF] BRANDO BURNETT MD [facility] 10-13-2023 14:57-0400 Diastolic Blood Pressure Non-Invasive 81 mm[Hg] BRANDO BURNETT MD [facility] 10-13-2023 14:57-0400 Heart rate 62 /min BRANDO BURNETT MD [facility] 10-13-2023 14:57-0400 Reason For Taking VItal Signs BRANDO BURNETT MD [facility] 10-13-2023 14:57-0400 Respiratory rate 16 /min BRANDO BURNETT MD [facility] 10-13-2023 14:57-0400 Systolic Blood Pressure Non-Invasive 129 mm[Hg] BRANDO BURNETT MD [facility] 10-13-2023 06:57-0400 Blood Pressure Cuff Size BRANDO BURNETT MD [facility] 10-13-2023 06:57-0400 Blood Pressure Location BRANDO BURNETT MD [facility] 10-13-2023 06:57-0400 Blood Pressure Method BRANDO BURNETT MD [facility] 10-13-2023 06:57-0400 Body temperature 98.06 [degF] BRANDO BURNETT MD [facility] 10-13-2023 06:57-0400 Diastolic Blood Pressure Non-Invasive 83 mm[Hg] BRANDO BURNETT MD [facility] 10-13-2023 06:57-0400 Heart rate 70 /min BRANDO BURNETT MD [facility] 10-13-2023 06:57-0400 Reason For Taking VItal Signs BRANDO BURNETT MD [facility] 10-13-2023 06:57-0400 Respiratory rate 12 /min BRANDO BURNETT MD [facility] 10-13-2023 06:57-0400 Systolic Blood Pressure Non-Invasive 126 mm[Hg] BRANDO BURNETT MD [facility] 10-13-2023 03:52-0400 Body temperature 98.06 [degF] BRANDO BURNETT MD [facility] 10-13-2023 03:52-0400 Diastolic Blood Pressure Non-Invasive 76 mm[Hg] BRANDO BURNETT MD [facility] 10-13-2023 03:52-0400 Heart rate 71 /min BRANDO BURNETT MD [facility] 10-13-2023 03:52-0400 Reason For Taking VItal Signs BRANDO BURNETT MD [facility] 10-13-2023 03:52-0400 Respiratory rate 16 /min BRANDO BURNETT MD [facility] 10-13-2023 03:52-0400 Systolic Blood Pressure Non-Invasive 116 mm[Hg] BRNADO BURNETT MD [facility] 10-12-2023 21:39-0400 Body temperature 97.7 [degF] BRANDO BURNETT MD [facility] 10-12-2023 17:12-0400 Body height 172.7 cm BRANDO BURNETT MD [facility] 10-12-2023 17:12-0400 Body weight 99.3 kg BRANDO BURNETT MD [facility] 10-12-2023 17:12-0400 Body weight 33.29 kg/m2 BRANDO BURNETT MD [facility] 10-12-2023 16:17-0400 Body temperature 96.98 [degF] BRANDO BURNETT MD [facility] 10-12-2023 16:17-0400 Heart rate 80 /min BRANDO BURNETT MD [facility] 10-12-2023 16:17-0400 Mean blood pressure 101 mm[Hg] BRANDO BURNETT MD [facility] 10-12-2023 16:02-0400 Heart rate 71 /min BRANDO BURNETT MD [facility] 10-12-2023 16:02-0400 Mean blood pressure 97 mm[Hg] BRANDO BURNETT MD [facility] 10-12-2023 15:47-0400 Body temperature 96.8 [degF] BRANDO BURNETT MD [facility] 10-12-2023 15:47-0400 Heart rate 70 /min BRANDO BURNETT MD [facility] 10-12-2023 15:40-0400 Respiratory Rate - Anes 21 br/min BRANDO BURNETT MD [facility] 10-12-2023 15:35-0400 Body temperature 97.32 [degF] BRANDO BURNETT MD [facility] 10-12-2023 15:35-0400 Respiratory Rate - Anes 11 br/min BRANDO BURNETT MD [facility] 10-12-2023 15:30-0400 Body temperature 97.29 [degF] BRANDO BURNETT MD [facility] 10-12-2023 15:30-0400 Respiratory Rate - Anes 14 br/min BRANDO BURNETT MD [facility] 10-12-2023 15:25-0400 Body temperature 97.25 [degF] BRANDO BURNETT MD [facility] 10-12-2023 11:49-0400 Body height 172.7 cm BRANDO BURNETT MD [facility] 10-12-2023 11:49-0400 Body temperature 96.44 [degF] BRANDO BURNETT MD [facility] 10-12-2023 11:49-0400 Body weight 99.3 kg BRANDO BURNETT MD [facility] 10-12-2023 11:49-0400 Heart rate 82 /min BRANDO BURNETT MD [facility] 10-06-2023 15:33-0400 Blood Pressure Cuff Size BRANDO BURNETT MD [facility] 10-06-2023 15:33-0400 Blood Pressure Location BRANDO BURNETT MD [facility] 10-06-2023 15:33-0400 Blood Pressure Method BRANDO BURNETT MD [facility] 10-06-2023 15:33-0400 Body height 173 cm BRANDO BURNETT MD [facility] 10-06-2023 15:33-0400 Body temperature 96.98 [degF] BRANDO BURNETT MD [facility] 10-06-2023 15:33-0400 Body weight 102.5 kg BRANDO BURNETT MD [facility] 10-06-2023 15:33-0400 Body weight 34.25 kg/m2 BRANDO BURNETT MD [facility] 10-06-2023 15:33-0400 Diastolic Blood Pressure Non-Invasive 85 mm[Hg] BRANDO BURNETT MD [facility] 10-06-2023 15:33-0400 Heart rate 93 /min BRANDO BURNETT MD [facility] 10-06-2023 15:33-0400 Systolic Blood Pressure Non-Invasive 155 mm[Hg] BRANDO BURNETT MD [facility] 06-20-2023 13:02-0500 Body temperature 98.3 [degF] No Primary Care Physician [facility] 06-20-2023 13:02-0500 Diastolic blood pressure 84 mm[Hg] No Primary Care Physician [facility] 06-20-2023 13:02-0500 Heart rate 85 /min No Primary Care Physician [facility] 06-20-2023 13:02-0500 Respiratory rate 12 /min No Primary Care Physician [facility] 06-20-2023 13:02-0500 SaO2% (BldA) [Mass fraction] 97 % No Primary Care Physician [facility] 06-20-2023 13:02-0500 Systolic blood pressure 140 mm[Hg] No Primary Care Physician [facility] 06-20-2023 12:07-0500 Body height 172.72 cm No Primary Care Physician [facility] 06-01-2023 16:29-0500 Body mass index (BMI) [Ratio] 33.9 kg/m2 No Primary Care Physician [facility] 06-01-2023 16:29-0500 Body temperature 98.2 [degF] No [facility] Care Physician [facility] [facility] 16:29-0500 Body weight 101.15 kg No Primary Care Physician [facility] 06-01-2023 16:29-0500 Diastolic blood pressure 80 mm[Hg] No Primary Care Physician [facility] 06-01-2023 16:29-0500 Heart rate 106 /min No Primary Care Physician [facility] 06-01-2023 16:29-0500 Respiratory rate 12 /min No Primary Care Physician [facility] 06-01-2023 16:29-0500 SaO2% (BldA) [Mass fraction] 96 % No Primary Care Physician [facility] 06-01-2023 16:29-0500 Systolic blood pressure 128 mm[Hg] No Primary Care Physician [facility] 03-06-2022 08:19-0400 Body height 172.72 cm [employer] Lay Landeros [employer] Work Phone: [facility] 03-06-2022 08:19-0400 Body mass index (BMI) [Ratio] 34.9 kg/m2 [employer] Lay Landeros [employer] Work Phone: [facility] 03-06-2022 08:19-0400 Body temperature 98.2 [degF] [employer] Lay Landeros [employer] Work Phone: [facility] 03-06-2022 08:19-0400 Body weight 104.32 kg [employer] Lay Landeros [employer] Work Phone: [facility] 03-06-2022 08:19-0400 Diastolic blood pressure 89 mm[Hg] [employer] Lay Landeros [employer] Work Phone: [facility] 03-06-2022 08:19-0400 Heart rate 72 /min [employer] Lay Landeros [employer] Work Phone: [facility] 03-06-2022 08:19-0400 Respiratory rate 16 /min [employer] Lay Seffens [employer] Work Phone: [facility] 03-06-2022 08:19-0400 SaO2% (BldA) [Mass fraction] 97 % [employer] Lay Seffens [employer] Work Phone: [facility] 03-06-2022 08:19-0400 Systolic blood pressure 143 mm[Hg] [employer] Lay Seffens [employer] Work Phone: [facility] 03-05-2022 08:16-0400 Body mass index (BMI) [Ratio] 34.9 kg/m2 [employer] Lay Seffens [employer] Work Phone: [facility] 03-05-2022 08:16-0400 Body temperature 97.2 [degF] [employer] Lay Seffens [employer] Work Phone: [facility] 03-05-2022 08:16-0400 Body weight 104.32 kg [employer] Lay Seffens [employer] Work Phone: [facility] 03-05-2022 08:16-0400 Diastolic blood pressure 85 mm[Hg] [employer] Lay Seffens [employer] Work Phone: [facility] 03-05-2022 08:16-0400 Heart rate 77 /min [employer] Lay Seffens [employer] Work Phone: [facility] 03-05-2022 08:16-0400 Respiratory rate 16 /min [employer] Lay Seffens [employer] Work Phone: [facility] 03-05-2022 08:16-0400 SaO2% (BldA) [Mass fraction] 100 % [employer] Lay Seffens [employer] Work Phone: [facility] 03-05-2022 08:16-0400 Systolic blood pressure 145 mm[Hg] [employer] Lay Seffens [employer] Work Phone: [facility] 02-04-2022 08:37-0400 Body height 172.72 cm [employer] Lay Seffens [employer] Work Phone: [facility] Work Phone: 02-04-2022 08:37-0400 Body mass index (BMI) [Ratio] 34.2 kg/m2 [employer] Lay Seffens [employer] Work Phone: [facility] Work Phone: 02-04-2022 08:37-0400 Body temperature 97.5 [degF] [employer] Lay Seffens [employer] Work Phone: [facility] Work Phone: 02-04-2022 08:37-0400 Body weight 102.05 kg [employer] Lay Seffens [employer] Work Phone: [facility] Work Phone: 02-04-2022 08:37-0400 Diastolic blood pressure 92 mm[Hg] [employer] Lay Seffens [employer] Work Phone: [facility] Work Phone: 02-04-2022 08:37-0400 Heart rate 76 /min [employer] Lay Seffens [employer] Work Phone: [facility] Work Phone: 02-04-2022 08:37-0400 Respiratory rate 16 /min [employer] Lay Seffens [employer] Work Phone: [facility] Work Phone: 02-04-2022 08:37-0400 SaO2% (BldA) [Mass fraction] 96 % [employer] Lay Seffens [employer] Work Phone: [facility] Work Phone: 02-04-2022 08:37-0400 Systolic blood pressure 152 mm[Hg] [employer] Lay Seffens [employer] Work Phone: [facility] Work Phone: 02-03-2022 08:14-0400 Body mass index (BMI) [Ratio] 36 kg/m2 [employer] Lay Seffens [employer] Work Phone: [facility] Work Phone: 02-03-2022 08:14-0400 Body temperature 96.4 [degF] [employer] Lay Seffens [employer] Work Phone: [facility] Work Phone: 02-03-2022 08:14-0400 Body weight 107.5 kg [employer] Lay Seffens [employer] Work Phone: [facility] Work Phone: 02-03-2022 08:14-0400 Diastolic blood pressure 82 mm[Hg] [employer] Lay Seffens [employer] Work Phone: [facility] Work Phone: 02-03-2022 08:14-0400 Heart rate 88 /min [employer] Lay Seffens [employer] Work Phone: [facility] Work Phone: 02-03-2022 08:14-0400 Respiratory rate 16 /min [employer] Lay Seffens [employer] Work Phone: [facility] Work Phone: 02-03-2022 08:14-0400 SaO2% (BldA) [Mass fraction] 97 % [employer] Lay Seffens [employer] Work Phone: [facility] Work Phone: 02-03-2022 08:14-0400 Systolic blood pressure 166 mm[Hg] [employer] Lay Seffens [employer] Work Phone: [facility] Work Phone: 01-07-2022 08:14-0400 Body height 172.72 cm [employer] Lay Seffens [employer] Work Phone: [facility] Work Phone: 01-07-2022 08:14-0400 Body mass index (BMI) [Ratio] 34.9 kg/m2 [employer] Lay Seffens [employer] Work Phone: [facility] Work Phone: 01-07-2022 08:14-0400 Body temperature 97.1 [degF] [employer] Lay Seffens [employer] Work Phone: [facility] Work Phone: 01-07-2022 08:14-0400 Body weight 104.32 kg [employer] Lay Seffens [employer] Work Phone: [facility] Work Phone: 01-07-2022 08:14-0400 Diastolic blood pressure 83 mm[Hg] [employer] Lay Seffens [employer] Work Phone: [facility] Work Phone: 01-07-2022 08:14-0400 Heart rate 77 /min [employer] Lay Seffens [employer] Work Phone: [facility] Work Phone: 01-07-2022 08:14-0400 Respiratory rate 16 /min [employer] Lay Seffens [employer] Work Phone: [facility] Work Phone: 01-07-2022 08:14-0400 SaO2% (BldA) [Mass fraction] 98 % [employer] Lay Seffens [employer] Work Phone: [facility] Work Phone: 01-07-2022 08:14-0400 Systolic blood pressure 150 mm[Hg] [employer] Lay Seffens [employer] Work Phone: [facility] Work Phone: 01-06-2022 08:30-0400 Body mass index (BMI) [Ratio] 35.1 kg/m2 [employer] Lay Seffens [employer] Work Phone: [facility] Work Phone: 01-06-2022 08:30-0400 Body temperature 97.6 [degF] [employer] Lay Seffens [employer] Work Phone: [facility] Work Phone: 01-06-2022 08:30-0400 Diastolic blood pressure 92 mm[Hg] [employer] Lay Seffens [employer] Work Phone: [facility] Work Phone: 01-06-2022 08:30-0400 Heart rate 78 /min [employer] Lay Seffens [employer] Work Phone: [facility] Work Phone: 01-06-2022 08:30-0400 SaO2% (BldA) [Mass fraction] 98 % [employer] Lay Seffens [employer] Work Phone: [facility] Work Phone: 01-06-2022 08:30-0400 Systolic blood pressure 155 mm[Hg] [employer] Lay Seffens [employer] Work Phone: [facility] Work Phone: 01-06-2022 08:06-0400 Body weight 104.78 kg [employer] Lay Seffens [employer] Work Phone: [facility] Work Phone: 12-16-2021 09:34-0400 Body temperature 98.1 [degF] [employer] Lay Seffens [employer] Work Phone: [facility] Work Phone: 12-16-2021 09:34-0400 Diastolic blood pressure 81 mm[Hg] [employer] Lay Seffens [employer] Work Phone: [facility] Work Phone: 12-16-2021 09:34-0400 Heart rate 69 /min [employer] Lay Seffens [employer] Work Phone: [facility] Work Phone: 12-16-2021 09:34-0400 Respiratory rate 18 /min [employer] Lay Christianns [employer] Work Phone: [facility] Work Phone: 12-16-2021 09:34-0400 SaO2% (BldA) [Mass fraction] 98 % [employer] Lay Christianns [employer] Work Phone: [facility] Work Phone: 12-16-2021 09:34-0400 Systolic blood pressure 148 mm[Hg] [employer] Lay Christianns [employer] Work Phone: [facility] Work Phone: 12-16-2021 06:36-0400 Body height 172.72 cm [employer] Lay Christianns [employer] Work Phone: [facility] Work Phone: 12-16-2021 06:36-0400 Body mass index (BMI) [Ratio] 34.7 kg/m2 [employer] Lay Secheyennens [employer] Work Phone: [facility] Work Phone: 12-16-2021 06:36-0400 Body weight 103.8 kg [employer] Lay Christianns [employer] Work Phone: [facility] Work Phone: 12-09-2021 08:25-0400 Body mass index (BMI) [Ratio] 34.8 kg/m2 [employer] Lay Secheyennens [employer] Work Phone: [facility] Work Phone: 12-09-2021 08:25-0400 Body temperature 98.2 [degF] [employer] Lay Christianns [employer] Work Phone: [facility] Work Phone: 12-09-2021 08:25-0400 Body weight 103.87 kg [employer] Lay Seffens [employer] Work Phone: [facility] Work Phone: 12-09-2021 08:25-0400 Diastolic blood pressure 98 mm[Hg] [employer] Lay Seffens [employer] Work Phone: [facility] Work Phone: 12-09-2021 08:25-0400 Heart rate 85 /min [employer] Lay Seffens [employer] Work Phone: [facility] Work Phone: 12-09-2021 08:25-0400 Respiratory rate 16 /min [employer] Lay Seffens [employer] Work Phone: [facility] Work Phone: 12-09-2021 08:25-0400 SaO2% (BldA) [Mass fraction] 98 % [employer] Lay Seffens [employer] Work Phone: [facility] Work Phone: 12-09-2021 08:25-0400 Systolic blood pressure 168 mm[Hg] [employer] Lay Seffens [employer] Work Phone: [facility] Work Phone: NEGATED: Highlighted [id number] 08:34-0400 BMI (Body Mass Index) 31.43 kg/m2 [facility] Work Phone: NEGATED: Highlighted [id number] 08:34-0400 BP Diastolic 82 mm[Hg] [facility] Work Phone: NEGATED: Highlighted [id number] 08:34-0400 BP Diastolic 88 mm[Hg] [facility] Work Phone: NEGATED: Highlighted [id number] 08:34-0400 BP Systolic 144 mm[Hg] [facility] Work Phone: NEGATED: Highlighted [id number] 08:34-0400 BP Systolic 136 mm[Hg] [facility] Work Phone: NEGATED: Highlighted [id number] 08:34-0400 Height 173.99 cm [facility] Work Phone: NEGATED: Highlighted [id number] 08:34-0400 Height 174 cm [facility] Work Phone: NEGATED: Highlighted [id number] 08:34-0400 Pulse (Heart Rate) 88 /min [facility] Work Phone: NEGATED: Highlighted [id number] 08:34-0400 Weight 94.8 kg [facility] Work Phone: NEGATED: Highlighted [id number] 08:34-0400 Weight 95 kg [facility] Work Phone: Encounters Encounter Date Encounter Type Care Provider Facility Start: 08-15-2024 End: 08-15-2024 ambulatory Ml Lo NP-C Work Phone: [facility] Work Phone: Start: 08-15-2024 End: 08-15-[address] Padmaja Hart MD -[facility], [place] Work Phone: Start: 08-15-2024 End: 08-15-2024 ambulatory Padmaja Hart Facility:[facility] Start: 05-23-2024 End: 05-23-2024 Patient encounter procedure Bryant DICKERSON -Laboratory, [facility] Work Phone: Start: 05-23-2024 End: 05-23-2024 Patient encounter procedure Bryant M Wyles [facility] Work Phone: Start: 05-23-2024 End: 05-23-2024 ambulatory Ml Lo [employer] Facility:[facility] Start: 05-23-2024 End: 05-23-2024 ambulatory Bryant Pavon PA Facility:[facility] Start: 05-18-2024 End: 05-18-2024 Patient encounter procedure Hilario Arriaga [facility] Work Phone: Start: 05-18-2024 End: 05-18-2024 ambulatory Ml Lo [employer] Facility:[facility] Start: 04-21-2024 End: 04-21-2024 Patient encounter procedure Hilario Arriaga [facility] Work Phone: Start: 04-21-2024 End: 04-21-2024 ambulatory Ml Lo [employer] Facility:[facility] Start: 02-08-2024 End: 02-08-2024 [facility] Start: 02-01-2024 End: 02-01-2024 ambulatory JASMYNE LUQUE MD Facility:A Start: 02-01-2024 End: 02-01-2024 Patient encounter procedure JASMYNE LUQUE MD [facility] Start: 01-17-2024 End: 01-17-2024 ambulatory ML LO RN [employer] AUTHOR[employer]ATION[employer] Facility:[facility] Start: 01-17-2024 End: 01-17-2024 Patient encounter procedure JASMYNE LUQUE MD [facility] Start: 01-06-2024 ambulatory JASMYNE COOPER MD Facility:[facility] Start: 12-03-2023 End: 12-07-2023 ambulatory BRANDO BURNETT MD Facility:[facility] Start: 11-22-2023 End: 11-22-2023 ambulatory Padmaja Hart Facility:[facility] Start: 10-26-2023 End: 10-26-2023 ambulatory JASMYNE LUQUE MD Facility:[facility] Start: 10-12-2023 End: 10-13-2023 ambulatory BRANDO BURNETT MD Facility:[facility] Start: 10-12-2023 End: 10-13-2023 Observation BRANDO BURNETT MD [facility] Start: 10-07-2023 ambulatory ML Ryan RN [employer] AUTHOR[employer]ATION[employer] Facility:[facility] Start: 10-06-2023 End: 10-06-2023 Admission to establishment BRANDO BURNETT MD [facility] Start: 10-06-2023 End: 10-06-2023 ambulatory BRANDO BURNETT MD Facility:[facility] Start: 09-07-2023 End: 09-07-2023 ambulatory BRANDO BURNETT MD Facility:[facility] Start: 08-23-2023 End: 08-23-2023 ambulatory No Primary Care Physician [facility] Work Phone: Start: 08-23-2023 End: 08-23-2023 Patient encounter procedure No Primary Care Physician [facility] Work Phone: Start: 08-23-2023 End: 08-23-2023 [facility] Start: 08-18-2023 End: 08-18-2023 ambulatory No Primary Care Physician [facility] Work Phone: Start: 08-18-2023 End: 08-18-2023 Patient encounter procedure No Primary Care Physician [facility] Work Phone: Start: 07-29-2023 End: 07-29-2023 ambulatory JASMYNE LUQUE MD Facility:[facility] Start: 07-14-2023 End: 07-14-2023 ambulatory JASMYNE LUQUE MD Facility:[facility] Start: 07-14-2023 End: 07-14-2023 Patient encounter procedure JASMYNE LUQUE MD [facility] Start: 07-13-2023 End: 07-13-2023 ambulatory JASMYNE LUQUE MD Facility:[facility] Start: 07-13-2023 End: 07-13-2023 Patient encounter procedure JASMYNE LUQUE MD [facility] Start: 07-01-2023 End: 07-01-2023 ambulatory ML LO RN PRIOR AUTHORIZATION[employer] Facility:[facility] Start: 06-26-2023 End: 06-26-2023 ambulatory ML LO RN [employer]IOR AUTHORIZATION[employer]PER[employer] Facility:[facility] Start: 06-26-2023 End: 06-26-2023 Patient encounter procedure ML LO RN PRIOR AUTHORIZATION[employer] SUPER[employer]OR [facility] Start: 06-25-2023 End: 06-25-2023 ambulatory ML LO RN PRIOR AUTHORIZATION[employer] SUPER[employer]OR Facility:[facility] Start: 06-25-2023 End: 06-25-2023 Patient encounter procedure ML LO RN PRIOR AUTHORIZATION[employer] SUPERVISOR [facility] Start: 06-20-2023 End: 06-20-2023 ambulatory No Primary Care Physician [facility] Work Phone: Start: 06-20-2023 End: 06-20-2023 Patient encounter procedure No Primary Care Physician [facility] Work Phone: Start: 06-20-2023 End: 06-20-2023 Patient encounter procedure No Primary Care Physician [facility] Work Phone: Start: 06-01-2023 End: 06-01-2023 Patient encounter procedure No Primary Care Physician [facility] Work Phone: Start: 05-17-2023 End: 05-17-2023 ambulatory [facility] Work Phone: Start: 05-17-2023 End: 05-17-2023 Patient encounter procedure [facility] [place] Work Phone: Start: 02-24-2023 End: 02-24-2023 ambulatory [facility] Work Phone: Start: 02-24-2023 End: 02-24-2023 Patient encounter procedure [facility] Work Phone: Start: 11-24-2022 End: 11-24-2022 ambulatory [facility] Work Phone: Start: 11-24-2022 End: 11-24-2022 Patient encounter procedure [facility] Work Phone: Start: 09-28-2022 End: 09-28-2022 ambulatory [facility] Work Phone: Start: 09-28-2022 End: 09-28-2022 Patient encounter procedure [facility] Start: 07-28-2022 End: 07-28-2022 ambulatory [facility] Work Phone: Start: 07-28-2022 End: 07-28-2022 Patient encounter procedure [facility] Start: 05-26-2022 End: 05-26-2022 ambulatory [facility] Work Phone: Start: 05-26-2022 End: 05-26-2022 Patient encounter procedure [facility] Start: 03-10-2022 End: 03-10-2022 Patient encounter procedure [facility] Start: 03-06-2022 End: 03-06-2022 ambulatory [employer] Lay Danilo [employer] Work Phone: [facility] Work Phone: Start: 03-06-2022 End: 03-06-2022 Patient encounter procedure [employer] Lay Christianns [employer] Work Phone: [facility] Start: 03-05-2022 End: 03-05-2022 ambulatory [employer] Lay Seffens [employer] Work Phone: [facility] Work Phone: Start: 03-05-2022 End: 03-05-2022 Patient encounter procedure [employer] Lay Seffens [employer] Work Phone: [facility] Start: 02-04-2022 End: 02-04-2022 ambulatory [employer] Lay Seffens [employer] Work Phone: [facility] Work Phone: Start: 02-04-2022 End: 02-04-2022 Patient encounter procedure [employer] Lay Seffens [employer] Work Phone: [facility] Start: 02-03-2022 End: 02-03-2022 ambulatory [employer] Lay Seffens [employer] Work Phone: [facility] Work Phone: Start: 02-03-2022 End: 02-03-2022 Patient encounter procedure [employer] Lay Seffens [employer] Work Phone: [facility] Start: 01-09-2022 End: 01-09-2022 Patient encounter procedure [employer] Lay Seffens [employer] Work Phone: [facility] Start: 01-07-2022 End: 01-07-2022 ambulatory [employer] Lay Seffens [employer] Work Phone: [facility] Work Phone: Start: 01-07-2022 End: 01-07-2022 Patient encounter procedure [employer] Lay Seffens [employer] Work Phone: [facility] Start: 01-06-2022 End: 01-06-2022 ambulatory [employer] Lay Seffens [employer] Work Phone: [facility] Work Phone: Start: 01-06-2022 End: 01-06-2022 Patient encounter procedure [employer] Lay Seffens [employer] [facility] Start: 12-31-2021 End: 12-31-2021 Patient encounter procedure [employer]-Alysha Landeros [employer] Work Phone: [facility] Start: 12-26-2021 End: 12-26-2021 Patient encounter procedure [employer] Lay Landeros [employer] Work Phone: [facility] Start: 12-16-2021 Non-patient / Non-visit [employer] Alysha Landeros [employer] Work Phone: [facility] Start: 12-16-2021 End: 12-16-2021 Admission to same day surgery center [employer]-Alysha Landeros [employer] [facility] Start: 12-09-2021 End: 12-09-2021 Patient encounter procedure [employer]-Alysha Evanse Danilo [employer] Work Phone: [facility] Start: 10-29-2021 End: 10-29-2021 Patient encounter procedure [facility] Start: 09-29-2021 End: 09-29-2021 Patient encounter procedure [facility] Start: 09-15-2021 End: 09-15-2021 Patient encounter procedure [facility] Start: 08-13-2021 End: 08-13-2021 Patient encounter procedure [facility] Start: 05-27-2021 End: 05-27-2021 Patient encounter procedure [facility] Start: 05-15-2021 End: 05-15-2021 Patient encounter procedure [facility] Start: 04-13-2021 Patient encounter procedure Beulah Christensen MD Work Phone: [facility] Start: 04-13-2021 Progress Note Beulah Christensen MD Work Phone: [facility] Start: 04-10-2021 End: 04-10-2021 Subsequent hospital visit by physician Beulah Christensen Work Phone: [facility] Comment on above: BURNING WITH URINATI ON, FREQUENCY AND URGENCY Start: 11-22-2017 End: 11-22-2017 Patient encounter procedure Jemal Lim MD Work Phone: [facility] Work Phone: Procedures Date Procedure Procedure Detail Performing Clinician Start: 05-23-2024 Urine culture Ml almanza [employer] Work Phone: Start: 10-12-2023 Sphenoid sinusectomy MARIANNA LUQUE MD Comment on above: endoscopic left madison oidectomy with biopsy Start: 06-20-2023 Urine culture No Primar y Care Physician Start: 12-16-2021 Biopsy of muscle [employer] Alysha Landeros NP Work Phone: Start: 11-22-2017 End: 11-22-2017 BMI outside of normal parameters - no follow-up plan/reason not given Jemal Lim MD Work Phone: Start: 11-22-2017 End: 11-22-2017 Current medications documented Jemal Lim MD Work Phone: Start: 11-22-2017 End: 11-22-2017 Pain assessment documented as positive - follow-up documented Jemal Lim MD Work Phone: Start: 11-22-2017 End: 11-22-2017 Tobacco non-user Jemal Lim MD Work Phone: Start: 12-24-2014 Colonoscopic polypectomy ML LO RN [employer]IOR AUTHORIZATION-[employer] SUPER[employer]OR Dilation and curetta ge for termination of ML LO RN [employer]IOR AUTHORIZATION-[employer] SUPER[employer]OR History of cholecystectomy S ARNIE LO RN [employer]IOR AUTHORIZATION-[employer] SUPERVISOR History of repair of umbilical hernia ML LO RN PRIOR AUTHORIZATION-[employer] SUPERVISOR Plan of Treatment Date Care Activity Detail Author Start: 03-06-2022 Iv infusion therapy prophylaxis/dx ea hour THER/PROPH/DIAG IV INF [facility] Start: 03-06-2022 Iv infusion therapy/prophylaxis /dx 1st to 1 hr THER/PROPH/DIAG IV INF [facility] Start: 03-05-2022 Iv infusion therapy prophylaxis/dx ea hour THER/PROPH/DIAG IV INF [facility] Work Phone: Start: 03-05-2022 Iv infusion therapy/prophylaxis /dx 1st to 1 hr THER/PROPH/DIAG IV INF [facility] Work Phone: Start: 02-04-2022 Iv infusion therapy prophylaxis/dx ea hour THER/PROPH/DIAG IV INF [facility] Work Phone: Start: 02-04-2022 Iv infusion therapy/prophylaxis /dx 1st to 1 hr THER/PROPH/DIAG IV INF [facility] Work Phone: Start: 02-03-2022 Iv infusion therapy prophylaxis/dx ea hour THER/PROPH/DIAG IV INF [facility] Work Phone: Start: 02-03-2022 Iv infusion therapy/prophylaxis /dx 1st to 1 hr THER/PROPH/DIAG IV INF [facility] Work Phone: Start: 01-09-2022 [facility] Work Phone: Start: 01-07-2022 Iv infusion therapy prophylaxis/dx ea hour THER/PROPH/DIAG IV INF [facility] Work Phone: Start: 01-07-2022 Iv infusion therapy/prophylaxis /dx 1st to 1 hr THER/PROPH/DIAG IV INF [facility] Work Phone: Start: 01-06-2022 Iv infusion therapy prophylaxis/dx ea hour THER/PROPH/DIAG IV INF [facility] Work Phone: Start: 01-06-2022 Iv infusion therapy/prophylaxis /dx 1st to 1 hr THER/PROPH/DIAG IV INF [facility] Work Phone: Start: 12-16-2021 Anes nerve musc tendon fascia & bursae upper leg ANESTH UPPER LEG SURGERY [facility] Work Phone: Start: 12-16-2021 Biopsy muscle deep DEEP MUSCLE BIOPSY [facility] Work Phone: Start: 12-16-2021 Patient discharge [facility] Work Phone: Start: 11-22-2017 End: 11-22-2017 Appointment Appointment [facility] Work Phone: Patient Education [facility] Work Phone: Patient referral [facility] Work Phone: Immunizations Immunization Date Immunization Notes Care Provider Vandana wetzel 06-06-2021 SARS-CoV-2 mRNA (lqpgbqilnbd-owes-zwmn ose) vaccine ML LO RN PRIOR AUTHORIZATION-[employer] [facility] 05-16-2021 SARS-CoV-2 mRNA (tozinameran) vaccine ML LO RN PRIOR AUTHORIZATION-FRONT [employer] [facility] No information available. Oneyda Philippe 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 1963 Unknown [id number] 2.16.840.1.854530.3.579.2. 1963 Unknown [id number] 2.16.840.1.326898.3.579.2. 1963 Unknown [id number] 2.16.840.1.211502.3.579.2. 1963 Unknown [id number] 2.16.840.1.446105.3.579.2 1963 Unknown [id number] 2.16.840.1.646810.3.579.2 1963 Unknown [id number] 2.840.1.445632.3.579.2 1963 Unknown [id number] 2.16.840.1.601326.3.579.2. 1963 Unknown [id number] 2.16.840.1.294605.3.579.2 1963 Unknown [id number] 2.16.840.1.978783.3.579.2. 1963 Unknown [id number] 2.16.840.1.990830.3.579.2. 1963 Unknown [id number] 2.16.840.1.207391.3.579.2. 1963 Unknown [id number] 2.16.840.1.660100.3.579.2. 1963 Unknown [id number] 2.16.840.1.755357.3.579.2 1963 Unknown [id number] 2.16.840.1.435272.3.579.2 1963 Unknown [id number] 2.16.840.1.435094.3.579.2.627 Unknown [id number] 2.16.840.1.353451.3.579.2.462 Unknown [id number] 2.16.840.1.101638.3.579.2.462 Unknown [id number] 2.16.840.1.793495.3.579.2.462 Unknown [id number] 2.16.840.1.330831.3.579.2.462 Unknown [id number] 2.16.840.1.905944.3.579.2.462 Unknown [id number] 2.16.840.1.043275.3.579.2.462 Unknown [id number] 2.16840.1.088783.3.579.2.462 Unknown [id number] 2.840.1.535130.3.579.2.462 Social History Date Type Detail Facility Start: 11-29-2020 End: 06-20-2023 Tobacco smoking status MAIS Tobacco smoking consumption unknown [facility] Start: 1965 Sex Assigned At Not on file [facility] Start: 1965 Sex Assigned At Female [facility] Start: 04-15-2020 End: 10-06-2023 Tobacco smoking status Ex-smoker (finding) [facility] Start: 06-20-2023 Tobacco smoking status NHIS Smoker (finding) [facility] Start: 08-18-2024 Sex Female (finding) [facility] NEGATED: Highlighted rowStart: 11-22-2017 End: 11-22-2017 Details of drug misuse behavior DRUG USE No [facility] Work Phone: NEGATED: Highlighted rowStart: 11-22-2017 End: 11-22-2017 Employment detail 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 EXERCISEFREQ 5 days per week [facility] Work Phone: Goals Date Patient Goal Desired Activity /State Functional Status Date Assessment Result Facility 10-13-2023 Functional Status 7am-3pm [facility] 10-13-2023 Functional Status 100 [facility] 10-13-2023 Functional Status [facility] 10-13-2023 Functional Status Personal ADL [facility] 10-13-2023 Functional Status [facility] 10-13-2023 Functional Status [facility] 10-12-2023 Functional Status [facility] 10-12-2023 Functional Status [facility] 10-12-2023 Functional Status Sensory Deficits Blind, right eye [facility] 10-12-2023 Functional Status Patient Identified Iden tification band [facility] 10-12-2023 Functional Status Maintained [facility] 10-06-2023 Functional Status Sensory Deficits Blind, right eye [facility] Mental Status Date Assessment Result Facility 10-13-2023 Mental Status Oriented x 4 [facility] 10-13-2023 Mental Status [facility] 03-06-2022 Cognitive function Voice/Name [facility] Work Phone: 03-05-2022 Cognitive function Awake;Alert;A ppropriate;Follow s Commands [facility] Work Phone: 02-04-2022 Cognitive function Awake;Alert;A ppropriate;Follow s Commands [facility] Work Phone: 02-03-2022 Cognitive function Voice/Name [facility] Work Phone: 01-07-2022 Cognitive function Voice/Name [facility] Work Phone: 01-06-2022 Cognitive function Level Of Cons ciousness Awake;Alert;Appropriate;Follow s Commands [facility] Work Phone: 12-16-2021 Cognitive function Voice/Name [facility] Work Phone: Clinical Notes 04-13-2021 to 04-21-2024 Note Date & Type Note Facility 04-21-2024 Evaluation note Diagnosis Onset Date Resolution Sinus infection acute April 21, 2024 3:41pm Sinus infection acute May 182024 3:37pm [facility] Work Phone: 1(812) 626-661009-09-2024 Note ORIGINAL EXAMINATION: MRI OF THE BRAIN WITHOUT AND WITH CONTRAST 01/17/2024 8:53 am TECHNIQUE: Multiplanar multisequence MRI of the head/brain was performed without and with the administration of intravenous contrast. COMPARISON: MRI brain 10/13/2023. HISTORY: ORDERING SYSTEM PROVIDED HISTORY: Reason for Exam: sellar mass - post resection FINDINGS: INTRACRANIAL STRUCTURES/VENTRICLES: Patient is status post transsphenoidal resection of a sellar mass. The surgical site appears unchanged from the comparison examination. There is persistent irregular enhancement along the left lateral and superior margin of the resection site similar to the previous examination. The residual pituitary tissue appears unchanged as well. The ventricles and sulci are not enlarged. No area of infarct. No abnormal signal is identified within the brain or posterior fossa. ORBITS: The visualized portion of the orbits demonstrate no acute abnormality. SINUSES: Polypoid mucosal thickening is present throughout the paranasal sinuses, increased from the comparison examination. BONES/SOFT TISSUES: The bone marrow signal intensity appears normal. The soft tissues demonstrate no acute abnormality. IMPRESSION: 1. Stable appearance of the brain status post transsphenoidal resection of a sellar mass. 2. Worsening sinusitis. Interpreted by: Francisco Lazcano Preliminary Report By: Francisco Lzacano Electronically signed By Francisco Lazcano Dictated Date: 01/17/2024 9:21:16 AM Prelim Date: 01/17/2024 9:37:54 AM Sign Date: 01/17/2024 9:37:54 AM Ordering Provider: [facility] 12-05-2023 Note. MICRO - Microbiology PROCEDURE: Culture Wound Aerobic with Gram Stain [*1] SOURCE: Wound (surface) BODY SITE: Nasal Lower COLLECTED DATE/TIME: 12/03/2023 08:28 EDT RECEIVED DATE/TIME: 12/03/2023 21:30 EDT START DATE/TIME: 12/03/2023 21:32 EDT FREE TEXT SOURCE: Right FINAL REPORTS Final Report [] Verified Date/Time/Personnel: 12/05/2023 12:24 EDT Few Staphylococcus coagulase negative Sensitivity testing is not routinely performed. Plates will be held 48 hours. Contact Microbiology if further testing is indicated. PRELIMINARY REPORTS Preliminary Report [] Verified Date/Time/Personnel: 12/04/2023 11:33 EDT Culture results pending. STAINS GS [] Verified Date/Time/Personnel: 12/03/2023 23:13 EDT No organisms seen. Performing Locations *1: This test was performed at: [address], [facility] , [facility] ([place])10-17-2023 Note. MICRO - Microbiology PROCEDURE: Culture Wound Deep Aerobe/Anaerobe w Gram Stain [*1] SOURCE: Surgical Wound (Deep) BODY SITE: Nasopharynx COLLECTED DATE/TIME: 10/12/2023 15:54 EDT RECEIVED DATE/TIME: 10/12/2023 15:57 EDT START DATE/TIME: 10/12/2023 15:57 EDT FREE TEXT SOURCE: SELLER MASS FINAL REPORTS Final Report [] Verified Date/Time/Personnel: 10/17/2023 12:25 EDT Few normal skin radha present. Sensitivity testing not indicated. No anaerobes isolated at 5 days. PRELIMINARY REPORTS Preliminary Report [] Verified Date/Time/Personnel: 10/14/2023 09:57 EDT Few normal skin radha present. Sensitivity testing not indicated. No anaerobes isolated to date. Preliminary Report [] Verified Date/Time/Personnel: 10/13/2023 12:28 EDT Culture results pending. STAINS GS [] Verified Date/Time/Personnel: 10/12/2023 18:46 EDT No organisms seen. Performing Locations *1: This test was performed at: [facility], [address] [place] [address], [id number] , [facility] ([place])10-15-2023 Evaluation + Plan note Future Scheduled Tests Radiology* MA Mammo Screening Bilateral w/ Paul 10/15/23 * MRI Brain w/ + w/o Contrast 01/31/25 [facility] 06-05-2024 Note Date of Service 10/13/2023 Neurosurgery CC: Mass of the sella s/p right total ethmoidectomy, sphenoidectomy, maxillary antrostomy, and transsphenoidal biopsy of sellar mass via endoscopic approach. POD #1 This is a 58 year old female who was evaluated in the neurosurgery office for mass of the sella/ inthe pituitary area. She underwent surgery yesterday by Dr. Burnett. Dr. Luque was also presentin the operating room. Refer to detailed operative note; Dr Burnett indicated that the mass appearedto be benign and had been nearly completely evacuated. Intraoperative samples were taken for cytology and culture. Patient right nares packed with both dissolvable packing and Telfa gauze. Recovered in PACU, then sent to nursing unit for further postoperative evaluation and care. Patient is POD #1. She is seen lying supine in bed with head of bed raised. She has right nasal packing intact, which appears clean and dry. Patient does indicate that she has been out of bed and up to the bathroom and while doing so did have some bloody drainage from the right nares, therefore recently had outer gauze dressing replaced by nursing staff. Patient reports pressure with the right frontal region/forehead and behind her right eye is essentially the same as it was prior to surgery. She also indicates that her blurred vision remains and is unchanged. She denies headache and denies, nausea, vomiting, paresthesias or any new weakness. She follows commands briskly and accurately, andmoves all 4 extremities well. No motor weakness or sensory deficits. PERRL. Patient states she is voiding without difficulty and tolerating p.o. intake. Also provides that shefeels steady when upright and with ambulation. Dr. Luque has requested postoperative brain MRI with and without contrast which has been ordered, with request to be completed today. Objective Vitals and Measurements T: 36.8 C (Axillary) TMIN: 36.0 C (Temporal Artery) TMAX: 36.8 C (Axillary) HR: 62 RR: 16 BP: 129/81 SpO2: 97% HT: 172.7 cm WT: 99.3 kg BMI: 33.29 Intake and Output 7AM Yesterday to 7AM Today Intake and Output (Last 24 hours) Intake Oral Intake 1200.00 Administration Information 400.00 Output Urine Voided 1125.00 Intra-Op EBL 25.00 Stool Count 0.00 Urine Count 3.00 Total Summary Total Intake 1600.00 Total Output 1150.00 Fluid Balance 450.00 Physical Exam See above. Face is symmetric. Patient is awake, alert and oriented x4. Speech is clear and fluent. Regular heart rate and rhythm. S1-S2 present. Lungs are clear bilaterally. Respirations unlabored and even. Abdomen is soft. Bowel sounds present all 4 quadrants. Weight Dosing Weight: 99.3 kg (10/12/23) Dosing Weight: 99.3 kg (10/12/23) Medications Medications (8) Active Scheduled: (1) predniSONE 5 mg tablet 5 mg 1 tab(s), Oral, qAM Continuous: (0) PRN: (7) acetaminophen 325 mg Tablet 650 mg 2 tab(s), Oral, q6hr acetaminophen-HYDROcodone 325-5 mg tablet 1 tab(s), Oral, q4h acetaminophen-HYDROcodone 325-5 mg tablet 2 tab(s), Oral, q4h dextrose 50% Solution Disp syringe 50 mL 12.5 gram(s) 25 mL, IV Push, AsDirected morphine 4 mg/mL 1mL INJ 4 mg 1 mL, IV Push, q3h ondansetron 2 mg/ 1 mL 2 mL INJ 4 mg 2 mL, IV Push, q4h prochlorperazine 10 mg/2 mL vial 5 mg 1 mL, IV Push, q6h Lab Results No 36 Hour Lab Data EKG No qualifying data available. Assessment/Plan Mass of the sella s/p right total ethmoidectomy, sphenoidectomy, maxillary antrostomy, and transsphenoidal biopsy of sellar mass via endoscopic approach. POD #1 Patient is doing very well postoperatively, and is hopeful for discharge today. She reports that her preoperative symptoms are not significantly changed postoperatively, but feels they are essentially the same in terms of the pressure behind right eye and in right frontal region as well as blurred vision. She states symptoms are no worse than before. Intraoperative samples sent for cytology and culture; pathology pending. Per Dr. Burnett's OR note he provided mass appeared to be benign, and had been nearly completely evacuated. Patient is ambulating independently with steady gait and balance. Tolerating p.o. intake. Voiding without difficulty. Right nasal packing intact; management deferred to Dr. Lex Luque has requested postoperative brain MRI with and without contrast. This has been ordered with request to be completed today. Dr. Luque will follow-up on MRI results. Patient has a scheduled point with Dr. Luque on 10/26/2023 at 3:00 PM Digitally Signed by MESHA MORELAND on 10/13/2023 04:30 PM [id number] Discharge Instructions Thank you for allowing [facility] to assist you with your healthcare needs. The following is importantdischarge information regarding your hospital visit. 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 Diet as tolerated. Some bleeding is normal. Sleep with head elevated. Should follow-up with Dr. Burnett in 2 days (Wednesday10/15/2023), he will examine nose and remove packing at that time. Should also follow-up with neurosurgery as scheduled. Also sent home with a prescription for [place] for pain, advised to use sparingly. Scheduled Follow-Up Appointments Appointment Type When With Where Contact Information StatusMA Mammogram Screening Bilateral w/ Tomo10/15/2023 11:30 AM EDT [facility] [phone] Confirmed NS Post Op 10/26/2023 03:00 PM EDT JASMYNE LUQUE MD Neurosurgery [address] [facility] [address] [place] [address] Confirmed Follow Up Appointments Follow Up with BRANDO BURNETT MD, [facility], Orthopedic, Otolaryngology Service When:In 2 days Where:[facility] [address] [place] [address]- [facility] (1) Additional Information: Please call the office to schedule a follow-up appointment for wednesday as leela will take packing then The Following Activity and Diet Have Been Ordered for You Discharge Activity - Ordered -- Lifting Restricted less than 10 pounds, 10/13/23 10:23:00 EDT Discharge Diet - Ordered -- Type of Diet: Regular, 10/13/23 10:23:00 EDT The Following Equipment Has Been Ordered for You No qualifying data available. The Following Treatments Have Been Ordered for You Discharge Labs No qualifying data available. Discharge Radiology No qualifying data available. Other Therapies No qualifying data available. Post Acute Orders No qualifying data available. Someone Will Contact You Regarding These Home Health Referrals No home referrals have been ordered for you. No one will call you. Allergies NKA No Known Medication Allergies Medications Please ask your primary doctor or pharmacist before taking any other medication not listed, including over the counter drugs, herbal medications, vitamins and or supplements as they may interact withyour home medications. 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 Duration: 5 Days Pickup at [facility]/pharmacy #[id number] Unchanged biotin (biotin 10,000 mcg oral capsule) 1 cap by mouth Daily at bedtime Unchanged calcium-vitamin D (Calcium Plus Vitamin D3 600 mg-10 mcg (400 intl units) oral tablet) by mouth Once a day (in the morning) Unchanged cetirizine (cetirizine 10 mg oral capsule) 1 cap by mouth Once a day (in the morning) Unchanged folic acid (folic acid 0.4 mg oral tablet) 1 tab(s) by mouth Two (2) times a day Unchanged methotrexate (methotrexate 2.5 mg oral tablet) 6 tab(s) by mouth Every Wednesday Unchanged Misc Medication (IV Immunoglobulin) IV Bolus Once monthly x2 consecutive days Unchanged multivitamin (Multivitamin) 1 tab(s) by mouth Daily at bedtime Unchanged predniSONE (predniSONE 5 mg oral tablet) 1 tab(s) by mouth Once a day (in the morning) Unchanged tiZANidine (tiZANidine 4 mg oral capsule) 1 cap by mouth Every 8 hours as needed for for muscle spasm Unchanged traMADol (traMADol 50 mg oral tablet) 1 tab(s) by mouth Three (3) times a day as needed for as needed for pain Unchanged valACYclovir (valACYclovir 1 g oral tablet) 1 tab(s) by mouth Once a day (in the morning) as needed for cold sore pt to take 2 tabs at onset of cold sore, then daily Pharmacy Information [facility]/pharmacy #[id number]: [address], [place] [id number] [phone] Please take this list to your next doctor s visit. Bring all medications you take, including over the counter medications, herbals and other supplements with you to your doctor s visit. Patients and families are reminded to discard old lists and to update any records with all medication providers or retail pharmacies. Medication Leaflets acetaminophen and hydrocodone (a SEET a MIN oh fen and bettina HUERTA done) Verdrocet What is the most important information I should know about acetaminophen and hydrocodone? MISUSE OF OPIOID MEDICINE CAN CAUSE ADDICTION, OVERDOSE, OR . Keep the medication in a place where others cannot get to it. Taking opioid medicine during may cause life-threatening withdrawal symptoms in the . Fatal side effects can occur if you use opioid medicine with alcohol, or with other drugs that cause drowsiness or slow your breathing. Stop taking this medicine and call your doctor right away if you have skin redness or a rash that spreads and causes blistering and peeling. What is acetaminophen and hydrocodone? Acetaminophen and hydrocodone is a combination medicine used to relieve moderate to severe pain. Acetaminophen and hydrocodone contains an opioid medicine, and may be habit-forming. Acetaminophen and hydrocodone may also be used for purposes not listed in this medication guide. What should I discuss with my healthcare provider before taking acetaminophen and hydrocodone? You should not use this medicine if you are allergic to acetaminophen or hydrocodone, or if you have: severe asthma or breathing problems; or a blockage in your stomach or intestines. Tell your doctor if you have ever had: breathing problems, sleep apnea (breathing stops during sleep); liver disease; a drug or alcohol addiction; kidney disease; a head injury or seizures; urination problems; or problems with your thyroid, pancreas, or gallbladder. If you use opioid medicine while you are , your baby could become dependent on the drug. This can cause life-threatening withdrawal symptoms in the baby after it is born. Babies born dependent on opioids may need medical treatment for several weeks. Ask a doctor before using opioid medicine if you are . Tell your doctor if you notice severe drowsiness or slow breathing in the nursing baby. How should I take acetaminophen and hydrocodone? Follow all directions on your prescription label. Never take this medicine in larger amounts, or for longer than prescribed. An overdose can damage your liver or cause . Tell your doctor if you feel an increased urge to use more of this medicine. Never share this medicine with another person, especially someone with a history of drug abuse or addiction. MISUSE CAN CAUSE ADDICTION, OVERDOSE, OR . Keep the medicine in a place where others cannot get to it. Selling or giving away this medicine is against the law. Measure liquid medicine carefully. Use the dosing syringe provided, or use a medicine dose-measuring device (not a kitchen spoon). If you need surgery or medical tests, tell the doctor ahead of time that you are using this medicine. You should not stop using this medicine suddenly. Follow your doctor's instructions about tapering your dose. Store at room temperature away from moisture and heat. Keep track of your medicine. You should be aware if anyone is using it improperly or without a prescription. Do not keep leftover opioid medication. Just one dose can cause in someone using this medicine accidentally or improperly. Ask your pharmacist where to locate a drug take-back disposal program.If there is no take-back program, flush the unused medicine down the toilet. What happens if I miss a dose? Since this medicine is used for pain, you are not likely to miss a dose. Skip any missed dose if itis almost time for your next dose. Do not use two doses at one time. What happens if I overdose? Seek emergency medical attention or call the Poison Help line at . An overdose of this medicine can be fatal, especially in a child or other person using the medicine without a prescription. Overdose symptoms may include nausea, vomiting, sweating, severe drowsiness, pinpoint pupils, slow breathing, or no breathing. Your doctor may recommend you get naloxone (a medicine to reverse an opioid overdose) and keep it with you at all times. A person caring for you can give the naloxone if you stop breathing or don't wake up. Your caregiver must still get emergency medical help and may need to perform CPR (cardiopulmonary resuscitation) on you while waiting for help to arrive. Anyone can buy naloxone from a pharmacy or local health department. Make sure any person caring foryou knows where you keep naloxone and how to use it. What should I avoid while taking acetaminophen and hydrocodone? Avoid driving or operating machinery until you know how this medicine will affect you. Dizziness ordrowsiness can cause falls, accidents, or severe injuries. Do not drink alcohol. Dangerous side effects or could occur. Ask a doctor or pharmacist before using any other medicine that may contain acetaminophen (sometimes abbreviated as APAP). Taking certain medications together can lead to a fatal overdose. What are the possible side effects of acetaminophen and hydrocodone? Get emergency medical help if you have signs of an allergic reaction: hives; difficulty breathing; swelling of your face, lips, tongue, or throat. Opioid medicine can slow or stop your breathing, and may occur. A person caring for you should give naloxone and/or seek emergency medical attention if you have slow breathing with long pauses,blue colored lips, or if you are hard to wake up. In rare cases, acetaminophen may cause a severe skin reaction that can be fatal. This could occur even if you have taken acetaminophen in the past and had no reaction. Stop taking this medicine and call your doctor right away if you have skin redness or a rash that spreads and causes blistering andpeeling. Call your doctor at once if you have: noisy breathing, sighing, shallow breathing, breathing that stops; a light-headed feeling, like you might pass out; liver problems--nausea, upper stomach pain, tiredness, loss of appetite, dark urine, jennifer-colored stools, jaundice (yellowing of the skin or eyes); low cortisol levels-- nausea, vomiting, loss of appetite, dizziness, worsening tiredness or weakness; o high levels of serotonin in the body--agitation, hallucinations, fever, sweating, shivering, fast heart rate, muscle stiffness, twitching, loss of coordination, nausea, vomiting, diarrhea. Serious breathing problems may be more likely in older adults and in those who are debilitated or have wasting syndrome or chronic breathing disorders. Common side effects include: dizziness, drowsiness, feeling tired; nausea, vomiting, stomach pain; constipation; or headache. This is not a complete list of side effects and others may occur. Call your doctor for medical advice about side effects. You may report side effects to FDA at 6-012-VPB-5236. What other drugs will affect acetaminophen and hydrocodone? You may have breathing problems or withdrawal symptoms if you start or stop taking certain other medicines. Tell your doctor if you also use an antibiotic, antifungal medication, heart or blood pressure medication, seizure medication, or medicine to treat HIV or hepatitis C. Opioid medication can interact with many other drugs and cause dangerous side effects or . Be sure your doctor knows if you also use: cold or allergy medicines, bronchodilator asthma/COPD medication, or a diuretic ('water pill'); medicines for motion sickness, irritable bowel syndrome, or overactive bladder; other opioids--opioid pain medicine or prescription cough medicine; a sedative like Valium--diazepam, alprazolam, lorazepam, Xanax, Klonopin, Versed, and others; drugs that make you sleepy or slow your breathing--a sleeping pill, muscle relaxer, medicine to treat mood disorders or mental illness; drugs that affect serotonin levels in your body--a stimulant, or medicine for depression, Parkinson's disease, migraine headaches, serious infections, or nausea and vomiting. This list is not complete. Other drugs may affect acetaminophen and hydrocodone, including prescription and tyez-oiq-gzlpgur medicines, vitamins, and herbal products. Not all possible interactions are listed here. Where can I get more information? Your doctor or pharmacist can provide more information about acetaminophen and hydrocodone. Remember, keep this and all other medicines out of the reach of children, never share your medicines with others, and use this medication only for the indication prescribed. Every effort has been made to ensure that the information provided by [employer]. ('[employer]') is accurate, up-to-date, and complete, but no guarantee is made to that effect. Drug information contained herein may be time sensitive. [employer] information has been compiled for use by healthcare practitioners and consumers in the [place] and therefore [employer] does not warrant that uses outside of the [place] are appropriate, unless specifically indicated otherwise. [employer]'s drug information does not endorse drugs, diagnose patients or recommend therapy. [facility] drug information isan informational resource designed to assist licensed healthcare practitioners in caring for their p atients and/or to serve consumers viewing this service as a supplement to, and not a substitute for, the expertise, skill, knowledge and judgment of healthcare practitioners. The absence of a warningfor a given drug or drug combination in no way should be construed to indicate that the drug or drug combination is safe, effective or appropriate for any given patient. [facility] does not assume any responsibility for any aspect of healthcare administered with the aid of information [facility] provides. The information contained herein is not intended to cover all possible uses, directions, precautions, warnings, drug interactions, allergic reactions, or adverse effects. If you have questions about the drugs you are taking, check with your doctor, nurse or pharmacist. Copyright 2322-4600 [facility] [employer]. Version: 19.02. Revision Date: 08/17/2023. Additional Information VACCINATE! IT SAVES LIVES! Members of the community who have not yet received the COVID-19 vaccine and would like to receive it can visit one of [facility] vaccine clinics. There are many vaccine clinic locations within the [facility]. For locations and available times, please visit [email or web address].[email or web address]/. It is important to note that some COVID mobile vaccine clinics are held outdoors and may be canceled in rainy or stormy conditions. To learn more about pediatric vaccinations (ages 5-11), we invite you to visit the [facility] webpage. [email or web address] [email or web address] learn more about the COVID-19 vaccine, we invite you to visit the CDC website for a list of frequently asked questions.https://www.cdc.gov/coronavirus/2019-ncov/vaccines/faq.html [facility] Patient Portal Access Instructions: Stay connected with your healthcare team and access your personal medical information anytime with the [facility] Patient Portal. Please follow the directions below to create your [facility] account: 1.Access the email account you provided upon registration to the hospital/physician office.2.Look for an invitation email from [facility].3.Open the email and access the invitation link: AcceptInvitation to [facility].4.Fill in the required mccormack to create your account. To access your account, visit [email or web address]. Click the blue button labeled Access Patient Portal and then log in with the username and password that you created in the steps above. You will be able to view your test results, lab results, a summary of your visits, upcoming appointments and more. There is also a convenient messaging option where you can send secure messages to your p rovider. In addition, you will have the ability to download any documents or summaries to your computer and/or send the information securely to a physician. Remember that your healthcare information is confidential, so carefully consider who you will allowto register on the [facility] Patient Portal for access to your information. You can also access the [facility] Patient Portal on the [facility]. Simply click on Patient Portal and then log into your account. If you would like to receive a full copy of your medical records, please contact the [facility] Medical Records Department by calling [phone], Wednesday through Wednesday between 8 a.m. and 4:30 p.m. HOW TO SAFELY DISPOSE OF PRESCRIPTION MEDICATIONS Please use one of the following methods to safely dispose of your unused medications. 1.Use a drug disposal kit: the drug disposal pouch allows you to safely discard your old and unuseddrugs. Ask your nurse to give you one when you are discharged.2.Visit a local take-back location: Many local pharmacies and police departments have programs that collect old and unwanted prescriptiondrugs. Call your local pharmacy or go to http://[email or web address]/3D1Tw6i to find one close to you.3.Make use of household items: Use cat litter or old coffee grounds to dispose medications if other options arenot available. Mix your drugs with these household products, seal them in an airtight container andthrow it into the garbage. Call [facility]: [phone] to be sure your drugs can be disposed of in this way. Some medicines may require a different approach.4.Never flush your medications down the toilet. IF YOU HAVE BEEN PRESCRIBED AN OPIOID FOR PAIN If you have been prescribed an opioid (such as hydrocodone, oxycodone or morphine), it is critical to understand the possible side effects and risks of opioid pain medications. Even when taken as directed, opioids can have several side effects including: Tolerance, meaning you might need to take more of a medication for the same pain relief. Nausea, vomiting and/or constipation. Sleepiness, dizziness, dry mouth, confusion, depression or itching. Physical dependence, meaning you have withdrawal symptoms when a medication is stopped, can develop within a few days. KNOW YOUR RESPONSIBILITIES It is important to know exactly how much and how often to take the opioid pain medications you are prescribed. Never take opioids in higher amounts or more often than prescribed. Do not combine opioids with alcohol or other drugs that cause drowsiness, such as benzodiazepines, also known as benzos, including diazepam and alprazolam, muscle relaxants or sleep aids. Never sell or share prescription opioids. This is illegal. Store opioids in a secure place and out of reach of others (including children, family, friends and visitors). The last page of this document has been signed and retained as a CHART COPY. Signatures Patient Education Materials Medication Leaflets acetaminophen and hydrocodone My discharge plan and instructions have been reviewed and explained to me and ITWILA SHELLEY Dunderstand my current condition and have read and understand these discharge instructions. I have received a written copy of the plan/instructions. If I have questions, I am aware that I should contact my doctor. 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 COMPARISON: MRI brain 07/01/2023, CT head 09/07/2023 HISTORY: ORDERING SYSTEM PROVIDED HISTORY: Reason for Exam: Post op sella mass resection FINDINGS: Parenchyma: No acute hemorrhage, acute/early subacute infarction, or midline shift is seen. The sidhu-white matter junctions are maintained. Mild age commensurate parenchymal volume loss is noted. There are no space occupying intra-axial masses. No pathologic signal is identified in the white matter. There are no hemorrhagic blood products. 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 Residual homogeneously enhancing pituitary tissue measuring up to 4 mm craniocaudal dimension to the right of midline is seen. Postoperative fat packing of the sphenoid sinus is noted. The pituitary infundibulum is near midline. No mass effect on the optic chiasm. The cavernous sinuses enhance symmetrically. Flow voids persist within the cavernous internal carotid arteries. Ventricles: No ventricular enlargement or ventricular effacement. Orbits: Normal. Major intracranial flow voids: Preserved. Paranasal sinuses: Interval appearing small air-fluid level in the right maxillary sinus. Interval extensive opacification of the right ethmoid sinus. Interval mucosal thickening of the right frontal sinus with a small air-fluid level. Mild opacification of the Mastoids and middle ears: Chronic right mastoid effusion. Trace left effusion. Bones: Normal. Extracranial soft tissues: Normal. Additional comment: Normal. IMPRESSION: 1. 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 Residual homogeneously enhancing pituitary tissue is seen measuring up to 4 mm craniocaudal dimension to the right of midline. 2. No acute intracranial pathology. 3. Interval appearing small air-fluid levels in the right maxillary sinus and right frontal sinus with extensive opacification of the right ethmoid sinus. 4. Chronic right mastoid effusion. 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 She underwent surgery yesterday with both Dr. Burnett and neurosurgeon Dr. Luque. The mass was approached through the right sphenoid sinus. Dr. Burnett had to perform an inferior turbinate resection and anterior and posterior ethmoidectomy to gain access to the mass. Upon entering the sphenoid sinus an encapsulated mass was protruding through the posterior wall of the sphenoidsinus. Probing the mass resulted in drainage of yellow sand-like material. Samples were taken for cytology and culture. The mass was completely evacuated. She was packed with both dissolvable packingand Telfa gauze. She was okay for discharge from an ENT standpoint, however Dr. Luque recommended repeat MRI in the morning prior to discharge. Patient did well overnight. Unfortunately she hasnot yet had her repeat MRI. Will make sure this is done today at which point she will be ready for discharge to home if all looks well. We reviewed post operative instructions. She will follow-up with Dr. Burnett in 2 days, on Wednesday, for removal of packing. Patient was advised that mass appeared benign however we are unsure of her final pathology and will have to wait for these results. Allergies NKA No Known Medication Allergies Procedures 1. Right endoscopic total ethmoidectomy. 2. Right endoscopic sphenoidectomy. 3. Right endoscopic maxillary antrostomy. 4. Right endoscopic transsphenoidal biopsy of sellar mass. 5. Stereotactic imaging. Consults No qualifying data available. Physical Exam Vitals and Measurements T: 36.7 C (Oral) TMIN: 35.8 C (Temporal Artery) TMAX: 36.7 C (Oral) HR: 70 RR: 12 BP: 126/83 SpO2: 94% HT: 172.7 cm WT: 99.3 kg BMI: 33.29 Weight Dosing Weight: 99.3 kg (10/12/23) Dosing Weight: 99.3 kg (10/12/23) Gen: Alert and oriented. Pleasant. Sitting up in bed. Resp: No respiratory distress. ENT: gauze dressing under nose. No bleeding. Small amount of fresh blood in posterior oropharynx. Pending Labs and Studies pending final surgical pathology Code Status Code Status - Ordered -- 10/12/23 15:56:00 EDT, Full Code, Constant Order Admission Date 10/12/2023 Discharge Date 10/13/2023 Patient Instructions No lifting over 10 pounds. Diet as tolerated. Some bleeding is normal. Sleep with head elevated. Should follow-up with Dr. Burnett in 2 days (Wednesday10/15/2023), he will examine nose and remove packing at that time. Should also follow-up with neurosurgery as scheduled. Also sent home with a prescription for [place] for pain, advised to use sparingly. Medications New Prescription acetaminophen-hydrocodone (Seattle 325- 5 mg oral tablet)1 tab(s) by mouth every 4 hours as needed asneeded for pain for 5 Days. Refills: 0. Unchanged biotin (biotin 10,000 mcg oral capsule)1 cap by mouth daily at bedtime. calcium-vitamin D (Calcium Plus Vitamin D3 600 mg-10 mcg (400 intl units) oral tablet)by mouth oncea day (in the morning). cetirizine (cetirizine 10 mg oral capsule)1 cap by mouth once a day (in the morning). folic acid (folic acid 0.4 mg oral tablet)1 tab(s) by mouth two (2) times a day. methotrexate (methotrexate 2.5 mg oral tablet)6 tab(s) by mouth every Wednesday. Misc Medication (IV Immunoglobulin)IV Bolus. Once monthly x2 consecutive days. multivitamin (Multivitamin)1 tab(s) by mouth daily at bedtime. predniSONE (predniSONE 5 mg oral tablet)1 tab(s) by mouth once a day (in the morning). tiZANidine (tiZANidine 4 mg oral capsule)1 cap by mouth every 8 hours as needed for muscle spasm. traMADol (traMADol 50 mg oral tablet)1 tab(s) by mouth three (3) times a day as needed as needed for pain. valACYclovir (valACYclovir 1 g oral tablet)1 tab(s) by mouth once a day (in the morning) as needed cold sore. pt to take 2 tabs at onset of cold sore, then daily. Follow Up Follow Up with BRANDO BURNETT MD, [facility], Orthopedic, Otolaryngology Service When:In 2 days Where:[facility] [address] [place] [phone]- Business (1) Follow Up Appointments No qualifying data available. Follow Up Labs/Studies Discharge Labs No Follow-up Labs Discharge Studies No Follow-up Studies Discharge Diet Discharge Diet - Ordered -- Type of Diet: Regular, 10/13/23 10:23:00 EDT Discharge Activity Discharge Activity - Ordered -- Lifting Restricted less than 10 pounds, 10/13/23 10:23:00 EDT Condition on Discharge stable Discharge Disposition to home Information Provided To the patient Time Spent 20 mins [1] OPERATIVE NOTE; BRANDO BURNETT MD 10/12/2023 00:00 EDT Digitally Signed by GALDINO ROLDAN PA-C on 10/13/2023 10:26 AM [id number] Anesthesiology Consult note Patient: AICHA MATTSON Age: 58 years Sex: Female : 1965 Associated Diagnoses: None Author: ROLDAN VAUGHN MD Postoperative Information Post Operative Info: Post op day: Post Anesthesia Care Unit. Patient location: PACU. Assessment Postanesthesia assessment Vitals: Vital signs from flowsheet : Vital Signs 10/12/2023 16:17 EDT Temperature Temporal Artery 36.1 DegC Heart Rate Monitored 80 bpm Respiratory Rate 16 br/min Systolic Blood Pressure Non-Invasive 134 mmHg Diastolic Blood Pressure Non-Invasive 84 mmHg Mean Arterial Pressure (NBP) 101 mmHg 10/12/2023 16:02 EDT Heart Rate Monitored 71 bpm Respiratory Rate 16 br/min Systolic Blood Pressure Non-Invasive 130 mmHg Diastolic Blood Pressure Non-Invasive 82 mmHg Mean Arterial Pressure (NBP) 97 mmHg 10/12/2023 15:47 EDT Temperature Temporal Artery 36.0 DegC Heart Rate Monitored 70 bpm Respiratory Rate 16 br/min Systolic Blood Pressure Non-Invasive 112 mmHg Diastolic Blood Pressure Non-Invasive 67 mmHg 10/12/2023 15:40 EDT Heart Rate Monitored 68 bpm bpm Respiratory Rate - Anes 21 br/min br/min Systolic Blood Pressure Non-Invasive 98 mmHg mmHg Diastolic Blood Pressure Non-Invasive 84 mmHg mmHg 10/12/2023 15:37 EDT Systolic Blood Pressure Non-Invasive 93 mmHg mmHg Diastolic Blood Pressure Non-Invasive 62 mmHg mmHg 10/12/2023 15:35 EDT Temperature (Route Not Specified) 36.29 DegC DegC Heart Rate Monitored 66 bpm bpm Respiratory Rate - Anes 11 br/min br/min 10/12/2023 15:34 EDT Systolic Blood Pressure Non-Invasive 89 mmHg mmHg Diastolic Blood Pressure Non-Invasive 52 mmHg mmHg 10/12/2023 15:31 EDT Systolic Blood Pressure Non-Invasive 90 mmHg mmHg Diastolic Blood Pressure Non-Invasive 63 mmHg mmHg 10/12/2023 15:30 EDT Temperature (Route Not Specified) 36.27 DegC DegC Heart Rate Monitored 67 bpm bpm Respiratory Rate - Anes 14 br/min br/min 10/12/2023 15:28 EDT Systolic Blood Pressure Non-Invasive 96 mmHg mmHg Diastolic Blood Pressure Non-Invasive 62 mmHg mmHg 10/12/2023 15:25 EDT Temperature (Route Not Specified) 36.25 DegC DegC Heart Rate Monitored 62 bpm bpm Respiratory Rate - Anes 14 br/min br/min Systolic Blood Pressure Non-Invasive 93 mmHg mmHg Diastolic Blood Pressure Non-Invasive 58 mmHg mmHg 10/12/2023 15:22 EDT Systolic Blood Pressure Non-Invasive 79 mmHg mmHg Diastolic Blood Pressure Non-Invasive 55 mmHg mmHg 10/12/2023 15:20 EDT Temperature (Route Not Specified) 36.22 DegC DegC Heart Rate Monitored 68 bpm bpm Respiratory Rate - Anes 14 br/min br/min 10/12/2023 15:19 EDT Systolic Blood Pressure Non-Invasive 86 mmHg mmHg Diastolic Blood Pressure Non-Invasive 53 mmHg mmHg 10/12/2023 15:16 EDT Systolic Blood Pressure Non-Invasive 90 mmHg mmHg Diastolic Blood Pressure Non-Invasive 48 mmHg mmHg 10/12/2023 15:15 EDT Temperature (Route Not Specified) 36.19 DegC DegC Heart Rate Monitored 67 bpm bpm Respiratory Rate - Anes 14 br/min br/min 10/12/2023 15:13 EDT Systolic Blood Pressure Non-Invasive 95 mmHg mmHg Diastolic Blood Pressure Non-Invasive 58 mmHg mmHg 10/12/2023 15:10 EDT Temperature (Route Not Specified) 36.17 DegC DegC Heart Rate Monitored 68 bpm bpm Respiratory Rate - Anes 12 br/min br/min Systolic Blood Pressure Non-Invasive 89 mmHg mmHg Diastolic Blood Pressure Non-Invasive 52 mmHg mmHg 10/12/2023 15:07 EDT Systolic Blood Pressure Non-Invasive 85 mmHg mmHg Diastolic Blood Pressure Non-Invasive 60 mmHg mmHg 10/12/2023 15:05 EDT Temperature (Route Not Specified) 36.14 DegC DegC Heart Rate Monitored 68 bpm bpm Respiratory Rate - Anes 12 br/min br/min 10/12/2023 15:04 EDT Systolic Blood Pressure Non-Invasive 95 mmHg mmHg Diastolic Blood Pressure Non-Invasive 54 mmHg mmHg 10/12/2023 15:01 EDT Systolic Blood Pressure Non-Invasive 88 mmHg mmHg Diastolic Blood Pressure Non-Invasive 51 mmHg mmHg 10/12/2023 15:00 EDT Temperature (Route Not Specified) 36.12 DegC DegC Heart Rate Monitored 67 bpm bpm Respiratory Rate - Anes 12 br/min br/min 10/12/2023 14:58 EDT Systolic Blood Pressure Non-Invasive 85 mmHg mmHg Diastolic Blood Pressure Non-Invasive 61 mmHg mmHg 10/12/2023 14:55 EDT Respiratory Rate - Anes 12 br/min br/min 10/12/2023 14:52 EDT Systolic Blood Pressure Non-Invasive 99 mmHg mmHg Diastolic Blood Pressure Non-Invasive 61 mmHg mmHg 10/12/2023 14:50 EDT Temperature (Route Not Specified) 36.07 DegC DegC Heart Rate Monitored 66 bpm bpm Respiratory Rate - Anes 12 br/min br/min 10/12/2023 14:49 EDT Systolic Blood Pressure Non-Invasive 98 mmHg mmHg Diastolic Blood Pressure Non-Invasive 65 mmHg mmHg 10/12/2023 14:46 EDT Systolic Blood Pressure Non-Invasive 95 mmHg mmHg Diastolic Blood Pressure Non-Invasive 69 mmHg mmHg 10/12/2023 14:45 EDT Temperature (Route Not Specified) 36.05 DegC DegC Heart Rate Monitored 63 bpm bpm Respiratory Rate - Anes 12 br/min br/min 10/12/2023 14:43 EDT Systolic Blood Pressure Non-Invasive 93 mmHg mmHg Diastolic Blood Pressure Non-Invasive 64 mmHg mmHg 10/12/2023 14:40 EDT Temperature (Route Not Specified) 36.04 DegC DegC Heart Rate Monitored 66 bpm bpm Respiratory Rate - Anes 12 br/min br/min Systolic Blood Pressure Non-Invasive 93 mmHg mmHg Diastolic Blood Pressure Non-Invasive 60 mmHg mmHg 10/12/2023 14:37 EDT Systolic Blood Pressure Non-Invasive 98 mmHg mmHg Diastolic Blood Pressure Non-Invasive 60 mmHg mmHg 10/12/2023 14:35 EDT Temperature (Route Not Specified) 36.03 DegC DegC Heart Rate Monitored 67 bpm bpm Respiratory Rate - Anes 12 br/min br/min 10/12/2023 14:34 EDT Systolic Blood Pressure Non-Invasive 79 mmHg mmHg Diastolic Blood Pressure Non-Invasive 51 mmHg mmHg 10/12/2023 14:31 EDT Systolic Blood Pressure Non-Invasive 83 mmHg mmHg Diastolic Blood Pressure Non-Invasive 48 mmHg mmHg 10/12/2023 14:30 EDT Temperature (Route Not Specified) 36.02 DegC DegC Heart Rate Monitored 67 bpm bpm Respiratory Rate - Anes 12 br/min br/min 10/12/2023 14:28 EDT Systolic Blood Pressure Non-Invasive 91 mmHg mmHg Diastolic Blood Pressure Non-Invasive 50 mmHg mmHg 10/12/2023 14:25 EDT Temperature (Route Not Specified) 36.01 DegC DegC Heart Rate Monitored 66 bpm bpm Respiratory Rate - Anes 12 br/min br/min Systolic Blood Pressure Non-Invasive 88 mmHg mmHg Diastolic Blood Pressure Non-Invasive 51 mmHg mmHg 10/12/2023 14:22 EDT Systolic Blood Pressure Non-Invasive 90 mmHg mmHg Diastolic Blood Pressure Non-Invasive 58 mmHg mmHg 10/12/2023 14:20 EDT Temperature (Route Not Specified) 36.01 DegC DegC Heart Rate Monitored 67 bpm bpm Respiratory Rate - Anes 12 br/min br/min 10/12/2023 14:19 EDT Systolic Blood Pressure Non-Invasive 105 mmHg mmHg Diastolic Blood Pressure Non-Invasive 82 mmHg mmHg 10/12/2023 14:16 EDT Systolic Blood Pressure Non-Invasive 97 mmHg mmHg Diastolic Blood Pressure Non-Invasive 67 mmHg mmHg 10/12/2023 14:15 EDT Temperature (Route Not Specified) 36.02 DegC DegC Heart Rate Monitored 67 bpm bpm Respiratory Rate - Anes 12 br/min br/min 10/12/2023 14:13 EDT Systolic Blood Pressure Non-Invasive 104 mmHg mmHg Diastolic Blood Pressure Non-Invasive 61 mmHg mmHg 10/12/2023 14:10 EDT Temperature (Route Not Specified) 36.04 DegC DegC Heart Rate Monitored 73 bpm bpm Respiratory Rate - Anes 12 br/min br/min Systolic Blood Pressure Non-Invasive 104 mmHg mmHg Diastolic Blood Pressure Non-Invasive 70 mmHg mmHg 10/12/2023 14:07 EDT Systolic Blood Pressure Non-Invasive 117 mmHg mmHg Diastolic Blood Pressure Non-Invasive 81 mmHg mmHg 10/12/2023 14:05 EDT Temperature (Route Not Specified) 36.07 DegC DegC Heart Rate Monitored 82 bpm bpm Respiratory Rate - Anes 12 br/min br/min 10/12/2023 14:04 EDT Systolic Blood Pressure Non-Invasive 112 mmHg mmHg Diastolic Blood Pressure Non-Invasive 66 mmHg mmHg 10/12/2023 14:01 EDT Systolic Blood Pressure Non-Invasive 105 mmHg mmHg Diastolic Blood Pressure Non-Invasive 80 mmHg mmHg 10/12/2023 14:00 EDT Temperature (Route Not Specified) 36.1 DegC DegC Heart Rate Monitored 79 bpm bpm Respiratory Rate - Anes 12 br/min br/min 10/12/2023 13:58 EDT Systolic Blood Pressure Non-Invasive 114 mmHg mmHg Diastolic Blood Pressure Non-Invasive 60 mmHg mmHg 10/12/2023 13:55 EDT Temperature (Route Not Specified) 36.11 DegC DegC Heart Rate Monitored 68 bpm bpm Respiratory Rate - Anes 12 br/min br/min Systolic Blood Pressure Non-Invasive 93 mmHg mmHg Diastolic Blood Pressure Non-Invasive 59 mmHg mmHg 10/12/2023 13:52 EDT Systolic Blood Pressure Non-Invasive 96 mmHg mmHg Diastolic Blood Pressure Non-Invasive 58 mmHg mmHg 10/12/2023 13:50 EDT Temperature (Route Not Specified) 36.12 DegC DegC Heart Rate Monitored 72 bpm bpm Respiratory Rate - Anes 10 br/min br/min 10/12/2023 13:49 EDT Systolic Blood Pressure Non-Invasive 106 mmHg mmHg Diastolic Blood Pressure Non-Invasive 62 mmHg mmHg 10/12/2023 13:46 EDT Systolic Blood Pressure Non-Invasive 92 mmHg mmHg Diastolic Blood Pressure Non-Invasive 76 mmHg mmHg 10/12/2023 13:45 EDT Temperature (Route Not Specified) 36.13 DegC DegC Heart Rate Monitored 74 bpm bpm Respiratory Rate - Anes 10 br/min br/min 10/12/2023 13:43 EDT Systolic Blood Pressure Non-Invasive 90 mmHg mmHg Diastolic Blood Pressure Non-Invasive 67 mmHg mmHg 10/12/2023 13:40 EDT Temperature (Route Not Specified) 36.1 DegC DegC Heart Rate Monitored 76 bpm bpm Respiratory Rate - Anes 10 br/min br/min Systolic Blood Pressure Non-Invasive 92 mmHg mmHg Diastolic Blood Pressure Non-Invasive 55 mmHg mmHg 10/12/2023 13:37 EDT Systolic Blood Pressure Non-Invasive 97 mmHg mmHg Diastolic Blood Pressure Non-Invasive 58 mmHg mmHg 10/12/2023 13:35 EDT Heart Rate Monitored 78 bpm bpm Respiratory Rate - Anes 10 br/min br/min 10/12/2023 13:34 EDT Systolic Blood Pressure Non-Invasive 108 mmHg mmHg Diastolic Blood Pressure Non-Invasive 60 mmHg mmHg 10/12/2023 13:31 EDT Systolic Blood Pressure Non-Invasive 146 mmHg mmHg Diastolic Blood Pressure Non-Invasive 80 mmHg mmHg 10/12/2023 13:30 EDT Heart Rate Monitored 89 bpm bpm Respiratory Rate - Anes 10 br/min br/min (Modified) 10/12/2023 13:28 EDT Systolic Blood Pressure Non-Invasive 119 mmHg mmHg Diastolic Blood Pressure Non-Invasive 78 mmHg mmHg 10/12/2023 13:25 EDT Heart Rate Monitored 72 bpm bpm Respiratory Rate - Anes 12 br/min br/min (Modified) Systolic Blood Pressure Non-Invasive 132 mmHg mmHg Diastolic Blood Pressure Non-Invasive 77 mmHg mmHg 10/12/2023 11:49 EDT Temperature Temporal Artery 35.8 DegC Apical Heart Rate 82 bpm Respiratory Rate 18 br/min Systolic Blood Pressure Non-Invasive 150 mmHg HI Diastolic Blood Pressure Non-Invasive 89 mmHg . Mental status: at preoperative baseline. Respiratory function: respirations are non-labored, Stable. Respiratory support: none. CV function: Stable. Cardiovascular support: none. Pain: Satisfactory. Nausea status: Satisfactory. Postoperative hydration status: within normal limits. Notes: Patient is sufficiently recovered from anesthesia to participate in the evaluation. No follow-up care needed. No complications post-anesthesia.. Digitally Signed by ROLDAN VAUGHN MD on 10/12/2023 05:09 PM [id number] An[facility]hesiology Consult note Patient: AICHA MATTSON Age: 58 years Sex: Female : 1965 Associated Diagnoses: None Author: KEELY ELIZABETH MD Preoperative Information Time of last food or liquid consumption: 10/12/2023 00:00:00 Anesthesia history Patient's history: negative. Family's history: negative. Health Status Allergies: Allergic Reactions (Selected) NKA No Known Medication Allergies, Allergies (2) ActiveSeverityReaction NKANone Documented No Known Medication AllergiesNone Documented Current medications: (Selected) Inpatient Medications Ordered LR 1,000 mL: 20 mL/hr, Intravenous Documented Medications Documented Calcium Plus Vitamin D3 600 mg-10 mcg (400 intl units) oral tablet: tab(s), Oral, qAM, 0 Refill(s) IV Immunoglobulin: IV Bolus, Once monthly x2 consecutive days, 0 Refill(s) Multivitamin: 1 tab(s), Oral, qHS, 0 Refill(s) biotin 10,000 mcg oral capsule: 10,000 mcg, 1 cap(s), Oral, qHS, 90 cap(s), 0 Refill(s) cetirizine 10 mg oral capsule: 10 mg, 1 cap(s), Oral, qAM, 40 cap(s), 0 Refill(s) folic acid 0.4 mg oral tablet: 0.4 mg, 1 tab(s), Oral, BID, 0 Refill(s) methotrexate 2.5 mg oral tablet: 15 mg, 6 tab(s), Oral, Wednesday, 0 Refill(s) predniSONE 5 mg oral tablet: 5 mg, 1 tab(s), Oral, qAM, 0 Refill(s) tiZANidine 4 mg oral capsule: 4 mg, 1 cap(s), Oral, q8h, PRN: for muscle spasm, 30 cap(s), 0 Refill(s) traMADol 50 mg oral tablet: 50 mg, 1 tab(s), Oral, TID, PRN: as needed for pain, 0 Refill(s) valACYclovir 1 g oral tablet: 1 gram(s), 1 tab(s), Oral, qAM, pt to take 2 tabs at onset of cold sore, then daily, PRN: cold sore, 0 Refill(s), Medications (1) Active Scheduled: (0) Continuous: (1) Lactated Ringers 1,000 mL 1,000 mL, Intravenous, 20 mL/hr PRN: (0) Problem list: Medical Dermatomyositis / SNOMED CT [id number] / Confirmed Former heavy cigarette smoker (20-39 per day) / SNOMED CT [id number] / Confirmed Headache / SNOMED CT 72299435 / Confirmed Myalgia / SNOMED CT 188408964 / Confirmed Cervical polyp / SNOMED CT 697187538 / Confirmed Nasal ulcer / SNOMED CT 607903581 / Confirmed, Active Problems (15) 6th nerve palsy Arthritis Benign colon polyp Bleeding hemorrhoids Cervical polyp Cyst and mucocele of nose and nasal sinus Dermatomyositis Diplopia Former heavy cigarette smoker (20-39 per day) Headache History of COVID-19 Myalgia Nasal ulcer 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 History of cholecystectomy ([id number]). History of umbilical hernia repair ([id number]). Dilation and curettage for termination of ([id number]). Social History: Social & Psychosocial Habits Alcohol 10/06/2023 Use: Current Type: Wine Frequency: 1-2 times per year Substance Abuse 10/06/2023 Use: Never Tobacco 10/06/2023 Tobacco Use: Former smoker, quit more Started at age: 16 Years Stopped at age: 48 Years Home/Environment 10/06/2023 Living situation: Home/Independent Safe place to go: Yes Domestic Concerns None Lives In 1st floor bathroom, 2nd floor bedroom, Single level home Current Home Treatments None Special Services and Community Resources None Spouse Name Jordon Marital Status of Patient if Patient Independent Adult: Nutrition/Health 10/06/2023 Type of diet: Regular Caffeine intake amount: 1-2 servings coffee daily Appetite Good Eating Difficulties None Physical Examination Vital Signs 10/12/2023 11:49 EDT Temperature Temporal Artery 35.8 DegC Apical Heart Rate 82 bpm Respiratory Rate 18 br/min Systolic Blood Pressure Non-Invasive 150 mmHg HI Diastolic Blood Pressure Non-Invasive 89 mmHg Vital Signs (last 24 hrs) Last Charted Temp Okfakeku42.8 DegC (OCT 11 11:49) Heart Rate Eeqpwt23 bpm (OCT 11 11:49) SBPH 150 mmHg (OCT 11 11:49) DBP89 mmHg (OCT 11 11:49) Measurements from flowsheet : Measurements 10/12/2023 11:49 EDT Height 172.7 cm Height in inches 68 inch(es) Admission Weight 99.3 kg Weight Lbs 218.5 lb [place] Body Weight 63.88 kg Admission Body Mass Index 33.29 m2 Pain assessment: Pain Assessment 10/12/2023 11:49 EDT Primary Pain Intensity 0 Pain Scale Type 0-10 Pain scale . General: Alert and oriented, No acute distress. Airway: Mallampati classification: II (soft palate, fauces, uvula visible). Dentition Evaluation: Own teeth. Respiratory: Lungs are clear to auscultation. Cardiovascular: Normal rate. Heart Sounds: Normal. 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 SN - GCD - Case Level Level 4 10/12/2023 12:59 EDT SN - CAt - Case Attendee SN - CAt - Case Attendee 10/12/2023 12:57 EDT SN - CAt - Case Attendee SN - CAt - Case Attendee SN - CAt - Case Attendee SN - CAt - Case Attendee SN - CAt - Case Attendee SN - CAt - Case Attendee SN - CAt - Case Attendee SN - CAt - Case Attendee SN - CAt - Case Attendee SN - CAt - Case Attendee SN - CAt - Case Attendee SN - CAt - Case Attendee SN - CAt - Role Performed Primary Surgeon SN - CAt - Role Performed Anesthesiologist SN - CAt - Role Performed WEIGHT LOSS CENTRE MANAGER SN - CAt - Role Performed Cafe Or Restaurant Manager 1 SN - CAt - Role Performed Scrub Technologist SN - CAt - Role Performed Photovoltaic Installer 1 SN - CAt - Role Performed Scrub 1 10/12/2023 11:57 EDT SN - Preop - CTm Pt Ready for OR/Proced 10/12/2023 11:57 10/12/2023 11:57 EDT Hand Left 10/12/2023 20 gauge Peripheral IV Activity: Insert new site Peripheral IV Dressing Condition: Clean, Dry, Intact Peripheral IV Dressing Activity: Applied, Transparent dressing Peripheral IV Line Status/Patency: Continuous infusion Peripheral IV Site Condition: No complications Peripheral IV Equipment: Manual Peripheral IV Number of Attempts: 1 10/12/2023 11:56 EDT Lactated Ringers Injection Begin Bag 1,000 mL mL 10/12/2023 11:49 EDT Height 172.7 cm Height in inches 68 inch(es) Admission Weight 99.3 kg Weight Lbs 218.5 lb [place] Body Weight 63.88 kg Admission Body Mass Index 33.29 m2 Temperature Temporal Artery 35.8 DegC Apical Heart Rate 82 bpm Respiratory Rate 18 br/min Systolic Blood Pressure Non-Invasive 150 mmHg HI Diastolic Blood Pressure Non-Invasive 89 mmHg Primary Pain Intensity 0 Pain Scale Type 0-10 Pain scale Heart Rhythm Regular Respirations Unlabored Respiratory Pattern Regular Breath Sounds Auscultated Anterior only All Lobes Breath Sounds Clear Oxygen Therapy Room air Oxygen Saturation 96 % Abdomen Description Non-distended, Soft Bowel Sounds All Quadrants Present Urinary Elimination Voiding, no difficulties Skin Temperature Warm Skin Description [place], Normal for ethnicity Mucous Membrane Color [place] Neurological Symptoms Patient denies Characteristics of Speech Clear Level of Consciousness Alert Strength All Extremities Strong Tone All Extremities Normal Sensation All Extremities Intact Affect/Behavior Appropriate, Calm, Cooperative Orientation Oriented x 4 Standard Safety ID band on, Safety level maintained Demonstrates Correct Call Light Use Yes 10/12/2023 11:46 EDT SN - Preop - CTm Pt in SDS Room 10/12/2023 11:40 10/12/2023 11:44 EDT IV Present Present Violence Risk Confused No Violence Risk Irritable No Violence Risk Boisterous No Violence Risk Verbal Threats No Violence Risk Physical Threats No Violence Risk Attacking Objects No Violence Risk Predictor Score 0 Allergies No Consent Form Signed Yes Patient Dressed In Hospital gown Pre-op Preparation Glasses removed History & Physical On Chart Yes Belongings At Bedside Glasses, Pants, Shirt, Shoes, Socks, Undergarments, Pt participated in reconciliation NPO Status Maintained Patient ID Band on and Verified Yes Last Fluid Intake 10/11/2023 23:59 (Modified) Last Food Intake 10/11/2023 20:00 Last Void 10/12/2023 11:45 10/12/2023 11:43 EDT Designated Person #1 We May Share DOUGIE Ruvalcaba [phone] Designated Person #1 Relationship Spouse Privacy Restrictions Requested None Status No, per patient Sensory Deficits Blind, right eye Sleep Apnea Snore Yes Sleep Apnea Tired No Sleep Apnea Obstruction No Sleep Apnea Pressure No Sleep Apnea BMI No Sleep Apnea Age Yes Sleep Apnea Neck No Sleep Apnea Gender No Sleep Apnea Score 2 Diagnosed With Sleep Apnea No Advanced Directives No - refuses information Infectious Disease Symptoms Patient states no symptoms Infectious Disease Recent Exposure No Alcohol and Drug Use No Employee of Institutional Living No Health Care Employee No History of Exposure to TB No History of Positive Chest X-Ray for TB No History of Positive TB Skin Test No Homeless No Known Immunosuppression No Recent Immigrant No Resident of Institutional Living No Bloody Sputum No Fatigue No Fever No Loss of Appetite No Night Sweats No Persistent Cough > 3 Weeks No Weight Loss No Surgery Scheduled On Date/Time 10/12/2023 13:30 Patient Aware Date/Time Of Surgery Yes Arrival Time the Day of Surgery 10/12/2023 11:30 Patient Aware of Arrival Time Yes Pre-Op Patient Education NPO after midnight, No makeup, No jewelry, Responsible Alliance Party, Aware of surgery location, Pre-op education done, Instructed to take ordered medications, Instructed to bring home medications, VTE prevention handout given, SSI prevention handout given SN - Preprocedure Comments Spoke with patient, Verbalizes/Nonverbally indicates understanding Individuals Taught Patient, Spouse Learning Readiness Willing to learn Barriers to Learning None evident Teaching Method Demonstration, Explanation, Printed materials, Teach-back, Video/Educational TV Preferred Spoken Language [place] Citizen Preferred Written Language [place] Citizen Family/Caregiver Prefer Spoken Language [place] Citizen Family/Caregiver Prefer Written Language [place] Citizen Teaching Evaluation Verbalizes/Nonverbally indicates understanding Surgical Site Infection Prevention SSI FAQ provided, Hand hygiene Infection Prevention Teaching Evaluation Verbalizes/Nonverbally indicates understanding Pre Procedure/Surgery Education Appropriate expectations, Date/Time of procedure/surgery, Hospital gown requirement worn to OR, NPO, Responsible hi lo driver for discharge Safety Measures Education Fall prevention, Call light use Safety Teaching Evaluation Verbalizes/Nonverbally indicates understanding Safety Brochure Information Reviewed Yes Arnold Reeys Video Viewed No Information Given by Patient Patient's Current Physicians Patient's Current Physicians Discharge To, Anticipated Home with family care Prev Test Positive/Diagnosis w/COVID-19 Yes Previous COVID-19 Positive Date 2020 Current Quarantine/Isolated any Illness No Any Contact with Sick Animals/Birds No Traveled Anywhere in Last 30 Days No Lost Weight Unintentionally Recently No Eat Poorly Due to Decreased Appetite No Total MST Score 0 No Personal Devices, Patient Valuables None Anesthesia/Transfusions Prior anesthesia Admission Note-Nursing Same Day Patient History 10/11/2023 14:27 EDT Surgery Scheduled On Date/Time 10/12/2023 13:30 Patient Aware Date/Time Of Surgery Yes Arrival Time the Day of Surgery 10/12/2023 11:30 Patient Aware of Arrival Time Yes Pre-Op Patient Education NPO after midnight, No makeup, No jewelry, Responsible Alliance Party, Aware of surgery location, Pre-op education done, Instructed to take ordered medications, Instructed to bring home medications, VTE prevention handout given, SSI prevention handout given (Modified) Admission Note-Nursing Patient History PreTest (Modified) . Assessment and Plan [place] [employer] Anesthesiologists (ASA) physical status classification: Class II. Anesthetic Preoperative Plan Anesthetic technique: General. Maintenance airway: Oral endotracheal tube. Risks discussed: nausea, vomiting, headache, sore throat, dental injury, hypotension, allergic reaction, serious complications. Informed consent: signed by patient. Notes: Patient was seen and examined by neKeely MD. The medical record was reviewed. Consultations, lab results , radiographic results and cardiovascular studies examined and noted. Anesthesia was explained in detail and questions were invited and answered. We will proceed as outlined inthe plan above.. Digitally Signed by KEELY ELIZABETH MD on 10/12/2023 01:08 PM Digitally Signed by KEELY ELIZABETH MD on 10/12/2023 02:41 PM [id number] Discharge instructions Follow Up Care 09/20/2023 11:44:59 With:JASMYNE LUQUE MD, Neurosurgery Address: [address] [facility] [place] [address]- [phone] When:10/26/2023 15:00:00 With:BRANDO BURNETT MD, [facility], Orthopedic, Otolaryngology Service Address: [facility] [address] [place] [address]- Business (1) When:Within 2 Day(s) Comments:Please call the office to schedule a follow-up appointment for wednesday as dr burnett will take packing [facility] 02-16-2024 Note ORIGINAL EXAMINATION: CT OF THE HEAD WITHOUT CONTRAST 06/25/2023 1:58 pm TECHNIQUE: CT of the head was performed without the administration of intravenous contrast. Automated exposure control, iterative reconstruction, and/or weight based adjustment of the mA/kV was utilized to reduce the radiation dose to as low as reasonably achievable. COMPARISON: None. HISTORY: ORDERING SYSTEM PROVIDED HISTORY: Reason for Exam: new onset double vision with eyes open since yesterday morning, vertigo, chronic recurring headaches, blurry vision with both eyes open and chronic recurring rt sided HIDALGO caused by tension in neck. FINDINGS: BRAIN/VENTRICLES: There is no acute intracranial hemorrhage, mass effect or midline shift. The sella turcica is expanded with questionable pituitary mass. No abnormal extra-axial fluid collection. The sidhu-white differentiation is maintained without evidence of an acute infarct. There is no evidence of hydrocephalus. ORBITS: The visualized portion of the orbits demonstrate no acute abnormality. SINUSES: The visualized paranasal sinuses and mastoid air cells demonstrate no acute abnormality. SOFT TISSUES/SKULL: No acute abnormality of the visualized skull or soft tissues. IMPRESSION: There is expansion of the sella turcica suggesting a chronic pituitary mass. Brain MRI with pituitary mass protocol recommended for further evaluation. No acute intracranial hemorrhage or other acute process. Interpreted by: Jose Angel Best MD Preliminary Report By: Jose Angel Best MD Electronically signed By Jose Angel Best MD Dictated Date: 06/25/2023 2:02:57 PM Prelim Date: 06/25/2023 2:04:58 PM Sign Date: 06/25/2023 2:04:58 PM Ordering Provider: [facility] [address]12-05-2021 History of Present illness Narrative* Beulah Christensen MD - 04/13/2021 9:56 PM EST DATE OF SERVICE: 04/10/2021 REASON FOR VISIT: [...] Patient understands and agrees. Beulah Christensen MD PP/[id number] [facility] File#: [id number] END OF DOCUMENT / CHANGE LOG FOLLOWS Last Edited By Elec. Signed By Beulah Christensen MD #[email or web address] Beulah Christensen MD #PAWPR on 05/05/2021 10:10 ET on 05/05/2021 10:10 ET Revision Number - 2 ^^^ Verified/Reviewed by 05/05/21 [id number] [address] [facility] PATIENT NAME: [facility] MEDICAL REC #: [id number] [place] [address] [facility] REPORT STATCARE PHYSICIAN documented in this encounterRio Medina ClinicEvaluation + Plan note Future Appointments Appointment Date:07/15/2023 04:00:00 PM Scheduled Provider:ML LO Location:[facility] Appointment Type: Wellness Annual Future Scheduled Tests Laboratory* Thyroid Stimulating Hormone 06/26/23 * Complete Blood Count 06/26/23 * Lipid Profile 06/26/23 * Hepatitis C Antibody IgG 06/26/23 * Vitamin D Level 06/26/23 * Complete Metabolic Panel 06/26/23 Radiology* MRI Brain w/ + w/o Contrast 06/25/23 [facility] Evaluation + Plan note Future Appointments Appointment Date:07/15/2023 04:00:00 PM Scheduled Provider:ML LO Location:[facility] Appointment Type: Wellness Annual Diagnostic Tests Pending * Hepatitis C Antibody IgG 06/26/23 Future Scheduled Tests Radiology* MRI Brain w/ + w/o Contrast 06/25/23 [facility] Evaluation + Plan note Future Appointments Appointment Date:07/15/2023 04:00:00 PM Scheduled Provider:ML LO Location:[facility] Appointment Type: Wellness Annual Appointment Date:07/29/2023 01:45:00 PM Scheduled Provider:JASMYNE LUQUE MD Location:[facility] Appointment Type: OV Future Scheduled Tests Laboratory* ACTH, Plasma 07/13/23 * Cortisol Level 07/13/23 * IGF-1 07/13/23 * Luteinizing Hormone 07/13/23 * Prolactin Level 07/13/23 * Thyroid Stimulating Hormone 07/13/23 * Free T4 07/13/23 * Follicle Stimulating Hormone Level 07/13/23 * MIS Lab Send out (Blood Specimens) 07/13/23 [facility] evaluation + Plan note Future Appointments Appointment Date:07/15/2023 04:00:00 PM Scheduled Provider:ML LO Location:[facility] Appointment Type:PC Wellness Annual Appointment Date:07/29/2023 01:45:00 PM Scheduled Provider:JASMYNE LUQUE MD Location:[facility] Appointment Type:NS OV Diagnostic Tests Pending * Miscellaneous LC Test 07/14/23 * IGF-1 07/14/23 * ACTH, Plasma 07/14/23 [facility] evaluation + Plan note Future Appointments Appointment Date:10/15/2023 11:30:00 AM Scheduled Provider: Location:[facility] Appointment Type:MA Mammogram Screening Bilateral w/ Paul Appointment Date:10/26/2023 03:00:00 PM Scheduled Provider:JASMYNE LUQUE MD Location:[facility] Appointment Type:NS Post Op Future Scheduled Tests Radiology* MA Mammo Screening Bilateral w/ Paul 10/15/23 [facility] Evaluation + Plan note Future Appointments Appointment Date:02/01/2024 01:00:00 PM Scheduled Provider:JASMYNE LUQUE MD Location:[facility] Appointment Type:NS OV Future Scheduled Tests Radiology* MA Mammo Screening Bilateral w/ Paul [facility]15/[facility] Hospital Evaluation noteNo assessment information available [facility] Work Phone: Evaluation note* Diagnosis Onset Date Resolution Status Dermatomyositis acute [facility] Work Phone: Evaluation note* Diagnosis Onset Date Resolution Status Dermatomyositis acute Dermatomyositis acute [facility] Work Phone: Evaluation note* Diagnosis Onset Date Resolution Status Sinus infection acute UTI (urinary tract infection) acute [facility] Work Phone: Hospital course Narrative No data available for this section [facility] Hospital Discharge instructions No data available for this section [facility] Progress note No data available for this section [facility] Reason for referral (narrative)No reason for referral [facility]: Instructions Instruction Description Start Date CompletedPlease follow-up wi th Primary Care Physician or Oral And Maxillofacial Surgery Resident for treatment or adjustment of medication regarding elevated blood pressure. Advance Directives No Advanced Directives Records Found Advance Directive Response Recorded Date/ Time Living Will No December 11, 2021 8:20am Power of Wood Scaler No December 11 8:20am Advance Directive Response Recorded Date/ Time Living Will No December 11, 2021 7:20am Power of Wood Scaler No December 11 7:20am Advance Directive Response Recorded Date/ Time Living Will No June 20 024 12:07pm Power of Wood Scaler No June 20, 2023 12:07pm Advance Directive Response Recorded Date/ Time Living Will No June 20 024 1:07pm Power of Wood Scaler No June 20, 2023 1:07pm Assessments There may be information available, but it has not been provided by the sender. Review of System There may be information available, but it has not been provided by the sender. Family History No Family History Records Found Relationship Condition Age at Onset Recorded Date/T amos mother Malignant neoplasm of ovary Unknown Relationship Condition Age at Onset Recorded Date/T amos mother Malignant neoplasm of ovary Unknown Asthma Unknown Arthritis Unknown Malignant neoplasm of colon Unknown Malignant neoplasm Unknown father Arthritis Unknown Summary Purpose Chief Complaint and Reason for Visit Chief Complaint ARTHRITIS/PAIN- COPY PCP PAIN- COPY PCP Chief Complaint PAIN- COPY PCP Chief Complaint MUSCLE BIOPSY LT QUADRICEP MUSCLE BIOPSY LT QUADRICEP MUSCLE BIOPSY Reason for Visit Dermatomyositis Chief Complaint MUSCLE BIOPSY LT QUADRICEP MUSCLE BIOPSY LT QUADRICEP MUSCLE BIOPSY Muscle Biopsy 8/9 OCTAGAM OCTAGAM PAIN- COPY PCP Reason for Visit Dermatomyositis Dermatomyositis Chief Complaint MUSCLE BIOPSY LT QUADRICEP MUSCLE BIOPSY LT QUADRICEP MUSCLE BIOPSY Muscle Biopsy 8/ OCTAGAM OCTAGAM PAIN- COPY PCP OCTAGAM OCTAGAM Reason for Visit Dermatomyositis Dermatomyositis Chief Complaint MUSCLE BIOPSY LT QUADRICEP MUSCLE BIOPSY LT QUADRICEP MUSCLE BIOPSY Muscle Biopsy 12/16 OCTAGAM OCTAGAM PAIN- COPY PCP OCTAGAM OCTAGAM OCTAGAM OCTAGAM Reason for Visit Dermatomyositis Dermatomyositis Chief Complaint OCTAGAM OCTAGAM PAIN- COPY PCP PAIN- COPY PCP Chief Complaint PAIN- COPY PCP PAIN- COPY PCP Chief Complaint SORE THROAT/VOMITING /DIARRHEA Urinary tract infection, SINUS INFECTION Reason for Visit Sinus infection UTI (urinary tract infection) Chief Complaint SORE THROAT/VOMITING /DIARRHEA Urinary tract infection, SINUS INFECTION COPY PCP Reason for Visit Sinus infection UTI (urinary tract infection) Chief Complaint Admit Date CONCERN FOR SINUS INFECTION April 3:41pm CONCERN FOR SINUS INFECTION May 18, 2024 3:37pm CONCERN FOR UTI May 23, 2024 1 2:27pm EORDER May 23, 2024 3 :02pm PAIN- COPY PCP August 15, 2024 4:06 pm Reason for Visit Admit Date Sinus infection April 21, 2024 3:41pm Sinus infection May 18, 2024 3: 37pm Additional Source Comments Source Comments (unrecognize d section and content) In the event this informatio n is protected by the Federal Confidentiality of Alcohol and Drug Abuse Patient Records regulations: The Federal rules restrict any use of the information to criminally investigate or prosecute any alcohol or drug abuse patient.[facility] the event this information is protected by the Federal Confidentiality of Alcohol and Drug Abuse Patient Records regulations: The Federal rules restrict any use of the information to criminally investigate or prosecute any alcohol or drug abuse patient.[facility] INFORMATION SOURCE (unrecogn ized section and content) DATE CREATED AUTHOR 04/13/2021 [facility] Wendi Lala DATE CREATED AUTHOR AUTHOR'S ORGANIZ ATION 01/07/2024 [facility] ([place]) DATE CREATED AUTHOR AUTHOR'S ORGANIZ ATION 01/20/2024 [facility] DATE CREATED AUTHOR AUTHOR'S ORGANIZ ATION 02/15/2024 [facility] DATE CREATED AUTHOR AUTHOR'S ORGANIZ ATION 08/19/2024 [facility] Goals (unrecognized section and content) Goals may be documented in a n alternate sectionGoals may be documented in an alternate sectionGoals may be documented in an alternate sectionGoals may be documented in an alternate sectionGoals may be documented in an alternate sectionGoals may be documented in an alternate sectionGoals may be documented in an alternate sectionGoals may be documented in an alternate sectionGoals may be documented in an alternate sectionGoals may be documented in an alternate sectionGoals may be documented in an alternate section No data available for this section No data available for this section No data available for this section No data available for this sectionGoals may be documented in an alternate sectionGoals may be documented in an alternate section No data available for this section No data available for this section No data available for this section No data available for this sectionGoals may be documented in an alternate section Care Teams (unrecognized sec tion and content) Team Status: Active Member Role Status Dates Dr. Brando Paige DO Family Provider Active Lay Landeros [employer], [employer]-C Primary Care Provider Active Team Status: Inactive Member Role Status Dates Lay Landeros [employer], [employer]-C Primary Care Provider Active Dr. Padmaja Hart MD Attending Provider, Referring Provider Active Team Status: Active Member Role Status Dates Dr. Brando Paige DO Family Provider Active No Primary Care Physician Primary Care Provider Active Team Status: Inactive Member Role Status Dates No Primary Care Physician Primary Care Provider Active Dr. Padmaja Hart MD Attending Provider, Referring Provider Active Team Status: Inactive Member Role Status Dates No Primary Care Physician Primary Care Provider, Refer ring Provider Active Bryant Pavon PA, PA Attending Provider Active Team Status: Inactive Member Role Status Dates No Primary Care Physician Primary Care Provider, Refer ring Provider Active Jacki Connors , [employer] Attending Provider Active Team Status: Inactive Member Role Status Dates No Primary Care Physician Primary Care Provider Active Jacki Connors [employer] Attending Provider, Referring Provider Active Team Status: Active Member Role Status Dates Dr. Brando Paige DO Family Provider Active Ml Lo [employer], [employer]-C Primary Care Provider Active Team Status: Inactive Member Role Status Dates Ml oL [employer], [employer]-C Primary Care Provider Active Dr. Padmaja Hart MD Attending Provider, Referring Provider Active Team Status: Inactive Member Role Status Dates Ml Lo [employer], [employer]-C Primary Care Provider Active Start: April 21, 2024 End: April 21, 2024 Ml Lo [employer], [employer]-C Referring Provider Active Start: April 21, 2024 End: April 21, 2024 Hilario DICKERSON PA Attending Provider Active Sta rt: April 21, 2024 End: April 21, 2024 Team Status: Inactive Member Role Status Dates Ml Lo [employer], [employer]-C Primary Care Provider Active Start: May 18, 2024 End: May 18, 2024 Ml Lo [employer], [employer]-C Referring Provider Active Start: May 18, 2024 End: May 18, 2024 Hilario Arriaga PA PA Attending Provider Active Sta rt: May 18, 2024 End: May 18, 2024 Team Status: Inactive Member Role Status Dates Ml Lo [employer], [employer]-C Primary Care Provider Active Start: May 23, 2024 End: May 23, 2024 Ml Lo [employer], [employer]-C Referring Provider Active Start: May 23, 2024 End: May 23, 2024 Bryant Pavon PA, PA Attending Provider Active Start: May 23, 2024 End: May 23, 2024 Team Status: Inactive Member Role Status Dates Ml Lo [employer]ER, [employer]-C Primary Care Provider Active Start: May 23, 2024 End: May 23, 2024 Bryant Pavon PA, PA Attending Provider Active Start: May 23, 2024 End: May 23, 2024 Bryant Pavon PA, PA Referring Provider Active Start: May 23, 2024 End: May 23, 2024 Team Status: Inactive Member Role Status Dates Ml Lo [employer], [employer]-C Primary Care Provider Active Start: August 15, 2024 End: August 15, 2024 Dr. Padmaja Hart MD Attending Provider Active Start: August 15, 2024 End: August 15, 2024 Dr. Padmaja Hart MD Referring Provider Active Start: August 15, 2024 End: August 15, 2024 FOR RECORDS PERTAINING TO PATIENTS WHO ARE [...] BE BASED ON THE PRIMARY CLINICAL RECORDS. [employer] [facility]. provides no warranty or guarantee of the accuracy or completeness of information in this document.
[2024-10-16 17:08] LABS: Aldolase 3.9 U/L (3.3-10.3); GGTP 18 IU/L (0-60)
== END | disposition home or self-care (01) ==
LOC: MTLAB 15:43
PROVIDERS: PCP Nurse Practitioner Family; Referring Provider Internal Medicine Rheumatology; Visit Provider Internal Medicine Rheumatology
DX: M06.4 Inflammatory polyarthropathy (principal); M33.90 Dermatopolymyositis, unspecified, organ involvement unspecified; M15.9 Polyosteoarthritis, unspecified; Z79.899 Other long term (current) drug therapy
CPT/HCPCS: 36415; 80053; 82085; 82550; 82977; 85025

== ENCOUNTER → 2024-12-07 | Outpatient (CLI) | payer OTHER, SELFPAY ==
[2024-12-07 18:28] LABS: Hematocrit 40.2 % (37-47); Hemoglobin 13.1 g/dL (12.0-15.0); Immature Granulocytes Count 0.030 X10^3/uL (0.0-0.0); Mean Corp Hgb Conc 32.6 g/dL (32-36); Mean Corpuscular Volume 87.2 fL (81-99); Mean Platelet Vol. 10.4 fl (6.2-12.0); NRBC Flagged by Analyzer 0 % (0-5); Platelet Count 284 K/mm3 (150-450); RBC Distribution Width CV 15.2 % (11.6-14.6); RBC Distribution Width SD 47.9 fl (35.1-43.9); Red Blood Count 4.61 M/mm3 (4.2-5.4); White Blood Count 8.1 K/mm3 (4.4-11.0)
[2024-12-07 18:34] LABS: AST(SGOT) 34 U/L (<=31); Alanine Aminotransfer ALT/SGPT 28 U/L (<=34); Albumin, Serum 3.9 g/dL (3.4-4.8); Alkaline Phosphatase 105 U/L (35-104); Anion Gap 14 (5-15); BUN 15 mg/dL (4-19); BUN/Creat Ratio 20.0 RATIO (10-20); CPK Total, Creatine Kinase 178 U/L (24-195); Calcium,Total 9.3 mg/dL (7.6-11.0); Carbon Dioxide 20.2 mmol/L (21.0-32.0); Chloride 103 mmol/L (98-108); Globulin 4.0 g/dL (2.2-4.2); Glucose 97 mg/dL (70-99); Potassium 4.1 mmol/L (3.3-5.1)
[2024-12-11 16:09] LABS: GGTP 17 IU/L (0-60)
== END | disposition home or self-care (01) ==
LOC: MTLAB 16:20
PROVIDERS: PCP Nurse Practitioner Family; Referring Provider Internal Medicine Rheumatology; Visit Provider Internal Medicine Rheumatology
DX: M06.4 Inflammatory polyarthropathy (principal); Z79.899 Other long term (current) drug therapy
CPT/HCPCS: 36415; 80053; 82085; 82550; 82977; 85025

== ENCOUNTER → 2025-03-16 | Outpatient (CLI) | payer OTHER, SELFPAY ==
[2025-03-16 18:00] LABS: AST(SGOT) 29 U/L (<=31); Alanine Aminotransfer ALT/SGPT 27 U/L (<=34); Albumin, Serum 3.8 g/dL (3.4-4.8); Alkaline Phosphatase 99 U/L (35-104); Anion Gap 10 (5-15); BUN 18 mg/dL (4-19); BUN/Creat Ratio 21.1 RATIO (10-20); CPK Total, Creatine Kinase 182 U/L (24-195); Calcium,Total 9.5 mg/dL (7.6-11.0); Carbon Dioxide 24.7 mmol/L (21.0-32.0); Chloride 103 mmol/L (98-108); Globulin 3.2 g/dL (2.2-4.2); Glucose 110 mg/dL (70-99); Potassium 4.1 mmol/L (3.3-5.1)
[2025-03-16 18:01] LABS: Hematocrit 39.3 % (37-47); Hemoglobin 12.7 g/dL (12.0-15.0); Immature Granulocytes Count 0.020 X10^3/uL (0.0-0.0); Mean Corp Hgb Conc 32.3 g/dL (32-36); Mean Corpuscular Volume 88.7 fL (81-99); Mean Platelet Vol. 10.0 fl (6.2-12.0); NRBC Flagged by Analyzer 0 % (0-5); Platelet Count 323 K/mm3 (150-450); RBC Distribution Width CV 15.4 % (11.6-14.6); RBC Distribution Width SD 50.0 fl (35.1-43.9); Red Blood Count 4.43 M/mm3 (4.2-5.4); White Blood Count 8.5 K/mm3 (4.4-11.0)
== END | disposition home or self-care (01) ==
LOC: MTLAB 15:27
PROVIDERS: PCP Nurse Practitioner Family; Referring Provider Internal Medicine Rheumatology; Visit Provider Internal Medicine Rheumatology
DX: M06.4 Inflammatory polyarthropathy (principal); M33.90 Dermatopolymyositis, unspecified, organ involvement unspecified; L40.8 Other psoriasis; Z79.899 Other long term (current) drug therapy
CPT/HCPCS: 36415; 80053; 82085; 82550; 85025